=== PATIENT | male | born 1955 | race Caucasian/White ===

== ENCOUNTER 2024-10-15 11:30 | Emergency (ER) | payer OTHER ==
--- OUTSIDE RECORDS SUMMARY | 2024-10-15 11:51 | XMS REPORT | Continuity of Care Document ---
Author Name Unknown Address [address] [facility] [address] [place] [address] [facility] Address [address] [facility] [address] [place] [address] Care Team Providers Care Margarine Maker Name Role Phone AMINATA REZA Primary Care Physician Sarah LESTER Batista Attending Clinician VINEET Dickinson Attending Clinician UnavailVINEET Alvares Attending Clinician Moises Drummond Unassigned, [place] Attending Clinician U navailLA Casey Attending Clinician Sarahv LA Lockhart Attending Clinician Aminata Ramirez MD Attending Clinician + [phone] Lester Maya MD Attending Clinician Vineet Ibarra DO Attending Clinician AMINATA REZA Attending Clinician Daniel Clement RT, Maria Del Rosario C Attending Clinician Moises Acosta RN, Vince Nesbitt Attending Clinician Unavail BILL Chairez Attending Clinician Victorino Wilson MD Attending Clinician Annette Diaz DO Attending Clinician [phone] Bill Davenport MD Attending Clinician Mikie JONES, Candice Santo Attending Clinician GENIA Kendrick Attending Clinician Unavaila ble ATANASOV, STRAHIL T Attending Clinician Unavaila ernie Vega RN, Shakira Attending Clinician Unavailable TRISH ADAMS Attending Clinician Unavailyolis Garcia MD, Chetna Pulido Attending Clinician [phone] Sophia REDD, Trish Pretty Attending Clinician [phone] Nancy CRONIN Attending Clinician Unavailable Nancy CRONIN Attending Clinician Unavailable Nancy Chávez Attending Clinician [phone] Libia REDD, Aminata Turner Attending Clinician + [phone] Francesco REDD, Lester DunneHErika Attending Clinician + [phone] Vineet Ibarra DO Attending Clinician [phone] Erin JONES, Derek Quinones Attending Clinician Unavail able OCTAVIA WINTER Attending Clinician Unavaila ernie WINTER, OCTAVIA Attending Clinician Unavaila ernie Winter MD, Octavia Attending Clinician [phone] Sarah REDD, Brandon Grande Attending Clinician + Sheila Adams MD Attending Clinician [phone] Sun REDD, [facility] Attending Clinician + [phone] Doctor Unassigned, [place] Attending Clinician U INDIO Keys Attending Clinician Unavaila Indio Gutierrez Attending Clinician [phone] Lab, Ang - Db Attending Clinician Unavailable TEVIN ZIMMER Attending Clinician Unavailable Monique Rider MD Attending Clinician [phone] MONIQUE RIDER Attending Clinician Unavailable WALTER PEDROZA Attending Clinician Unavailable WALTER PEDROZA Attending Clinician Unavailable NEAL LIMON Attending Clinician Unavailable Lexus REDD, Demetris Attending Clinician [phone] ELIZABETH TA Attending Clinician Unavailab MADINA Cancino Attending Clinician Unavailab Madina Cancino DO Attending Clinician [phone] CHRISTIANA HERNANDEZ Attending Clinician Unavail able CHRISTIANA HERNANDEZ Attending Clinician Unavail able LENNIE REYES Attending Clinician Unavailable Amy PIG CASTERLennie Cabrera Attending Clinician [phone] ASHWINI REDD Attending Clinician Unavailable Maria Del Rosario Acevedo Attending Clinician Unavailab MANJU Araujo Attending Clinician Unavailab CHETNA Chaparro Attending Clinician UnavailChetna Page MD Attending Clinician [phone] CORRY LEMHAN Attending Clinician Unavailable Corry Lehman DO Attending Clinician [phone] Shakira Vega RN Attending Clinician Unavailable SHER MO Attending Clinician Unavaila ernie Mo ACNPSher Attending Clinician + [phone] ANNETTE DIAZ Attending Clinician Unavailable Annette Diaz DO Attending Clinician [phone] TIANA ROUSSEAU Attending Clinician Unavailable Onelia PIG CASTER, Tiana Attending Clinician [phone] Manju Morales Attending Clinician + [phone] Nurse, [facility] Attending Clinician Un available SANDRA MENDEZ Attending Clinician Unavaila Niyah Sofia MA Attending Clinician Unavailyolis cedeno 2, Adc Lab Attending Clinician Unavailable LILI CALDERON Attending Clinician UnavailLili Lua MD Attending Clinician [phone] Radiology Attending Clinician Unavailable RADIOLOGY Attending Clinician Unavailable Faculty, Vascular Surg Attending Clinician Unava ilCamilo Gonsalez MD Attending Clinician [phone] Elvira Reza MD Attending Clinician [phone] CAMILO COOMBS Attending Clinician Unavailable WADE LU Attending Clinician Unavailable ANNETTE DIAZ Admitting Clinician Unavailable Annette Diaz DO Admitting Clinician [phone] TRISH ADAMS Admitting Clinician UnavailTrish Jimenez MD Admitting Clinician [phone] Nancy CRONIN Admitting Clinician Unavailable BRANDON SMITH Admitting Clinician Unav LESTER Salazar Admitting Clinician Unavaila VINEET Trent Admitting Clinician Unavailable MADINA JAMES Admitting Clinician CHETNA Snowden Admitting Clinician Annette Burrell DO Admitting Clinician [phone] Libia REDD, Elvira Admitting Clinician [phone] Payers Payer Name Policy Type Policy Number Effective Date Expirati on Date Source MEDICARE PART A \\T\\ B [id number] 2020 00:00:00 [place] [id number] 2020 00:00:00 [facility] [id number] 00:00:00 Problems Condition Name Condition Details Condition Category Status Onset Date Resolution Date Last Treatment Date Treating Clinician Comments Source COPD exacerbati on COPD exacerbati on Disease Active 05-19 00:00: 00 [facility] Acute respirator y failure Acute respirator y failure Disease Active 8- 00:00: 00 [facility] Atypical chest pain Atypical chest pain Disease Active 04-06 00:00: 00 [facility] Acute on chronic heart failure with preserved ejection fraction (HFpEF) Acute on chronic heart failure with preserved ejection fraction (HFpEF) Disease Active 8 00:00: 00 [facility] PAF (paroxysma l atrial fibrillati on) PAF (paroxysma l atrial fibrillati on) Disease Active 8- 00:00: 00 [facility] Paroxysmal atrial flutter Paroxysmal atrial flutter Disease Active 8- 00:00: 00 [facility] Dyslipidem ia Dyslipidem ia Disease Active 8-12 00:00: 00 [facility] Coronary artery disease involving [place] coronary artery of [place] heart with angina pectoris Coronary artery disease involving [place] coronary artery of [place] heart with angina pectoris Disease Active 8- 00:00: 00 [facility] NICKERSON (dyspnea on exertion) NICKERSON (dyspnea on exertion) Disease Active 8-12 00:00: 00 [facility] 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 Disease Active 8-12 00:00: 00 [facility] Bradycardi a Bradycardi a Disease Active 8-12 00:00: 00 [facility] Respirator y distress Respirator y distress Disease Active 5-16 00:00: 00 [facility] Chronic obstructiv e pulmonary disease with acute exacerbati on Chronic obstructiv e pulmonary disease with acute exacerbati on Disease Active 5-16 00:00: 00 [facility] Thrush Thrush Disease Active 1-18 00:00: 00 [facility] Cellulitis Cellulitis Disease Active 5-19 00:00: 00 [facility] Cigarette nicotine dependence , uncomplica rita Cigarette nicotine dependence , uncomplica rita Disease Active 03-03 00:00: 00 [facility] Cigarette nicotine dependence , uncomplica rita Cigarette nicotine dependence , uncomplica rita Disease Active 03-03 00:00: 00 [facility] Chest pain Chest pain Disease Active 03-03 00:00: 00 [facility] Obesity (BMI 30-39.9) Obesity (BMI 30-39.9) Disease Active 03-03 00:00: 00 [facility] PAD (periphera l artery disease) PAD (periphera l artery disease) Disease Active 03-03 00:00: 00 [facility] Essential hypertensi on Essential hypertensi on Disease Active 03-03 00:00: 00 [facility] Chronic diastolic congestive heart failure Chronic diastolic congestive heart failure Disease Active 03-03 00:00: 00 [facility] Bilateral lower leg cellulitis Bilateral lower leg cellulitis Disease Active 03-03 00:00: 00 [facility] Cigarette smoker Cigarette smoker Disease Active 03-03 00:00: 00 [facility] Allergies, Adverse Reactions, Alerts Allergy Name Allergy Type Status Severity Reaction(s) Onset Date Inactive Date Treating Clinician Comments Source NO KNOWN ALLERGIE S Drug Class Active [facility] Social History Social Habit Start Date Stop Date Quantity Comments Source History of tobacco use 1969 00:00:00 Cigarette Smoker [facility] Gender identity Univ ers[facility] Sexual orientation U [facility] Cigarette pack-years 2024-05-19 00:00:00 2024-05-19 00:00:00 [facility] Cigarettes smoked current (pack per day) - Reported 2024-05-19 00:00:00 2024-05-19 00:00:00 [facility] Alcoholic beverage intake 2024-01-27 00:00:00 2024-01-27 00:00:00 Ex-drinker (finding) [facility] Tobacco use and exposure 2024-01-06 00:00:00 2024-01-06 00:00:00 Smokeless tobacco non-user [facility] Alcohol intake 2023-12-03 00:00:00 2023-12-03 00:00:00 Ex-drinker (finding) [facility] History of Social function 2023-11-05 00:00:00 2023-11-05 00:00:00 [facility] Exposure to SARS-CoV-2 (event) 2022-12-08 00:00:00 2022-12-18 10:05:00 Not sure [facility] Sex assigned at 1955 00:00:00 1955 00:00:00 [facility] Smoking Status Start Date Stop Date Source Smokes tobacco daily 2024-01-06 00:00:00 [facility] Medications Ordered Medication Name Filled Medication Name Start Date Stop Date Current Medication? Ordering Clinician Indication Dosage Frequency Signature (SIG) Comments Components Source tamsulosin 0.4 mg 24 hr capsule 2023-08 00:00: 00 Yes [id number] 01 .4mg Take 1 capsule by mouth at bedtime. [facility] furosemide (LASIX) 40 mg tablet 2023-08 00:00: 00 Yes [id number] 40mg Take 1 tablet by mouth every morning and evening. [facility] amLODIPine 5 mg tablet 2023-08 00:00: 00 Yes [id number] 5mg Take 1 tablet by mouth every morning. [facility] DIAZEPAM 2 mg tablet 2023-08 00:00: 00 Yes [id number] TAKE ONE TABLET BY MOUTH THREE TIMES A DAY NEEDED FOR ANXIETY [facility] METOPROLOL TARTRATE 50 mg tablet 2023-08 00:00: 00 07-07 00:00 :00 No [id number] 50mg TAKE 1 TABLET BY MOUTH TWICE DAILY [facility] diazePAM (VALIUM) 2 mg tablet 2023-08 0 00:00: 00 06-15 00:00 :00 No [id number] 2mg Take 1 tablet by mouth 3 (three) times daily as needed for Anxiety. [facility] aspirin 81 mg EC tablet 05-23 00:00: 00 Yes [id number] 81mg Take 1 tablet by mouth in the morning. [facility] vitamin B-12 1,000 mcg tablet 05-23 00:00: 00 Yes [id number] 1000ug Take 1 tablet by mouth in the morning. [facility] lisinopriL 40 mg tablet 05-23 00:00: 00 06-23 04:59 :00 No [id number] 40mg Take 1 tablet by mouth in the morning for 30 days. [facility] predniSONE 20 mg tablet 05-23 00:00: 00 05-27 04:59 :00 No [id number] 40mg Take 2 tablets by mouth in the morning for 3 days. [facility] furosemide (LASIX) tablet 40 mg 05-22 23:00: 00 Yes 40mg 40 mg, Oral, BIDPC, First dose on Sat05/22/24 at 1800, Until Discontinu ed, Routine [facility] potassium chloride in water 10 mEq/100 mL RTU 10 mEq 05-22 16:00: 00 05-22 20:06 :00 No 10meq 10 mEq, IV Piggyback, Q2H ES, 3 doses, First dose (after last modificati on) on Sat05/22/24 at 1100, Last dose on Sat05/22/24 at 1500, Administer over 60 Minutes, [address] [facility] KCL (KLOR-CON M20) tablet 20 mEq 05-22 14:45: 00 05-22 15:24 :00 No 20meq 20 mEq, Oral, ONCE, 1 dose, On Sat05/22/24 at 0945, Routine [facility] aspirin EC tablet 81 mg 05-22 14:00: 00 Yes 81mg 81 mg, Oral, DAILY, First dose on Sat05/22/24 at 0900, Until Discontinu ed, Routine [facility] lisinopriL (PRINIVIL,Z ESTRIL) tablet 40 mg 05-22 14:00: 00 Yes 40mg 40 mg, Oral, DAILY, First dose (after last modificati on) on Sat05/22/24 at 0900, [facility]contin[facility] (CYANOCOBAL LYNN) tablet 1,000 mcg 05-22 14:00: 00 Yes 1000ug 1,000 mcg, Oral, DAILY, First dose on Sat05/22/24 at 0900, Until Discontinu ed, Routine [facility] predniSONE (DELTASONE) tablet 40 mg 05-22 14:00: 00 05-26 13:59 :00 No 40mg 40 mg, Oral, DAILY, 4 doses, First dose on Sat05/22/24 at 0900, Last dose on Sat05/25/24 at 0900, Routine [facility] spironolact one (ALDACTONE) tablet 25 mg 05-22 13:00: 00 Yes 25mg 25 mg, Oral, BID, First dose on Sat05/22/24 at 0800, Until Discontinu ed, Routine [facility] ferrous sulfate tablet 325 mg 05-22 13:00: 00 Yes 325mg 325 mg, Oral, BID MEALS, First dose on Sat05/22/24 at 0800, Until Discontinu ed, Routine [facility] KCL (KLOR-CON M20) tablet 40 mEq 05-22 13:00: 00 05-23 12:59 :00 No 40meq 40 mEq, Oral, BID, 2 doses, First dose on Sat05/22/24 at 0800, Last dose on Sat05/22/24 at 1999, Routine [facility] potassium chloride in water 10 mEq/100 mL RTU 10 mEq 05-22 13:00: 00 05-22 15:23 :52 No 10meq 10 mEq, IV Piggyback, Q1H, 4 doses, First dose on Sat05/22/24 at 0800, Last dose on Sat05/22/24 at 1100, Administer over 60 Minutes, 100 mL [facility] furosemide (LASIX) injection 40 mg 05-22 12:30: 00 05-22 13:51 :02 No 40mg 40 mg, Slow IV Push, BIDAC, First dose (after last modificati on) on Sat05/22/24 at 0730, Until Discontinu ed, Routine [facility] morpHINE (4 mg/mL) injection 4 mg 05-22 03:00: 00 05-22 02:19 :00 No 4mg 4 mg, Slow IV Push, ONCE, 1 dose, On Sat05/21/24 at 2200, Routine [facility] docusate (COLACE) capsule 100 mg 05-22 01:00: 00 Yes 100mg 100 mg, Oral, BID, First dose on Sat05/21/24 at 2000, Until Discontinu ed, Routine [facility] docusate 100 mg capsule 05-22 00:00: 00 Yes [id number] 100mg Take 1 capsule by mouth in the morning and 1 capsule in the evening. [facility] ferrous sulfate 325 mg (65 mg iron) tablet 05-22 00:00: 00 06-22 04:59 :00 No [id number] 325mg Take 1 tablet by mouth in the morning and 1 tablet in the evening. Take with meals. Do all this for 30 days. [facility] furosemide 40 mg tablet 05-22 00:00: 00 06-22 04:59 :00 No [id number] 00 40mg Take 1 tablet by mouth 2 (two) times daily after breakfast and dinner for 30 days. [facility] spironolact one 25 mg tablet 05-22 00:00: 00 06-22 04:59 :00 No [id number] 00 25mg Take 1 tablet by mouth in the morning and 1 tablet in the evening. Do all this for 30 days. [facility] metoprolol succinate XL (TOPROL XL) tablet 12.5 mg 05-21 14:00: 00 Yes 12.5mg 12.5 mg, Oral, DAILY, First dose (after last modificati on) on Sat05/21/24 at 0900, Until Discontinu ed, Routine [facility] rivaroxaban (XARELTO) tablet 20 mg 05-21 14:00: 00 05-22 01:09 :37 No 20mg 20 mg, Oral, DAILY, First dose on Sat05/21/24 at 0900, Until Discontinu ed, Routine [facility] atorvastati n (LIPITOR) tablet 40 mg 05-21 02:00: 00 Yes 40mg 40 mg, Oral, QHS, First dose on Sat05/20/24 at 2100, Until Discontinu ed, Routine [facility] methylPREDN ISolone sod succ (SOLU-MEDRO L (PF)) injection 40 mg 05-21 01:00: 00 05-21 14:23 :38 No 40mg 40 mg, Intravenou s, Q12H, First dose (after last modificati on) on Sat05/20/24 at 2000, Until Discontinu ed, 1 mL [facility] FOLIC ACID 1 mg tablet 05-21 00:00: 00 Yes [id number] TAKE 1 TABLET BY MOUTH EVERY DAY [facility] diazePAM (VALIUM) tablet 2.5 mg 05-20 19:24: 50 Yes 2.5mg 2.5 mg, Oral, TIDPRN, Starting on Sat05/20/24 at 1424, Until Discontinu ed, Routine, Anxiety [facility] hydrocortis one (ANUSOL-HC) suppository 25 mg 05-20 17:32: 23 Yes 25mg 25 mg, Rectal, BIDPRN, Starting on Sat05/20/24 at 1232, Until Discontinu ed, Routine, Rectal itching/pa in [facility] ipratropium -albuteroL (DUONEB) 0.5 mg-3 mg(2.5 mg base)/3 mL nebulizer solution 3 mL 05-20 14:15: 00 Yes 3mL 3 mL, Inhalation , Q4H, First dose (after last reorder) on Sat05/20/24 at 0915, Until Discontinu ed, [facility] ([facility]IX) injection 40 mg 05-20 14:15: 00 05-22 12:02 :31 No 40mg 40 mg, Slow IV Push, Q12H, First dose on Sat05/20/24 at 0915, Until Discontinu ed, Routine [facility] tamsulosin (FLOMAX) capsule 0.4 mg 05-20 14:00: 00 Yes .4mg 0.4 mg, Oral, DAILY, First dose on Sat05/20/24 at 0900, Until Discontinu ed, Routine [facility] foLIC acid (FOLATE) tablet 1 mg 05-20 14:00: 00 Yes 1mg 1 mg, Oral, DAILY, First dose on Sat05/20/24 at 0900, Until Discontinu ed, Routine [facility] clopidogreL (PLAVIX) 75 mg tablet 75 mg 05-20 14:00: 00 Yes 75mg 75 mg, Oral, DAILY, First dose on Sat05/20/24 at 0900, Until Discontinu ed, Routine [facility] rivaroxaban (XARELTO) tablet 20 mg 05-20 14:00: 00 05-20 14:53 :02 No 20mg 20 mg, Oral, DAILY, First dose on Sat05/20/24 at 0900, Until Discontinu ed, [facility] lisinopri[facility] (PRINIVIL,Z ESTRIL) tablet 40 mg 05-20 13:00: 00 05-22 01:11 :15 No 40mg 40 mg, Oral, BID, First dose on Sat05/20/24 at 0800, Until Discontinu ed [facility] metoprolol succinate XL (TOPROL XL) tablet 12.5 mg 05-20 13:00: 00 05-20 14:13 :35 No 12.5mg 12.5 mg, Oral, BID, First dose on Sat05/20/24 at 0800, Until Discontinu ed, Routine [facility] SERTraline (ZOLOFT) tablet 100 mg 05-20 11:00: 00 Yes 100mg 100 mg, Oral, BID AT 0600 - 1800, First dose on Sat05/20/24 at 0600, Until Discontinu ed, Routine [facility] methylPREDN ISolone sod succ (SOLU-MEDRO L (PF)) injection 40 mg 05-20 05:00: 00 05-20 14:10 :28 No 40mg 40 mg, Intravenou s, Q6H, First dose on Sat05/20/24 at 0000, Until Discontinu ed, [address] [facility] nicotine (NICODERM) 21 mg/24 hr patch 1 Patch 05-20 03:15: 00 Yes 1{patch } 1 Patch, Topical, Administer over 24 Hours, Q24H, First dose on Sat05/19/24 at 2215, Until Discontinu ed, Routine [facility] traZODone (DESYREL) tablet 50 mg 05-20 02:45: 00 Yes 50mg 50 mg, Oral, QHS, First dose (after last modificati on) on Sat05/19/24 at 2145, Until Discontinu ed, Routine [facility] ipratropium -albuteroL (DUONEB) 0.5 mg-3 mg(2.5 mg base)/3 mL nebulizer solution 3 mL 05-20 02:36: 41 Yes 3mL 3 mL, Inhalation , QIDPRN, Starting on Sat05/19/24 at 2136, Until Discontinu ed, Routine, Wheezing [facility] traMADoL (ULTRAM) tablet 50 mg 05-20 02:10: 39 Yes 50mg 50 mg, Oral, Q6HPRN, Starting on Sat05/19/24 at 2110, Until Discontinu ed, Routine, Pain (scale 4-6) [facility] ondansetron (ZOFRAN (PF)) injection 4 mg 05-19 21:45: 00 05-19 21:35 :00 No 4mg 4 mg, Slow IV Push, ONCE, 1 dose, On Sat05/19/24 at 1645, SAMANTA [facility] ipratropium -albuteroL (DUONEB) 0.5 mg-3 mg(2.5 mg base)/3 mL nebulizer solution 3 mL 05-19 21:15: 00 05-19 20:27 :00 No 3mL 3 mL, Inhalation , ONCE NOW, 1 dose, On Sat05/19/24 at 1615, Routine [facility] traMADoL 25 mg tablet 05-19 20:16: 40 Yes 25mg Take 1 tablet by mouth in the morning and 1 tablet at noon and 1 tablet in the evening. [facility] diazePAM (VALIUM) injection 1 mg 05-19 20:00: 00 05-19 19:50 :00 No 1mg 1 mg, Slow IV Push, ONCE, 1 dose, On Sat05/19/24 at 1500, STAT [facility] ipratropium -albuteroL (DUONEB) 0.5 mg-3 mg(2.5 mg base)/3 mL nebulizer solution 3 mL 05-19 19:45: 00 05-19 18:47 :00 No 3mL 3 mL, Inhalation , ONCE, 1 dose, On Sat05/19/24 at 1445, Routine [facility] magnesium sulfate in water 2 gram/50 mL (4 %) infusion 2 g 05-19 19:15: 00 05-19 19:10 :00 No 2g 2 g, IV Piggyback, Administer over 20 Minutes, ONCE, 1 dose, On Sat05/19/24 at 1415, Routine [facility] azithromyci n (ZITHROMAX) tablet 500 mg 05-19 18:15: 00 05-19 19:16 :00 No 500mg 500 mg, Oral, ONCE, 1 dose, On Sat05/19/24 at 1315, SAMANTA, Reason for Anti-Infec tive: Documented Infection, Documented Infection Site: Respirator y, Duration of Therapy: Once (ED) [facility] umeclidiniu m (INCRUSE ELLIPTA) 62.5 mcg/actuati on DsDv 05-18 00:00: 00 Yes [id number] 1{puff} Inhale 1 Puff in the morning. [facility] tiotropium 18 mcg inhalation 05-12 00:00: 00 05-18 00:00 :00 No [id number] 18ug Inhale 1 capsule in the morning. [facility] ATORVASTATI N 40 mg tablet 04-29 00:00: 00 Yes [id number] 40mg TAKE 1 TABLET BY MOUTH AT BEDTIME. [facility] metoprolol succinate XL 25 mg 24 hr tablet 04-29 00:00: 00 Yes [id number] 12.5mg Take 0.5 tablets by mouth in the morning and 0.5 tablets in the evening. [facility] XARELTO 20 mg tablet 04-29 00:00: 00 05-22 00:00 :00 No [id number] 20mg TAKE 1 TABLET BY MOUTH DAILY [facility] SERTraline 100 mg tablet 04-14 00:00: 00 Yes [id number] 100mg Take 1 tablet by mouth in the morning and 1 tablet in the evening. [facility] KCL 20 mEq tablet 04-10 00:00: 00 05-11 04:59 :00 No [id number] 20meq Take 1 tablet by mouth in the morning for 30 days. [facility] aspirin 81 mg chewable tablet 04-10 00:00: 00 05-11 04:59 :00 No [id number] 81mg Take 1 tablet by mouth in the morning for 30 days. [facility] nicotine 21 mg/24 hr patch 04-10 00:00: 00 05-09 04:59 :00 No [id number] 1{patch } Apply 1 Patch to area(s) in the morning for 28 days. [facility] predniSONE 20 mg tablet 04-10 00:00: 04-14 00:00 :00 No [id number] Take 2 tablets by mouth daily for 3 days, THEN 1 tablet daily for 3 days, THEN 0.5 tablets daily for 3 days. [facility] azithromyci n (ZITHROMAX) tablet 500 mg 04-09 20:00: 00 04-09 19:09 :00 No 500mg 500 mg, Oral, DAILY, 1 dose, First dose on Luzmaria 04/09/24 at 1500, Routine, Reason for Anti-Infec tive: Empiric Therapy for Suspected Infection, Empiric Therapy Site: Respirator y, Duration of therapy: 72 hours [facility] hydrocortis one (ANUSOL-HC) suppository 25 mg 04-09 17:51: 00 Yes 25mg 25 mg, Rectal, QDAILYPRN, Starting on Luzmaria 04/09/24 at 1251, Until Discontinu ed, Routine, Rectal itching/pa in [facility] KCL (KLOR-CON M20) tablet 40 mEq 04-09 15:15: 04-09 15:02 :00 No 40meq 40 mEq, Oral, ONCE, 1 dose, On Luzmaria 04/09/24 at 1015, Routine [facility] albuterol 90 mcg/actuati on inhaler 04-09 00:00: 00 Yes [id number] 2{puff} Inhale 2 Puffs every 4 (four) hours as needed for Wheezing or Shortness of Breath. [facility] hydrocortis one 25 mg suppository 04-09 00:00: 00 Yes [id number] 25mg Insert 1 Suppositor y into rectum once daily as needed for Rectal itching/pa in for up to 30 doses. [facility] metoprolol tartrate 25 mg tablet 04-09 00:00: 00 05-10 04:59 :00 No [id number] 12.5mg Take 0.5 tablets by mouth in the morning and 0.5 tablets in the evening. Do all this for 30 days. [facility] doxycycline hyclate 100 mg capsule 04-09 00:00: 00 04-17 04:59 :00 No [id number] 100mg Take 1 capsule by mouth every 12 (twelve) hours for 7 days. [facility] albuterol 2.5 mg /3 mL (0.083 %) nebulizer solution 04-09 00:00: 00 04-15 04:59 :00 No [id number] 2.5mg Inhale 3 mL every 4 (four) hours for 30 doses. May also nebulize one extra every 6 hours. [facility] iron sucrose (VENOFER) 200 mg in NaCl 0.9% (NS) 100 mL infusion 04-09 00:00: 00 04-09 06:26 :00 No 200mg 200 mg, IV Infusion, ONCE, Administer over 1.5 Hours, On Sat04/08/24 at 1900, For 1 dose, Monitor for signs and symptoms for at least 30 minutes following completion of infusion. [facility] KCL (KLOR-CON M20) tablet 20 mEq 04-08 22:45: 00 Yes 20meq 20 mEq, Oral, DAILY, First dose on Sat04/08/24 at 1745, Until Discontinu ed, Routine [facility] predniSONE (DELTASONE) tablet 40 mg 04-08 14:00: 00 Yes 40mg 40 mg, Oral, DAILY, First dose on Sat04/08/24 at 0900, Until Discontinu ed, Routine [facility] azithromyci n (ZITHROMAX) 500 mg in NaCl 0.9% (NS) 250 mL VIAL-MATE IV piggyback 04-07 23:15: 00 04-09 18:49 :30 No 500mg 500 mg, IV Piggyback, Q24H ABX, 3 doses, First dose on Sat04/07/24 at 1815, Last dose on Sat04/09/24 at 1815, Administer over 60 Minutes, 250 mL, Reason for Anti-Infec tive: Empiric Therapy for Suspected Infection, Empiric Therapy Site: Respirator y, Duration of therapy: 72 hours [facility] metoprolol tartrate (LOPRESSOR) tablet 12.5 mg 04-07 22:15: 00 Yes 12.5mg 12.5 mg, Oral, BID, First dose on Sat04/07/24 at 1715, Until Discontinu ed, Routine [facility] nicotine (NICODERM) 21 mg/24 hr patch 1 Patch 04-07 22:15: 00 Yes 1{patch } 1 Patch, Topical, Administer over 24 Hours, DAILY, First dose (after last modificati on) on Sat04/07/24 at 1715, Until Discontinu ed, SAMANTA [facility] ALPRAZolam (XANAX) tablet 0.5 mg 04-07 22:13: 55 Yes .5mg 0.5 mg, Oral, TIDPRN, Starting on Sat04/07/24 at 1713, Until Discontinu ed, Routine, Anxiety [facility] amLODIPine (NORVASC) tablet 10 mg 04-07 14:00: 00 Yes 10mg 10 mg, Oral, DAILY, First dose (after last modificati on) on Sat04/07/24 at 0900, Until Discontinu ed, Routine [facility] tamsulosin (FLOMAX) capsule 0.4 mg 04-07 14:00: 00 Yes .4mg 0.4 mg, Oral, DAILY, First dose on Sat04/07/24 at 0900, Until Discontinu ed, Routine [facility] furosemide (LASIX) tablet 80 mg 04-07 14:00: 00 Yes 80mg 80 mg, Oral, QAM+PM, First dose on Sat04/07/24 at 0900, Until Discontinu ed, [facility] (F[facility]ATE) [facility] 1 mg 04-07 14:00: 00 Yes 1mg 1 mg, Oral, DAILY, First dose on Sat04/07/24 at 0900, Until Discontinu ed, Routine [facility] clopidogreL (PLAVIX) 75 mg tablet 75 mg 04-07 14:00: 00 Yes 75mg 75 mg, Oral, DAILY, First dose on Sat04/07/24 at 0900, Until Discontinu ed, Routine [facility] aspirin chewable tablet 81 mg 04-07 14:00: 00 Yes 81mg 81 mg, Oral, DAILY, First dose on Sat04/07/24 at 0900, Until Discontinu ed, Routine [facility] SERTraline (ZOLOFT) tablet 100 mg 04-07 13:00: 00 Yes 100mg 100 mg, Oral, BID, First dose on Sat04/07/24 at 0800, Until Discontinu ed, Routine [facility] lisinopriL (PRINIVIL,Z ESTRIL) tablet 40 mg 04-07 13:00: 00 Yes 40mg 40 mg, Oral, BID, First dose on Sat04/07/24 at 0800, Until Discontinu ed [facility] methylPREDN ISolone sod succ (SOLU-MEDRO L (PF)) injection 40 mg 04-07 11:00: 00 04-07 22:04 :10 No 40mg 40 mg, Intravenou s, Q6H, First dose (after last reorder) on Sat04/07/24 at 0600, Until Discontinu ed, [facility] methylpredn isolone sod succ (SOLU-MEDRO L) injection 80 mg 04-07 09:45: 00 04-07 09:45 :00 No 80mg 80 mg, Intravenou s, ONCE, 1 dose, On Sat04/07/24 at 0445, 2 mL [facility] furosemide (LASIX) injection 40 mg 04-07 09:30: 00 04-07 08:46 :00 No 40mg 40 mg, IV Push, ONCE, 1 dose, On Sat04/07/24 at 0430, SAMANTA [facility] traZODone (DESYREL) tablet 50 mg 04-07 02:00: 00 Yes 50mg 50 mg, Oral, QHS, First dose on Sat04/06/24 at 2100, Until Discontinu ed, Routine [facility] gabapentin (NEURONTIN) capsule 300 mg 04-07 02:00: 00 Yes 300mg 300 mg, Oral, QHS, First dose on Sat04/06/24 at 2100, Until Discontinu ed, Routine [facility] atorvastati n (LIPITOR) tablet 80 mg 04-07 02:00: 00 Yes 80mg 80 mg, Oral, QHS, First dose on Sat04/06/24 at 2100, Until Discontinu ed, Routine [facility] traMADoL (ULTRAM) tablet 50 mg 04-07 01:51: 26 Yes 50mg 50 mg, Oral, Q4HPRN, Starting on Sat04/06/24 at 2051, Until Discontinu ed, SAMANTA, Pain (scale 4-6), Pain (scale 7-10) [facility] enoxaparin (LOVENOX) injection 40 mg 04-06 22:00: 00 04-07 01:01 :44 No 40mg 40 mg, Subcutaneo us, DAILY, First dose on Sat04/06/24 at 1700, Until Discontinu ed, Routine [facility] perflutren protein-A microsphr (OPTISON) injection 3 mL 04-06 21:30: 00 04-06 21:30 :00 No [id number] 3mL 3 mL, IV Push, ONCE, 1 dose, On Sat04/06/24 at 1630, Routine [facility] nicotine (NICODERM) 21 mg/24 hr patch 1 Patch 04-06 20:30: 00 04-07 20:03 :00 No 1{patch } 1 Patch, Topical, Administer over 24 Hours, ONCE, 1 dose, On Sat04/06/24 at 1530, [facility] acetaminoph en (TYLENOL) tablet 650 mg 04-06 20:07: 07 Yes 650mg 650 mg, Oral, Q6HPRN, Starting on Sat04/06/24 at 1507, Until Discontinu ed, Routine, Pain (scale 1-3) [facility] traMADoL (ULTRAM) tablet 50 mg 04-06 20:00: 00 04-06 19:49 :00 No 50mg 50 mg, Oral, ONCE, 1 dose, On Sat04/06/24 at 1500, [facility] furosemide (LASIX) injection 40 mg 04-06 19:45: 00 04-06 19:51 :00 No 40mg 40 mg, IV Push, ONCE, 1 dose, On Sat04/06/24 at 1445, [facility] ipratropium -albuteroL (DUONEB) 0.5 mg-3 mg(2.5 mg base)/3 mL nebulizer solution 3 mL 04-06 17:00: 00 Yes 3mL 3 mL, Inhalation , QID, First dose on Sat04/06/24 at 1200, Until Discontinu ed, SAMANTA [facility] methylPREDN ISolone sod succ (SOLU-MEDRO L (PF)) injection 40 mg 04-06 16:30: 00 04-06 16:29 :00 No 40mg 40 mg, Intravenou s, ONCE, 1 dose, On Sat04/06/24 at 1130, [facility] -al[facility] (DUONEB) 0.5 mg-3 mg(2.5 mg base)/3 mL nebulizer solution 3 mL 04-02 19:15: 00 04-02 18:29 :00 No 3mL 3 mL, Inhalation , ONCE, 1 dose, On Luzmaria 04/02/24 at 1415, Routine [facility] methylpredn isolone sod succ (SOLU-MEDRO L) injection 125 mg 04-02 17:00: 00 04-02 16:20 :00 No 125mg 125 mg, Intravenou s, ONCE, 1 dose, On Luzmaria 04/02/24 at 1200, Routine [facility] ipratropium -albuteroL (DUONEB) 0.5 mg-3 mg(2.5 mg base)/3 mL nebulizer solution 3 mL 04-02 17:00: 00 04-02 16:20 :00 No 3mL 3 mL, Inhalation , ONCE, 1 dose, On Luzmaria 04/02/24 at 1200, Routine [facility] traMADoL (ULTRAM) tablet 50 mg 04-02 16:35: 00 04-02 16:40 :00 No 50mg 50 mg, Oral, ONCE, 1 dose, On Luzmaria 04/02/24 at 1145, Routine [facility] predniSONE 20 mg tablet 04-02 00:00: 00 04-09 00:00 :00 No [id number] 1 PO BID x 4 days [facility] albuterol 2.5 mg /3 mL (0.083 %) nebulizer solution 04-02 00:00: 00 04-09 00:00 :00 No [id number] 2.5mg Inhale 3 mL every 4 (four) hours. May also nebulize one extra every 6 hours. [facility] ALBUTEROL 90 mcg/actuati on inhaler 03-16 00:00: 00 04-09 00:00 :00 No [id number] INHALE 2 PUFFS BY MOUTH EVERY FOUR HOURS NEEDED FOR WHEEZING OR SHORTNESS OF BREATH [facility] mupirocin 2 % ointment 03-04 00:00: 00 05-22 00:00 :00 No [id number] Apply to area(s) 3 (three) times daily. [facility] ALBUTEROL 90 mcg/actuati on inhaler 02-19 00:00: 00 Yes [id number] INHALE 2 PUFFS BY MOUTH EVERY FOUR HOURS NEEDED FOR WHEEZING OR SHORTNESS OF BREATH [facility] LISINOPRIL 40 mg tablet 02-13 00:00: 00 05-22 00:00 :00 No [id number] 40mg TAKE 1 TABLET BY MOUTH 2 (TWO) TIMES DAILY. [facility] ALBUTEROL 90 mcg/actuati on inhaler 01-23 00:00: 00 02-19 00:00 :00 No [id number] INHALE 2 PUFFS BY MOUTH EVERY FOUR HOURS NEEDED FOR WHEEZING OR SHORTNESS OF BREATH [facility] SERTRALINE 100 mg tablet 01-16 00:00: 00 04-14 00:00 :00 No [id number] TAKE 1 TABLET BY MOUTH TWICE DAILY [facility] clopidogreL 75 mg tablet 01-14 00:00: 00 01-10 04:59 :00 No [id number] 75mg Take 1 tablet by mouth in the morning for 360 days. [facility] rivaroxaban 15 mg tablet 01-14 00:00: 00 04-09 00:00 :00 No [id number] 15mg Take 1 tablet by mouth in the morning. Indication s: prevention of thromboemb olism in paroxysmal atrial fibrillati on [facility] nicotine 21 mg/24 hr patch 01-14 00:00: 00 02-28 04:59 :00 No [id number] 1{patch } Apply 1 Patch to area(s) every 24 (twenty-fo ur) hours for 44 days. [facility] aspirin 81 mg chewable tablet 01-14 00:00: 00 01-22 04:59 :00 No [id number] 81mg Take 1 tablet by mouth in the morning for 7 days. [facility] furosemide (LASIX) tablet 80 mg 01-13 22:00: 00 01-14 01:23 :39 No 80mg 80 mg, Oral, QAM+PM, First dose (after last modificati on) on Sat01/14/24 at 1700, Until Discontinu ed, Routine [facility] rivaroxaban (XARELTO) tablet 15 mg 01-13 17:00: 00 01-14 01:23 :39 No 15mg 15 mg, Oral, DAILY, First dose on Sat01/14/24 at 1200, Until Discontinu ed, Routine [facility] acetaZOLAMI DE (DIAMOX) injection 500 mg 01-13 16:00: 00 01-13 17:06 :00 No 500mg 500 mg, Slow IV Push, ONCE, 1 dose, On Sat01/14/24 at 1100, Routine [facility] aspirin 81 mg chewable tablet 01-13 15:49: 12 01-13 00:00 :00 No 81mg Take 1 tablet by mouth in the morning. [facility] amLODIPine (NORVASC) tablet 5 mg 01-13 15:15: 00 01-14 01:23 :39 No 5mg 5 mg, Oral, DAILY, First dose on Sat01/14/24 at 1015, Until Discontinu ed, Routine [facility] furosemide (LASIX) tablet 40 mg 01-13 15:15: 00 01-13 17:06 :00 No 40mg 40 mg, Oral, ONCE, 1 dose, On Sat01/14/24 at 1015, Routine [facility] clopidogreL (PLAVIX) 75 mg tablet 75 mg 01-13 14:00: 00 01-14 01:23 :39 No 75mg 75 mg, Oral, DAILY, First dose on Sat01/14/24 at 0900, Until Discontinu ed, Routine [facility] KCL (KLOR-CON M20) tablet 20 mEq 01-13 13:00: 00 01-13 13:23 :00 No 20meq 20 mEq, Oral, ONCE, 1 dose, On Sat01/14/24 at 0800, Routine [facility] amLODIPine 5 mg tablet 01-13 00:00: 00 04-14 04:59 :00 No [id number] 5mg Take 1 tablet by mouth in the morning for 90 days. [facility] atorvastati n 80 mg tablet 01-13 00:00: 00 04-14 04:59 :00 No [id number] 80mg Take 1 tablet by mouth at bedtime for 90 days. [facility] furosemide 80 mg tablet 01-13 00:00: 00 04-14 04:59 :00 No [id number] 80mg Take 1 tablet by mouth every morning and evening for 90 days. [facility] gabapentin 300 mg capsule 01-13 00:00: 00 04-14 04:59 :00 No [id number] 300mg Take 1 capsule by mouth at bedtime for 90 days. [facility] furosemide (LASIX) tablet 40 mg 01-12 23:15: 00 01-13 15:00 :05 No 40mg 40 mg, Oral, QAM+PM, First dose (after last modificati on) on Sat01/13/24 at 1815, Until Discontinu ed, Routine [facility] clopidogreL (PLAVIX) 300 mg tablet 01-12 20:55: 35 01-12 20:55 :46 No ONCE INTRA PROCEDURE, Starting on Sat01/13/24 at 1555, Until Sat01/13/24 at 1555, Routine, CV Intraproce dure [facility] ticagrelor (BRILINTA) tablet 01-12 20:25: 07 01-12 20:55 :46 No ONCE INTRA PROCEDURE, Starting on Sat01/13/24 at 1525, Until Sat01/13/24 at 1555, Routine, CV Intraproce dure [facility] nitroglycer in (TRIDIL) 2 mg in 10 mL D5W for Cardiac Cath 01-12 20:00: 38 01-12 20:55 :46 No ONCE INTRA PROCEDURE, Starting on Sat01/13/24 at 1500, Until Sat01/13/24 at 1555, Routine, CV Intraproce dure [facility] lidocaine 1% (XYLOCAINE) 10 mg/mL (1 %) injection 01-12 19:56: 57 01-12 20:55 :46 No ONCE INTRA PROCEDURE, Starting on Sat01/13/24 at 1456, Until Sat01/13/24 at 1555, Routine, CV Intraproce dure [facility] lidocaine 1% (PF) (XYLOCAINE) injection 01-12 19:40: 38 01-12 20:55 :46 No ONCE INTRA PROCEDURE, Starting on Sat01/13/24 at 1440, Until Sat01/13/24 at 1555, Routine, CV Intraproce dure [facility] budesonide- formoteroL (SYMBICORT) 160-4.5 mcg/actuati on inhaler 1 Puff 01-12 14:45: 00 01-14 01:23 :39 No 1{puff} 1 Puff, Inhalation , DAILY, First dose on Sat01/13/24 at 0945, Until Discontinu ed [facility] KCL (KLOR-CON M20) tablet 40 mEq 01-12 12:15: 00 01-12 13:28 :00 No 40meq 40 mEq, Oral, ONCE, 1 dose, On Sat01/13/24 at 0715, Routine [facility] acetaZOLAMI DE (DIAMOX) injection 500 mg 01-11 14:45: 00 01-12 21:53 :13 No 500mg 500 mg, Slow IV Push, DAILY, 3 doses, First dose on Sat01/12/24 at 0945, Last dose on Sat01/14/24 at 0900, Routine [facility] KCL (KLOR-CON M20) tablet 20 mEq 01-11 12:30: 00 01-11 13:10 :00 No 20meq 20 mEq, Oral, ONCE, 1 dose, On Sat01/12/24 at 0730, Routine [facility] melatonin (MELATIN) tablet 3 mg 01-11 02:00: 00 01-14 01:23 :39 No 3mg 3 mg, Oral, QHS, First dose on 01/11/24 at 2100, Until Discontinu ed, Routine [facility] furosemide (LASIX) injection 80 mg 01-11 01:00: 00 01-12 21:31 :21 No 80mg 80 mg, Slow IV Push, Q12H, First dose (after last modificati on) on 01/11/24 at 2000, Until Discontinu ed, Routine [facility] nicotine (NICODERM) 21 mg/24 hr patch 1 Patch 01-10 15:15: 00 01-14 01:23 :39 No 1{patch } 1 Patch, Topical, Administer over 24 Hours, Q24H, First dose on 01/11/24 at 1015, Until Discontinu ed, Routine [facility] hydrOXYzine (ATARAX) tablet 50 mg 01-10 14:46: 18 01-14 01:23 :39 No 50mg 50 mg, Oral, Q6HPRN, Starting on 01/11/24 at 0946, Until 01/14/24 at 2022, Routine, Anxiety [facility] Potassium Bicarb-Citr ic Acid (EFFER-K) effervescen t tablet 40 mEq 01-10 12:30: 00 01-10 14:07 :00 No 40meq 40 mEq, Oral, ONCE, 1 dose, On 01/11/24 at 0730, Routine [facility] KCL (KLOR-CON M20) tablet 40 mEq 01-10 11:45: 00 01-10 11:53 :00 No 40meq 40 mEq, Oral, ONCE, 1 dose, On 01/11/24 at 0645, Routine [facility] hydrOXYzine (ATARAX) tablet 25 mg 01-10 10:30: 00 01-10 10:05 :00 No 25mg 25 mg, Oral, ONCE, 1 dose, On 01/11/24 at 0530, Routine [facility] gabapentin (NEURONTIN) capsule 300 mg 01-10 02:00: 00 01-14 01:23 :39 No 300mg 300 mg, Oral, QHS, First dose on Sat01/10/24 at 2100, Until Discontinu ed, Routine [facility] atorvastati n (LIPITOR) tablet 80 mg 01-10 02:00: 00 01-14 01:23 :39 No 80mg 80 mg, Oral, QHS, First dose on Sat01/10/24 at 2100, Until Discontinu ed, Routine [facility] furosemide (LASIX) injection 80 mg 01-10 01:00: 00 01-10 16:31 :11 No 80mg 80 mg, Slow IV Push, Q12H, First dose (after last modificati on) on Sat01/10/24 at 2000, Until Discontinu ed, Routine [facility] traMADoL (ULTRAM) tablet 50 mg 01-09 19:04: 13 01-14 01:23 :39 No 50mg 50 mg, Oral, Q6HPRN, Starting on Sat01/10/24 at 1404, Until Sat01/14/24 at 2023, Routine, Pain (scale 7-10) [facility] furosemide (LASIX) injection 40 mg 01-09 16:45: 00 01-09 16:45 :00 No 40mg 40 mg, IV Push, ONCE, 1 dose, On Sat01/10/24 at 1145, SAMANTA [facility] perflutren lipid microsphere s (DEFINITY) injection 2 mL 01-09 14:45: 00 01-09 14:45 :00 No [id number] 2mL 2 mL, IV Push, ONCE, 1 dose, On Sat01/10/24 at 0945, [facility] tamsulosin (FLOMAX) capsule 0.4 mg 01-09 14:00: 00 01-14 01:23 :39 No .4mg 0.4 mg, Oral, DAILY, First dose on Sat01/10/24 at 0900, Until Discontinu ed, Routine [facility] aspirin chewable tablet 81 mg 01-09 14:00: 00 01-14 01:23 :39 No 81mg 81 mg, Oral, DAILY, First dose on Sat01/10/24 at 0900, Until Discontinu ed, Routine [facility] amLODIPine (NORVASC) tablet 10 mg 01-09 14:00: 00 01-10 02:31 :46 No 10mg 10 mg, Oral, DAILY, First dose on Sat01/10/24 at 0900, Until Discontinu ed, Routine [facility] nicotine (NICODERM) 14 mg/24 hr patch 1 Patch 01-09 13:15: 00 01-10 14:04 :29 No 1{patch } 1 Patch, Topical, Administer over 24 Hours, Q24H, First dose on Sat01/10/24 at 0815, Until Discontinu ed, Routine [facility] ipratropium -albuteroL (DUONEB) 0.5 mg-3 mg(2.5 mg base)/3 mL nebulizer solution 3 mL 01-09 13:00: 00 01-14 01:23 :39 No 3mL 3 mL, Inhalation , QID, First dose on Sat01/10/24 at 0800, Until Discontinu ed, Routine [facility] SERTraline (ZOLOFT) tablet 100 mg 01-09 13:00: 00 01-14 01:23 :39 No 100mg 100 mg, Oral, BID, First dose on Sat01/10/24 at 0800, Until Discontinu ed, [facility] lisinopriL (PRINIVIL,Z ESTRIL) tablet 40 mg 01-09 13:00: 00 01-10 02:31 :22 No 40mg 40 mg, Oral, BID, First dose on Sat01/10/24 at 0800, Until Discontinu ed [facility] hydrOXYzine (ATARAX) tablet 25 mg 01-09 06:15: 00 01-09 06:21 :00 No 25mg 25 mg, Oral, ONCE, 1 dose, On Sat01/10/24 at 0115, Routine [facility] furosemide (LASIX) injection 40 mg 01-09 05:00: 00 01-09 16:40 :10 No 40mg 40 mg, Slow IV Push, Q12H, First dose on Sat01/10/24 at 0000, Until Discontinu ed, Routine [facility] predniSONE (DELTASONE) tablet 40 mg 01-09 04:45: 00 01-12 13:28 :00 No 40mg 40 mg, Oral, DAILY, 5 doses, First dose on Sat01/09/24 at 2345, Last dose on Sat01/13/24 at 0900, Routine [facility] HEPARIN SODIUM (PORCINE) 1,000 UNIT/ML BOLUS ACS ORDER SET 01-09 04:45: 00 01-09 06:28 :00 No 4000U 4,000 Units, IV Push, ONCE, 1 dose, On Sat01/09/24 at 2345, SAMANTA [facility] heparin 25,000 Units/250 mL (Premixed Bag) in 0.45 % NS 01-09 04:29: 28 01-13 16:51 :51 No 0U/h 0-2,750 Units/hr (0-27.5 mL/hr), IV Infusion, TITRATE, Parameters in Admin. Instr., Starting on Sat01/09/24 at 2329, Initiate dosing: -Patient 83 kg or under: 1,000 Units/hr (Calculate d dose at 12 units/kg/h r) -Patient over 83 k,000 units/hr DO NOT Exceed the MAXIMUM 1,000 units/hr for initiation of heparin drip. CAUTION - If LMWH given in ER, AVOID bolus and start next dose/drip 12 hrs after ER dosage. Must program rate using programmab le infusion pump. Check with the ordering provider first prior to any administra tion should the patient be on existing/a dditional anticoagul ant therapy. Range, Dosing and Testing: FOR [facility], AND [facility] ONLY - aPTT < 35: Bolus 5000 units, increase rate 300 units/hr - aPTT 35-44: Bolus 3000 units, increase rate 200 units/hr - aPTT 45-54: Increase rate 100 units/hr - aPTT 55-85: NO CHANGE - aPTT 86-95: Decrease rate 100 units/hr - aPTT 96-120: Hold 30 minutes, decrease rate 150 units/hr - aPTT > 120: Hold 60 minutes, decrease rate 200 units/hr Check aPTT 6 hours after initiation , then Q6H after every change, aPTT Q12H once therapeuti c levels are reached. FOR [facility] ONLY - aPTT < 40: Bolus 5000 units, increase rate 300 units/hr - aPTT 40-49: Bolus 3000 units, increase rate 200 units/hr - aPTT 50-59: Increase rate 100 units/hr - aPTT 60-85: NO CHANGE - aPTT 86-95: Decrease rate 100 units/hr - aPTT 96-120: Hold 30 minutes, decrease rate 150 units/hr - aPTT > 120: Hold 60 minutes, decrease rate 200 units/hr Check aPTT 6 hours after initiation , then Q6H after every change, aPTT Q12H once therapeuti c levels are reached. DO NOT ADJUST INITIAL BOLUS OR INITIAL INFUSION RATE. [facility] heparin (1,000 unit/mL, 10 mL vial) for Rebolusing 01-09 04:29: 28 01-13 16:51 :51 No 3000U FOR REBOLUSING , Starting on Sat01/09/24 at 2329, Until Sat01/14/24 at 1151, Routine, Dosing based on aPPT testing parameters (refer to continuous heparin drip order). [facility] ipratropium -albuteroL (DUONEB) 0.5 mg-3 mg(2.5 mg base)/3 mL nebulizer solution 3 mL 01-08 23:00: 00 01-08 21:57 :00 No 3mL 3 mL, Inhalation , ONCE, 1 dose, On Luzmaria 01/09/24 at 1800, Routine [facility] ondansetron (ZOFRAN (PF)) injection 4 mg 01-08 23:00: 00 01-08 22:44 :00 No 4mg 4 mg, Slow IV Push, ONCE, 1 dose, On Luzmaria 01/09/24 at 1800, SAMANTA [facility] morpHINE (2 mg/mL) injection 2 mg 01-08 23:00: 00 01-08 22:44 :00 No 2mg 2 mg, Slow IV Push, ONCE, 1 dose, On Luzmaria 01/09/24 at 1800, STAT [facility] methylpredn isolone sod succ (SOLU-MEDRO L) injection 125 mg 01-08 23:00: 00 01-08 22:44 :00 No 125mg 125 mg, Slow IV Push, ONCE, 1 dose, On Luzmaria 01/09/24 at 1800, Routine [facility] furosemide (LASIX) injection 40 mg 01-08 22:00: 00 01-08 22:44 :00 No 40mg 40 mg, IV Push, ONCE, 1 dose, On Luzmaria 01/09/24 at 1700, SAMANTA [facility] ipratropium -albuteroL (DUONEB) 0.5 mg-3 mg(2.5 mg base)/3 mL nebulizer solution 3 mL 01-08 21:30: 00 01-08 20:29 :00 No 3mL 3 mL, Inhalation , ONCE, 1 dose, On Luzmaria 01/09/24 at 1630, Routine [facility] tiotropium 18 mcg inhalation 01-08 00:00: 00 01-13 00:00 :00 No [id number] 18ug Inhale 1 capsule in the morning. [facility] metoprolol succinate XL 25 mg 24 hr tablet -13 00:00: 00 01-13 00:00 :00 No [id number] 25mg Take 1 tablet by mouth in the morning. [facility] doxycycline monohydrate 100 mg tablet 12-25 00:00: 00 01-02 04:59 :00 No [id number] 100mg Take 1 tablet by mouth in the morning and 1 tablet in the evening. Do all this for 7 days. [facility] predniSONE 20 mg tablet 12-25 00:00: 00 12-31 04:59 :00 No [id number] 40mg Take 2 tablets by mouth in the morning for 5 days. [facility] LEVOCETIRIZ INE 5 mg tablet 12-21 00:00: 00 01-13 00:00 :00 No [id number] 5mg TAKE 1 TABLET BY MOUTH EVERY EVENING. [facility] GABAPENTIN 300 mg capsule 12-19 00:00: 00 01-13 00:00 :00 No [id number] 300mg TAKE 1 CAPSULE BY MOUTH AT BEDTIME. [facility] XARELTO 20 mg tablet 12-19 00:00: 00 01-13 00:00 :00 No [id number] TAKE 1 TABLET BY MOUTH DAILY [facility] aspirin 81 mg chewable tablet 12-11 10:12: 19 01-13 00:00 :00 No 81mg Take 1 tablet by mouth in the morning. [facility] atorvastati n 80 mg tablet 12-11 00:00: 00 01-13 00:00 :00 No [id number] 80mg Take 1 tablet by mouth at bedtime. [facility] traZODone 50 mg tablet 12-02 00:00: 00 Yes [id number] 50mg Take 1 tablet by mouth at bedtime. [facility] amLODIPine 10 mg tablet 12-02 00:00: 00 01-13 00:00 :00 No [id number] 10mg Take 1 tablet by mouth in the morning. [facility] azithromyci n 500 mg tablet - 00:00: 00 01-13 00:00 :00 No [id number] 500mg Take 1 tablet by mouth in the morning. [facility] iopamidol (ISOVUE 370-500 mL) injection 80 mL 11-26 16:15: 00 11-26 15:49 :00 No [id number] 80mL 80 mL, Intravenou s, ONCE, 1 dose, On Sat11/27/23 at 1115, Routine [facility] nitroglycer in (NITROSTAT) sublingual tablet 0.8 mg 11-26 15:35: 00 11-26 15:17 :00 No [id number] .8mg 0.8 mg, Sublingual , ONCE, 1 dose, On Sat11/27/23 at 1045, Routine [facility] cephALEXin 500 mg tablet 11-04 00:00: 00 01-13 00:00 :00 No [id number] 500mg Take 1 tablet by mouth 4 (four) times daily. [facility] SERTRALINE 100 mg tablet 3-11 00:00: 00 01-16 00:00 :00 No [id number] TAKE 1 TABLET BY MOUTH TWICE DAILY [facility] fluticasone furoate-donato anteroL (BREO ELLIPTA) 200-25 mcg/dose DsDv 3- 00:00: 00 05-22 00:00 :00 No [id number] 1{puff} Inhale 1 Puff in the morning. [facility] furosemide 40 mg tablet 2- 00:00: 00 11-04 00:00 :00 No 40mg Take 1 tablet by mouth in the morning and 1 tablet in the evening. [facility] foLIC acid 1 mg tablet 2- 00:00: 00 05-21 00:00 :00 No [id number] TAKE 1 TABLET BY MOUTH EVERY DAY [facility] metoprolol tartrate 50 mg tablet 10-21 00:00: 00 01-05 00:00 :00 No 50mg TAKE 1 TABLET BY MOUTH TWICE DAILY [facility] atorvastati n 40 mg tablet 10-21 00:00: 00 12-11 00:00 :00 No [id number] 40mg TAKE 1 TABLET BY MOUTH AT BEDTIME. [facility] amLODIPine 5 mg tablet 10-21 00:00: 12-02 00:00 :00 No [id number] 5mg TAKE 1 TABLET BY MOUTH DAILY. [facility] VENTOLIN HFA 90 mcg/actuati on inhaler 10-09 00:00: 00 01-23 00:00 :00 No [id number] INHALE 2 PUFFS BY MOUTH EVERY FOUR HOURS NEEDED FOR WHEEZING OR SHORTNESS OF BREATH [facility] sulfur hexafluorid e microsphr (LUMASON) injection 5 mL 10-03 16:45: 00 10-03 15:47 :00 No [id number] 5mL 5 mL, Intravenou s, ONCE, 1 dose, On Sat10/03/23 at 1045, Routine
catering staff member approving Restricted medication : LESTER MAYA [facility] FOLIC ACID 1 mg tablet 09-19 00:00: 00 10-21 00:00 :00 No [id number] TAKE 1 TABLET BY MOUTH EVERY DAY [facility] LEVOCETIRIZ INE 5 mg tablet 09-18 00:00: 00 Yes [id number] 5mg TAKE 1 TABLET BY MOUTH EVERY EVENING. [facility] XARELTO 20 mg tablet 09-18 00:00: 00 Yes [id number] TAKE 1 TABLET BY MOUTH DAILY [facility] VENTOLIN HFA 90 mcg/actuati on inhaler 09-09 00:00: 00 10-09 00:00 :00 No [id number] INHALE 2 PUFFS BY MOUTH EVERY FOUR HOURS NEEDED FOR WHEEZING OR SHORTNESS OF BREATH [facility] FOLIC ACID 1 mg tablet 2022-08 00:00: 00 09-19 00:00 :00 No [id number] TAKE 1 TABLET BY MOUTH EVERY DAY [facility] GABAPENTIN 300 mg capsule 2022-08 00:00: 00 Yes [id number] 300mg TAKE 1 CAPSULE BY MOUTH AT BEDTIME. [facility] cephALEXin 500 mg tablet 2022-08 00:00: 00 11-04 00:00 :00 No [id number] 500mg Take 1 tablet by mouth 4 (four) times daily. [facility] SPIRIVA WITH HANDIHALER 18 mcg inhalation device 2022-08 00:00: 00 05-18 00:00 :00 No [id number] INHALE CONTENTS OF 1 CAPSULE VIA HANDIHALER EVERY DAY [facility] ADVAIR DISKUS 250-50 mcg/dose inhalation disk 2022-08 00:00: 00 10-24 00:00 :00 No [id number] INHALE 1 PUFF BY MOUTH EVERY 12 HOURS [facility] SERTraline 100 mg tablet 2022-08 00:00: 00 11-03 00:00 :00 No [id number] TAKE 1 TABLET BY MOUTH TWICE DAILY [facility] furosemide 20 mg tablet 2022-08 00:00: 00 01-13 00:00 :00 No [id number] 20mg Take 1 tablet by mouth every morning and evening. [facility] ATORVASTATI N 40 mg tablet 2022-08 00:00: 00 10-21 00:00 :00 No [id number] 40mg TAKE 1 TABLET BY MOUTH AT BEDTIME. [facility] FOLIC ACID 1 mg tablet 2022-08 00:00: 00 08-20 00:00 :00 No [id number] TAKE 1 TABLET BY MOUTH EVERY DAY [facility] ACETAZOLAMI DE 250 mg tablet 2022-08 00:00: 00 07-24 00:00 :00 No [id number] TAKE 1 TABLET BY MOUTH EVERY DAY [facility] ERGOCALCIFE ROL, VITAMIN D2, 1,250 mcg (50,000 unit) capsule 2022-08 00:00: 00 01-13 00:00 :00 No [id number] TAKE ONE CAPSULE BY MOUTH EVERY WEEK ON SATURDAY [facility] LISINOPRIL 40 mg tablet 2022-08 00:00: 00 01-13 00:00 :00 No [id number] 40mg TAKE 1 TABLET BY MOUTH 2 (TWO) TIMES DAILY. [facility] LEVOCETIRIZ INE 5 mg tablet 2022-08 00:00: 00 09-18 00:00 :00 No [id number] 5mg TAKE 1 TABLET BY MOUTH EVERY EVENING. [facility] XARELTO 20 mg tablet 2022-08 00:00: 00 09-18 00:00 :00 No [id number] TAKE 1 TABLET BY MOUTH DAILY [facility] METOPROLOL TARTRATE 50 mg tablet 2022-08 00:00: 00 07-24 00:00 :00 No [id number] TAKE 1 TABLET BY MOUTH TWICE DAILY [facility] FOLIC ACID 1 mg tablet 2022-08 00:00: 00 07-22 00:00 :00 No [id number] TAKE 1 TABLET BY MOUTH EVERY DAY [facility] ACETAZOLAMI DE 250 mg tablet 2022-08 00:00: 00 07-15 00:00 :00 No [id number] TAKE 1 TABLET BY MOUTH EVERY DAY [facility] tamsulosin 0.4 mg 24 hr capsule 2022-08 00:00: 00 07-08 00:00 :00 No [id number] 01 .4mg Take 1 capsule by mouth in the morning. [facility] FOLIC ACID 1 mg tablet 05-23 00:00: 00 06-21 00:00 :00 No [id number] TAKE 1 TABLET BY MOUTH EVERY DAY [facility] FUROSEMIDE 20 mg tablet 05-15 00:00: 00 07-24 00:00 :00 No [id number] TAKE 1 TABLET BY MOUTH EVERY DAY [facility] ACETAZOLAMI DE 250 mg tablet 05-15 00:00: 00 06-17 00:00 :00 No [id number] TAKE 1 TABLET BY MOUTH EVERY DAY [facility] nystatin 100,000 unit/mL suspension 05-01 00:00: 00 04-09 00:00 :00 No [id number] U Take 10 mL by mouth 4 (four) times daily. [facility] predniSONE 20 mg tablet 05-01 00:00: 00 07-24 00:00 :00 No [id number] 20mg Take 1 tablet by mouth in the morning. [facility] ciprofloxac in HCl (CIPRO) 500 mg tablet 05-01 00:00: 00 07-24 00:00 :00 No [id number] 500mg Take 1 tablet by mouth every 12 (twelve) hours. [facility] ATORVASTATI N 40 mg tablet 04-23 00:00: 00 07-22 00:00 :00 No [id number] 40mg TAKE 1 TABLET BY MOUTH AT BEDTIME. [facility] FOLIC ACID 1 mg tablet 04-23 00:00: 00 05-23 00:00 :00 No [id number] TAKE 1 TABLET BY MOUTH EVERY DAY [facility] ACETAZOLAMI DE 250 mg tablet 04-18 00:00: 00 05-15 00:00 :00 No [id number] TAKE 1 TABLET BY MOUTH EVERY DAY [facility] GABAPENTIN 300 mg capsule 8-04 00:00: 00 08-13 00:00 :00 No [id number] 300mg TAKE 1 CAPSULE BY MOUTH AT BEDTIME. [facility] valACYclovi r 1 gram tablet 7-31 00:00: 00 01-13 00:00 :00 No [id number] 1g Take 1 tablet by mouth in the morning and 1 tablet at noon and 1 tablet in the evening. [facility] XARELTO 20 mg tablet 03-22 00:00: 00 06-21 00:00 :00 No [id number] TAKE 1 TABLET BY MOUTH DAILY [facility] FOLIC ACID 1 mg tablet 03-22 00:00: 00 04-23 00:00 :00 No [id number] TAKE 1 TABLET BY MOUTH EVERY DAY [facility] ACETAZOLAMI DE 250 mg tablet 03-22 00:00: 00 04-18 00:00 :00 No [id number] TAKE 1 TABLET BY MOUTH EVERY DAY [facility] METOPROLOL TARTRATE 50 mg tablet 02-25 00:00: 00 06-21 00:00 :00 No [id number] TAKE 1 TABLET BY MOUTH TWICE DAILY [facility] LEVOCETIRIZ INE 5 mg tablet 02-19 00:00: 00 06-21 00:00 :00 No [id number] 5mg TAKE 1 TABLET BY MOUTH EVERY EVENING. [facility] ERGOCALCIFE ROL, VITAMIN D2, 1,250 mcg (50,000 unit) capsule 02-19 00:00: 00 06-21 00:00 :00 No [id number] TAKE ONE CAPSULE BY MOUTH EVERY WEEK ON SATURDAY [facility] ACETAZOLAMI DE 250 mg tablet 02-13 00:00: 00 03-22 00:00 :00 No [id number] TAKE 1 TABLET BY MOUTH EVERY DAY [facility] methylPREDN ISolone (MEDROL, MARIA A,) 4 mg tablets 02-05 00:00: 00 07-24 00:00 :00 No [id number] Take by mouth SEE-INSTRU CTIONS. follow package directions [facility] azithromyci n 500 mg tablet 02-05 00:00: 00 07-24 00:00 :00 No [id number] 500mg Take 1 tablet by mouth in the morning. [facility] VENTOLIN HFA 90 mcg/actuati on inhaler 01-01 00:00: 00 09-09 00:00 :00 No [id number] INHALE 2 PUFFS BY MOUTH EVERY FOUR HOURS NEEDED FOR WHEEZING OR SHORTNESS OF BREATH [facility] FOLIC ACID 1 mg tablet 01-01 00:00: 00 03-22 00:00 :00 No [id number] TAKE 1 TABLET BY MOUTH EVERY DAY [facility] ACETAZOLAMI DE 250 mg tablet 01-01 00:00: 00 02-13 00:00 :00 No [id number] TAKE 1 TABLET BY MOUTH EVERY DAY [facility] SERTRALINE 100 mg tablet 12-03 00:00: 00 08-05 00:00 :00 No [id number] TAKE 1 TABLET BY MOUTH TWICE DAILY [facility] ERGOCALCIFE ROL, VITAMIN D2, 1,250 mcg (50,000 unit) capsule 12-03 00:00: 00 02-19 00:00 :00 No [id number] TAKE ONE CAPSULE BY MOUTH EVERY WEEK ON SATURDAY [facility] FUROSEMIDE 20 mg tablet 12-03 00:00: 00 02-05 00:00 :00 No [id number] TAKE 1 TABLET BY MOUTH EVERY DAY [facility] ACETAZOLAMI DE 250 mg tablet 12-03 00:00: 00 01-01 00:00 :00 No [id number] TAKE 1 TABLET BY MOUTH EVERY DAY [facility] FOLIC ACID 1 mg tablet 12-03 00:00: 00 01-01 00:00 :00 No [id number] TAKE 1 TABLET BY MOUTH EVERY DAY [facility] VENTOLIN HFA 90 mcg/actuati on inhaler 12-03 00:00: 00 01-01 00:00 :00 No [id number] INHALE 2 PUFFS BY MOUTH EVERY FOUR HOURS NEEDED FOR WHEEZING OR SHORTNESS OF BREATH [facility] LEVOCETIRIZ INE 5 mg tablet 11-29 00:00: 00 02-19 00:00 :00 No [id number] 5mg TAKE 1 TABLET BY MOUTH EVERY EVENING. [facility] VENTOLIN HFA 90 mcg/actuati on inhaler 3-15 00:00: 00 12-03 00:00 :00 No [id number] INHALE 2 PUFFS BY MOUTH EVERY FOUR HOURS NEEDED FOR WHEEZING OR SHORTNESS OF BREATH [facility] AMLODIPINE 5 mg tablet 3-13 00:00: 00 10-21 00:00 :00 No [id number] 5mg TAKE 1 TABLET BY MOUTH DAILY. [facility] ATORVASTATI N 40 mg tablet 3-13 00:00: 00 04-23 00:00 :00 No [id number] 40mg TAKE 1 TABLET BY MOUTH AT BEDTIME. [facility] ACETAZOLAMI DE 250 mg tablet 3-13 00:00: 00 12-03 00:00 :00 No [id number] TAKE 1 TABLET BY MOUTH EVERY DAY [facility] FOLIC ACID 1 mg tablet 3-13 00:00: 00 12-03 00:00 :00 No [id number] TAKE 1 TABLET BY MOUTH EVERY DAY [facility] ATORVASTATI N 40 mg tablet 2-16 00:00: 00 11-05 00:00 :00 No [id number] 40mg TAKE 1 TABLET BY MOUTH AT BEDTIME. [facility] ACETAZOLAMI DE 250 mg tablet 2-09 00:00: 00 11-05 00:00 :00 No [id number] TAKE 1 TABLET BY MOUTH EVERY DAY [facility] FOLIC ACID 1 mg tablet 2-09 00:00: 00 11-05 00:00 :00 No [id number] TAKE 1 TABLET BY MOUTH EVERY DAY [facility] cloniDINE (CATAPRES-T TS 1) 0.1 mg/24 hr patch 1 Patch 09-27 15:00: 00 Yes 1{patch } 1 Patch, Transderma l (Apply To Skin), Administer over 7 Days, QWEEKLY, First dose on Sat09/27/22 at 0900, Until Discontinu ed, Routine [facility] loperamide (IMODIUM A-D) capsule 2 mg 09-26 21:00: 00 09-26 20:38 :00 No 2mg 2 mg, Oral, ONCE, 1 dose, On Sat09/26/22 at 1500, Routine [facility] VENTOLIN HFA 90 mcg/actuati on inhaler 09-25 00:00: 00 11-07 00:00 :00 No [id number] INHALE 2 PUFFS BY MOUTH EVERY FOUR HOURS NEEDED FOR WHEEZING OR SHORTNESS OF BREATH [facility] fluconazole 200 mg tablet 09-12 00:00: 00 12-13 00:00 :00 No [id number] 200mg Take 1 tablet by mouth in the morning. [facility] gabapentin 300 mg capsule 08-30 00:00: 00 03-29 00:00 :00 No [id number] 300mg Take 1 capsule by mouth at bedtime. [facility] PREDNISONE 20 mg tablet 08-28 00:00: 00 12-13 00:00 :00 No [id number] TAKE 1 TABLET(S) BY MOUTH EVERY MORNING AND EVERY EVENING [facility] ERGOCALCIFE ROL, VITAMIN D2, 1,250 mcg (50,000 unit) capsule 08-28 00:00: 00 12-03 00:00 :00 No [id number] TAKE ONE CAPSULE BY MOUTH EVERY WEEK ON SATURDAY [facility] FOLIC ACID 1 mg tablet 08-28 00:00: 00 10-04 00:00 :00 No [id number] TAKE 1 TABLET BY MOUTH EVERY DAY [facility] ACETAZOLAMI DE 250 mg tablet 08-28 00:00: 00 10-04 00:00 :00 No [id number] TAKE 1 TABLET BY MOUTH EVERY DAY [facility] fluticasone propion-mc meteroL (ADVAIR DISKUS) 250-50 mcg/dose inhalation disk 2021-08 00:00: 00 08-08 00:00 :00 No [id number] INHALE 1 PUFF BY MOUTH EVERY 12 HOURS [facility] FUROSEMIDE 20 mg tablet 2021-08 00:00: 00 12-03 00:00 :00 No [id number] TAKE 1 TABLET BY MOUTH EVERY DAY [facility] fluconazole 100 mg tablet 2021-08 00:00: 00 09-12 00:00 :00 No [id number] 100mg Take 1 tablet by mouth in the morning. [facility] XARELTO 20 mg tablet 2021-08 00:00: 00 03-22 00:00 :00 No [id number] TAKE 1 TABLET BY MOUTH DAILY [facility] METOPROLOL TARTRATE 50 mg tablet 2021-08 00:00: 00 02-25 00:00 :00 No [id number] TAKE 1 TABLET BY MOUTH TWICE DAILY [facility] PREDNISONE 20 mg tablet 2021-08 00:00: 00 08-28 00:00 :00 No [id number] TAKE 1 TABLET BY MOUTH EVERY MORNING AND EVERY EVENING [facility] ERGOCALCIFE ROL, VITAMIN D2, 1,250 mcg (50,000 unit) capsule 2021-08 00:00: 00 08-28 00:00 :00 No [id number] TAKE ONE CAPSULE BY MOUTH EVERY WEEK ON SATURDAY [facility] FOLIC ACID 1 mg tablet 2021-08 00:00: 00 08-28 00:00 :00 No [id number] TAKE 1 TABLET BY MOUTH EVERY DAY [facility] ACETAZOLAMI DE 250 mg tablet 2021-08 00:00: 00 08-28 00:00 :00 No [id number] TAKE 1 TABLET BY MOUTH EVERY DAY [facility] FUROSEMIDE 40 mg tablet 2021-08 00:00: 00 07-24 00:00 :00 No [id number] 40mg TAKE 1 TABLET BY MOUTH IN THE MORNING. [facility] LISINOPRIL 40 mg tablet 2021-08 00:00: 00 06-21 00:00 :00 No [id number] 40mg TAKE 1 TABLET BY MOUTH 2 (TWO) TIMES DAILY. [facility] LEVOCETIRIZ INE 5 mg tablet 2021-08 00:00: 00 11-29 00:00 :00 No [id number] 5mg TAKE 1 TABLET BY MOUTH EVERY EVENING. [facility] PREDNISONE 20 mg tablet 2021-08 00:00: 00 07-26 00:00 :00 No [id number] TAKE 1 TABLET BY MOUTH EVERY MORNING AND EVERY EVENING [facility] LEVOCETIRIZ INE 5 mg tablet 2021-08 0- 00:00: 00 07-03 00:00 :00 No [id number] 5mg TAKE 1 TABLET BY MOUTH EVERY EVENING. [facility] PREDNISONE 20 mg tablet 2021-08 00:00: 00 07-03 00:00 :00 No [id number] TAKE 1 TABLET BY MOUTH EVERY MORNING AND EVERY EVENING [facility] amoxicillin 500 mg capsule 05-14 00:00: 00 08-01 00:00 :00 No [id number] 500mg Take 1 capsule by mouth in the morning and 1 capsule at noon and 1 capsule in the evening. [facility] furosemide 40 mg tablet 05-14 00:00: 00 07-03 00:00 :00 No [id number] 40mg Take 1 tablet by mouth in the morning. [facility] predniSONE 20 mg tablet 05-14 00:00: 00 05-31 00:00 :00 No [id number] 20mg Take 1 tablet by mouth in the morning and 1 tablet in the evening. [facility] FUROSEMIDE 20 mg tablet 05-07 00:00: 00 08-13 00:00 :00 No [id number] TAKE 1 TABLET BY MOUTH EVERY DAY [facility] atorvastati n 40 mg tablet 8-15 00:00: 00 10-11 00:00 :00 No [id number] 40mg TAKE 1 TABLET BY MOUTH AT BEDTIME. [facility] traZODone 100 mg tablet 8-15 00:00: 00 09-12 00:00 :00 No [id number] 100mg Take 1 tablet by mouth at bedtime. [facility] albuterol 90 mcg/actuati on inhaler 7-18 00:00: 00 09-25 00:00 :00 No [id number] 2{puff} Inhale 2 Puffs every 4 (four) hours as needed for Wheezing or Shortness of Breath. [facility] ondansetron 4 mg tablet 18 00:00: 00 08-01 00:00 :00 No [id number] 1 or 2 tablets every 6 hours as needed for nausea [facility] LEVOCETIRIZ INE 5 mg tablet 7-05 00:00: 00 05-31 00:00 :00 No [id number] 5mg TAKE 1 TABLET BY MOUTH EVERY EVENING. [facility] tiotropium (SPIRIVA WITH HANDIHALER) 18 mcg inhalation 6-24 00:00: 00 08-08 00:00 :00 No [id number] 18ug Inhale 1 capsule daily. [facility] SERTraline 100 mg tablet 5-05 00:00: 00 12-03 00:00 :00 No [id number] 100mg Take 1 tablet by mouth 2 (two) times daily. [facility] amLODIPine 5 mg tablet 4-07 00:00: 00 11-05 00:00 :00 No [id number] 5mg Take 1 tablet by mouth daily. [facility] levocetiriz ine (XYZAL) 5 mg tablet 3-31 00:00: 00 02-27 00:00 :00 No [id number] 5mg Take 1 tablet by mouth every evening. [facility] clindamycin 300 mg capsule 3-31 00:00: 00 11-30 00:00 :00 No [id number] 300mg Take 1 capsule by mouth 3 (three) times daily. [facility] cefUROXime 500 mg tablet 3-16 00:00: 00 11-30 00:00 :00 No [id number] 500mg Take 1 tablet by mouth 2 (two) times daily. [facility] traZODone 100 mg tablet 3-11 00:00: 00 04-09 00:00 :00 No [id number] 100mg Take 1 tablet by mouth daily. [facility] SERTraline 100 mg tablet 3-08 00:00: 00 12-28 00:00 :00 No [id number] 100mg Take 1 tablet by mouth daily. [facility] amLODIPine 2.5 mg tablet 3-08 00:00: 00 11-30 00:00 :00 No [id number] 2.5mg Take 1 tablet by mouth daily. [facility] atorvastati n 40 mg tablet 2-22 00:00: 00 01-15 00:00 :00 No [id number] 40mg Take 1 tablet by mouth at bedtime. [facility] predniSONE 5 mg tablet 2-22 00:00: 00 01-13 00:00 :00 No 5mg Take 5 mg by mouth 3 (three) times daily. [facility] FUROSEMIDE 20 mg tablet 2-02 00:00: 00 05-07 00:00 :00 No 20mg TAKE 1 TABLET BY MOUTH DAILY [facility] lisinopriL 40 mg tablet 1-25 00:00: 00 07-03 00:00 :00 No [id number] 40mg Take 1 tablet by mouth 2 (two) times daily. [facility] Nebulizer & Compressor For Neb Juli 1-20 00:00: 00 Yes [id number] Use as directed [facility] Nebulizer & Compressor For Neb Juli 1-20 00:00: 00 01-13 00:00 :00 No [id number] Use as directed [facility] albuterol 2.5 mg /3 mL (0.083 %) nebulizer solution -20 00:00: 00 01-13 00:00 :00 No [id number] 2.5mg Inhale 3 mL every 6 (six) hours as needed for Wheezing or Shortness of Breath. [facility] rivaroxaban (XARELTO) 20 mg tablet 2020-08 2 00:00: 00 08-06 00:00 :00 No [id number] 20mg Take 1 tablet by mouth daily. 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 [facility] fluticasone propion-cm meteroL (ADVAIR DISKUS) 250-50 mcg/dose inhalation disk 2020-08 00:00: 00 08-16 00:00 :00 No [id number] 1{puff} Inhale 1 Puff every 12 (twelve) hours. [facility] albuterol 90 mcg/actuati on inhaler 2020-08 00:00: 00 05-14 00:00 :00 No 2{puff} Inhale 2 Puffs every 4 (four) hours as needed for Wheezing or Shortness of Breath. [facility] Immunizations Ordered Immunization Name Filled Immunization Name Date Status Comments Source Influenza, adjuvanted, trivalent, PF (FLUAD) 2024-07-07 00:00:00 Completed [facility] TD Pres-Free 2024-03-04 00:00:00 Completed [facility] TD Pres-Free 2024-03-04 00:00:00 Completed [facility] TD Pres-Free 2024-03-04 00:00:00 Completed [facility] TD Pres-Free 2024-03-04 00:00:00 Completed [facility] TD Pres-Free 2024-03-04 00:00:00 Completed [facility] TD Pres-Free 2024-03-04 00:00:00 Completed [facility] TD Pres-Free 2024-03-04 00:00:00 Completed [facility] Influenza Virus Vaccine,quad Im,preserve Free 65+ (FLUAD) 2022-08-01 00:00:00 Completed SARS-COV-2 COVID-19 VACCINE 12 YRS+, BIVALENT 0.5ML, IM, (MODERNA-BLUE TOP) 2022-08-01 00:00:00 Completed Influenza Virus Vaccine,quad Im,preserve Free 65+ (FLUAD) 2022-08-01 00:00:00 Completed SARS-COV-2 COVID-19 VACCINE 12 YRS+, BIVALENT 0.5ML, IM, (MODERNA-BLUE TOP) 2022-08-01 00:00:00 Completed Influenza Virus Vaccine,quad Im,preserve Free 65+ (FLUAD) 2022-08-01 00:00:00 Completed SARS-COV-2 COVID-19 VACCINE 12 YRS+, BIVALENT 0.5ML, IM, (MODERNA-BLUE TOP) 2022-08-01 00:00:00 Completed Influenza Virus Vaccine,quad Im,preserve Free 65+ (FLUAD) 2022-08-01 00:00:00 Completed SARS-COV-2 COVID-19 VACCINE 12 YRS+, BIVALENT 0.5ML, IM, (MODERNA-BLUE TOP) 2022-08-01 00:00:00 Completed Influenza Virus Vaccine,quad Im,preserve Free 65+ (FLUAD) 2022-08-01 00:00:00 Completed SARS-COV-2 COVID-19 VACCINE 12 YRS+, BIVALENT 0.5ML, IM, (MODERNA-BLUE TOP) 2022-08-01 00:00:00 Completed Influenza Virus Vaccine,quad Im,preserve Free 65+ (FLUAD) 2022-08-01 00:00:00 Completed SARS-COV-2 COVID-19 VACCINE 12 YRS+, BIVALENT 0.5ML, IM, (MODERNA-BLUE TOP) 2022-08-01 00:00:00 Completed Influenza Virus Vaccine,quad Im,preserve Free 65+ (FLUAD) 2022-08-01 00:00:00 Completed SARS-COV-2 COVID-19 VACCINE 12 YRS+, BIVALENT 0.5ML, IM, (MODERNA-BLUE TOP) 2022-08-01 00:00:00 Completed Influenza Virus Vaccine,quad Im,preserve Free 65+ 2022-08-01 00:00:00 Completed [facility] SARS-COV-2 COVID-19 VACCINE 12 YRS+, BIVALENT 0.5ML, IM, (MODERNA BOOSTER) 2022-08-01 00:00:00 Completed [facility] Influenza Virus Vaccine,quad Im,preserve Free 65+ 2022-08-01 00:00:00 Completed [facility] SARS-COV-2 COVID-19 VACCINE 12 YRS+, BIVALENT 0.5ML, IM, (MODERNA BOOSTER) 2022-08-01 00:00:00 Completed [facility] Influenza Virus Vaccine,quad Im,preserve Free 65+ 2022-08-01 00:00:00 Completed [facility] SARS-COV-2 COVID-19 VACCINE 12 YRS+, BIVALENT 0.5ML, IM, (MODERNA BOOSTER) 2022-08-01 00:00:00 Completed [facility] Influenza Virus Vaccine,quad Im,preserve Free 65+ 2022-08-01 00:00:00 Completed [facility] SARS-COV-2 COVID-19 VACCINE 12 YRS+, BIVALENT 0.5ML, IM, (MODERNA BOOSTER) 2022-08-01 00:00:00 Completed [facility] Influenza Virus Vaccine,quad Im,preserve Free 65+ 2022-08-01 00:00:00 Completed [facility] SARS-COV-2 COVID-19 VACCINE 12 YRS+, BIVALENT 0.5ML, IM, (MODERNA BOOSTER) 2022-08-01 00:00:00 Completed [facility] Influenza Virus Vaccine,quad Im,preserve Free 65+ 2022-08-01 00:00:00 Completed [facility] SARS-COV-2 COVID-19 VACCINE 12 YRS+, BIVALENT 0.5ML, IM, (MODERNA BOOSTER) 2022-08-01 00:00:00 Completed [facility] Influenza Virus Vaccine,quad Im,preserve Free 65+ 2022-08-01 00:00:00 Completed [facility] SARS-COV-2 COVID-19 VACCINE 12 YRS+, BIVALENT 0.5ML, IM, (MODERNA BOOSTER) 2022-08-01 00:00:00 Completed [facility] Influenza Virus Vaccine,quad Im,preserve Free 65+ 2022-08-01 00:00:00 Completed [facility] SARS-COV-2 COVID-19 VACCINE 12 YRS+, BIVALENT 0.5ML, IM, (MODERNA BOOSTER) 2022-08-01 00:00:00 Completed [facility] Influenza Virus Vaccine,quad Im,preserve Free 65+ 2022-08-01 00:00:00 Completed [facility] SARS-COV-2 COVID-19 VACCINE 12 YRS+, BIVALENT 0.5ML, IM, (MODERNA BOOSTER) 2022-08-01 00:00:00 Completed [facility] Influenza Virus Vaccine,quad Im,preserve Free 65+ 2022-08-01 00:00:00 Completed [facility] SARS-COV-2 COVID-19 VACCINE 12 YRS+, BIVALENT 0.5ML, IM, (MODERNA BOOSTER) 2022-08-01 00:00:00 Completed [facility] Influenza Virus Vaccine,quad Im,preserve Free 65+ 2022-08-01 00:00:00 Completed [facility] SARS-COV-2 COVID-19 VACCINE 12 YRS+, BIVALENT 0.5ML, IM, (MODERNA BOOSTER) 2022-08-01 00:00:00 Completed [facility] Influenza Virus Vaccine,quad Im,preserve Free 65+ 2022-08-01 00:00:00 Completed [facility] SARS-COV-2 COVID-19 VACCINE 12 YRS+, BIVALENT 0.5ML, IM, (MODERNA BOOSTER) 2022-08-01 00:00:00 Completed [facility] Influenza Virus Vaccine,quad Im,preserve Free 65+ 2022-08-01 00:00:00 Completed [facility] SARS-COV-2 COVID-19 VACCINE 12 YRS+, BIVALENT 0.5ML, IM, (MODERNA BOOSTER) 2022-08-01 00:00:00 Completed [facility] Influenza Virus Vaccine,quad Im,preserve Free 65+ 2022-08-01 00:00:00 [facility] [facility] SARS-COV-2 COVID-19 VACCINE 12 YRS+, BIVALENT 0.5ML, IM, (MODERNA BOOSTER) 2022-08-01 00:00:00 Completed [facility] Influenza Virus Vaccine,quad Im,preserve Free 65+ 2022-08-01 00:00:00 Completed [facility] SARS-COV-2 COVID-19 VACCINE 12 YRS+, BIVALENT 0.5ML, IM, (MODERNA BOOSTER) 2022-08-01 00:00:00 Completed [facility] Influenza Virus Vaccine,quad Im,preserve Free 65+ 2022-08-01 00:00:00 Completed [facility] SARS-COV-2 COVID-19 VACCINE 12 YRS+, BIVALENT 0.5ML, IM, (MODERNA BOOSTER) 2022-08-01 00:00:00 Completed [facility] Influenza Virus Vaccine,quad Im,preserve Free 65+ 2022-08-01 00:00:00 Completed [facility] SARS-COV-2 COVID-19 VACCINE 12 YRS+, BIVALENT 0.5ML, IM, (MODERNA BOOSTER) 2022-08-01 00:00:00 Completed [facility] Influenza Virus Vaccine,quad Im,preserve Free 65+ 2022-08-01 00:00:00 Completed [facility] SARS-COV-2 COVID-19 VACCINE 12 YRS+, BIVALENT 0.5ML, IM, (MODERNA BOOSTER) 2022-08-01 00:00:00 Completed [facility] Influenza Virus Vaccine,quad Im,preserve Free 65+ 2022-08-01 00:00:00 Completed [facility] SARS-COV-2 COVID-19 VACCINE 12 YRS+, BIVALENT 0.5ML, IM, (MODERNA BOOSTER) 2022-08-01 00:00:00 Completed [facility] Influenza Virus Vaccine,quad Im,preserve Free 65+ 2022-08-01 00:00:00 Completed [facility] SARS-COV-2 COVID-19 VACCINE 12 YRS+, BIVALENT 0.5ML, IM, (MODERNA BOOSTER) 2022-08-01 00:00:00 Completed [facility] Influenza Virus Vaccine,quad Im,preserve Free 65+ 2022-08-01 00:00:00 Completed [facility] SARS-COV-2 COVID-19 VACCINE 12 YRS+, BIVALENT 0.5ML, IM, (MODERNA BOOSTER) 2022-08-01 00:00:00 Completed [facility] Influenza Virus Vaccine,quad Im,preserve Free 65+ 2022-08-01 00:00:00 Completed [facility] SARS-COV-2 COVID-19 VACCINE 12 YRS+, BIVALENT 0.5ML, IM, (MODERNA BOOSTER) 2022-08-01 00:00:00 Completed [facility] Influenza Virus Vaccine,quad Im,preserve Free 65+ 2022-08-01 00:00:00 Completed [facility] SARS-COV-2 COVID-19 VACCINE 12 YRS+, BIVALENT 0.5ML, IM, (MODERNA BOOSTER) 2022-08-01 00:00:00 Completed [facility] Influenza Virus Vaccine,quad Im,preserve Free 65+ 2022-08-01 00:00:00 Completed [facility] SARS-COV-2 COVID-19 VACCINE 12 YRS+, BIVALENT 0.5ML, IM, (MODERNA BOOSTER) 2022-08-01 00:00:00 Completed [facility] Influenza Virus Vaccine,quad Im,preserve Free 65+ 2022-08-01 00:00:00 Completed [facility] SARS-COV-2 COVID-19 VACCINE 12 YRS+, BIVALENT 0.5ML, IM, (MODERNA BOOSTER) 2022-08-01 00:00:00 Completed [facility] Influenza Virus Vaccine,quad Im,preserve Free 65+ 2022-08-01 00:00:00 Completed [facility] SARS-COV-2 COVID-19 VACCINE 12 YRS+, BIVALENT 0.5ML, IM, (MODERNA BOOSTER) 2022-08-01 00:00:00 Completed [facility] Influenza Virus Vaccine,quad Im,preserve Free 65+ 2022-08-01 00:00:00 Completed [facility] SARS-COV-2 COVID-19 VACCINE 12 YRS+, BIVALENT 0.5ML, IM, (MODERNA BOOSTER) 2022-08-01 00:00:00 Completed [facility] Influenza Virus Vaccine,quad Im,preserve Free 65+ 2022-08-01 00:00:00 Completed [facility] SARS-COV-2 COVID-19 VACCINE 12 YRS+, BIVALENT 0.5ML, IM, (MODERNA BOOSTER) 2022-08-01 00:00:00 Completed [facility] Influenza Virus Vaccine,quad Im,preserve Free 65+ 2022-08-01 00:00:00 Completed [facility] SARS-COV-2 COVID-19 VACCINE 12 YRS+, BIVALENT 0.5ML, IM, (MODERNA BOOSTER) 2022-08-01 00:00:00 Completed [facility] Influenza Virus Vaccine,quad Im,preserve Free 65+ 2022-08-01 00:00:00 Completed [facility] SARS-COV-2 COVID-19 VACCINE 12 YRS+, BIVALENT 0.5ML, IM, (MODERNA BOOSTER) 2022-08-01 00:00:00 Completed [facility] Influenza Virus Vaccine,quad Im,preserve Free 65+ 2022-08-01 00:00:00 Completed [facility] SARS-COV-2 COVID-19 VACCINE 12 YRS+, BIVALENT 0.5ML, IM, (MODERNA BOOSTER) 2022-08-01 00:00:00 Completed [facility] Influenza Virus Vaccine,quad Im,preserve Free 65+ 2022-08-01 00:00:00 Completed [facility] SARS-COV-2 COVID-19 VACCINE 12 YRS+, BIVALENT 0.5ML, IM, (MODERNA BOOSTER) 2022-08-01 00:00:00 Completed [facility] Influenza Virus Vaccine,quad Im,preserve Free 65+ 2022-08-01 00:00:00 Completed [facility] SARS-COV-2 COVID-19 VACCINE 12 YRS+, BIVALENT 0.5ML, IM, (MODERNA BOOSTER) 2022-08-01 00:00:00 Completed [facility] Influenza Virus Vaccine,quad Im,preserve Free 65+ 2022-08-01 00:00:00 Completed [facility] SARS-COV-2 COVID-19 VACCINE 12 YRS+, BIVALENT 0.5ML, IM, (MODERNA BOOSTER) 2022-08-01 00:00:00 Completed [facility] Influenza Virus Vaccine,quad Im,preserve Free 65+ 2022-08-01 00:00:00 Completed [facility] SARS-COV-2 COVID-19 VACCINE 12 YRS+, BIVALENT 0.5ML, IM, (MODERNA BOOSTER) 2022-08-01 00:00:00 Completed [facility] Influenza Virus Vaccine,quad Im,preserve Free 65+ 2022-08-01 00:00:00 Completed [facility] SARS-COV-2 COVID-19 VACCINE 12 YRS+, BIVALENT 0.5ML, IM, (MODERNA) 2022-08-01 00:00:00 Completed [facility] Influenza Virus Vaccine,quad Im,preserve Free 65+ 2022-08-01 00:00:00 Completed [facility] SARS-COV-2 COVID-19 VACCINE 12 YRS+, BIVALENT 0.5ML, IM, (MODERNA) 2022-08-01 00:00:00 Completed [facility] Influenza Virus Vaccine,quad Im,preserve Free 65+ 2022-08-01 00:00:00 Completed [facility] SARS-COV-2 COVID-19 VACCINE 12 YRS+, BIVALENT 0.5ML, IM, (MODERNA) 2022-08-01 00:00:00 Completed [facility] Influenza Virus Vaccine,quad Im,preserve Free 652022-08-01 00:00:00 Completed [facility] SARS-COV-2 COVID-19 VACCINE 12 YRS+, BIVALENT 0.5ML, IM, (MODERNA) 2022-08-01 00:00:00 Completed [facility] Influenza Virus Vaccine,quad Im,preserve Free 65+ 2022-08-01 00:00:00 Completed [facility] SARS-COV-2 COVID-19 VACCINE 12 YRS+, BIVALENT 0.5ML, IM, (MODERNA) 2022-08-01 00:00:00 Completed [facility] Influenza Virus Vaccine,quad Im,preserve Free 65+ 2022-08-01 00:00:00 Completed [facility] SARS-COV-2 COVID-19 VACCINE 12 YRS+, BIVALENT 0.5ML, IM, (MODERNA) 2022-08-01 00:00:00 Completed [facility] Influenza Virus Vaccine,quad Im,preserve Free 65+ 2022-08-01 00:00:00 Completed [facility] SARS-COV-2 COVID-19 VACCINE 12 YRS+, BIVALENT 0.5ML, IM, (MODERNA) 2022-08-01 00:00:00 Completed [facility] Influenza Virus Vaccine,quad Im,preserve Free 65+ 2022-08-01 00:00:00 Completed [facility] SARS-COV-2 COVID-19 VACCINE 12 YRS+, BIVALENT 0.5ML, IM, (MODERNA-BLUE TOP) 2022-08-01 00:00:00 Completed [facility] Influenza Virus Vaccine,quad Im,preserve Free 65+ 2022-08-01 00:00:00 Completed [facility] SARS-COV-2 COVID-19 VACCINE 12 YRS+, BIVALENT 0.5ML, IM, (MODERNA-BLUE TOP) 2022-08-01 00:00:00 Completed [facility] Influenza Virus Vaccine,quad Im,preserve Free 65+ 2022-08-01 00:00:00 Completed [facility] SARS-COV-2 COVID-19 VACCINE 12 YRS+, BIVALENT 0.5ML, IM, (MODERNA-BLUE TOP) 2022-08-01 00:00:00 Completed [facility] Influenza Virus Vaccine,quad Im,preserve Free 65+ 2022-08-01 00:00:00 Completed [facility] SARS-COV-2 COVID-19 VACCINE 12 YRS+, BIVALENT 0.5ML, IM, (MODERNA-BLUE TOP) 2022-08-01 00:00:00 Completed [facility] Influenza Virus Vaccine,quad Im,preserve Free 65+ 2022-08-01 00:00:00 Completed [facility] SARS-COV-2 COVID-19 VACCINE 12 YRS+, BIVALENT 0.5ML, IM, (MODERNA-BLUE TOP) 2022-08-01 00:00:00 Completed [facility] Influenza Virus Vaccine,quad Im,preserve Free 65+ 2022-08-01 00:00:00 Completed [facility] SARS-COV-2 COVID-19 VACCINE 12 YRS+, BIVALENT 0.5ML, IM, (MODERNA-BLUE TOP) 2022-08-01 00:00:00 Completed [facility] Influenza Virus Vaccine,quad Im,preserve Free 65+ 2022-08-01 00:00:00 Completed [facility] SARS-COV-2 COVID-19 VACCINE 12 YRS+, BIVALENT 0.5ML, IM, (MODERNA-BLUE TOP) 2022-08-01 00:00:00 Completed [facility] Influenza Virus Vaccine,quad Im,preserve Free 65+ 2022-08-01 00:00:00 Completed [facility] SARS-COV-2 COVID-19 VACCINE 12 YRS+, BIVALENT 0.5ML, IM, (MODERNA-BLUE TOP) 2022-08-01 00:00:00 Completed [facility] Influenza Virus Vaccine,quad Im,preserve Free 65+ 2022-08-01 00:00:00 Completed [facility] SARS-COV-2 COVID-19 VACCINE 12 YRS+, BIVALENT 0.5ML, IM, (MODERNA-BLUE TOP) 2022-08-01 00:00:00 Completed [facility] Influenza Virus Vaccine,quad Im,preserve Free 65+ 2022-08-01 00:00:00 Completed [facility] SARS-COV-2 COVID-19 VACCINE 12 YRS+, BIVALENT 0.5ML, IM, (MODERNA-BLUE TOP) 2022-08-01 00:00:00 Completed [facility] Influenza Virus Vaccine,quad Im,preserve Free 65+ 2022-08-01 00:00:00 Completed [facility] SARS-COV-2 COVID-19 VACCINE 12 YRS+, BIVALENT 0.5ML, IM, (MODERNA-BLUE TOP) 2022-08-01 00:00:00 Completed [facility] Influenza Virus Vaccine,quad Im,preserve Free 65+ 2022-08-01 00:00:00 Completed [facility] SARS-COV-2 COVID-19 VACCINE 12 YRS+, BIVALENT 0.5ML, IM, (MODERNA-BLUE TOP) 2022-08-01 00:00:00 Completed [facility] Influenza Virus Vaccine,quad Im,preserve Free 65+ 2022-08-01 00:00:00 Completed [facility] SARS-COV-2 COVID-19 VACCINE 12 YRS+, BIVALENT 0.5ML, IM, (MODERNA-BLUE TOP) 2022-08-01 00:00:00 Completed [facility] Influenza Virus Vaccine,quad Im,preserve Free 65+ 2022-08-01 00:00:00 Completed [facility] SARS-COV-2 COVID-19 VACCINE 12 YRS+, BIVALENT 0.5ML, IM, (MODERNA-BLUE TOP) 2022-08-01 00:00:00 Completed [facility] Influenza Virus Vaccine,quad Im,preserve Free 65+ 2022-08-01 00:00:00 Completed [facility] SARS-COV-2 COVID-19 VACCINE 12 YRS+, BIVALENT 0.5ML, IM, (MODERNA-BLUE TOP) 2022-08-01 00:00:00 Completed [facility] Influenza Virus Vaccine,quad Im,preserve Free 65+ 2022-08-01 00:00:00 Completed [facility] SARS-COV-2 COVID-19 VACCINE 12 YRS+, BIVALENT 0.5ML, IM, (MODERNA-BLUE TOP) 2022-08-01 00:00:00 Completed [facility] Influenza Virus Vaccine,quad Im,preserve Free 65+ 2022-08-01 00:00:00 Completed [facility] SARS-COV-2 COVID-19 VACCINE 12 YRS+, BIVALENT 0.5ML, IM, (MODERNA-BLUE TOP) 2022-08-01 00:00:00 Completed [facility] Influenza Virus Vaccine,quad Im,preserve Free 65+ 2022-08-01 00:00:00 Completed [facility] SARS-COV-2 COVID-19 VACCINE 12 YRS+, BIVALENT 0.5ML, IM, (MODERNA-BLUE TOP) 2022-08-01 00:00:00 Completed [facility] Influenza Virus Vaccine,quad Im,preserve Free 65+ 2022-08-01 00:00:00 Completed [facility] SARS-COV-2 COVID-19 VACCINE 12 YRS+, BIVALENT 0.5ML, IM, (MODERNA-BLUE TOP) 2022-08-01 00:00:00 Completed [facility] Influenza Virus Vaccine,quad Im,preserve Free 65+ 2022-08-01 00:00:00 Completed [facility] SARS-COV-2 COVID-19 VACCINE 12 YRS+, BIVALENT 0.5ML, IM, (MODERNA-BLUE TOP) 2022-08-01 00:00:00 Completed [facility] Influenza Virus Vaccine,quad Im,preserve Free 65+ 2022-08-01 00:00:00 Completed [facility] SARS-COV-2 COVID-19 VACCINE 12 YRS+, BIVALENT 0.5ML, IM, (MODERNA-BLUE TOP) 2022-08-01 00:00:00 Completed [facility] Influenza Virus Vaccine,quad Im,preserve Free 65+ 2022-08-01 00:00:00 Completed [facility] SARS-COV-2 COVID-19 VACCINE 12 YRS+, BIVALENT 0.5ML, IM, (MODERNA-BLUE TOP) 2022-08-01 00:00:00 Completed [facility] Influenza Virus Vaccine,quad Im,preserve Free 65+ 2022-08-01 00:00:00 Completed [facility] SARS-COV-2 COVID-19 VACCINE 12 YRS+, BIVALENT 0.5ML, IM, (MODERNA-BLUE TOP) 2022-08-01 00:00:00 Completed [facility] Influenza Virus Vaccine,quad Im,preserve Free 65+ 2022-08-01 00:00:00 Completed [facility] SARS-COV-2 COVID-19 VACCINE 12 YRS+, BIVALENT 0.5ML, IM, (MODERNA-BLUE TOP) 2022-08-01 00:00:00 Completed [facility] Influenza Virus Vaccine,quad Im,preserve Free 65+ 2022-08-01 00:00:00 Completed [facility] SARS-COV-2 COVID-19 VACCINE 12 YRS+, BIVALENT 0.5ML, IM, (MODERNA-BLUE TOP) 2022-08-01 00:00:00 Completed [facility] Influenza Virus Vaccine,quad Im,preserve Free 65+ (FLUAD) 2022-08-01 00:00:00 Completed [facility] SARS-COV-2 COVID-19 VACCINE 12 YRS+, BIVALENT 0.5ML, IM, (MODERNA-BLUE TOP) 2022-08-01 00:00:00 Completed [facility] Influenza Virus Vaccine,quad Im,preserve Free 65+ (FLUAD) 2022-08-01 00:00:00 Completed [facility] SARS-COV-2 COVID-19 VACCINE 12 YRS+, BIVALENT 0.5ML, IM, (MODERNA-BLUE TOP) 2022-08-01 00:00:00 Completed [facility] Influenza Virus Vaccine,quad Im,preserve Free 65+ (FLUAD) 2022-08-01 00:00:00 Completed [facility] SARS-COV-2 COVID-19 VACCINE 12 YRS+, BIVALENT 0.5ML, IM, (MODERNA-BLUE TOP) 2022-08-01 00:00:00 Completed [facility] Influenza Virus Vaccine,quad Im,preserve Free 65+ (FLUAD) 2022-08-01 00:00:00 Completed [facility] SARS-COV-2 COVID-19 VACCINE 12 YRS+, BIVALENT 0.5ML, IM, (MODERNA-BLUE TOP) 2022-08-01 00:00:00 Completed [facility] Influenza Virus Vaccine,quad Im,preserve Free 65+ (FLUAD) 2022-08-01 00:00:00 Completed [facility] SARS-COV-2 COVID-19 VACCINE 12 YRS+, BIVALENT 0.5ML, IM, (MODERNA-BLUE TOP) 2022-08-01 00:00:00 Completed [facility] Influenza Virus Vaccine,quad Im,preserve Free 65+ (FLUAD) 2022-08-01 00:00:00 Completed [facility] SARS-COV-2 COVID-19 VACCINE 12 YRS+, BIVALENT 0.5ML, IM, (MODERNA-BLUE TOP) 2022-08-01 00:00:00 Completed [facility] Influenza Virus Vaccine,quad Im,preserve Free 65+ (FLUAD) 2022-08-01 00:00:00 Completed [facility] SARS-COV-2 COVID-19 VACCINE 12 YRS+, BIVALENT 0.5ML, IM, (MODERNA-BLUE TOP) 2022-08-01 00:00:00 Completed [facility] Human Rabies Vaccine From [employer] (RABAVERT) 2022-01-14 00:00:00 Completed [facility] Human Rabies Vaccine From [employer] (RABAVERT) 2022-01-14 00:00:00 Completed [facility] Human Rabies Vaccine From [employer] (RABAVERT) 2022-01-14 00:00:00 Completed [facility] Human Rabies Vaccine From [employer] (RABAVERT) 2022-01-14 00:00:00 Completed [facility] Human Rabies Vaccine From [employer] (RABAVERT) 2022-01-14 00:00:00 Completed [facility] Human Rabies Vaccine From [employer] (RABAVERT) 2022-01-14 00:00:00 Completed [facility] Human Rabies Vaccine From [employer] (RABAVERT) 2022-01-14 00:00:00 Completed [facility] Human Rabies Vaccine From [employer] (RABAVERT) 2022-01-14 00:00:00 Completed [facility] Human Rabies Vaccine From [employer] (RABAVERT) 2022-01-14 00:00:00 Completed [facility] Human Rabies Vaccine From [employer] (RABAVERT) 2022-01-14 00:00:00 Completed [facility] Human Rabies Vaccine From [employer] (RABAVERT) 2022-01-14 00:00:00 Completed [facility] Human Rabies Vaccine From [employer] (RABAVERT) 2022-01-14 00:00:00 Completed [facility] Human Rabies Vaccine From [employer] (RABAVERT) 2022-01-14 00:00:00 Completed [facility] Human Rabies Vaccine From [employer] (RABAVERT) 2022-01-14 00:00:00 Completed [facility] Human Rabies Vaccine From [employer] (RABAVERT) 2022-01-14 00:00:00 Completed [facility] Human Rabies Vaccine From [employer] (RABAVERT) 2022-01-14 00:00:00 Completed [facility] Human Rabies Vaccine From [employer] (RABAVERT) 2022-01-14 00:00:00 Completed [facility] Human Rabies Vaccine From [employer] (RABAVERT) 2022-01-14 00:00:00 Completed [facility] Human Rabies Vaccine From [employer] (RABAVERT) 2022-01-14 00:00:00 Completed [facility] Human Rabies Vaccine From [employer] (RABAVERT) 2022-01-14 00:00:00 Completed [facility] Human Rabies Vaccine From [employer] (RABAVERT) 2022-01-14 00:00:00 Completed [facility] Human Rabies Vaccine From [employer] (RABAVERT) 2022-01-14 00:00:00 Completed [facility] Human Rabies Vaccine From [employer] (RABAVERT) 2022-01-14 00:00:00 Completed [facility] Human Rabies Vaccine From [employer] (RABAVERT) 2022-01-14 00:00:00 Completed [facility] Human Rabies Vaccine From [employer] (RABAVERT) 2022-01-14 00:00:00 Completed [facility] Human Rabies Vaccine From [employer] (RABAVERT) 2022-01-14 00:00:00 Completed [facility] Human Rabies Vaccine From [employer] (RABAVERT) 2022-01-14 00:00:00 Completed [facility] Human Rabies Vaccine From [employer] (RABAVERT) 2022-01-14 00:00:00 Completed [facility] Human Rabies Vaccine From [employer] (RABAVERT) 2022-01-14 00:00:00 Completed [facility] Human Rabies Vaccine From [employer] (RABAVERT) 2022-01-14 00:00:00 Completed [facility] Human Rabies Vaccine From [employer] (RABAVERT) 2022-01-14 00:00:00 Completed [facility] Human Rabies Vaccine From [employer] (RABAVERT) 2022-01-14 00:00:00 Completed [facility] Human Rabies Vaccine From [employer] (RABAVERT) 2022-01-14 00:00:00 Completed [facility] Human Rabies Vaccine From [employer] (RABAVERT) 2022-01-14 00:00:00 Completed [facility] Human Rabies Vaccine From [employer] (RABAVERT) 2022-01-14 00:00:00 Completed [facility] Human Rabies Vaccine From [employer] (RABAVERT) 2022-01-14 00:00:00 Completed [facility] Human Rabies Vaccine From [employer] (RABAVERT) 2022-01-14 00:00:00 Completed [facility] Human Rabies Vaccine From [employer] (RABAVERT) 2022-01-14 00:00:00 Completed [facility] Human Rabies Vaccine From [employer] (RABAVERT) 2022-01-14 00:00:00 Completed [facility] Human Rabies Vaccine From [employer] (RABAVERT) 2022-01-14 00:00:00 Completed [facility] Human Rabies Vaccine From [employer] (RABAVERT) 2022-01-14 00:00:00 Completed [facility] Human Rabies Vaccine From [employer] (RABAVERT) 2022-01-14 00:00:00 Completed [facility] Human Rabies Vaccine From [employer] (RABAVERT) 2022-01-14 00:00:00 Completed [facility] Human Rabies Vaccine From [employer] (RABAVERT) 2022-01-14 00:00:00 Completed [facility] Human Rabies Vaccine From [employer] (RABAVERT) 2022-01-14 00:00:00 Completed [facility] Human Rabies Vaccine From [employer] (RABAVERT) 2022-01-14 00:00:00 Completed [facility] Human Rabies Vaccine From [employer] (RABAVERT) 2022-01-14 00:00:00 Completed [facility] Human Rabies Vaccine From [employer] (RABAVERT) 2022-01-14 00:00:00 Completed [facility] Human Rabies Vaccine From [employer] (RABAVERT) 2022-01-14 00:00:00 Completed [facility] Human Rabies Vaccine From [employer] (RABAVERT) 2022-01-14 00:00:00 Completed [facility] Human Rabies Vaccine From [employer] (RABAVERT) 2022-01-14 00:00:00 Completed [facility] Human Rabies Vaccine From [employer] (RABAVERT) 2022-01-14 00:00:00 Completed [facility] Human Rabies Vaccine From [employer] (RABAVERT) 2022-01-14 00:00:00 Completed [facility] Human Rabies Vaccine From [employer] (RABAVERT) 2022-01-14 00:00:00 Completed [facility] Human Rabies Vaccine From [employer] (RABAVERT) 2022-01-14 00:00:00 Completed [facility] Human Rabies Vaccine From [employer] (RABAVERT) 2022-01-14 00:00:00 Completed [facility] Human Rabies Vaccine From [employer] (RABAVERT) 2022-01-14 00:00:00 Completed [facility] Human Rabies Vaccine From [employer] (RABAVERT) 2022-01-14 00:00:00 Completed [facility] Human Rabies Vaccine From [employer] (RABAVERT) 2022-01-14 00:00:00 Completed [facility] Human Rabies Vaccine From [employer] (RABAVERT) 2022-01-14 00:00:00 Completed [facility] Human Rabies Vaccine From [employer] (RABAVERT) 2022-01-14 00:00:00 Completed [facility] Human Rabies Vaccine From [employer] (RABAVERT) 2022-01-14 00:00:00 Completed [facility] Human Rabies Vaccine From [employer] (RABAVERT) 2022-01-14 00:00:00 Completed [facility] Human Rabies Vaccine From [employer] (RABAVERT) 2022-01-14 00:00:00 Completed [facility] Human Rabies Vaccine From [employer] (RABAVERT) 2022-01-14 00:00:00 Completed [facility] Human Rabies Vaccine From [employer] (RABAVERT) 2022-01-14 00:00:00 Completed [facility] Human Rabies Vaccine From [employer] (RABAVERT) 2022-01-14 00:00:00 Completed [facility] Human Rabies Vaccine From [employer] (RABAVERT) 2022-01-14 00:00:00 Completed [facility] Human Rabies Vaccine From [employer] (RABAVERT) 2022-01-14 00:00:00 Completed [facility] Human Rabies Vaccine From [employer] (RABAVERT) 2022-01-14 00:00:00 Completed [facility] Human Rabies Vaccine From [employer] (RABAVERT) 2022-01-14 00:00:00 Completed [facility] Human Rabies Vaccine From [employer] (RABAVERT) 2022-01-14 00:00:00 Completed [facility] Human Rabies Vaccine From [employer] (RABAVERT) 2022-01-14 00:00:00 Completed [facility] Human Rabies Vaccine From [employer] (RABAVERT) 2022-01-14 00:00:00 Completed [facility] Human Rabies Vaccine From Chicken Fibroblast Culture (RABAVERT) 2022-01-14 00:00:00 Completed [facility] Human Rabies Vaccine From Chicken Fibroblast Culture (RABAVERT) 2022-01-14 00:00:00 Completed [facility] Human Rabies Vaccine From Chicken Fibroblast Culture (RABAVERT) 2022-01-14 00:00:00 Completed [facility] Human Rabies Vaccine From Chicken Fibroblast Culture (RABAVERT) 2022-01-14 00:00:00 Completed [facility] Human Rabies Vaccine From Chicken Fibroblast Culture (RABAVERT) 2022-01-14 00:00:00 Completed [facility] Human Rabies Vaccine From Chicken Fibroblast Culture (RABAVERT) 2022-01-14 00:00:00 Completed [facility] Human Rabies Vaccine From Chicken Fibroblast Culture (RABAVERT) 2022-01-14 00:00:00 Completed [facility] Human Rabies Vaccine From Chicken Fibroblast Culture (RABAVERT) 2022-01-14 00:00:00 Completed [facility] Human Rabies Vaccine From Chicken Fibroblast Culture (RABAVERT) 2022-01-14 00:00:00 Completed [facility] Human Rabies Vaccine From Chicken Fibroblast Culture (RABAVERT) 2022-01-14 00:00:00 Completed [facility] Human Rabies Vaccine From Chicken Fibroblast Culture (RABAVERT) 2022-01-14 00:00:00 Completed [facility] Human Rabies Vaccine From Chicken Fibroblast Culture (RABAVERT) 2022-01-14 00:00:00 Completed [facility] Human Rabies Vaccine From Chicken Fibroblast Culture (RABAVERT) 2022-01-14 00:00:00 Completed [facility] Human Rabies Vaccine From Chicken Fibroblast Culture (RABAVERT) 2022-01-14 00:00:00 Completed [facility] Human Rabies Vaccine From Chicken Fibroblast Culture (RABAVERT) 2022-01-14 00:00:00 Completed [facility] Human Rabies Vaccine From Chicken Fibroblast Culture (RABAVERT) 2022-01-14 00:00:00 Completed [facility] Human Rabies Vaccine From Chicken Fibroblast Culture (RABAVERT) 2022-01-14 00:00:00 Completed [facility] Human Rabies Vaccine From Chicken Fibroblast Culture (RABAVERT) 2022-01-14 00:00:00 Completed [facility] Human Rabies Vaccine From Chicken Fibroblast Culture (RABAVERT) 2022-01-14 00:00:00 Completed [facility] Human Rabies Vaccine From Chicken Fibroblast Culture (RABAVERT) 2022-01-14 00:00:00 Completed [facility] Human Rabies Vaccine From Chicken Fibroblast Culture (RABAVERT) 2022-01-14 00:00:00 Completed [facility] Human Rabies Vaccine From Chicken Fibroblast Culture (RABAVERT) 2022-01-14 00:00:00 Completed [facility] Human Rabies Vaccine From Chicken Fibroblast Culture (RABAVERT) 2022-01-14 00:00:00 Completed [facility] Human Rabies Vaccine From Chicken Fibroblast Culture (RABAVERT) 2022-01-14 00:00:00 Completed [facility] Human Rabies Vaccine From Chicken Fibroblast Culture (RABAVERT) 2022-01-14 00:00:00 Completed [facility] Human Rabies Vaccine From Chicken Fibroblast Culture (RABAVERT) 2022-01-14 00:00:00 Completed [facility] Rabies Immune Globulin 2022-01-12 00:00:00 Completed [facility] Rabies Immune Globulin 2022-01-12 00:00:00 Completed [facility] Rabies Immune Globulin 2022-01-12 00:00:00 Completed [facility] Rabies Immune Globulin 2022-01-12 00:00:00 Completed [facility] Rabies Immune Globulin 2022-01-12 00:00:00 Completed [facility] Rabies Immune Globulin 2022-01-12 00:00:00 Completed [facility] Rabies Immune Globulin 2022-01-12 00:00:00 Completed [facility] Rabies Immune Globulin 2022-01-12 00:00:00 Completed [facility] Rabies Immune Globulin 2022-01-12 00:00:00 Completed [facility] Rabies Immune Globulin 2022-01-12 00:00:00 Completed [facility] Rabies Immune Globulin 2022-01-12 00:00:00 Completed [facility] Rabies Immune Globulin 2022-01-12 00:00:00 Completed [facility] Rabies Immune Globulin 2022-01-12 00:00:00 Completed [facility] Rabies Immune Globulin 2022-01-12 00:00:00 Completed [facility] Rabies Immune Globulin 2022-01-12 00:00:00 Completed [facility] Rabies Immune Globulin 2022-01-12 00:00:00 Completed [facility] Rabies Immune Globulin 2022-01-12 00:00:00 Completed [facility] Rabies Immune Globulin 2022-01-12 00:00:00 Completed [facility] Rabies Immune Globulin 2022-01-12 00:00:00 Completed [facility] Rabies Immune Globulin 2022-01-12 00:00:00 Completed [facility] Rabies Immune Globulin 2022-01-12 00:00:00 Completed [facility] Rabies Immune Globulin 2022-01-12 00:00:00 Completed [facility] Rabies Immune Globulin 2022-01-12 00:00:00 Completed [facility] Rabies Immune Globulin 2022-01-12 00:00:00 Completed [facility] Rabies Immune Globulin 2022-01-12 00:00:00 Completed [facility] Rabies Immune Globulin 2022-01-12 00:00:00 Completed [facility] Rabies Immune Globulin 2022-01-12 00:00:00 Completed [facility] Rabies Immune Globulin 2022-01-12 00:00:00 Completed [facility] Rabies Immune Globulin 2022-01-12 00:00:00 Completed [facility] Rabies Immune Globulin 2022-01-12 00:00:00 Completed [facility] Rabies Immune Globulin 2022-01-12 00:00:00 Completed [facility] Rabies Immune Globulin 2022-01-12 00:00:00 Completed [facility] Rabies Immune Globulin 2022-01-12 00:00:00 Completed [facility] Rabies Immune Globulin 2022-01-12 00:00:00 Completed [facility] Rabies Immune Globulin 2022-01-12 00:00:00 Completed [facility] Rabies Immune Globulin 2022-01-12 00:00:00 Completed [facility] Rabies Immune Globulin 2022-01-12 00:00:00 Completed [facility] Rabies Immune Globulin 2022-01-12 00:00:00 Completed [facility] Rabies Immune Globulin 2022-01-12 00:00:00 Completed [facility] Rabies Immune Globulin 2022-01-12 00:00:00 Completed [facility] Rabies Immune Globulin 2022-01-12 00:00:00 Completed [facility] Rabies Immune Globulin 2022-01-12 00:00:00 Completed [facility] Rabies Immune Globulin 2022-01-12 00:00:00 Completed [facility] Rabies Immune Globulin 2022-01-12 00:00:00 Completed [facility] Rabies Immune Globulin 2022-01-12 00:00:00 Completed [facility] Rabies Immune Globulin 2022-01-12 00:00:00 Completed [facility] Rabies Immune Globulin 2022-01-12 00:00:00 Completed [facility] Rabies Immune Globulin 2022-01-12 00:00:00 Completed [facility] Rabies Immune Globulin 2022-01-12 00:00:00 Completed [facility] Rabies Immune Globulin 2022-01-12 00:00:00 Completed [facility] Rabies Immune Globulin 2022-01-12 00:00:00 Completed [facility] Rabies Immune Globulin 2022-01-12 00:00:00 Completed [facility] Rabies Immune Globulin 2022-01-12 00:00:00 Completed [facility] Rabies Immune Globulin 2022-01-12 00:00:00 Completed [facility] Rabies Immune Globulin 2022-01-12 00:00:00 Completed [facility] Rabies Immune Globulin 2022-01-12 00:00:00 Completed [facility] Rabies Immune Globulin 2022-01-12 00:00:00 Completed [facility] Rabies Immune Globulin 2022-01-12 00:00:00 Completed [facility] Rabies Immune Globulin 2022-01-12 00:00:00 Completed [facility] Rabies Immune Globulin 2022-01-12 00:00:00 Completed [facility] Rabies Immune Globulin 2022-01-12 00:00:00 Completed [facility] Rabies Immune Globulin 2022-01-12 00:00:00 Completed [facility] Rabies Immune Globulin 2022-01-12 00:00:00 Completed [facility] Rabies Immune Globulin 2022-01-12 00:00:00 Completed [facility] Rabies Immune Globulin 2022-01-12 00:00:00 Completed [facility] Rabies Immune Globulin 2022-01-12 00:00:00 Completed [facility] Rabies Immune Globulin 2022-01-12 00:00:00 Completed [facility] Rabies Immune Globulin 2022-01-12 00:00:00 Completed [facility] Rabies Immune Globulin 2022-01-12 00:00:00 Completed [facility] Rabies Immune Globulin 2022-01-12 00:00:00 Completed [facility] Rabies Immune Globulin 2022-01-12 00:00:00 Completed [facility] Rabies Immune Globulin 2022-01-12 00:00:00 Completed [facility] Rabies Immune Globulin 2022-01-12 00:00:00 Completed [facility] Rabies Immune Globulin 2022-01-12 00:00:00 Completed [facility] Rabies Immune Globulin 2022-01-12 00:00:00 Completed [facility] Rabies Immune Globulin 2022-01-12 00:00:00 Completed [facility] Rabies Immune Globulin 2022-01-12 00:00:00 Completed [facility] Rabies Immune Globulin 2022-01-12 00:00:00 Completed [facility] Rabies Immune Globulin 2022-01-12 00:00:00 Completed [facility] Rabies Immune Globulin 2022-01-12 00:00:00 Completed [facility] Rabies Immune Globulin 2022-01-12 00:00:00 Completed [facility] Rabies Immune Globulin 2022-01-12 00:00:00 Completed [facility] Rabies Immune Globulin 2022-01-12 00:00:00 Completed [facility] Rabies Immune Globulin 2022-01-12 00:00:00 Completed [facility] Rabies Immune Globulin 2022-01-12 00:00:00 Completed [facility] Rabies Immune Globulin 2022-01-12 00:00:00 Completed [facility] Rabies Immune Globulin 2022-01-12 00:00:00 Completed [facility] Rabies Immune Globulin 2022-01-12 00:00:00 Completed [facility] Rabies Immune Globulin 2022-01-12 00:00:00 Completed [facility] Rabies Immune Globulin 2022-01-12 00:00:00 Completed [facility] Rabies Immune Globulin 2022-01-12 00:00:00 Completed [facility] Rabies Immune Globulin 2022-01-12 00:00:00 Completed [facility] Rabies Immune Globulin 2022-01-12 00:00:00 Completed [facility] Rabies Immune Globulin 2022-01-12 00:00:00 Completed [facility] Rabies Immune Globulin 2022-01-12 00:00:00 Completed [facility] Rabies Immune Globulin 2022-01-12 00:00:00 Completed [facility] Rabies Immune Globulin 2022-01-12 00:00:00 Completed [facility] Rabies Immune Globulin 2022-01-12 00:00:00 Completed [facility] Rabies Immune Globulin 2022-01-12 00:00:00 Completed [facility] Rabies Immune Globulin 2022-01-12 00:00:00 Completed [facility] Human Rabies Vaccine From Chicken Fibroblast Culture (RABAVERT) 2022-01-11 00:00:00 Completed [facility] Human Rabies Vaccine From Chicken Fibroblast Culture (RABAVERT) 2022-01-11 00:00:00 Completed [facility] Human Rabies Vaccine From Chicken Fibroblast Culture (RABAVERT) 2022-01-11 00:00:00 Completed [facility] Human Rabies Vaccine From Chicken Fibroblast Culture (RABAVERT) 2022-01-11 00:00:00 Completed [facility] Human Rabies Vaccine From Chicken Fibroblast Culture (RABAVERT) 2022-01-11 00:00:00 Completed [facility] Human Rabies Vaccine From Chicken Fibroblast Culture (RABAVERT) 2022-01-11 00:00:00 Completed [facility] Human Rabies Vaccine From Chicken Fibroblast Culture (RABAVERT) 2022-01-11 00:00:00 Completed [facility] Human Rabies Vaccine From Chicken Fibroblast Culture (RABAVERT) 2022-01-11 00:00:00 Completed [facility] Human Rabies Vaccine From Chicken Fibroblast Culture (RABAVERT) 2022-01-11 00:00:00 Completed [facility] Human Rabies Vaccine From Chicken Fibroblast Culture (RABAVERT) 2022-01-11 00:00:00 Completed [facility] Human Rabies Vaccine From Chicken Fibroblast Culture (RABAVERT) 2022-01-11 00:00:00 Completed [facility] Human Rabies Vaccine From Chicken Fibroblast Culture (RABAVERT) 2022-01-11 00:00:00 Completed [facility] Human Rabies Vaccine From Chicken Fibroblast Culture (RABAVERT) 2022-01-11 00:00:00 Completed [facility] Human Rabies Vaccine From Chicken Fibroblast Culture (RABAVERT) 2022-01-11 00:00:00 Completed [facility] Human Rabies Vaccine From Chicken Fibroblast Culture (RABAVERT) 2022-01-11 00:00:00 Completed [facility] Human Rabies Vaccine From Chicken Fibroblast Culture (RABAVERT) 2022-01-11 00:00:00 Completed [facility] Human Rabies Vaccine From Chicken Fibroblast Culture (RABAVERT) 2022-01-11 00:00:00 Completed [facility] Human Rabies Vaccine From Chicken Fibroblast Culture (RABAVERT) 2022-01-11 00:00:00 Completed [facility] Human Rabies Vaccine From Chicken Fibroblast Culture (RABAVERT) 2022-01-11 00:00:00 Completed [facility] Human Rabies Vaccine From Chicken Fibroblast Culture (RABAVERT) 2022-01-11 00:00:00 Completed [facility] Human Rabies Vaccine From Chicken Fibroblast Culture (RABAVERT) 2022-01-11 00:00:00 Completed [facility] Human Rabies Vaccine From Chicken Fibroblast Culture (RABAVERT) 2022-01-11 00:00:00 Completed [facility] Human Rabies Vaccine From Chicken Fibroblast Culture (RABAVERT) 2022-01-11 00:00:00 Completed [facility] Human Rabies Vaccine From Chicken Fibroblast Culture (RABAVERT) 2022-01-11 00:00:00 Completed [facility] Human Rabies Vaccine From Chicken Fibroblast Culture (RABAVERT) 2022-01-11 00:00:00 Completed [facility] Human Rabies Vaccine From Chicken Fibroblast Culture (RABAVERT) 2022-01-11 00:00:00 Completed [facility] Human Rabies Vaccine From Chicken Fibroblast Culture (RABAVERT) 2022-01-11 00:00:00 Completed [facility] Human Rabies Vaccine From Chicken Fibroblast Culture (RABAVERT) 2022-01-11 00:00:00 Completed [facility] Human Rabies Vaccine From Chicken Fibroblast Culture (RABAVERT) 2022-01-11 00:00:00 Completed [facility] Human Rabies Vaccine From Chicken Fibroblast Culture (RABAVERT) 2022-01-11 00:00:00 Completed [facility] Human Rabies Vaccine From Chicken Fibroblast Culture (RABAVERT) 2022-01-11 00:00:00 Completed [facility] Human Rabies Vaccine From Chicken Fibroblast Culture (RABAVERT) 2022-01-11 00:00:00 Completed [facility] Human Rabies Vaccine From Chicken Fibroblast Culture (RABAVERT) 2022-01-11 00:00:00 Completed [facility] Human Rabies Vaccine From Chicken Fibroblast Culture (RABAVERT) 2022-01-11 00:00:00 Completed [facility] Human Rabies Vaccine From Chicken Fibroblast Culture (RABAVERT) 2022-01-11 00:00:00 Completed [facility] Human Rabies Vaccine From Chicken Fibroblast Culture (RABAVERT) 2022-01-11 00:00:00 Completed [facility] Human Rabies Vaccine From Chicken Fibroblast Culture (RABAVERT) 2022-01-11 00:00:00 Completed [facility] Human Rabies Vaccine From Chicken Fibroblast Culture (RABAVERT) 2022-01-11 00:00:00 Completed [facility] Human Rabies Vaccine From Chicken Fibroblast Culture (RABAVERT) 2022-01-11 00:00:00 Completed [facility] Human Rabies Vaccine From Chicken Fibroblast Culture (RABAVERT) 2022-01-11 00:00:00 Completed [facility] Human Rabies Vaccine From Chicken Fibroblast Culture (RABAVERT) 2022-01-11 00:00:00 Completed [facility] Human Rabies Vaccine From Chicken Fibroblast Culture (RABAVERT) 2022-01-11 00:00:00 Completed [facility] Human Rabies Vaccine From Chicken Fibroblast Culture (RABAVERT) 2022-01-11 00:00:00 Completed [facility] Human Rabies Vaccine From Chicken Fibroblast Culture (RABAVERT) 2022-01-11 00:00:00 Completed [facility] Human Rabies Vaccine From Chicken Fibroblast Culture (RABAVERT) 2022-01-11 00:00:00 Completed [facility] Human Rabies Vaccine From Chicken Fibroblast Culture (RABAVERT) 2022-01-11 00:00:00 Completed [facility] Human Rabies Vaccine From Chicken Fibroblast Culture (RABAVERT) 2022-01-11 00:00:00 Completed [facility] Human Rabies Vaccine From Chicken Fibroblast Culture (RABAVERT) 2022-01-11 00:00:00 Completed [facility] Human Rabies Vaccine From Chicken Fibroblast Culture (RABAVERT) 2022-01-11 00:00:00 Completed [facility] Human Rabies Vaccine From Chicken Fibroblast Culture (RABAVERT) 2022-01-11 00:00:00 Completed [facility] Human Rabies Vaccine From Chicken Fibroblast Culture (RABAVERT) 2022-01-11 00:00:00 Completed [facility] Human Rabies Vaccine From Chicken Fibroblast Culture (RABAVERT) 2022-01-11 00:00:00 Completed [facility] Human Rabies Vaccine From Chicken Fibroblast Culture (RABAVERT) 2022-01-11 00:00:00 Completed [facility] Human Rabies Vaccine From Chicken Fibroblast Culture (RABAVERT) 2022-01-11 00:00:00 Completed [facility] Human Rabies Vaccine From Chicken Fibroblast Culture (RABAVERT) 2022-01-11 00:00:00 Completed [facility] Human Rabies Vaccine From Chicken Fibroblast Culture (RABAVERT) 2022-01-11 00:00:00 Completed [facility] Human Rabies Vaccine From Chicken Fibroblast Culture (RABAVERT) 2022-01-11 00:00:00 Completed [facility] Human Rabies Vaccine From Chicken Fibroblast Culture (RABAVERT) 2022-01-11 00:00:00 Completed [facility] Human Rabies Vaccine From Chicken Fibroblast Culture (RABAVERT) 2022-01-11 00:00:00 Completed [facility] Human Rabies Vaccine From Chicken Fibroblast Culture (RABAVERT) 2022-01-11 00:00:00 Completed [facility] Human Rabies Vaccine From Chicken Fibroblast Culture (RABAVERT) 2022-01-11 00:00:00 Completed [facility] Human Rabies Vaccine From Chicken Fibroblast Culture (RABAVERT) 2022-01-11 00:00:00 Completed [facility] Human Rabies Vaccine From Chicken Fibroblast Culture (RABAVERT) 2022-01-11 00:00:00 Completed [facility] Human Rabies Vaccine From Chicken Fibroblast Culture (RABAVERT) 2022-01-11 00:00:00 Completed [facility] Human Rabies Vaccine From Chicken Fibroblast Culture (RABAVERT) 2022-01-11 00:00:00 Completed [facility] Human Rabies Vaccine From Chicken Fibroblast Culture (RABAVERT) 2022-01-11 00:00:00 Completed [facility] Human Rabies Vaccine From Chicken Fibroblast Culture (RABAVERT) 2022-01-11 00:00:00 Completed [facility] Human Rabies Vaccine From Chicken Fibroblast Culture (RABAVERT) 2022-01-11 00:00:00 Completed [facility] Human Rabies Vaccine From Chicken Fibroblast Culture (RABAVERT) 2022-01-11 00:00:00 Completed [facility] Human Rabies Vaccine From Chicken Fibroblast Culture (RABAVERT) 2022-01-11 00:00:00 Completed [facility] Human Rabies Vaccine From Chicken Fibroblast Culture (RABAVERT) 2022-01-11 00:00:00 Completed [facility] Human Rabies Vaccine From Chicken Fibroblast Culture (RABAVERT) 2022-01-11 00:00:00 Completed [facility] Human Rabies Vaccine From Chicken Fibroblast Culture (RABAVERT) 2022-01-11 00:00:00 Completed [facility] Human Rabies Vaccine From Chicken Fibroblast Culture (RABAVERT) 2022-01-11 00:00:00 Completed [facility] Human Rabies Vaccine From Chicken Fibroblast Culture (RABAVERT) 2022-01-11 00:00:00 Completed [facility] Human Rabies Vaccine From Chicken Fibroblast Culture (RABAVERT) 2022-01-11 00:00:00 Completed [facility] Human Rabies Vaccine From Chicken Fibroblast Culture (RABAVERT) 2022-01-11 00:00:00 Completed [facility] Human Rabies Vaccine From Chicken Fibroblast Culture (RABAVERT) 2022-01-11 00:00:00 Completed [facility] Human Rabies Vaccine From Chicken Fibroblast Culture (RABAVERT) 2022-01-11 00:00:00 Completed [facility] Human Rabies Vaccine From Chicken Fibroblast Culture (RABAVERT) 2022-01-11 00:00:00 Completed [facility] Human Rabies Vaccine From Chicken Fibroblast Culture (RABAVERT) 2022-01-11 00:00:00 Completed [facility] Human Rabies Vaccine From Chicken Fibroblast Culture (RABAVERT) 2022-01-11 00:00:00 Completed [facility] Human Rabies Vaccine From Chicken Fibroblast Culture (RABAVERT) 2022-01-11 00:00:00 Completed [facility] Human Rabies Vaccine From Chicken Fibroblast Culture (RABAVERT) 2022-01-11 00:00:00 Completed [facility] Human Rabies Vaccine From Chicken Fibroblast Culture (RABAVERT) 2022-01-11 00:00:00 Completed [facility] Human Rabies Vaccine From Chicken Fibroblast Culture (RABAVERT) 2022-01-11 00:00:00 Completed [facility] Human Rabies Vaccine From Chicken Fibroblast Culture (RABAVERT) 2022-01-11 00:00:00 Completed [facility] Human Rabies Vaccine From Chicken Fibroblast Culture (RABAVERT) 2022-01-11 00:00:00 Completed [facility] Human Rabies Vaccine From Chicken Fibroblast Culture (RABAVERT) 2022-01-11 00:00:00 Completed [facility] Human Rabies Vaccine From Chicken Fibroblast Culture (RABAVERT) 2022-01-11 00:00:00 Completed [facility] Human Rabies Vaccine From Chicken Fibroblast Culture (RABAVERT) 2022-01-11 00:00:00 Completed [facility] Human Rabies Vaccine From Chicken Fibroblast Culture (RABAVERT) 2022-01-11 00:00:00 Completed [facility] Human Rabies Vaccine From Chicken Fibroblast Culture (RABAVERT) 2022-01-11 00:00:00 Completed [facility] Human Rabies Vaccine From Chicken Fibroblast Culture (RABAVERT) 2022-01-11 00:00:00 Completed [facility] Human Rabies Vaccine From Chicken Fibroblast Culture (RABAVERT) 2022-01-11 00:00:00 Completed [facility] Human Rabies Vaccine From Chicken Fibroblast Culture (RABAVERT) 2022-01-11 00:00:00 Completed [facility] Human Rabies Vaccine From Chicken Fibroblast Culture (RABAVERT) 2022-01-11 00:00:00 Completed [facility] Human Rabies Vaccine From Chicken Fibroblast Culture (RABAVERT) 2022-01-11 00:00:00 Completed [facility] Human Rabies Vaccine From Chicken Fibroblast Culture (RABAVERT) 2022-01-11 00:00:00 Completed [facility] Human Rabies Vaccine From Chicken Fibroblast Culture (RABAVERT) 2022-01-11 00:00:00 Completed [facility] TDAP 2022-01-08 00:00:00 Completed [facility] TDAP 2022-01-08 00:00:00 Completed [facility] TDAP 2022-01-08 00:00:00 Completed [facility] TDAP 2022-01-08 00:00:00 Completed [facility] TDAP 2022-01-08 00:00:00 Completed [facility] TDAP 2022-01-08 00:00:00 Completed [facility] TDAP 2022-01-08 00:00:00 Completed [facility] TDAP 2022-01-08 00:00:00 Completed [facility] TDAP 2022-01-08 00:00:00 Completed [facility] TDAP 2022-01-08 00:00:00 Completed [facility] TDAP 2022-01-08 00:00:00 Completed [facility] TDAP 2022-01-08 00:00:00 Completed [facility] TDAP 2022-01-08 00:00:00 Completed [facility] TDAP 2022-01-08 00:00:00 Completed [facility] TDAP 2022-01-08 00:00:00 Completed [facility] TDAP 2022-01-08 00:00:00 Completed [facility] TDAP 2022-01-08 00:00:00 Completed [facility] TDAP 2022-01-08 00:00:00 Completed [facility] TDAP 2022-01-08 00:00:00 Completed [facility] TDAP 2022-01-08 00:00:00 Completed [facility] TDAP 2022-01-08 00:00:00 Completed [facility] TDAP 2022-01-08 00:00:00 Completed [facility] TDAP 2022-01-08 00:00:00 Completed [facility] TDAP 2022-01-08 00:00:00 Completed [facility] TDAP 2022-01-08 00:00:00 Completed [facility] TDAP 2022-01-08 00:00:00 Completed [facility] TDAP 2022-01-08 00:00:00 Completed [facility] TDAP 2022-01-08 00:00:00 Completed [facility] TDAP 2022-01-08 00:00:00 Completed [facility] TDAP 2022-01-08 00:00:00 Completed [facility] TDAP 2022-01-08 00:00:00 Completed [facility] TDAP 2022-01-08 00:00:00 Completed [facility] TDAP 2022-01-08 00:00:00 Completed [facility] TDAP 2022-01-08 00:00:00 Completed [facility] TDAP 2022-01-08 00:00:00 Completed [facility] TDAP 2022-01-08 00:00:00 Completed [facility] TDAP 2022-01-08 00:00:00 Completed [facility] TDAP 2022-01-08 00:00:00 Completed [facility] TDAP 2022-01-08 00:00:00 Completed [facility] TDAP 2022-01-08 00:00:00 Completed [facility] TDAP 2022-01-08 00:00:00 Completed [facility] TDAP 2022-01-08 00:00:00 Completed [facility] TDAP 2022-01-08 00:00:00 Completed [facility] TDAP 2022-01-08 00:00:00 Completed [facility] TDAP 2022-01-08 00:00:00 Completed [facility] TDAP 2022-01-08 00:00:00 Completed [facility] TDAP 2022-01-08 00:00:00 Completed [facility] TDAP 2022-01-08 00:00:00 Completed [facility] TDAP 2022-01-08 00:00:00 Completed [facility] TDAP 2022-01-08 00:00:00 Completed [facility] TDAP 2022-01-08 00:00:00 Completed [facility] TDAP 2022-01-08 00:00:00 Completed [facility] TDAP 2022-01-08 00:00:00 Completed [facility] TDAP 2022-01-08 00:00:00 Completed [facility] TDAP 2022-01-08 00:00:00 Completed [facility] TDAP 2022-01-08 00:00:00 Completed [facility] TDAP 2022-01-08 00:00:00 Completed [facility] TDAP 2022-01-08 00:00:00 Completed [facility] TDAP 2022-01-08 00:00:00 Completed [facility] TDAP 2022-01-08 00:00:00 Completed [facility] TDAP 2022-01-08 00:00:00 Completed [facility] TDAP 2022-01-08 00:00:00 Completed [facility] TDAP 2022-01-08 00:00:00 Completed [facility] TDAP 2022-01-08 00:00:00 Completed [facility] TDAP 2022-01-08 00:00:00 Completed [facility] TDAP 2022-01-08 00:00:00 Completed [facility] TDAP 2022-01-08 00:00:00 Completed [facility] TDAP 2022-01-08 00:00:00 Completed [facility] TDAP 2022-01-08 00:00:00 Completed [facility] TDAP 2022-01-08 00:00:00 Completed [facility] TDAP 2022-01-08 00:00:00 Completed [facility] TDAP 2022-01-08 00:00:00 Completed [facility] TDAP 2022-01-08 00:00:00 Completed [facility] TDAP 2022-01-08 00:00:00 Completed [facility] TDAP 2022-01-08 00:00:00 Completed [facility] TDAP 2022-01-08 00:00:00 Completed [facility] TDAP 2022-01-08 00:00:00 Completed [facility] TDAP 2022-01-08 00:00:00 Completed [facility] TDAP 2022-01-08 00:00:00 Completed [facility] TDAP 2022-01-08 00:00:00 Completed [facility] TDAP 2022-01-08 00:00:00 Completed [facility] TDAP 2022-01-08 00:00:00 Completed [facility] TDAP 2022-01-08 00:00:00 Completed [facility] TDAP 2022-01-08 00:00:00 Completed [facility] TDAP 2022-01-08 00:00:00 Completed [facility] TDAP 2022-01-08 00:00:00 Completed [facility] TDAP 2022-01-08 00:00:00 Completed [facility] TDAP 2022-01-08 00:00:00 Completed [facility] TDAP 2022-01-08 00:00:00 Completed [facility] TDAP 2022-01-08 00:00:00 Completed [facility] TDAP 2022-01-08 00:00:00 Completed [facility] TDAP 2022-01-08 00:00:00 Completed [facility] TDAP 2022-01-08 00:00:00 Completed [facility] TDAP 2022-01-08 00:00:00 Completed [facility] TDAP 2022-01-08 00:00:00 Completed [facility] TDAP 2022-01-08 00:00:00 Completed [facility] TDAP 2022-01-08 00:00:00 Completed [facility] TDAP 2022-01-08 00:00:00 Completed [facility] TDAP 2022-01-08 00:00:00 Completed [facility] TDAP 2022-01-08 00:00:00 Completed [facility] Influenza Virus Vaccine,quad Im,preserve Free 65+ (FLUAD) 2021-06-13 00:00:00 Completed [facility] Influenza Virus Vaccine,quad Im,preserve Free 65+ (FLUAD) 2021-06-13 00:00:00 Completed [facility] Influenza Virus Vaccine,quad Im,preserve Free 65+ (FLUAD) 2021-06-13 00:00:00 Completed [facility] Influenza Virus Vaccine,quad Im,preserve Free 65+ (FLUAD) 2021-06-13 00:00:00 Completed [facility] Influenza Virus Vaccine,quad Im,preserve Free 65+ (FLUAD) 2021-06-13 00:00:00 Completed [facility] Influenza Virus Vaccine,quad Im,preserve Free 65+ (FLUAD) 2021-06-13 00:00:00 Completed [facility] Influenza Virus Vaccine,quad Im,preserve Free 65+ (FLUAD) 2021-06-13 00:00:00 Completed [facility] Influenza Virus Vaccine,quad Im,preserve Free 65+ 2021-06-13 00:00:00 Completed [facility] Influenza Virus Vaccine,quad Im,preserve Free 65+ 2021-06-13 00:00:00 Completed [facility] Influenza Virus Vaccine,quad Im,preserve Free 65+ 2021-06-13 00:00:00 Completed [facility] Influenza Virus Vaccine,quad Im,preserve Free 65+ 2021-06-13 00:00:00 Completed [facility] Influenza Virus Vaccine,quad Im,preserve Free 65+ 2021-06-13 00:00:00 Completed [facility] Influenza Virus Vaccine,quad Im,preserve Free 65+ 2021-06-13 00:00:00 Completed [facility] Influenza Virus Vaccine,quad Im,preserve Free 652021-06-13 00:00:00 Completed [facility] Influenza Virus Vaccine,quad Im,preserve Free 65+ 2021-06-13 00:00:00 Completed [facility] Influenza Virus Vaccine,quad Im,preserve Free 65+ 2021-06-13 00:00:00 Completed [facility] Influenza Virus Vaccine,quad Im,preserve Free 65+ 2021-06-13 00:00:00 Completed [facility] Influenza Virus Vaccine,quad Im,preserve Free 65+ 2021-06-13 00:00:00 Completed [facility] Influenza Virus Vaccine,quad Im,preserve Free 652021-06-13 00:00:00 Completed [facility] Influenza Virus Vaccine,quad Im,preserve Free 65+ 2021-06-13 00:00:00 Completed [facility] Influenza Virus Vaccine,quad Im,preserve Free 652021-06-13 00:00:00 Completed [facility] Influenza Virus Vaccine,quad Im,preserve Free 652021-06-13 00:00:00 Completed [facility] Influenza Virus Vaccine,quad Im,preserve Free 652021-06-13 00:00:00 Completed [facility] Influenza Virus Vaccine,quad Im,preserve Free 652021-06-13 00:00:00 Completed [facility] Influenza Virus Vaccine,quad Im,preserve Free 652021-06-13 00:00:00 Completed [facility] Influenza Virus Vaccine,quad Im,preserve Free 652021-06-13 00:00:00 Completed [facility] Influenza Virus Vaccine,quad Im,preserve Free 652021-06-13 00:00:00 Completed [facility] Influenza Virus Vaccine,quad Im,preserve Free 652021-06-13 00:00:00 Completed [facility] Influenza Virus Vaccine,quad Im,preserve Free 65+ 2021-06-13 00:00:00 Completed [facility] Influenza Virus Vaccine,quad Im,preserve Free 652021-06-13 00:00:00 Completed [facility] Influenza Virus Vaccine,quad Im,preserve Free 65+ 2021-06-13 00:00:00 Completed [facility] Influenza Virus Vaccine,quad Im,preserve Free 65+ 2021-06-13 00:00:00 Completed [facility] Influenza Virus Vaccine,quad Im,preserve Free 65+ 2021-06-13 00:00:00 Completed [facility] Influenza Virus Vaccine,quad Im,preserve Free 65+ 2021-06-13 00:00:00 Completed [facility] Influenza Virus Vaccine,quad Im,preserve Free 65+ 2021-06-13 00:00:00 Completed [facility] Influenza Virus Vaccine,quad Im,preserve Free 65+ 2021-06-13 00:00:00 Completed [facility] Influenza Virus Vaccine,quad Im,preserve Free 652021-06-13 00:00:00 Completed [facility] Influenza Virus Vaccine,quad Im,preserve Free 65+ 2021-06-13 00:00:00 Completed [facility] Influenza Virus Vaccine,quad Im,preserve Free 652021-06-13 00:00:00 Completed [facility] Influenza Virus Vaccine,quad Im,preserve Free 652021-06-13 00:00:00 Completed [facility] Influenza Virus Vaccine,quad Im,preserve Free 652021-06-13 00:00:00 Completed [facility] Influenza Virus Vaccine,quad Im,preserve Free 652021-06-13 00:00:00 Completed [facility] Influenza Virus Vaccine,quad Im,preserve Free 652021-06-13 00:00:00 Completed [facility] Influenza Virus Vaccine,quad Im,preserve Free 652021-06-13 00:00:00 Completed [facility] Influenza Virus Vaccine,quad Im,preserve Free 652021-06-13 00:00:00 Completed [facility] Influenza Virus Vaccine,quad Im,preserve Free 652021-06-13 00:00:00 Completed [facility] Influenza Virus Vaccine,quad Im,preserve Free 652021-06-13 00:00:00 Completed [facility] Influenza Virus Vaccine,quad Im,preserve Free 652021-06-13 00:00:00 Completed [facility] Influenza Virus Vaccine,quad Im,preserve Free 65+ 2021-06-13 00:00:00 Completed [facility] Influenza Virus Vaccine,quad Im,preserve Free 65+ 2021-06-13 00:00:00 Completed [facility] Influenza Virus Vaccine,quad Im,preserve Free 65+ 2021-06-13 00:00:00 Completed [facility] Influenza Virus Vaccine,quad Im,preserve Free 65+ 2021-06-13 00:00:00 Completed [facility] Influenza Virus Vaccine,quad Im,preserve Free 65+ 2021-06-13 00:00:00 Completed [facility] Influenza Virus Vaccine,quad Im,preserve Free 65+ 2021-06-13 00:00:00 Completed [facility] Influenza Virus Vaccine,quad Im,preserve Free 652021-06-13 00:00:00 Completed [facility] Influenza Virus Vaccine,quad Im,preserve Free 65+ 2021-06-13 00:00:00 Completed [facility] Influenza Virus Vaccine,quad Im,preserve Free 652021-06-13 00:00:00 Completed [facility] Influenza Virus Vaccine,quad Im,preserve Free 652021-06-13 00:00:00 Completed [facility] Influenza Virus Vaccine,quad Im,preserve Free 652021-06-13 00:00:00 Completed [facility] Influenza Virus Vaccine,quad Im,preserve Free 652021-06-13 00:00:00 Completed [facility] Influenza Virus Vaccine,quad Im,preserve Free 652021-06-13 00:00:00 Completed [facility] Influenza Virus Vaccine,quad Im,preserve Free 652021-06-13 00:00:00 Completed [facility] Influenza Virus Vaccine,quad Im,preserve Free 652021-06-13 00:00:00 Completed [facility] Influenza Virus Vaccine,quad Im,preserve Free 652021-06-13 00:00:00 Completed [facility] Influenza Virus Vaccine,quad Im,preserve Free 65+ 2021-06-13 00:00:00 Completed [facility] Influenza Virus Vaccine,quad Im,preserve Free 652021-06-13 00:00:00 Completed [facility] Influenza Virus Vaccine,quad Im,preserve Free 652021-06-13 00:00:00 Completed [facility] Influenza Virus Vaccine,quad Im,preserve Free 652021-06-13 00:00:00 Completed [facility] Influenza Virus Vaccine,quad Im,preserve Free 65+ 2021-06-13 00:00:00 Completed [facility] Influenza Virus Vaccine,quad Im,preserve Free 65+ 2021-06-13 00:00:00 Completed [facility] Influenza Virus Vaccine,quad Im,preserve Free 65+ 2021-06-13 00:00:00 Completed [facility] Influenza Virus Vaccine,quad Im,preserve Free 65+ 2021-06-13 00:00:00 Completed [facility] Influenza Virus Vaccine,quad Im,preserve Free 652021-06-13 00:00:00 Completed [facility] Influenza Virus Vaccine,quad Im,preserve Free 65+ 2021-06-13 00:00:00 Completed [facility] Influenza Virus Vaccine,quad Im,preserve Free 652021-06-13 00:00:00 Completed [facility] Influenza Virus Vaccine,quad Im,preserve Free 652021-06-13 00:00:00 Completed [facility] Influenza Virus Vaccine,quad Im,preserve Free 652021-06-13 00:00:00 Completed [facility] Influenza Virus Vaccine,quad Im,preserve Free 65+ 2021-06-13 00:00:00 Completed [facility] Influenza Virus Vaccine,quad Im,preserve Free 652021-06-13 00:00:00 Completed [facility] Influenza Virus Vaccine,quad Im,preserve Free 652021-06-13 00:00:00 Completed [facility] Influenza Virus Vaccine,quad Im,preserve Free 652021-06-13 00:00:00 Completed [facility] Influenza Virus Vaccine,quad Im,preserve Free 652021-06-13 00:00:00 Completed [facility] Influenza Virus Vaccine,quad Im,preserve Free 652021-06-13 00:00:00 Completed [facility] Influenza Virus Vaccine,quad Im,preserve Free 652021-06-13 00:00:00 Completed [facility] Influenza Virus Vaccine,quad Im,preserve Free 65+ 2021-06-13 00:00:00 Completed [facility] Influenza Virus Vaccine,quad Im,preserve Free 65+ 2021-06-13 00:00:00 Completed [facility] Influenza Virus Vaccine,quad Im,preserve Free 65+ 2021-06-13 00:00:00 Completed [facility] Influenza Virus Vaccine,quad Im,preserve Free 65+ 2021-06-13 00:00:00 Completed [facility] Influenza Virus Vaccine,quad Im,preserve Free 65+ 2021-06-13 00:00:00 Completed [facility] Influenza Virus Vaccine,quad Im,preserve Free 65+ 2021-06-13 00:00:00 Completed [facility] Influenza Virus Vaccine,quad Im,preserve Free 65+ 2021-06-13 00:00:00 Completed [facility] Influenza Virus Vaccine,quad Im,preserve Free 65+ 2021-06-13 00:00:00 Completed [facility] Influenza Virus Vaccine,quad Im,preserve Free 65+ 2021-06-13 00:00:00 Completed [facility] Influenza Virus Vaccine,quad Im,preserve Free 65+ (FLUAD) 2021-06-13 00:00:00 Completed [facility] Influenza Virus Vaccine,quad Im,preserve Free 65+ (FLUAD) 2021-06-13 00:00:00 Completed [facility] Influenza Virus Vaccine,quad Im,preserve Free 65+ (FLUAD) 2021-06-13 00:00:00 Completed [facility] Influenza Virus Vaccine,quad Im,preserve Free 65+ (FLUAD) 2021-06-13 00:00:00 Completed [facility] Influenza Virus Vaccine,quad Im,preserve Free 65+ (FLUAD) 2021-06-13 00:00:00 Completed [facility] Influenza Virus Vaccine,quad Im,preserve Free 65+ (FLUAD) 2021-06-13 00:00:00 Completed [facility] Influenza Virus Vaccine,quad Im,preserve Free 65+ (FLUAD) 2021-06-13 00:00:00 Completed [facility] SARS-COV-2 COVID-19 MODERNA 12+ YRS VACCINE 2021-05-15 00:00:00 Completed SARS-COV-2 COVID-19 MODERNA 12+ YRS VACCINE 2021-05-15 00:00:00 Completed SARS-COV-2 COVID-19 MODERNA 12+ YRS VACCINE 2021-05-15 00:00:00 Completed SARS-COV-2 COVID-19 MODERNA 12+ YRS VACCINE 2021-05-15 00:00:00 Completed SARS-COV-2 COVID-19 MODERNA 12+ YRS VACCINE 2021-05-15 00:00:00 Completed SARS-COV-2 COVID-19 MODERNA 12+ YRS VACCINE 2021-05-15 00:00:00 Completed SARS-COV-2 COVID-19 MODERNA 12+ YRS VACCINE 2021-05-15 00:00:00 Completed SARS-COV-2 COVID-19 MODERNA 12+ YRS VACCINE 2021-05-15 00:00:00 Completed [facility] SARS-COV-2 COVID-19 MODERNA 12+ YRS VACCINE 2021-05-15 00:00:00 Completed [facility] SARS-COV-2 COVID-19 MODERNA 12+ YRS VACCINE 2021-05-15 00:00:00 Completed [facility] SARS-COV-2 COVID-19 MODERNA 12+ YRS VACCINE 2021-05-15 00:00:00 Completed [facility] SARS-COV-2 COVID-19 MODERNA 12+ YRS VACCINE 2021-05-15 00:00:00 Completed [facility] SARS-COV-2 COVID-19 MODERNA 12+ YRS VACCINE 2021-05-15 00:00:00 Completed [facility] SARS-COV-2 COVID-19 MODERNA 12+ YRS VACCINE 2021-05-15 00:00:00 Completed [facility] SARS-COV-2 COVID-19 MODERNA 12+ YRS VACCINE 2021-05-15 00:00:00 Completed [facility] SARS-COV-2 COVID-19 MODERNA 12+ YRS VACCINE 2021-05-15 00:00:00 Completed [facility] SARS-COV-2 COVID-19 MODERNA 12+ YRS VACCINE 2021-05-15 00:00:00 Completed [facility] SARS-COV-2 COVID-19 MODERNA 12+ YRS VACCINE 2021-05-15 00:00:00 Completed [facility] SARS-COV-2 COVID-19 MODERNA 12+ YRS VACCINE 2021-05-15 00:00:00 Completed [facility] SARS-COV-2 COVID-19 MODERNA 12+ YRS VACCINE 2021-05-15 00:00:00 Completed [facility] SARS-COV-2 COVID-19 MODERNA 12+ YRS VACCINE 2021-05-15 00:00:00 Completed [facility] SARS-COV-2 COVID-19 MODERNA 12+ YRS VACCINE 2021-05-15 00:00:00 Completed [facility] SARS-COV-2 COVID-19 MODERNA 12+ YRS VACCINE 2021-05-15 00:00:00 Completed [facility] SARS-COV-2 COVID-19 MODERNA 12+ YRS VACCINE 2021-05-15 00:00:00 Completed [facility] SARS-COV-2 COVID-19 MODERNA 12+ YRS VACCINE 2021-05-15 00:00:00 Completed [facility] SARS-COV-2 COVID-19 MODERNA 12+ YRS VACCINE 2021-05-15 00:00:00 Completed [facility] SARS-COV-2 COVID-19 MODERNA 12+ YRS VACCINE 2021-05-15 00:00:00 Completed [facility] SARS-COV-2 COVID-19 MODERNA 12+ YRS VACCINE 2021-05-15 00:00:00 Completed [facility] SARS-COV-2 COVID-19 MODERNA 12+ YRS VACCINE 2021-05-15 00:00:00 Completed [facility] SARS-COV-2 COVID-19 MODERNA 12+ YRS VACCINE 2021-05-15 00:00:00 Completed [facility] SARS-COV-2 COVID-19 MODERNA 12+ YRS VACCINE 2021-05-15 00:00:00 Completed [facility] SARS-COV-2 COVID-19 MODERNA 12+ YRS VACCINE 2021-05-15 00:00:00 Completed [facility] SARS-COV-2 COVID-19 MODERNA 12+ YRS VACCINE 2021-05-15 00:00:00 Completed [facility] SARS-COV-2 COVID-19 MODERNA 12+ YRS VACCINE 2021-05-15 00:00:00 Completed [facility] SARS-COV-2 COVID-19 MODERNA 12+ YRS VACCINE 2021-05-15 00:00:00 Completed [facility] SARS-COV-2 COVID-19 MODERNA 12+ YRS VACCINE 2021-05-15 00:00:00 Completed [facility] SARS-COV-2 COVID-19 MODERNA 12+ YRS VACCINE 2021-05-15 00:00:00 Completed [facility] SARS-COV-2 COVID-19 MODERNA 12+ YRS VACCINE 2021-05-15 00:00:00 Completed [facility] SARS-COV-2 COVID-19 MODERNA 12+ YRS VACCINE 2021-05-15 00:00:00 Completed [facility] SARS-COV-2 COVID-19 MODERNA 12+ YRS VACCINE 2021-05-15 00:00:00 Completed [facility] SARS-COV-2 COVID-19 MODERNA 12+ YRS VACCINE 2021-05-15 00:00:00 Completed [facility] SARS-COV-2 COVID-19 MODERNA 12+ YRS VACCINE 2021-05-15 00:00:00 Completed [facility] SARS-COV-2 COVID-19 MODERNA 12+ YRS VACCINE 2021-05-15 00:00:00 Completed [facility] SARS-COV-2 COVID-19 MODERNA 12+ YRS VACCINE 2021-05-15 00:00:00 Completed [facility] SARS-COV-2 COVID-19 MODERNA 12+ YRS VACCINE 2021-05-15 00:00:00 Completed [facility] SARS-COV-2 COVID-19 MODERNA 12+ YRS VACCINE 2021-05-15 00:00:00 Completed [facility] SARS-COV-2 COVID-19 MODERNA 12+ YRS VACCINE 2021-05-15 00:00:00 Completed [facility] SARS-COV-2 COVID-19 MODERNA 12+ YRS VACCINE 2021-05-15 00:00:00 Completed [facility] SARS-COV-2 COVID-19 MODERNA 12+ YRS VACCINE 2021-05-15 00:00:00 Completed [facility] SARS-COV-2 COVID-19 MODERNA 12+ YRS VACCINE 2021-05-15 00:00:00 Completed [facility] SARS-COV-2 COVID-19 MODERNA 12+ YRS VACCINE 2021-05-15 00:00:00 Completed [facility] SARS-COV-2 COVID-19 MODERNA 12+ YRS VACCINE 2021-05-15 00:00:00 Completed [facility] SARS-COV-2 COVID-19 MODERNA 12+ YRS VACCINE 2021-05-15 00:00:00 Completed [facility] SARS-COV-2 COVID-19 MODERNA 12+ YRS VACCINE 2021-05-15 00:00:00 Completed [facility] SARS-COV-2 COVID-19 MODERNA 12+ YRS VACCINE 2021-05-15 00:00:00 Completed [facility] SARS-COV-2 COVID-19 MODERNA 12+ YRS VACCINE 2021-05-15 00:00:00 Completed [facility] SARS-COV-2 COVID-19 MODERNA 12+ YRS VACCINE 2021-05-15 00:00:00 Completed [facility] SARS-COV-2 COVID-19 MODERNA 12+ YRS VACCINE 2021-05-15 00:00:00 Completed [facility] SARS-COV-2 COVID-19 MODERNA 12+ YRS VACCINE 2021-05-15 00:00:00 Completed [facility] SARS-COV-2 COVID-19 MODERNA 12+ YRS VACCINE 2021-05-15 00:00:00 Completed [facility] SARS-COV-2 COVID-19 MODERNA 12+ YRS VACCINE 2021-05-15 00:00:00 Completed [facility] SARS-COV-2 COVID-19 MODERNA 12+ YRS VACCINE 2021-05-15 00:00:00 Completed [facility] SARS-COV-2 COVID-19 MODERNA 12+ YRS VACCINE 2021-05-15 00:00:00 Completed [facility] SARS-COV-2 COVID-19 MODERNA 12+ YRS VACCINE 2021-05-15 00:00:00 Completed [facility] SARS-COV-2 COVID-19 MODERNA 12+ YRS VACCINE 2021-05-15 00:00:00 Completed [facility] SARS-COV-2 COVID-19 MODERNA 12+ YRS VACCINE 2021-05-15 00:00:00 Completed [facility] SARS-COV-2 COVID-19 MODERNA 12+ YRS VACCINE 2021-05-15 00:00:00 Completed [facility] SARS-COV-2 COVID-19 MODERNA 12+ YRS VACCINE 2021-05-15 00:00:00 Completed [facility] SARS-COV-2 COVID-19 MODERNA 12+ YRS VACCINE 2021-05-15 00:00:00 Completed [facility] SARS-COV-2 COVID-19 MODERNA 12+ YRS VACCINE 2021-05-15 00:00:00 Completed [facility] SARS-COV-2 COVID-19 MODERNA 12+ YRS VACCINE 2021-05-15 00:00:00 Completed [facility] SARS-COV-2 COVID-19 MODERNA 12+ YRS VACCINE 2021-05-15 00:00:00 Completed [facility] SARS-COV-2 COVID-19 MODERNA 12+ YRS VACCINE 2021-05-15 00:00:00 Completed [facility] SARS-COV-2 COVID-19 MODERNA 12+ YRS VACCINE 2021-05-15 00:00:00 Completed [facility] SARS-COV-2 COVID-19 MODERNA 12+ YRS VACCINE 2021-05-15 00:00:00 Completed [facility] SARS-COV-2 COVID-19 MODERNA 12+ YRS VACCINE 2021-05-15 00:00:00 Completed [facility] SARS-COV-2 COVID-19 MODERNA 12+ YRS VACCINE 2021-05-15 00:00:00 Completed [facility] SARS-COV-2 COVID-19 MODERNA 12+ YRS VACCINE 2021-05-15 00:00:00 Completed [facility] SARS-COV-2 COVID-19 MODERNA 12+ YRS VACCINE 2021-05-15 00:00:00 Completed [facility] SARS-COV-2 COVID-19 MODERNA 12+ YRS VACCINE 2021-05-15 00:00:00 Completed [facility] SARS-COV-2 COVID-19 MODERNA 12+ YRS VACCINE 2021-05-15 00:00:00 Completed [facility] SARS-COV-2 COVID-19 MODERNA 12+ YRS VACCINE 2021-05-15 00:00:00 Completed [facility] SARS-COV-2 COVID-19 MODERNA 12+ YRS VACCINE 2021-05-15 00:00:00 Completed [facility] SARS-COV-2 COVID-19 MODERNA 12+ YRS VACCINE 2021-05-15 00:00:00 Completed [facility] SARS-COV-2 COVID-19 MODERNA 12+ YRS VACCINE 2021-05-15 00:00:00 Completed [facility] SARS-COV-2 COVID-19 MODERNA 12+ YRS VACCINE 2021-05-15 00:00:00 Completed [facility] SARS-COV-2 COVID-19 MODERNA 12+ YRS VACCINE 2021-05-15 00:00:00 Completed [facility] SARS-COV-2 COVID-19 MODERNA 12+ YRS VACCINE 2021-05-15 00:00:00 Completed [facility] SARS-COV-2 COVID-19 MODERNA 12+ YRS VACCINE 2021-05-15 00:00:00 Completed [facility] SARS-COV-2 COVID-19 MODERNA 12+ YRS VACCINE 2021-05-15 00:00:00 Completed [facility] SARS-COV-2 COVID-19 MODERNA 12+ YRS VACCINE 2021-05-15 00:00:00 Completed [facility] SARS-COV-2 COVID-19 MODERNA 12+ YRS VACCINE 2021-05-15 00:00:00 Completed [facility] SARS-COV-2 COVID-19 MODERNA 12+ YRS VACCINE 2021-05-15 00:00:00 Completed [facility] SARS-COV-2 COVID-19 MODERNA 12+ YRS VACCINE 2021-05-15 00:00:00 Completed [facility] SARS-COV-2 COVID-19 MODERNA 12+ YRS VACCINE 2021-05-15 00:00:00 Completed [facility] SARS-COV-2 COVID-19 MODERNA 12+ YRS VACCINE 2021-05-15 00:00:00 Completed [facility] SARS-COV-2 COVID-19 MODERNA 12+ YRS VACCINE 2021-05-15 00:00:00 Completed [facility] SARS-COV-2 COVID-19 MODERNA 12+ YRS VACCINE 2021-05-15 00:00:00 Completed [facility] SARS-COV-2 COVID-19 MODERNA 12+ YRS VACCINE 2021-05-15 00:00:00 Completed [facility] SARS-COV-2 COVID-19 MODERNA 12+ YRS VACCINE 2021-05-15 00:00:00 Completed [facility] SARS-COV-2 COVID-19 MODERNA 12+ YRS VACCINE 2020-12-07 00:00:00 Completed SARS-COV-2 COVID-19 MODERNA 12+ YRS VACCINE 2020-12-07 00:00:00 Completed SARS-COV-2 COVID-19 MODERNA 12+ YRS VACCINE 2020-12-07 00:00:00 Completed SARS-COV-2 COVID-19 MODERNA 12+ YRS VACCINE 2020-12-07 00:00:00 Completed SARS-COV-2 COVID-19 MODERNA 12+ YRS VACCINE 2020-12-07 00:00:00 Completed SARS-COV-2 COVID-19 MODERNA 12+ YRS VACCINE 2020-12-07 00:00:00 Completed SARS-COV-2 COVID-19 MODERNA 12+ YRS VACCINE 2020-12-07 00:00:00 Completed SARS-COV-2 COVID-19 MODERNA 12+ YRS VACCINE 2020-12-07 00:00:00 Completed [facility] SARS-COV-2 COVID-19 MODERNA 12+ YRS VACCINE 2020-12-07 00:00:00 Completed [facility] SARS-COV-2 COVID-19 MODERNA 12+ YRS VACCINE 2020-12-07 00:00:00 Completed [facility] SARS-COV-2 COVID-19 MODERNA 12+ YRS VACCINE 2020-12-07 00:00:00 Completed [facility] SARS-COV-2 COVID-19 MODERNA 12+ YRS VACCINE 2020-12-07 00:00:00 Completed [facility] SARS-COV-2 COVID-19 MODERNA 12+ YRS VACCINE 2020-12-07 00:00:00 Completed [facility] SARS-COV-2 COVID-19 MODERNA 12+ YRS VACCINE 2020-12-07 00:00:00 Completed [facility] SARS-COV-2 COVID-19 MODERNA 12+ YRS VACCINE 2020-12-07 00:00:00 Completed [facility] SARS-COV-2 COVID-19 MODERNA 12+ YRS VACCINE 2020-12-07 00:00:00 Completed [facility] SARS-COV-2 COVID-19 MODERNA 12+ YRS VACCINE 2020-12-07 00:00:00 Completed [facility] SARS-COV-2 COVID-19 MODERNA 12+ YRS VACCINE 2020-12-07 00:00:00 Completed [facility] SARS-COV-2 COVID-19 MODERNA 12+ YRS VACCINE 2020-12-07 00:00:00 Completed [facility] SARS-COV-2 COVID-19 MODERNA 12+ YRS VACCINE 2020-12-07 00:00:00 Completed [facility] SARS-COV-2 COVID-19 MODERNA 12+ YRS VACCINE 2020-12-07 00:00:00 Completed [facility] SARS-COV-2 COVID-19 MODERNA 12+ YRS VACCINE 2020-12-07 00:00:00 Completed [facility] SARS-COV-2 COVID-19 MODERNA 12+ YRS VACCINE 2020-12-07 00:00:00 Completed [facility] SARS-COV-2 COVID-19 MODERNA 12+ YRS VACCINE 2020-12-07 00:00:00 Completed [facility] SARS-COV-2 COVID-19 MODERNA 12+ YRS VACCINE 2020-12-07 00:00:00 Completed [facility] SARS-COV-2 COVID-19 MODERNA 12+ YRS VACCINE 2020-12-07 00:00:00 Completed [facility] SARS-COV-2 COVID-19 MODERNA 12+ YRS VACCINE 2020-12-07 00:00:00 Completed [facility] SARS-COV-2 COVID-19 MODERNA 12+ YRS VACCINE 2020-12-07 00:00:00 Completed [facility] SARS-COV-2 COVID-19 MODERNA 12+ YRS VACCINE 2020-12-07 00:00:00 Completed [facility] SARS-COV-2 COVID-19 MODERNA 12+ YRS VACCINE 2020-12-07 00:00:00 Completed [facility] SARS-COV-2 COVID-19 MODERNA 12+ YRS VACCINE 2020-12-07 00:00:00 Completed [facility] SARS-COV-2 COVID-19 MODERNA 12+ YRS VACCINE 2020-12-07 00:00:00 Completed [facility] SARS-COV-2 COVID-19 MODERNA 12+ YRS VACCINE 2020-12-07 00:00:00 Completed [facility] SARS-COV-2 COVID-19 MODERNA 12+ YRS VACCINE 2020-12-07 00:00:00 Completed [facility] SARS-COV-2 COVID-19 MODERNA 12+ YRS VACCINE 2020-12-07 00:00:00 Completed [facility] SARS-COV-2 COVID-19 MODERNA 12+ YRS VACCINE 2020-12-07 00:00:00 Completed [facility] SARS-COV-2 COVID-19 MODERNA 12+ YRS VACCINE 2020-12-07 00:00:00 Completed [facility] SARS-COV-2 COVID-19 MODERNA 12+ YRS VACCINE 2020-12-07 00:00:00 Completed [facility] SARS-COV-2 COVID-19 MODERNA 12+ YRS VACCINE 2020-12-07 00:00:00 Completed [facility] SARS-COV-2 COVID-19 MODERNA 12+ YRS VACCINE 2020-12-07 00:00:00 Completed [facility] SARS-COV-2 COVID-19 MODERNA 12+ YRS VACCINE 2020-12-07 00:00:00 Completed [facility] SARS-COV-2 COVID-19 MODERNA 12+ YRS VACCINE 2020-12-07 00:00:00 Completed [facility] SARS-COV-2 COVID-19 MODERNA 12+ YRS VACCINE 2020-12-07 00:00:00 Completed [facility] SARS-COV-2 COVID-19 MODERNA 12+ YRS VACCINE 2020-12-07 00:00:00 Completed [facility] SARS-COV-2 COVID-19 MODERNA 12+ YRS VACCINE 2020-12-07 00:00:00 Completed [facility] SARS-COV-2 COVID-19 MODERNA 12+ YRS VACCINE 2020-12-07 00:00:00 Completed [facility] SARS-COV-2 COVID-19 MODERNA 12+ YRS VACCINE 2020-12-07 00:00:00 Completed [facility] SARS-COV-2 COVID-19 MODERNA 12+ YRS VACCINE 2020-12-07 00:00:00 Completed [facility] SARS-COV-2 COVID-19 MODERNA 12+ YRS VACCINE 2020-12-07 00:00:00 Completed [facility] SARS-COV-2 COVID-19 MODERNA 12+ YRS VACCINE 2020-12-07 00:00:00 Completed [facility] SARS-COV-2 COVID-19 MODERNA 12+ YRS VACCINE 2020-12-07 00:00:00 Completed [facility] SARS-COV-2 COVID-19 MODERNA 12+ YRS VACCINE 2020-12-07 00:00:00 Completed [facility] SARS-COV-2 COVID-19 MODERNA 12+ YRS VACCINE 2020-12-07 00:00:00 Completed [facility] SARS-COV-2 COVID-19 MODERNA 12+ YRS VACCINE 2020-12-07 00:00:00 Completed [facility] SARS-COV-2 COVID-19 MODERNA 12+ YRS VACCINE 2020-12-07 00:00:00 Completed [facility] SARS-COV-2 COVID-19 MODERNA 12+ YRS VACCINE 2020-12-07 00:00:00 Completed [facility] SARS-COV-2 COVID-19 MODERNA 12+ YRS VACCINE 2020-12-07 00:00:00 Completed [facility] SARS-COV-2 COVID-19 MODERNA 12+ YRS VACCINE 2020-12-07 00:00:00 Completed [facility] SARS-COV-2 COVID-19 MODERNA 12+ YRS VACCINE 2020-12-07 00:00:00 Completed [facility] SARS-COV-2 COVID-19 MODERNA 12+ YRS VACCINE 2020-12-07 00:00:00 Completed [facility] SARS-COV-2 COVID-19 MODERNA 12+ YRS VACCINE 2020-12-07 00:00:00 Completed [facility] SARS-COV-2 COVID-19 MODERNA 12+ YRS VACCINE 2020-12-07 00:00:00 Completed [facility] SARS-COV-2 COVID-19 MODERNA 12+ YRS VACCINE 2020-12-07 00:00:00 Completed [facility] SARS-COV-2 COVID-19 MODERNA 12+ YRS VACCINE 2020-12-07 00:00:00 Completed [facility] SARS-COV-2 COVID-19 MODERNA 12+ YRS VACCINE 2020-12-07 00:00:00 Completed [facility] SARS-COV-2 COVID-19 MODERNA 12+ YRS VACCINE 2020-12-07 00:00:00 Completed [facility] SARS-COV-2 COVID-19 MODERNA 12+ YRS VACCINE 2020-12-07 00:00:00 Completed [facility] SARS-COV-2 COVID-19 MODERNA 12+ YRS VACCINE 2020-12-07 00:00:00 Completed [facility] SARS-COV-2 COVID-19 MODERNA 12+ YRS VACCINE 2020-12-07 00:00:00 Completed [facility] SARS-COV-2 COVID-19 MODERNA 12+ YRS VACCINE 2020-12-07 00:00:00 Completed [facility] SARS-COV-2 COVID-19 MODERNA 12+ YRS VACCINE 2020-12-07 00:00:00 Completed [facility] SARS-COV-2 COVID-19 MODERNA 12+ YRS VACCINE 2020-12-07 00:00:00 Completed [facility] SARS-COV-2 COVID-19 MODERNA 12+ YRS VACCINE 2020-12-07 00:00:00 Completed [facility] SARS-COV-2 COVID-19 MODERNA 12+ YRS VACCINE 2020-12-07 00:00:00 Completed [facility] SARS-COV-2 COVID-19 MODERNA 12+ YRS VACCINE 2020-12-07 00:00:00 Completed [facility] SARS-COV-2 COVID-19 MODERNA 12+ YRS VACCINE 2020-12-07 00:00:00 Completed [facility] SARS-COV-2 COVID-19 MODERNA 12+ YRS VACCINE 2020-12-07 00:00:00 Completed [facility] SARS-COV-2 COVID-19 MODERNA 12+ YRS VACCINE 2020-12-07 00:00:00 Completed [facility] SARS-COV-2 COVID-19 MODERNA 12+ YRS VACCINE 2020-12-07 00:00:00 Completed [facility] SARS-COV-2 COVID-19 MODERNA 12+ YRS VACCINE 2020-12-07 00:00:00 Completed [facility] SARS-COV-2 COVID-19 MODERNA 12+ YRS VACCINE 2020-12-07 00:00:00 Completed [facility] SARS-COV-2 COVID-19 MODERNA 12+ YRS VACCINE 2020-12-07 00:00:00 Completed [facility] SARS-COV-2 COVID-19 MODERNA 12+ YRS VACCINE 2020-12-07 00:00:00 Completed [facility] SARS-COV-2 COVID-19 MODERNA 12+ YRS VACCINE 2020-12-07 00:00:00 Completed [facility] SARS-COV-2 COVID-19 MODERNA 12+ YRS VACCINE 2020-12-07 00:00:00 Completed [facility] SARS-COV-2 COVID-19 MODERNA 12+ YRS VACCINE 2020-12-07 00:00:00 Completed [facility] SARS-COV-2 COVID-19 MODERNA 12+ YRS VACCINE 2020-12-07 00:00:00 Completed [facility] SARS-COV-2 COVID-19 MODERNA 12+ YRS VACCINE 2020-12-07 00:00:00 Completed [facility] SARS-COV-2 COVID-19 MODERNA 12+ YRS VACCINE 2020-12-07 00:00:00 Completed [facility] SARS-COV-2 COVID-19 MODERNA 12+ YRS VACCINE 2020-12-07 00:00:00 Completed [facility] SARS-COV-2 COVID-19 MODERNA 12+ YRS VACCINE 2020-12-07 00:00:00 Completed [facility] SARS-COV-2 COVID-19 MODERNA 12+ YRS VACCINE 2020-12-07 00:00:00 Completed [facility] SARS-COV-2 COVID-19 MODERNA 12+ YRS VACCINE 2020-12-07 00:00:00 Completed [facility] SARS-COV-2 COVID-19 MODERNA 12+ YRS VACCINE 2020-12-07 00:00:00 Completed [facility] SARS-COV-2 COVID-19 MODERNA 12+ YRS VACCINE 2020-12-07 00:00:00 Completed [facility] SARS-COV-2 COVID-19 MODERNA 12+ YRS VACCINE 2020-12-07 00:00:00 Completed [facility] SARS-COV-2 COVID-19 MODERNA 12+ YRS VACCINE 2020-12-07 00:00:00 Completed [facility] SARS-COV-2 COVID-19 MODERNA 12+ YRS VACCINE 2020-12-07 00:00:00 Completed [facility] SARS-COV-2 COVID-19 MODERNA 12+ YRS VACCINE 2020-12-07 00:00:00 Completed [facility] SARS-COV-2 COVID-19 MODERNA 12+ YRS VACCINE 2020-12-07 00:00:00 Completed [facility] SARS-COV-2 COVID-19 MODERNA 12+ YRS VACCINE 2020-11-09 00:00:00 Completed SARS-COV-2 COVID-19 MODERNA 12+ YRS VACCINE 2020-11-09 00:00:00 Completed SARS-COV-2 COVID-19 MODERNA 12+ YRS VACCINE 2020-11-09 00:00:00 Completed SARS-COV-2 COVID-19 MODERNA 12+ YRS VACCINE 2020-11-09 00:00:00 Completed SARS-COV-2 COVID-19 MODERNA 12+ YRS VACCINE 2020-11-09 00:00:00 Completed SARS-COV-2 COVID-19 MODERNA 12+ YRS VACCINE 2020-11-09 00:00:00 Completed SARS-COV-2 COVID-19 MODERNA 12+ YRS VACCINE 2020-11-09 00:00:00 Completed SARS-COV-2 COVID-19 MODERNA 12+ YRS VACCINE 2020-11-09 00:00:00 Completed [facility] SARS-COV-2 COVID-19 MODERNA 12+ YRS VACCINE 2020-11-09 00:00:00 Completed [facility] SARS-COV-2 COVID-19 MODERNA 12+ YRS VACCINE 2020-11-09 00:00:00 Completed [facility] SARS-COV-2 COVID-19 MODERNA 12+ YRS VACCINE 2020-11-09 00:00:00 Completed [facility] SARS-COV-2 COVID-19 MODERNA 12+ YRS VACCINE 2020-11-09 00:00:00 Completed [facility] SARS-COV-2 COVID-19 MODERNA 12+ YRS VACCINE 2020-11-09 00:00:00 Completed [facility] SARS-COV-2 COVID-19 MODERNA 12+ YRS VACCINE 2020-11-09 00:00:00 Completed [facility] SARS-COV-2 COVID-19 MODERNA 12+ YRS VACCINE 2020-11-09 00:00:00 Completed [facility] SARS-COV-2 COVID-19 MODERNA 12+ YRS VACCINE 2020-11-09 00:00:00 Completed [facility] SARS-COV-2 COVID-19 MODERNA 12+ YRS VACCINE 2020-11-09 00:00:00 Completed [facility] SARS-COV-2 COVID-19 MODERNA 12+ YRS VACCINE 2020-11-09 00:00:00 Completed [facility] SARS-COV-2 COVID-19 MODERNA 12+ YRS VACCINE 2020-11-09 00:00:00 Completed [facility] SARS-COV-2 COVID-19 MODERNA 12+ YRS VACCINE 2020-11-09 00:00:00 Completed [facility] SARS-COV-2 COVID-19 MODERNA 12+ YRS VACCINE 2020-11-09 00:00:00 Completed [facility] SARS-COV-2 COVID-19 MODERNA 12+ YRS VACCINE 2020-11-09 00:00:00 Completed [facility] SARS-COV-2 COVID-19 MODERNA 12+ YRS VACCINE 2020-11-09 00:00:00 Completed [facility] SARS-COV-2 COVID-19 MODERNA 12+ YRS VACCINE 2020-11-09 00:00:00 Completed [facility] SARS-COV-2 COVID-19 MODERNA 12+ YRS VACCINE 2020-11-09 00:00:00 Completed [facility] SARS-COV-2 COVID-19 MODERNA 12+ YRS VACCINE 2020-11-09 00:00:00 Completed [facility] SARS-COV-2 COVID-19 MODERNA 12+ YRS VACCINE 2020-11-09 00:00:00 Completed [facility] SARS-COV-2 COVID-19 MODERNA 12+ YRS VACCINE 2020-11-09 00:00:00 Completed [facility] SARS-COV-2 COVID-19 MODERNA 12+ YRS VACCINE 2020-11-09 00:00:00 Completed [facility] SARS-COV-2 COVID-19 MODERNA 12+ YRS VACCINE 2020-11-09 00:00:00 Completed [facility] SARS-COV-2 COVID-19 MODERNA 12+ YRS VACCINE 2020-11-09 00:00:00 Completed [facility] SARS-COV-2 COVID-19 MODERNA 12+ YRS VACCINE 2020-11-09 00:00:00 Completed [facility] SARS-COV-2 COVID-19 MODERNA 12+ YRS VACCINE 2020-11-09 00:00:00 Completed [facility] SARS-COV-2 COVID-19 MODERNA 12+ YRS VACCINE 2020-11-09 00:00:00 Completed [facility] SARS-COV-2 COVID-19 MODERNA 12+ YRS VACCINE 2020-11-09 00:00:00 Completed [facility] SARS-COV-2 COVID-19 MODERNA 12+ YRS VACCINE 2020-11-09 00:00:00 Completed [facility] SARS-COV-2 COVID-19 MODERNA 12+ YRS VACCINE 2020-11-09 00:00:00 Completed [facility] SARS-COV-2 COVID-19 MODERNA 12+ YRS VACCINE 2020-11-09 00:00:00 Completed [facility] SARS-COV-2 COVID-19 MODERNA 12+ YRS VACCINE 2020-11-09 00:00:00 Completed [facility] SARS-COV-2 COVID-19 MODERNA 12+ YRS VACCINE 2020-11-09 00:00:00 Completed [facility] SARS-COV-2 COVID-19 MODERNA 12+ YRS VACCINE 2020-11-09 00:00:00 Completed [facility] SARS-COV-2 COVID-19 MODERNA 12+ YRS VACCINE 2020-11-09 00:00:00 Completed [facility] SARS-COV-2 COVID-19 MODERNA 12+ YRS VACCINE 2020-11-09 00:00:00 Completed [facility] SARS-COV-2 COVID-19 MODERNA 12+ YRS VACCINE 2020-11-09 00:00:00 Completed [facility] SARS-COV-2 COVID-19 MODERNA 12+ YRS VACCINE 2020-11-09 00:00:00 Completed [facility] SARS-COV-2 COVID-19 MODERNA 12+ YRS VACCINE 2020-11-09 00:00:00 Completed [facility] SARS-COV-2 COVID-19 MODERNA 12+ YRS VACCINE 2020-11-09 00:00:00 Completed [facility] SARS-COV-2 COVID-19 MODERNA 12+ YRS VACCINE 2020-11-09 00:00:00 Completed [facility] SARS-COV-2 COVID-19 MODERNA 12+ YRS VACCINE 2020-11-09 00:00:00 Completed [facility] SARS-COV-2 COVID-19 MODERNA 12+ YRS VACCINE 2020-11-09 00:00:00 Completed [facility] SARS-COV-2 COVID-19 MODERNA 12+ YRS VACCINE 2020-11-09 00:00:00 Completed [facility] SARS-COV-2 COVID-19 MODERNA 12+ YRS VACCINE 2020-11-09 00:00:00 Completed [facility] SARS-COV-2 COVID-19 MODERNA 12+ YRS VACCINE 2020-11-09 00:00:00 Completed [facility] SARS-COV-2 COVID-19 MODERNA 12+ YRS VACCINE 2020-11-09 00:00:00 Completed [facility] SARS-COV-2 COVID-19 MODERNA 12+ YRS VACCINE 2020-11-09 00:00:00 Completed [facility] SARS-COV-2 COVID-19 MODERNA 12+ YRS VACCINE 2020-11-09 00:00:00 Completed [facility] SARS-COV-2 COVID-19 MODERNA 12+ YRS VACCINE 2020-11-09 00:00:00 Completed [facility] SARS-COV-2 COVID-19 MODERNA 12+ YRS VACCINE 2020-11-09 00:00:00 Completed [facility] SARS-COV-2 COVID-19 MODERNA 12+ YRS VACCINE 2020-11-09 00:00:00 Completed [facility] SARS-COV-2 COVID-19 MODERNA 12+ YRS VACCINE 2020-11-09 00:00:00 Completed [facility] SARS-COV-2 COVID-19 MODERNA 12+ YRS VACCINE 2020-11-09 00:00:00 Completed [facility] SARS-COV-2 COVID-19 MODERNA 12+ YRS VACCINE 2020-11-09 00:00:00 Completed [facility] SARS-COV-2 COVID-19 MODERNA 12+ YRS VACCINE 2020-11-09 00:00:00 Completed [facility] SARS-COV-2 COVID-19 MODERNA 12+ YRS VACCINE 2020-11-09 00:00:00 Completed [facility] SARS-COV-2 COVID-19 MODERNA 12+ YRS VACCINE 2020-11-09 00:00:00 Completed [facility] SARS-COV-2 COVID-19 MODERNA 12+ YRS VACCINE 2020-11-09 00:00:00 Completed [facility] SARS-COV-2 COVID-19 MODERNA 12+ YRS VACCINE 2020-11-09 00:00:00 Completed [facility] SARS-COV-2 COVID-19 MODERNA 12+ YRS VACCINE 2020-11-09 00:00:00 Completed [facility] SARS-COV-2 COVID-19 MODERNA 12+ YRS VACCINE 2020-11-09 00:00:00 Completed [facility] SARS-COV-2 COVID-19 MODERNA 12+ YRS VACCINE 2020-11-09 00:00:00 Completed [facility] SARS-COV-2 COVID-19 MODERNA 12+ YRS VACCINE 2020-11-09 00:00:00 Completed [facility] SARS-COV-2 COVID-19 MODERNA 12+ YRS VACCINE 2020-11-09 00:00:00 Completed [facility] SARS-COV-2 COVID-19 MODERNA 12+ YRS VACCINE 2020-11-09 00:00:00 Completed [facility] SARS-COV-2 COVID-19 MODERNA 12+ YRS VACCINE 2020-11-09 00:00:00 Completed [facility] SARS-COV-2 COVID-19 MODERNA 12+ YRS VACCINE 2020-11-09 00:00:00 Completed [facility] SARS-COV-2 COVID-19 MODERNA 12+ YRS VACCINE 2020-11-09 00:00:00 Completed [facility] SARS-COV-2 COVID-19 MODERNA 12+ YRS VACCINE 2020-11-09 00:00:00 Completed [facility] SARS-COV-2 COVID-19 MODERNA 12+ YRS VACCINE 2020-11-09 00:00:00 Completed [facility] SARS-COV-2 COVID-19 MODERNA 12+ YRS VACCINE 2020-11-09 00:00:00 Completed [facility] SARS-COV-2 COVID-19 MODERNA 12+ YRS VACCINE 2020-11-09 00:00:00 Completed [facility] SARS-COV-2 COVID-19 MODERNA 12+ YRS VACCINE 2020-11-09 00:00:00 Completed [facility] SARS-COV-2 COVID-19 MODERNA 12+ YRS VACCINE 2020-11-09 00:00:00 Completed [facility] SARS-COV-2 COVID-19 MODERNA 12+ YRS VACCINE 2020-11-09 00:00:00 Completed [facility] SARS-COV-2 COVID-19 MODERNA 12+ YRS VACCINE 2020-11-09 00:00:00 Completed [facility] SARS-COV-2 COVID-19 MODERNA 12+ YRS VACCINE 2020-11-09 00:00:00 Completed [facility] SARS-COV-2 COVID-19 MODERNA 12+ YRS VACCINE 2020-11-09 00:00:00 Completed [facility] SARS-COV-2 COVID-19 MODERNA 12+ YRS VACCINE 2020-11-09 00:00:00 Completed [facility] SARS-COV-2 COVID-19 MODERNA 12+ YRS VACCINE 2020-11-09 00:00:00 Completed [facility] SARS-COV-2 COVID-19 MODERNA 12+ YRS VACCINE 2020-11-09 00:00:00 Completed [facility] SARS-COV-2 COVID-19 MODERNA 12+ YRS VACCINE 2020-11-09 00:00:00 Completed [facility] SARS-COV-2 COVID-19 MODERNA 12+ YRS VACCINE 2020-11-09 00:00:00 Completed [facility] SARS-COV-2 COVID-19 MODERNA 12+ YRS VACCINE 2020-11-09 00:00:00 Completed [facility] SARS-COV-2 COVID-19 MODERNA 12+ YRS VACCINE 2020-11-09 00:00:00 Completed [facility] SARS-COV-2 COVID-19 MODERNA 12+ YRS VACCINE 2020-11-09 00:00:00 Completed [facility] SARS-COV-2 COVID-19 MODERNA 12+ YRS VACCINE 2020-11-09 00:00:00 Completed [facility] SARS-COV-2 COVID-19 MODERNA 12+ YRS VACCINE 2020-11-09 00:00:00 Completed [facility] SARS-COV-2 COVID-19 MODERNA 12+ YRS VACCINE 2020-11-09 00:00:00 Completed [facility] SARS-COV-2 COVID-19 MODERNA 12+ YRS VACCINE 2020-11-09 00:00:00 [facility]pleted [facility] [facility] SARS-COV-2 COVID-19 MODERNA 12+ YRS VACCINE 2020-11-09 00:00:00 Completed [facility] SARS-COV-2 COVID-19 MODERNA 12+ YRS VACCINE 2020-11-09 00:00:00 Completed [facility] Influenza Virus Vaccine,quad Im,preserve Free 65+ (FLUAD) Unknown Completed [facility] SARS-COV-2 COVID-19 MODERNA 12+ YRS VACCINE Unknown Completed [facility] TDAP Unknown Completed [facility] Human Rabies Vaccine From Chicken Fibroblast Culture (RABAVERT) Unknown Completed [facility] Rabies Immune Globulin Unknown Completed [facility] SARS-COV-2 COVID-19 VACCINE 12 YRS+, BIVALENT 0.5ML, IM, (MODERNA-BLUE TOP) Unknown Completed [facility] Influenza Virus Vaccine,quad Im,preserve Free 65+ (FLUAD) Unknown Completed [facility] SARS-COV-2 COVID-19 MODERNA 12+ YRS VACCINE Unknown Completed [facility] TDAP Unknown Completed [facility] Human Rabies Vaccine From Chicken Fibroblast Culture (RABAVERT) Unknown Completed [facility] Rabies Immune Globulin Unknown Completed [facility] SARS-COV-2 COVID-19 VACCINE 12 YRS+, BIVALENT 0.5ML, IM, (MODERNA-BLUE TOP) Unknown Completed [facility] Influenza Virus Vaccine,quad Im,preserve Free 65+ (FLUAD) Unknown Completed [facility] SARS-COV-2 COVID-19 MODERNA 12+ YRS VACCINE Unknown Completed [facility] TDAP Unknown Completed [facility] Human Rabies Vaccine From Chicken Fibroblast Culture (RABAVERT) Unknown Completed [facility] Rabies Immune Globulin Unknown Completed [facility] SARS-COV-2 COVID-19 VACCINE 12 YRS+, BIVALENT 0.5ML, IM, (MODERNA-BLUE TOP) Unknown Completed [facility] Influenza Virus Vaccine,quad Im,preserve Free 65+ (FLUAD) Unknown Completed [facility] SARS-COV-2 COVID-19 MODERNA 12+ YRS VACCINE Unknown Completed [facility] TDAP Unknown Completed [facility] Human Rabies Vaccine From Chicken Fibroblast Culture (RABAVERT) Unknown Completed [facility] Rabies Immune Globulin Unknown Completed [facility] SARS-COV-2 COVID-19 VACCINE 12 YRS+, BIVALENT 0.5ML, IM, (MODERNA-BLUE TOP) Unknown Completed [facility] Influenza Virus Vaccine,quad Im,preserve Free 65+ (FLUAD) Unknown Completed [facility] SARS-COV-2 COVID-19 MODERNA 12+ YRS VACCINE Unknown Completed [facility] TDAP Unknown Completed [facility] Human Rabies Vaccine From Chicken Fibroblast Culture (RABAVERT) Unknown Completed [facility] Rabies Immune Globulin Unknown Completed [facility] SARS-COV-2 COVID-19 VACCINE 12 YRS+, BIVALENT 0.5ML, IM, (MODERNA-BLUE TOP) Unknown Completed [facility] TDAP Unknown Completed [facility] Rabies Immune Globulin Unknown Completed [facility] SARS-COV-2 COVID-19 VACCINE 12 YRS+, BIVALENT 0.5ML, IM, (MODERNA-BLUE TOP) Unknown Completed [facility] Influenza Virus Vaccine,quad Im,preserve Free 65+ (FLUAD) Unknown Completed [facility] SARS-COV-2 COVID-19 MODERNA 12+ YRS VACCINE Unknown Completed [facility] Human Rabies Vaccine From Chicken Fibroblast Culture (RABAVERT) Unknown Completed [facility] TDAP Unknown Completed [facility] Rabies Immune Globulin Unknown Completed [facility] SARS-COV-2 COVID-19 VACCINE 12 YRS+, BIVALENT 0.5ML, IM, (MODERNA-BLUE TOP) Unknown Completed [facility] Influenza Virus Vaccine,quad Im,preserve Free 65+ (FLUAD) Unknown Completed [facility] SARS-COV-2 COVID-19 MODERNA 12+ YRS VACCINE Unknown Completed [facility] Human Rabies Vaccine From Chicken Fibroblast Culture (RABAVERT) Unknown Completed [facility] Influenza Virus Vaccine,quad Im,preserve Free 65+ (FLUAD) Unknown Completed [facility] SARS-COV-2 COVID-19 MODERNA 12+ YRS VACCINE Unknown Completed [facility] TDAP Unknown Completed [facility] Human Rabies Vaccine From Chicken Fibroblast Culture (RABAVERT) Unknown Completed [facility] Rabies Immune Globulin Unknown Completed [facility] SARS-COV-2 COVID-19 VACCINE 12 YRS+, BIVALENT 0.5ML, IM, (MODERNA-BLUE TOP) Unknown Completed [facility] Influenza Virus Vaccine,quad Im,preserve Free 65+ (FLUAD) Unknown Completed [facility] SARS-COV-2 COVID-19 MODERNA 12+ YRS VACCINE Unknown Completed [facility] TDAP Unknown Completed [facility] Human Rabies Vaccine From Chicken Fibroblast Culture (RABAVERT) Unknown Completed [facility] Rabies Immune Globulin Unknown Completed [facility] SARS-COV-2 COVID-19 VACCINE 12 YRS+, BIVALENT 0.5ML, IM, (MODERNA-BLUE TOP) Unknown Completed [facility] Influenza Virus Vaccine,quad Im,preserve Free 65+ (FLUAD) Unknown Completed [facility] SARS-COV-2 COVID-19 MODERNA 12+ YRS VACCINE Unknown Completed [facility] TDAP Unknown Completed [facility] Human Rabies Vaccine From Chicken Fibroblast Culture (RABAVERT) Unknown Completed [facility] Rabies Immune Globulin Unknown Completed [facility] SARS-COV-2 COVID-19 VACCINE 12 YRS+, BIVALENT 0.5ML, IM, (MODERNA-BLUE TOP) Unknown Completed [facility] Influenza Virus Vaccine,quad Im,preserve Free 65+ (FLUAD) Unknown Completed [facility] SARS-COV-2 COVID-19 MODERNA 12+ YRS VACCINE Unknown Completed [facility] TDAP Unknown Completed [facility] Human Rabies Vaccine From Chicken Fibroblast Culture (RABAVERT) Unknown Completed [facility] Rabies Immune Globulin Unknown Completed [facility] SARS-COV-2 COVID-19 VACCINE 12 YRS+, BIVALENT 0.5ML, IM, (MODERNA-BLUE TOP) Unknown Completed [facility] Influenza Virus Vaccine,quad Im,preserve Free 65+ (FLUAD) Unknown Completed [facility] SARS-COV-2 COVID-19 MODERNA 12+ YRS VACCINE Unknown Completed [facility] TDAP Unknown Completed [facility] Human Rabies Vaccine From Chicken Fibroblast Culture (RABAVERT) Unknown Completed [facility] Rabies Immune Globulin Unknown Completed [facility] SARS-COV-2 COVID-19 VACCINE 12 YRS+, BIVALENT 0.5ML, IM, (MODERNA-BLUE TOP) Unknown Completed [facility] Influenza Virus Vaccine,quad Im,preserve Free 65+ (FLUAD) Unknown Completed [facility] SARS-COV-2 COVID-19 MODERNA 12+ YRS VACCINE Unknown Completed [facility] TDAP Unknown Completed [facility] Human Rabies Vaccine From Chicken Fibroblast Culture (RABAVERT) Unknown Completed [facility] Rabies Immune Globulin Unknown Completed [facility] SARS-COV-2 COVID-19 VACCINE 12 YRS+, BIVALENT 0.5ML, IM, (MODERNA-BLUE TOP) Unknown Completed [facility] Influenza Virus Vaccine,quad Im,preserve Free 65+ (FLUAD) Unknown Completed [facility] SARS-COV-2 COVID-19 MODERNA 12+ YRS VACCINE Unknown Completed [facility] TDAP Unknown Completed [facility] Human Rabies Vaccine From Chicken Fibroblast Culture (RABAVERT) Unknown Completed [facility] Rabies Immune Globulin Unknown Completed [facility] SARS-COV-2 COVID-19 VACCINE 12 YRS+, BIVALENT 0.5ML, IM, (MODERNA-BLUE TOP) Unknown Completed [facility] TD Pres-Free Unknown Completed [facility] Influenza Virus Vaccine,quad Im,preserve Free 65+ (FLUAD) Unknown Completed [facility] SARS-COV-2 COVID-19 MODERNA 12+ YRS VACCINE Unknown Completed [facility] TDAP Unknown Completed [facility] Human Rabies Vaccine From Chicken Fibroblast Culture (RABAVERT) Unknown Completed [facility] Rabies Immune Globulin Unknown Completed [facility] SARS-COV-2 COVID-19 VACCINE 12 YRS+, BIVALENT 0.5ML, IM, (MODERNA-BLUE TOP) Unknown Completed [facility] TD Pres-Free Unknown Completed [facility] Influenza Virus Vaccine,quad Im,preserve Free 65+ (FLUAD) Unknown Completed [facility] SARS-COV-2 COVID-19 MODERNA 12+ YRS VACCINE Unknown Completed [facility] TDAP Unknown Completed [facility] Human Rabies Vaccine From Chicken Fibroblast Culture (RABAVERT) Unknown Completed [facility] Rabies Immune Globulin Unknown Completed [facility] SARS-COV-2 COVID-19 VACCINE 12 YRS+, BIVALENT 0.5ML, IM, (MODERNA-BLUE TOP) Unknown Completed [facility] TD Pres-Free Unknown Completed [facility] Influenza Virus Vaccine,quad Im,preserve Free 65+ (FLUAD) Unknown Completed [facility] SARS-COV-2 COVID-19 MODERNA 12+ YRS VACCINE Unknown Completed [facility] TDAP Unknown Completed [facility] Human Rabies Vaccine From Chicken Fibroblast Culture (RABAVERT) Unknown Completed [facility] Rabies Immune Globulin Unknown Completed [facility] SARS-COV-2 COVID-19 VACCINE 12 YRS+, BIVALENT 0.5ML, IM, (MODERNA-BLUE TOP) Unknown Completed [facility] TD Pres-Free Unknown Completed [facility] Influenza Virus Vaccine,quad Im,preserve Free 65+ (FLUAD) Unknown Completed [facility] SARS-COV-2 COVID-19 MODERNA 12+ YRS VACCINE Unknown Completed [facility] TDAP Unknown Completed [facility] Human Rabies Vaccine From Chicken Fibroblast Culture (RABAVERT) Unknown Completed [facility] Rabies Immune Globulin Unknown Completed [facility] SARS-COV-2 COVID-19 VACCINE 12 YRS+, BIVALENT 0.5ML, IM, (MODERNA-BLUE TOP) Unknown Completed [facility] TD Pres-Free Unknown Completed [facility] Influenza Virus Vaccine,quad Im,preserve Free 65+ (FLUAD) Unknown Completed [facility] SARS-COV-2 COVID-19 MODERNA 12+ YRS VACCINE Unknown Completed [facility] TDAP Unknown Completed [facility] Human Rabies Vaccine From Chicken Fibroblast Culture (RABAVERT) Unknown Completed [facility] Rabies Immune Globulin Unknown Completed [facility] SARS-COV-2 COVID-19 VACCINE 12 YRS+, BIVALENT 0.5ML, IM, (MODERNA-BLUE TOP) Unknown Completed [facility] TD Pres-Free Unknown Completed [facility] Influenza Virus Vaccine,quad Im,preserve Free 65+ (FLUAD) Unknown Completed [facility] SARS-COV-2 COVID-19 MODERNA 12+ YRS VACCINE Unknown Completed [facility] TDAP Unknown Completed [facility] Human Rabies Vaccine From Chicken Fibroblast Culture (RABAVERT) Unknown Completed [facility] Rabies Immune Globulin Unknown Completed [facility] SARS-COV-2 COVID-19 VACCINE 12 YRS+, BIVALENT 0.5ML, IM, (MODERNA-BLUE TOP) Unknown Completed [facility] TD Pres-Free Unknown Completed [facility] Influenza Virus Vaccine,quad Im,preserve Free 65+ (FLUAD) Unknown Completed [facility] SARS-COV-2 COVID-19 MODERNA 12+ YRS VACCINE Unknown Completed [facility] TDAP Unknown Completed [facility] Human Rabies Vaccine From Chicken Fibroblast Culture (RABAVERT) Unknown Completed [facility] Rabies Immune Globulin Unknown Completed [facility] SARS-COV-2 COVID-19 VACCINE 12 YRS+, BIVALENT 0.5ML, IM, (MODERNA-BLUE TOP) Unknown Completed [facility] TD Pres-Free Unknown Completed [facility] Influenza Virus Vaccine,quad Im,preserve Free 65+ (FLUAD) Unknown Completed [facility] SARS-COV-2 COVID-19 MODERNA 12+ YRS VACCINE Unknown Completed [facility] TDAP Unknown Completed [facility] Human Rabies Vaccine From Chicken Fibroblast Culture (RABAVERT) Unknown Completed [facility] Rabies Immune Globulin Unknown Completed [facility] SARS-COV-2 COVID-19 VACCINE 12 YRS+, BIVALENT 0.5ML, IM, (MODERNA-BLUE TOP) Unknown Completed [facility] TD Pres-Free Unknown Completed [facility] Influenza Virus Vaccine,quad Im,preserve Free 65+ (FLUAD) Unknown Completed [facility] SARS-COV-2 COVID-19 MODERNA 12+ YRS VACCINE Unknown Completed [facility] TDAP Unknown Completed [facility] Human Rabies Vaccine From Chicken Fibroblast Culture (RABAVERT) Unknown Completed [facility] Rabies Immune Globulin Unknown Completed [facility] SARS-COV-2 COVID-19 VACCINE 12 YRS+, BIVALENT 0.5ML, IM, (MODERNA-BLUE TOP) Unknown Completed [facility] TD Pres-Free Unknown Completed [facility] Influenza Virus Vaccine,quad Im,preserve Free 65+ (FLUAD) Unknown Completed [facility] SARS-COV-2 COVID-19 MODERNA 12+ YRS VACCINE Unknown Completed [facility] TDAP Unknown Completed [facility] Human Rabies Vaccine From Chicken Fibroblast Culture (RABAVERT) Unknown Completed [facility] Rabies Immune Globulin Unknown Completed [facility] SARS-COV-2 COVID-19 VACCINE 12 YRS+, BIVALENT 0.5ML, IM, (MODERNA-BLUE TOP) Unknown Completed [facility] TD Pres-Free Unknown Completed [facility] Influenza Virus Vaccine,quad Im,preserve Free 65+ (FLUAD) Unknown Completed [facility] SARS-COV-2 COVID-19 MODERNA 12+ YRS VACCINE Unknown Completed [facility] TDAP Unknown Completed [facility] Human Rabies Vaccine From Chicken Fibroblast Culture (RABAVERT) Unknown Completed [facility] Rabies Immune Globulin Unknown Completed [facility] SARS-COV-2 COVID-19 VACCINE 12 YRS+, BIVALENT 0.5ML, IM, (MODERNA-BLUE TOP) Unknown Completed [facility] TD Pres-Free Unknown Completed [facility] Influenza Virus Vaccine,quad Im,preserve Free 65+ (FLUAD) Unknown Completed [facility] SARS-COV-2 COVID-19 MODERNA 12+ YRS VACCINE Unknown Completed [facility] TDAP Unknown Completed [facility] Human Rabies Vaccine From Chicken Fibroblast Culture (RABAVERT) Unknown Completed [facility] Rabies Immune Globulin Unknown Completed [facility] SARS-COV-2 COVID-19 VACCINE 12 YRS+, BIVALENT 0.5ML, IM, (MODERNA-BLUE TOP) Unknown Completed [facility] TD Pres-Free Unknown Completed [facility] Influenza Virus Vaccine,quad Im,preserve Free 65+ (FLUAD) Unknown Completed [facility] SARS-COV-2 COVID-19 MODERNA 12+ YRS VACCINE Unknown Completed [facility] TDAP Unknown Completed [facility] Human Rabies Vaccine From Chicken Fibroblast Culture (RABAVERT) Unknown Completed [facility] Rabies Immune Globulin Unknown Completed [facility] SARS-COV-2 COVID-19 VACCINE 12 YRS+, BIVALENT 0.5ML, IM, (MODERNA-BLUE TOP) Unknown Completed [facility] TD Pres-Free Unknown Completed [facility] Influenza Virus Vaccine,quad Im,preserve Free 65+ (FLUAD) Unknown Completed [facility] SARS-COV-2 COVID-19 MODERNA 12+ YRS VACCINE Unknown Completed [facility] TDAP Unknown Completed [facility] Human Rabies Vaccine From Chicken Fibroblast Culture (RABAVERT) Unknown Completed [facility] Rabies Immune Globulin Unknown Completed [facility] SARS-COV-2 COVID-19 VACCINE 12 YRS+, BIVALENT 0.5ML, IM, (MODERNA-BLUE TOP) Unknown Completed [facility] TD Pres-Free Unknown Completed [facility] Influenza Virus Vaccine,quad Im,preserve Free 65+ (FLUAD) Unknown Completed [facility] SARS-COV-2 COVID-19 MODERNA 12+ YRS VACCINE Unknown Completed [facility] TDAP Unknown Completed [facility] Human Rabies Vaccine From Chicken Fibroblast Culture (RABAVERT) Unknown Completed [facility] Rabies Immune Globulin Unknown Completed [facility] SARS-COV-2 COVID-19 VACCINE 12 YRS+, BIVALENT 0.5ML, IM, (MODERNA-BLUE TOP) Unknown Completed [facility] TD Pres-Free Unknown Completed [facility] Influenza Virus Vaccine,quad Im,preserve Free 65+ (FLUAD) Unknown Completed [facility] SARS-COV-2 COVID-19 MODERNA 12+ YRS VACCINE Unknown Completed [facility] TDAP Unknown Completed [facility] Human Rabies Vaccine From Chicken Fibroblast Culture (RABAVERT) Unknown Completed [facility] Rabies Immune Globulin Unknown Completed [facility] SARS-COV-2 COVID-19 VACCINE 12 YRS+, BIVALENT 0.5ML, IM, (MODERNA-BLUE TOP) Unknown Completed [facility] TD Pres-Free Unknown Completed [facility] Influenza Virus Vaccine,quad Im,preserve Free 65+ (FLUAD) Unknown Completed [facility] SARS-COV-2 COVID-19 MODERNA 12+ YRS VACCINE Unknown Completed [facility] TDAP Unknown Completed [facility] Human Rabies Vaccine From Chicken Fibroblast Culture (RABAVERT) Unknown Completed [facility] Rabies Immune Globulin Unknown Completed [facility] SARS-COV-2 COVID-19 VACCINE 12 YRS+, BIVALENT 0.5ML, IM, (MODERNA-BLUE TOP) Unknown Completed [facility] TD Pres-Free Unknown Completed [facility] Influenza Virus Vaccine,quad Im,preserve Free 65+ (FLUAD) Unknown Completed [facility] SARS-COV-2 COVID-19 MODERNA 12+ YRS VACCINE Unknown Completed [facility] TDAP Unknown Completed [facility] Human Rabies Vaccine From Chicken Fibroblast Culture (RABAVERT) Unknown Completed [facility] Rabies Immune Globulin Unknown Completed [facility] SARS-COV-2 COVID-19 VACCINE 12 YRS+, BIVALENT 0.5ML, IM, (MODERNA-BLUE TOP) Unknown Completed [facility] TD Pres-Free Unknown Completed [facility] Influenza Virus Vaccine,quad Im,preserve Free 65+ (FLUAD) Unknown Completed [facility] SARS-COV-2 COVID-19 MODERNA 12+ YRS VACCINE Unknown Completed [facility] TDAP Unknown Completed [facility] Human Rabies Vaccine From Chicken Fibroblast Culture (RABAVERT) Unknown Completed [facility] Rabies Immune Globulin Unknown Completed [facility] SARS-COV-2 COVID-19 VACCINE 12 YRS+, BIVALENT 0.5ML, IM, (MODERNA-BLUE TOP) Unknown Completed [facility] TD Pres-Free Unknown Completed [facility] Influenza Virus Vaccine,quad Im,preserve Free 65+ (FLUAD) Unknown Completed [facility] SARS-COV-2 COVID-19 MODERNA 12+ YRS VACCINE Unknown Completed [facility] TDAP Unknown Completed [facility] Human Rabies Vaccine From Chicken Fibroblast Culture (RABAVERT) Unknown Completed [facility] Rabies Immune Globulin Unknown Completed [facility] SARS-COV-2 COVID-19 VACCINE 12 YRS+, BIVALENT 0.5ML, IM, (MODERNA-BLUE TOP) Unknown Completed [facility] TD Pres-Free Unknown Completed [facility] Influenza Virus Vaccine,quad Im,preserve Free 65+ (FLUAD) Unknown Completed [facility] SARS-COV-2 COVID-19 MODERNA 12+ YRS VACCINE Unknown Completed [facility] TDAP Unknown Completed [facility] Human Rabies Vaccine From Chicken Fibroblast Culture (RABAVERT) Unknown Completed [facility] Rabies Immune Globulin Unknown Completed [facility] SARS-COV-2 COVID-19 VACCINE 12 YRS+, BIVALENT 0.5ML, IM, (MODERNA-BLUE TOP) Unknown Completed [facility] TD Pres-Free Unknown Completed [facility] Influenza Virus Vaccine,quad Im,preserve Free 65+ (FLUAD) Unknown Completed [facility] SARS-COV-2 COVID-19 MODERNA 12+ YRS VACCINE Unknown Completed [facility] TDAP Unknown Completed [facility] Human Rabies Vaccine From Chicken Fibroblast Culture (RABAVERT) Unknown Completed [facility] Rabies Immune Globulin Unknown Completed [facility] SARS-COV-2 COVID-19 VACCINE 12 YRS+, BIVALENT 0.5ML, IM, (MODERNA-BLUE TOP) Unknown Completed [facility] TD Pres-Free Unknown Completed [facility] Influenza Virus Vaccine,quad Im,preserve Free 65+ (FLUAD) Unknown Completed [facility] SARS-COV-2 COVID-19 MODERNA 12+ YRS VACCINE Unknown Completed [facility] TDAP Unknown Completed [facility] Human Rabies Vaccine From Chicken Fibroblast Culture (RABAVERT) Unknown Completed [facility] Rabies Immune Globulin Unknown Completed [facility] SARS-COV-2 COVID-19 VACCINE 12 YRS+, BIVALENT 0.5ML, IM, (MODERNA-BLUE TOP) Unknown Completed [facility] TD Pres-Free Unknown Completed [facility] Influenza Virus Vaccine,quad Im,preserve Free 65+ (FLUAD) Unknown Completed [facility] SARS-COV-2 COVID-19 MODERNA 12+ YRS VACCINE Unknown Completed [facility] TDAP Unknown Completed [facility] Human Rabies Vaccine From Chicken Fibroblast Culture (RABAVERT) Unknown Completed [facility] Rabies Immune Globulin Unknown Completed [facility] SARS-COV-2 COVID-19 VACCINE 12 YRS+, BIVALENT 0.5ML, IM, (MODERNA-BLUE TOP) Unknown Completed [facility] Influenza Virus Vaccine,quad Im,preserve Free 65+ (FLUAD) Unknown Completed [facility] SARS-COV-2 COVID-19 MODERNA 12+ YRS VACCINE Unknown Completed [facility] TDAP Unknown Completed [facility] Human Rabies Vaccine From Chicken Fibroblast Culture (RABAVERT) Unknown Completed [facility] Rabies Immune Globulin Unknown Completed [facility] SARS-COV-2 COVID-19 VACCINE 12 YRS+, BIVALENT 0.5ML, IM, (MODERNA-BLUE TOP) Unknown Completed [facility] Influenza Virus Vaccine,quad Im,preserve Free 65+ (FLUAD) Unknown Completed [facility] SARS-COV-2 COVID-19 MODERNA 12+ YRS VACCINE Unknown Completed [facility] TDAP Unknown Completed [facility] Human Rabies Vaccine From Chicken Fibroblast Culture (RABAVERT) Unknown Completed [facility] Rabies Immune Globulin Unknown Completed [facility] SARS-COV-2 COVID-19 VACCINE 12 YRS+, BIVALENT 0.5ML, IM, (MODERNA-BLUE TOP) Unknown Completed [facility] Influenza Virus Vaccine,quad Im,preserve Free 65+ (FLUAD) Unknown Completed [facility] SARS-COV-2 COVID-19 MODERNA 12+ YRS VACCINE Unknown Completed [facility] TDAP Unknown Completed [facility] Human Rabies Vaccine From Chicken Fibroblast Culture (RABAVERT) Unknown Completed [facility] Rabies Immune Globulin Unknown Completed [facility] SARS-COV-2 COVID-19 VACCINE 12 YRS+, BIVALENT 0.5ML, IM, (MODERNA-BLUE TOP) Unknown [facility] [facility] Influ[facility] Virus Vaccine,quad Im,preserve Free 65+ (FLUAD) Unknown Completed [facility] SARS-COV-2 COVID-19 MODERNA 12+ YRS VACCINE Unknown Completed [facility] TDAP Unknown Completed [facility] Human Rabies Vaccine From Chicken Fibroblast Culture (RABAVERT) Unknown Completed [facility] Rabies Immune Globulin Unknown Completed [facility] SARS-COV-2 COVID-19 VACCINE 12 YRS+, BIVALENT 0.5ML, IM, (MODERNA-BLUE TOP) Unknown Completed [facility] Influenza Virus Vaccine,quad Im,preserve Free 65+ (FLUAD) Unknown Completed [facility] SARS-COV-2 COVID-19 MODERNA 12+ YRS VACCINE Unknown Completed [facility] TDAP Unknown Completed [facility] Human Rabies Vaccine From Chicken Fibroblast Culture (RABAVERT) Unknown Completed [facility] Rabies Immune Globulin Unknown Completed [facility] SARS-COV-2 COVID-19 VACCINE 12 YRS+, BIVALENT 0.5ML, IM, (MODERNA-BLUE TOP) Unknown Completed [facility] Influenza Virus Vaccine,quad Im,preserve Free 65+ (FLUAD) Unknown Completed [facility] SARS-COV-2 COVID-19 MODERNA 12+ YRS VACCINE Unknown Completed [facility] TDAP Unknown Completed [facility] Human Rabies Vaccine From Chicken Fibroblast Culture (RABAVERT) Unknown Completed [facility] Rabies Immune Globulin Unknown Completed [facility] SARS-COV-2 COVID-19 VACCINE 12 YRS+, BIVALENT 0.5ML, IM, (MODERNA-BLUE TOP) Unknown Completed [facility] Influenza Virus Vaccine,quad Im,preserve Free 65+ (FLUAD) Unknown Completed [facility] SARS-COV-2 COVID-19 MODERNA 12+ YRS VACCINE Unknown Completed [facility] TDAP Unknown Completed [facility] Human Rabies Vaccine From Chicken Fibroblast Culture (RABAVERT) Unknown Completed [facility] Rabies Immune Globulin Unknown Completed [facility] SARS-COV-2 COVID-19 VACCINE 12 YRS+, BIVALENT 0.5ML, IM, (MODERNA-BLUE TOP) Unknown Completed [facility] Influenza Virus Vaccine,quad Im,preserve Free 65+ (FLUAD) Unknown Completed [facility] SARS-COV-2 COVID-19 MODERNA 12+ YRS VACCINE Unknown Completed [facility] TDAP Unknown Completed [facility] Human Rabies Vaccine From Chicken Fibroblast Culture (RABAVERT) Unknown Completed [facility] Rabies Immune Globulin Unknown Completed [facility] SARS-COV-2 COVID-19 VACCINE 12 YRS+, BIVALENT 0.5ML, IM, (MODERNA-BLUE TOP) Unknown Completed [facility] Influenza Virus Vaccine,quad Im,preserve Free 65+ (FLUAD) Unknown Completed [facility] SARS-COV-2 COVID-19 MODERNA 12+ YRS VACCINE Unknown Completed [facility] TDAP Unknown Completed [facility] Human Rabies Vaccine From Chicken Fibroblast Culture (RABAVERT) Unknown Completed [facility] Rabies Immune Globulin Unknown Completed [facility] SARS-COV-2 COVID-19 VACCINE 12 YRS+, BIVALENT 0.5ML, IM, (MODERNA-BLUE TOP) Unknown Completed [facility] Influenza Virus Vaccine,quad Im,preserve Free 65+ (FLUAD) Unknown Completed [facility] SARS-COV-2 COVID-19 MODERNA 12+ YRS VACCINE Unknown Completed [facility] TDAP Unknown Completed [facility] Human Rabies Vaccine From Chicken Fibroblast Culture (RABAVERT) Unknown Completed [facility] Rabies Immune Globulin Unknown Completed [facility] SARS-COV-2 COVID-19 VACCINE 12 YRS+, BIVALENT 0.5ML, IM, (MODERNA-BLUE TOP) Unknown Completed [facility] Influenza Virus Vaccine,quad Im,preserve Free 65+ (FLUAD) Unknown Completed [facility] SARS-COV-2 COVID-19 MODERNA 12+ YRS VACCINE Unknown Completed [facility] TDAP Unknown Completed [facility] Human Rabies Vaccine From Chicken Fibroblast Culture (RABAVERT) Unknown Completed [facility] Rabies Immune Globulin Unknown Completed [facility] SARS-COV-2 COVID-19 VACCINE 12 YRS+, BIVALENT 0.5ML, IM, (MODERNA-BLUE TOP) Unknown Completed [facility] Influenza Virus Vaccine,quad Im,preserve Free 65+ (FLUAD) Unknown Completed [facility] SARS-COV-2 COVID-19 MODERNA 12+ YRS VACCINE Unknown Completed [facility] TDAP Unknown Completed [facility] Human Rabies Vaccine From Chicken Fibroblast Culture (RABAVERT) Unknown Completed [facility] Rabies Immune Globulin Unknown Completed [facility] SARS-COV-2 COVID-19 VACCINE 12 YRS+, BIVALENT 0.5ML, IM, (MODERNA-BLUE TOP) Unknown Completed [facility] Influenza Virus Vaccine,quad Im,preserve Free 65+ (FLUAD) Unknown Completed [facility] SARS-COV-2 COVID-19 MODERNA 12+ YRS VACCINE Unknown Completed [facility] TDAP Unknown Completed [facility] Human Rabies Vaccine From Chicken Fibroblast Culture (RABAVERT) Unknown Completed [facility] Rabies Immune Globulin Unknown Completed [facility] SARS-COV-2 COVID-19 VACCINE 12 YRS+, BIVALENT 0.5ML, IM, (MODERNA-BLUE TOP) Unknown Completed [facility] Influenza Virus Vaccine,quad Im,preserve Free 65+ (FLUAD) Unknown Completed [facility] SARS-COV-2 COVID-19 MODERNA 12+ YRS VACCINE Unknown Completed [facility] TDAP Unknown Completed [facility] Human Rabies Vaccine From Chicken Fibroblast Culture (RABAVERT) Unknown Completed [facility] Rabies Immune Globulin Unknown Completed [facility] SARS-COV-2 COVID-19 VACCINE 12 YRS+, BIVALENT 0.5ML, IM, (MODERNA-BLUE TOP) Unknown Completed [facility] TDAP Unknown Completed [facility] Rabies Immune Globulin Unknown Completed [facility] SARS-COV-2 COVID-19 VACCINE 12 YRS+, BIVALENT 0.5ML, IM, (MODERNA-BLUE TOP) Unknown Completed [facility] Influenza Virus Vaccine,quad Im,preserve Free 65+ (FLUAD) Unknown Completed [facility] SARS-COV-2 COVID-19 MODERNA 12+ YRS VACCINE Unknown Completed [facility] Human Rabies Vaccine From Chicken Fibroblast Culture (RABAVERT) Unknown Completed [facility] TDAP Unknown Completed [facility] Rabies Immune Globulin Unknown Completed [facility] SARS-COV-2 COVID-19 VACCINE 12 YRS+, BIVALENT 0.5ML, IM, (MODERNA-BLUE TOP) Unknown Completed [facility] Influenza Virus Vaccine,quad Im,preserve Free 65+ (FLUAD) Unknown Completed [facility] SARS-COV-2 COVID-19 MODERNA 12+ YRS VACCINE Unknown Completed [facility] Human Rabies Vaccine From Chicken Fibroblast Culture (RABAVERT) Unknown Completed [facility] Influenza Virus Vaccine,quad Im,preserve Free 65+ (FLUAD) Unknown Completed [facility] SARS-COV-2 COVID-19 MODERNA 12+ YRS VACCINE Unknown Completed [facility] TDAP Unknown Completed [facility] Human Rabies Vaccine From Chicken Fibroblast Culture (RABAVERT) Unknown Completed [facility] Rabies Immune Globulin Unknown Completed [facility] SARS-COV-2 COVID-19 VACCINE 12 YRS+, BIVALENT 0.5ML, IM, (MODERNA-BLUE TOP) Unknown Completed [facility] Influenza Virus Vaccine,quad Im,preserve Free 65+ (FLUAD) Unknown Completed [facility] SARS-COV-2 COVID-19 MODERNA 12+ YRS VACCINE Unknown Completed [facility] TDAP Unknown Completed [facility] Human Rabies Vaccine From Chicken Fibroblast Culture (RABAVERT) Unknown Completed [facility] Rabies Immune Globulin Unknown Completed [facility] SARS-COV-2 COVID-19 VACCINE 12 YRS+, BIVALENT 0.5ML, IM, (MODERNA-BLUE TOP) Unknown Completed [facility] Influenza Virus Vaccine,quad Im,preserve Free 65+ (FLUAD) Unknown Completed [facility] SARS-COV-2 COVID-19 MODERNA 12+ YRS VACCINE Unknown Completed [facility] TDAP Unknown Completed [facility] Human Rabies Vaccine From Chicken Fibroblast Culture (RABAVERT) Unknown Completed [facility] Rabies Immune Globulin Unknown Completed [facility] SARS-COV-2 COVID-19 VACCINE 12 YRS+, BIVALENT 0.5ML, IM, (MODERNA-BLUE TOP) Unknown Completed [facility] Influenza Virus Vaccine,quad Im,preserve Free 65+ (FLUAD) Unknown Completed [facility] SARS-COV-2 COVID-19 MODERNA 12+ YRS VACCINE Unknown Completed [facility] TDAP Unknown Completed [facility] Human Rabies Vaccine From Chicken Fibroblast Culture (RABAVERT) Unknown Completed [facility] Rabies Immune Globulin Unknown Completed [facility] SARS-COV-2 COVID-19 VACCINE 12 YRS+, BIVALENT 0.5ML, IM, (MODERNA-BLUE TOP) Unknown Completed [facility] TDAP Unknown Completed [facility] Rabies Immune Globulin Unknown Completed [facility] SARS-COV-2 COVID-19 VACCINE 12 YRS+, BIVALENT 0.5ML, IM, (MODERNA-BLUE TOP) Unknown Completed [facility] SARS-COV-2 COVID-19 MODERNA 12+ YRS VACCINE Unknown Completed [facility] Human Rabies Vaccine From Chicken Fibroblast Culture (RABAVERT) Unknown Completed [facility] Influenza Virus Vaccine,quad Im,preserve Free 65+ (FLUAD) Unknown Completed [facility] TDAP Unknown Completed [facility] Rabies Immune Globulin Unknown Completed [facility] SARS-COV-2 COVID-19 VACCINE 12 YRS+, BIVALENT 0.5ML, IM, (MODERNA-BLUE TOP) Unknown Completed [facility] Influenza Virus Vaccine,quad Im,preserve Free 65+ (FLUAD) Unknown Completed [facility] SARS-COV-2 COVID-19 MODERNA 12+ YRS VACCINE Unknown Completed [facility] Human Rabies Vaccine From Chicken Fibroblast Culture (RABAVERT) Unknown Completed [facility] Influenza Virus Vaccine,quad Im,preserve Free 65+ (FLUAD) Unknown Completed [facility] SARS-COV-2 COVID-19 MODERNA 12+ YRS VACCINE Unknown Completed [facility] TDAP Unknown Completed [facility] Human Rabies Vaccine From Chicken Fibroblast Culture (RABAVERT) Unknown Completed [facility] Rabies Immune Globulin Unknown Completed [facility] SARS-COV-2 COVID-19 VACCINE 12 YRS+, BIVALENT 0.5ML, IM, (MODERNA-BLUE TOP) Unknown Completed [facility] Influenza Virus Vaccine,quad Im,preserve Free 65+ (FLUAD) Unknown Completed [facility] SARS-COV-2 COVID-19 MODERNA 12+ YRS VACCINE Unknown Completed [facility] TDAP Unknown Completed [facility] Human Rabies Vaccine From Chicken Fibroblast Culture (RABAVERT) Unknown Completed [facility] Rabies Immune Globulin Unknown Completed [facility] SARS-COV-2 COVID-19 VACCINE 12 YRS+, BIVALENT 0.5ML, IM, (MODERNA-BLUE TOP) Unknown Completed [facility] Influenza Virus Vaccine,quad Im,preserve Free 65+ (FLUAD) Unknown Completed [facility] SARS-COV-2 COVID-19 MODERNA 12+ YRS VACCINE Unknown Completed [facility] TDAP Unknown Completed [facility] Human Rabies Vaccine From Chicken Fibroblast Culture (RABAVERT) Unknown Completed [facility] Rabies Immune Globulin Unknown Completed [facility] SARS-COV-2 COVID-19 VACCINE 12 YRS+, BIVALENT 0.5ML, IM, (MODERNA-BLUE TOP) Unknown Completed [facility] Influenza Virus Vaccine,quad Im,preserve Free 65+ (FLUAD) Unknown Completed [facility] SARS-COV-2 COVID-19 MODERNA 12+ YRS VACCINE Unknown Completed [facility] TDAP Unknown Completed [facility] Human Rabies Vaccine From Chicken Fibroblast Culture (RABAVERT) Unknown Completed [facility] Rabies Immune Globulin Unknown Completed [facility] SARS-COV-2 COVID-19 VACCINE 12 YRS+, BIVALENT 0.5ML, IM, (MODERNA-BLUE TOP) Unknown Completed [facility] Influenza Virus Vaccine,quad Im,preserve Free 65+ (FLUAD) Unknown Completed [facility] SARS-COV-2 COVID-19 MODERNA 12+ YRS VACCINE Unknown Completed [facility] TDAP Unknown Completed [facility] Human Rabies Vaccine From Chicken Fibroblast Culture (RABAVERT) Unknown Completed [facility] Rabies Immune Globulin Unknown Completed [facility] SARS-COV-2 COVID-19 VACCINE 12 YRS+, BIVALENT 0.5ML, IM, (MODERNA-BLUE TOP) Unknown Completed [facility] TDAP Unknown Completed [facility] Rabies Immune Globulin Unknown Completed [facility] SARS-COV-2 COVID-19 VACCINE 12 YRS+, BIVALENT 0.5ML, IM, (MODERNA-BLUE TOP) Unknown Completed [facility] Influenza Virus Vaccine,quad Im,preserve Free 65+ (FLUAD) Unknown Completed [facility] SARS-COV-2 COVID-19 MODERNA 12+ YRS VACCINE Unknown Completed [facility] Human Rabies Vaccine From Chicken Fibroblast Culture (RABAVERT) Unknown Completed [facility] Influenza Virus Vaccine,quad Im,preserve Free 65+ (FLUAD) Unknown Completed [facility] SARS-COV-2 COVID-19 MODERNA 12+ YRS VACCINE Unknown Completed [facility] TDAP Unknown Completed [facility] Human Rabies Vaccine From Chicken Fibroblast Culture (RABAVERT) Unknown Completed [facility] Rabies Immune Globulin Unknown Completed [facility] SARS-COV-2 COVID-19 VACCINE 12 YRS+, BIVALENT 0.5ML, IM, (MODERNA-BLUE TOP) Unknown Completed [facility] Influenza Virus Vaccine,quad Im,preserve Free 65+ (FLUAD) Unknown Completed [facility] SARS-COV-2 COVID-19 MODERNA 12+ YRS VACCINE Unknown Completed [facility] TDAP Unknown Completed [facility] Human Rabies Vaccine From Chicken Fibroblast Culture (RABAVERT) Unknown Completed [facility] Rabies Immune Globulin Unknown Completed [facility] SARS-COV-2 COVID-19 VACCINE 12 YRS+, BIVALENT 0.5ML, IM, (MODERNA-BLUE TOP) Unknown Completed [facility] Influenza Virus Vaccine,quad Im,preserve Free 65+ (FLUAD) Unknown Completed [facility] SARS-COV-2 COVID-19 MODERNA 12+ YRS VACCINE Unknown Completed [facility] TDAP Unknown Completed [facility] Human Rabies Vaccine From Chicken Fibroblast Culture (RABAVERT) Unknown Completed [facility] Rabies Immune Globulin Unknown Completed [facility] SARS-COV-2 COVID-19 VACCINE 12 YRS+, BIVALENT 0.5ML, IM, (MODERNA-BLUE TOP) Unknown Completed [facility] Influenza Virus Vaccine,quad Im,preserve Free 65+ (FLUAD) Unknown Completed [facility] SARS-COV-2 COVID-19 MODERNA 12+ YRS VACCINE Unknown Completed [facility] TDAP Unknown Completed [facility] Human Rabies Vaccine From Chicken Fibroblast Culture (RABAVERT) Unknown Completed [facility] Rabies Immune Globulin Unknown Completed [facility] SARS-COV-2 COVID-19 VACCINE 12 YRS+, BIVALENT 0.5ML, IM, (MODERNA-BLUE TOP) Unknown Completed [facility] Influenza Virus Vaccine,quad Im,preserve Free 65+ (FLUAD) Unknown Completed [facility] SARS-COV-2 COVID-19 MODERNA 12+ YRS VACCINE Unknown Completed [facility] TDAP Unknown Completed [facility] Human Rabies Vaccine From Chicken Fibroblast Culture (RABAVERT) Unknown Completed [facility] Rabies Immune Globulin Unknown Completed [facility] SARS-COV-2 COVID-19 VACCINE 12 YRS+, BIVALENT 0.5ML, IM, (MODERNA-BLUE TOP) Unknown Completed [facility] Influenza Virus Vaccine,quad Im,preserve Free 65+ (FLUAD) Unknown Completed [facility] SARS-COV-2 COVID-19 MODERNA 12+ YRS VACCINE Unknown Completed [facility] TDAP Unknown Completed [facility] Human Rabies Vaccine From Chicken Fibroblast Culture (RABAVERT) Unknown Completed [facility] Rabies Immune Globulin Unknown Completed [facility] SARS-COV-2 COVID-19 VACCINE 12 YRS+, BIVALENT 0.5ML, IM, (MODERNA-BLUE TOP) Unknown Completed [facility] Influenza Virus Vaccine,quad Im,preserve Free 65+ (FLUAD) Unknown Completed [facility] SARS-COV-2 COVID-19 MODERNA 12+ YRS VACCINE Unknown Completed [facility] TDAP Unknown Completed [facility] Human Rabies Vaccine From Chicken Fibroblast Culture (RABAVERT) Unknown Completed [facility] Rabies Immune Globulin Unknown Completed [facility] SARS-COV-2 COVID-19 VACCINE 12 YRS+, BIVALENT 0.5ML, IM, (MODERNA-BLUE TOP) Unknown Completed [facility] Influenza Virus Vaccine,quad Im,preserve Free 65+ (FLUAD) Unknown Completed [facility] SARS-COV-2 COVID-19 MODERNA 12+ YRS VACCINE Unknown Completed [facility] TDAP Unknown Completed [facility] Human Rabies Vaccine From Chicken Fibroblast Culture (RABAVERT) Unknown Completed [facility] Rabies Immune Globulin Unknown Completed [facility] SARS-COV-2 COVID-19 VACCINE 12 YRS+, BIVALENT 0.5ML, IM, (MODERNA-BLUE TOP) Unknown Completed [facility] Influenza Virus Vaccine,quad Im,preserve Free 65+ (FLUAD) Unknown Completed [facility] SARS-COV-2 COVID-19 MODERNA 12+ YRS VACCINE Unknown Completed [facility] TDAP Unknown Completed [facility] Human Rabies Vaccine From Chicken Fibroblast Culture (RABAVERT) Unknown Completed [facility] Rabies Immune Globulin Unknown Completed [facility] SARS-COV-2 COVID-19 VACCINE 12 YRS+, BIVALENT 0.5ML, IM, (MODERNA-BLUE TOP) Unknown Completed [facility] Influenza Virus Vaccine,quad Im,preserve Free 65+ (FLUAD) Unknown Completed [facility] SARS-COV-2 COVID-19 MODERNA 12+ YRS VACCINE Unknown Completed [facility] TDAP Unknown Completed [facility] Human Rabies Vaccine From Chicken Fibroblast Culture (RABAVERT) Unknown Completed [facility] Rabies Immune Globulin Unknown Completed [facility] SARS-COV-2 COVID-19 VACCINE 12 YRS+, BIVALENT 0.5ML, IM, (MODERNA-BLUE TOP) Unknown Completed [facility] Influenza Virus Vaccine,quad Im,preserve Free 65+ (FLUAD) Unknown Completed [facility] SARS-COV-2 COVID-19 MODERNA 12+ YRS VACCINE Unknown Completed [facility] TDAP Unknown Completed [facility] Human Rabies Vaccine From Chicken Fibroblast Culture (RABAVERT) Unknown Completed [facility] Rabies Immune Globulin Unknown Completed [facility] SARS-COV-2 COVID-19 VACCINE 12 YRS+, BIVALENT 0.5ML, IM, (MODERNA-BLUE TOP) Unknown Completed [facility] Influenza Virus Vaccine,quad Im,preserve Free 65+ (FLUAD) Unknown Completed [facility] SARS-COV-2 COVID-19 MODERNA 12+ YRS VACCINE Unknown Completed [facility] TDAP Unknown Completed [facility] Human Rabies Vaccine From Chicken Fibroblast Culture (RABAVERT) Unknown Completed [facility] Rabies Immune Globulin Unknown Completed [facility] SARS-COV-2 COVID-19 VACCINE 12 YRS+, BIVALENT 0.5ML, IM, (MODERNA-BLUE TOP) Unknown Completed [facility] TDAP Unknown Completed [facility] Rabies Immune Globulin Unknown Completed [facility] SARS-COV-2 COVID-19 VACCINE 12 YRS+, BIVALENT 0.5ML, IM, (MODERNA-BLUE TOP) Unknown Completed [facility] Influenza Virus Vaccine,quad Im,preserve Free 65+ (FLUAD) Unknown Completed [facility] SARS-COV-2 COVID-19 MODERNA 12+ YRS VACCINE Unknown Completed [facility] Human Rabies Vaccine From Chicken Fibroblast Culture (RABAVERT) Unknown Completed [facility] Influenza Virus Vaccine,quad Im,preserve Free 65+ (FLUAD) Unknown Completed [facility] SARS-COV-2 COVID-19 MODERNA 12+ YRS VACCINE Unknown Completed [facility] TDAP Unknown Completed [facility] Human Rabies Vaccine From Chicken Fibroblast Culture (RABAVERT) Unknown Completed [facility] Rabies Immune Globulin Unknown Completed [facility] SARS-COV-2 COVID-19 VACCINE 12 YRS+, BIVALENT 0.5ML, IM, (MODERNA-BLUE TOP) Unknown Completed [facility] Influenza Virus Vaccine,quad Im,preserve Free 65+ (FLUAD) Unknown Completed [facility] SARS-COV-2 COVID-19 MODERNA 12+ YRS VACCINE Unknown Completed [facility] TDAP Unknown Completed [facility] Human Rabies Vaccine From Chicken Fibroblast Culture (RABAVERT) Unknown Completed [facility] Rabies Immune Globulin Unknown Completed [facility] SARS-COV-2 COVID-19 VACCINE 12 YRS+, BIVALENT 0.5ML, IM, (MODERNA-BLUE TOP) Unknown Completed [facility] Influenza Virus Vaccine,quad Im,preserve Free 65+ (FLUAD) Unknown Completed [facility] SARS-COV-2 COVID-19 MODERNA 12+ YRS VACCINE Unknown Completed [facility] TDAP Unknown Completed [facility] Human Rabies Vaccine From Chicken Fibroblast Culture (RABAVERT) Unknown Completed [facility] Rabies Immune Globulin Unknown Completed [facility] SARS-COV-2 COVID-19 VACCINE 12 YRS+, BIVALENT 0.5ML, IM, (MODERNA-BLUE TOP) Unknown Completed [facility] Influenza Virus Vaccine,quad Im,preserve Free 65+ (FLUAD) Unknown Completed [facility] SARS-COV-2 COVID-19 MODERNA 12+ YRS VACCINE Unknown Completed [facility] TDAP Unknown Completed [facility] Human Rabies Vaccine From Chicken Fibroblast Culture (RABAVERT) Unknown Completed [facility] Rabies Immune Globulin Unknown Completed [facility] SARS-COV-2 COVID-19 VACCINE 12 YRS+, BIVALENT 0.5ML, IM, (MODERNA-BLUE TOP) Unknown Completed [facility] Influenza Virus Vaccine,quad Im,preserve Free 65+ (FLUAD) Unknown Completed [facility] SARS-COV-2 COVID-19 MODERNA 12+ YRS VACCINE Unknown Completed [facility] TDAP Unknown Completed [facility] Human Rabies Vaccine From Chicken Fibroblast Culture (RABAVERT) Unknown Completed [facility] Rabies Immune Globulin Unknown Completed [facility] SARS-COV-2 COVID-19 VACCINE 12 YRS+, BIVALENT 0.5ML, IM, (MODERNA-BLUE TOP) Unknown Completed [facility] Influenza Virus Vaccine,quad Im,preserve Free 65+ (FLUAD) Unknown Completed [facility] SARS-COV-2 COVID-19 MODERNA 12+ YRS VACCINE Unknown Completed [facility] TDAP Unknown Completed [facility] Human Rabies Vaccine From Chicken Fibroblast Culture (RABAVERT) Unknown Completed [facility] Rabies Immune Globulin Unknown Completed [facility] SARS-COV-2 COVID-19 VACCINE 12 YRS+, BIVALENT 0.5ML, IM, (MODERNA-BLUE TOP) Unknown Completed [facility] Influenza Virus Vaccine,quad Im,preserve Free 65+ (FLUAD) Unknown Completed [facility] SARS-COV-2 COVID-19 MODERNA 12+ YRS VACCINE Unknown Completed [facility] TDAP Unknown Completed [facility] Human Rabies Vaccine From Chicken Fibroblast Culture (RABAVERT) Unknown Completed [facility] Rabies Immune Globulin Unknown Completed [facility] SARS-COV-2 COVID-19 VACCINE 12 YRS+, BIVALENT 0.5ML, IM, (MODERNA-BLUE TOP) Unknown Completed [facility] TDAP Unknown Completed [facility] Rabies Immune Globulin Unknown Completed [facility] SARS-COV-2 COVID-19 VACCINE 12 YRS+, BIVALENT 0.5ML, IM, (MODERNA-BLUE TOP) Unknown Completed [facility] Influenza Virus Vaccine,quad Im,preserve Free 65+ (FLUAD) Unknown Completed [facility] SARS-COV-2 COVID-19 MODERNA 12+ YRS VACCINE Unknown Completed [facility] Human Rabies Vaccine From Chicken Fibroblast Culture (RABAVERT) Unknown Completed [facility] Influenza Virus Vaccine,quad Im,preserve Free 65+ (FLUAD) Unknown Completed [facility] SARS-COV-2 COVID-19 MODERNA 12+ YRS VACCINE Unknown Completed [facility] TDAP Unknown Completed [facility] Human Rabies Vaccine From Chicken Fibroblast Culture (RABAVERT) Unknown Completed [facility] Rabies Immune Globulin Unknown Completed [facility] SARS-COV-2 COVID-19 VACCINE 12 YRS+, BIVALENT 0.5ML, IM, (MODERNA-BLUE TOP) Unknown Completed [facility] Influenza Virus Vaccine,quad Im,preserve Free 65+ (FLUAD) Unknown Completed [facility] SARS-COV-2 COVID-19 MODERNA 12+ YRS VACCINE Unknown Completed [facility] TDAP Unknown Completed [facility] Human Rabies Vaccine From Chicken Fibroblast Culture (RABAVERT) Unknown Completed [facility] Rabies Immune Globulin Unknown Completed [facility] SARS-COV-2 COVID-19 VACCINE 12 YRS+, BIVALENT 0.5ML, IM, (MODERNA-BLUE TOP) Unknown Completed [facility] TDAP Unknown Completed [facility] Rabies Immune Globulin Unknown Completed [facility] SARS-COV-2 COVID-19 VACCINE 12 YRS+, BIVALENT 0.5ML, IM, (MODERNA-BLUE TOP) Unknown Completed [facility] Influenza Virus Vaccine,quad Im,preserve Free 65+ (FLUAD) Unknown Completed [facility] SARS-COV-2 COVID-19 MODERNA 12+ YRS VACCINE Unknown Completed [facility] Human Rabies Vaccine From Chicken Fibroblast Culture (RABAVERT) Unknown Completed [facility] Influenza Virus Vaccine,quad Im,preserve Free 65+ (FLUAD) Unknown Completed [facility] SARS-COV-2 COVID-19 MODERNA 12+ YRS VACCINE Unknown Completed [facility] TDAP Unknown Completed [facility] Human Rabies Vaccine From Chicken Fibroblast Culture (RABAVERT) Unknown Completed [facility] Rabies Immune Globulin Unknown Completed [facility] SARS-COV-2 COVID-19 VACCINE 12 YRS+, BIVALENT 0.5ML, IM, (MODERNA-BLUE TOP) Unknown Completed [facility] Influenza Virus Vaccine,quad Im,preserve Free 65+ (FLUAD) Unknown Completed [facility] SARS-COV-2 COVID-19 MODERNA 12+ YRS VACCINE Unknown Completed [facility] TDAP Unknown Completed [facility] Human Rabies Vaccine From Chicken Fibroblast Culture (RABAVERT) Unknown Completed [facility] Rabies Immune Globulin Unknown Completed [facility] SARS-COV-2 COVID-19 VACCINE 12 YRS+, BIVALENT 0.5ML, IM, (MODERNA-BLUE TOP) Unknown Completed [facility] Influenza Virus Vaccine,quad Im,preserve Free 65+ (FLUAD) Unknown Completed [facility] SARS-COV-2 COVID-19 MODERNA 12+ YRS VACCINE Unknown Completed [facility] TDAP Unknown Completed [facility] Human Rabies Vaccine From Chicken Fibroblast Culture (RABAVERT) Unknown Completed [facility] Rabies Immune Globulin Unknown Completed [facility] SARS-COV-2 COVID-19 VACCINE 12 YRS+, BIVALENT 0.5ML, IM, (MODERNA-BLUE TOP) Unknown Completed [facility] Influenza Virus Vaccine,quad Im,preserve Free 65+ (FLUAD) Unknown Completed [facility] SARS-COV-2 COVID-19 MODERNA 12+ YRS VACCINE Unknown Completed [facility] TDAP Unknown Completed [facility] Human Rabies Vaccine From Chicken Fibroblast Culture (RABAVERT) Unknown Completed [facility] Rabies Immune Globulin Unknown Completed [facility] SARS-COV-2 COVID-19 VACCINE 12 YRS+, BIVALENT 0.5ML, IM, (MODERNA-BLUE TOP) Unknown Completed [facility] Influenza Virus Vaccine,quad Im,preserve Free 65+ (FLUAD) Unknown Completed [facility] SARS-COV-2 COVID-19 MODERNA 12+ YRS VACCINE Unknown Completed [facility] TDAP Unknown Completed [facility] Human Rabies Vaccine From Chicken Fibroblast Culture (RABAVERT) Unknown Completed [facility] Rabies Immune Globulin Unknown Completed [facility] SARS-COV-2 COVID-19 VACCINE 12 YRS+, BIVALENT 0.5ML, IM, (MODERNA-BLUE TOP) Unknown Completed [facility] Influenza Virus Vaccine,quad Im,preserve Free 65+ (FLUAD) Unknown Completed [facility] SARS-COV-2 COVID-19 MODERNA 12+ YRS VACCINE Unknown Completed [facility] TDAP Unknown Completed [facility] Human Rabies Vaccine From Chicken Fibroblast Culture (RABAVERT) Unknown Completed [facility] Rabies Immune Globulin Unknown Completed [facility] SARS-COV-2 COVID-19 VACCINE 12 YRS+, BIVALENT 0.5ML, IM, (MODERNA-BLUE TOP) Unknown Completed [facility] TDAP Unknown Completed [facility] Rabies Immune Globulin Unknown Completed [facility] SARS-COV-2 COVID-19 VACCINE 12 YRS+, BIVALENT 0.5ML, IM, (MODERNA-BLUE TOP) Unknown Completed [facility] Influenza Virus Vaccine,quad Im,preserve Free 65+ (FLUAD) Unknown Completed [facility] SARS-COV-2 COVID-19 MODERNA 12+ YRS VACCINE Unknown Completed [facility] Human Rabies Vaccine From Chicken Fibroblast Culture (RABAVERT) Unknown Completed [facility] Influenza Virus Vaccine,quad Im,preserve Free 65+ (FLUAD) Unknown Completed [facility] SARS-COV-2 COVID-19 MODERNA 12+ YRS VACCINE Unknown Completed [facility] TDAP Unknown Completed [facility] Human Rabies Vaccine From Chicken Fibroblast Culture (RABAVERT) Unknown Completed [facility] Rabies Immune Globulin Unknown Completed [facility] SARS-COV-2 COVID-19 VACCINE 12 YRS+, BIVALENT 0.5ML, IM, (MODERNA-BLUE TOP) Unknown Completed [facility] Influenza Virus Vaccine,quad Im,preserve Free 65+ (FLUAD) Unknown Completed [facility] SARS-COV-2 COVID-19 MODERNA 12+ YRS VACCINE Unknown Completed [facility] TDAP Unknown Completed [facility] Human Rabies Vaccine From Chicken Fibroblast Culture (RABAVERT) Unknown Completed [facility] Rabies Immune Globulin Unknown Completed [facility] SARS-COV-2 COVID-19 VACCINE 12 YRS+, BIVALENT 0.5ML, IM, (MODERNA-BLUE TOP) Unknown Completed [facility] Influenza Virus Vaccine,quad Im,preserve Free 65+ (FLUAD) Unknown Completed [facility] SARS-COV-2 COVID-19 MODERNA 12+ YRS VACCINE Unknown Completed [facility] TDAP Unknown Completed [facility] Human Rabies Vaccine From Chicken Fibroblast Culture (RABAVERT) Unknown Completed [facility] Rabies Immune Globulin Unknown Completed [facility] SARS-COV-2 COVID-19 VACCINE 12 YRS+, BIVALENT 0.5ML, IM, (MODERNA-BLUE TOP) Unknown Completed [facility] Influenza Virus Vaccine,quad Im,preserve Free 65+ (FLUAD) Unknown Completed [facility] SARS-COV-2 COVID-19 MODERNA 12+ YRS VACCINE Unknown Completed [facility] TDAP Unknown Completed [facility] Human Rabies Vaccine From Chicken Fibroblast Culture (RABAVERT) Unknown Completed [facility] Rabies Immune Globulin Unknown Completed [facility] SARS-COV-2 COVID-19 VACCINE 12 YRS+, BIVALENT 0.5ML, IM, (MODERNA-BLUE TOP) Unknown Completed [facility] Influenza Virus Vaccine,quad Im,preserve Free 65+ (FLUAD) Unknown Completed [facility] SARS-COV-2 COVID-19 MODERNA 12+ YRS VACCINE Unknown Completed [facility] TDAP Unknown Completed [facility] Human Rabies Vaccine From Chicken Fibroblast Culture (RABAVERT) Unknown Completed [facility] Rabies Immune Globulin Unknown Completed [facility] SARS-COV-2 COVID-19 VACCINE 12 YRS+, BIVALENT 0.5ML, IM, (MODERNA-BLUE TOP) Unknown Completed [facility] Influenza Virus Vaccine,quad Im,preserve Free 65+ (FLUAD) Unknown Completed [facility] SARS-COV-2 COVID-19 MODERNA 12+ YRS VACCINE Unknown Completed [facility] TDAP Unknown Completed [facility] Human Rabies Vaccine From Chicken Fibroblast Culture (RABAVERT) Unknown Completed [facility] Rabies Immune Globulin Unknown Completed [facility] SARS-COV-2 COVID-19 VACCINE 12 YRS+, BIVALENT 0.5ML, IM, (MODERNA-BLUE TOP) Unknown Completed [facility] TDAP Unknown Completed [facility] Rabies Immune Globulin Unknown Completed [facility] SARS-COV-2 COVID-19 VACCINE 12 YRS+, BIVALENT 0.5ML, IM, (MODERNA-BLUE TOP) Unknown Completed [facility] Influenza Virus Vaccine,quad Im,preserve Free 65+ (FLUAD) Unknown Completed [facility] SARS-COV-2 COVID-19 MODERNA 12+ YRS VACCINE Unknown Completed [facility] Human Rabies Vaccine From Chicken Fibroblast Culture (RABAVERT) Unknown Completed [facility] Vital Signs Vital Name Observation Time Observation Value Comments S ource Systolic blood pressure 2024-07-07 16:22:00 135 mm[Hg] [facility] Diastolic blood pressure 2024-07-07 16:22:00 56 mm[Hg] [facility] Heart rate 2024-07-07 16:22:00 41 /min [facility] Respiratory rate 2024-07-07 16:22:00 18 /min [facility] Body height 2024-07-07 16:22:00 177.8 cm [facility] Body weight 2024-07-07 16:22:00 102.604 kg [facility] BMI 2024-07-07 16:22:00 32.46 kg/m2 [facility] Oxygen saturation in Arterial blood by Pulse oximetry 2024-07-07 16:22:00 97 /min [facility] Systolic blood pressure 2024-07-07 16:06:00 135 mm[Hg] [facility] Diastolic blood pressure 2024-07-07 16:06:00 56 mm[Hg] [facility] Heart rate 2024-07-07 16:06:00 41 /min [facility] Body temperature 2024-07-07 16:06:00 36.17 Thao [facility] Respiratory rate 2024-07-07 16:06:00 18 /min [facility] Oxygen saturation in Arterial blood by Pulse oximetry 2024-07-07 16:06:00 100 /min pt is on 6L [facility] Systolic blood pressure 2024-06-29 21:47:00 122 mm[Hg] [facility] Diastolic blood pressure 2024-06-29 21:47:00 58 mm[Hg] [facility] Heart rate 2024-06-29 21:47:00 51 /min [facility] Body temperature 2024-06-29 21:47:00 36.39 Thao [facility] Body height 2024-06-29 21:47:00 177.8 cm [facility] Body weight 2024-06-29 21:47:00 99.791 kg [facility] BMI 2024-06-29 21:47:00 31.57 kg/m2 [facility] Oxygen saturation in Arterial blood by Pulse oximetry 2024-06-29 21:47:00 93 /min [facility] Systolic blood pressure 2024-05-26 16:34:00 137 mm[Hg] [facility] Diastolic blood pressure 2024-05-26 16:34:00 52 mm[Hg] [facility] Heart rate 2024-05-26 16:34:00 47 /min [facility] Respiratory rate 2024-05-26 16:34:00 18 /min [facility] Body height 2024-05-26 16:34:00 177.8 cm [facility] Body weight 2024-05-26 16:34:00 105.688 kg [facility] BMI 2024-05-26 16:34:00 33.43 kg/m2 [facility] Oxygen saturation in Arterial blood by Pulse oximetry 2024-05-26 16:34:00 97 /min on 6l of O2 [facility] Systolic blood pressure 2024-05-26 15:46:00 137 mm[Hg] [facility] Diastolic blood pressure 2024-05-26 15:46:00 52 mm[Hg] [facility] Heart rate 2024-05-26 15:46:00 47 /min [facility] Body temperature 2024-05-26 15:46:00 36.67 Thao [facility] Respiratory rate 2024-05-26 15:46:00 18 /min [facility] Body height 2024-05-26 15:46:00 177.8 cm per pt [facility] Body weight 2024-05-26 15:46:00 105.688 kg per pt [facility] BMI 2024-05-26 15:46:00 33.43 kg/m2 [facility] Oxygen saturation in Arterial blood by Pulse oximetry 2024-05-26 15:46:00 97 /min pt is on 6L [facility] Systolic blood pressure 2024-05-22 21:02:00 140 mm[Hg] [facility] Diastolic blood pressure 2024-05-22 21:02:00 97 mm[Hg] [facility] Heart rate 2024-05-22 21:02:00 67 /min [facility] Body temperature 2024-05-22 21:02:00 36 Thao [facility] Respiratory rate 2024-05-22 21:02:00 13 /min [facility] Oxygen saturation in Arterial blood by Pulse oximetry 2024-05-22 21:02:00 95 /min [facility] Body weight 2024-05-22 09:00:00 104.463 kg [facility] BMI 2024-05-22 09:00:00 33.04 kg/m2 [facility] Body height 2024-05-20 01:30:00 177.8 cm [facility] Systolic blood pressure 2024-05-12 20:40:00 149 mm[Hg] [facility] Diastolic blood pressure 2024-05-12 20:40:00 64 mm[Hg] [facility] Heart rate 2024-05-12 20:40:00 54 /min [facility] Respiratory rate 2024-05-12 20:40:00 18 /min [facility] Oxygen saturation in Arterial blood by Pulse oximetry 2024-05-12 20:40:00 95 /min [facility] Body height 2024-05-12 20:36:00 177.8 cm [facility] Body weight 2024-05-12 20:36:00 105.688 kg [facility] BMI 2024-05-12 20:36:00 33.43 kg/m2 [facility] Systolic blood pressure 2024-04-14 15:38:00 131 mm[Hg] [facility] Diastolic blood pressure 2024-04-14 15:38:00 48 mm[Hg] [facility] Heart rate 2024-04-14 15:38:00 49 /min [facility] Body temperature 2024-04-14 15:38:00 36.22 Thao [facility] Body weight 2024-04-14 15:38:00 109.77 kg [facility] BMI 2024-04-14 15:38:00 34.72 kg/m2 [facility] Oxygen saturation in Arterial blood by Pulse oximetry 2024-04-14 15:38:00 90 /min [facility] Systolic blood pressure 2024-04-09 20:42:00 118 mm[Hg] [facility] Diastolic blood pressure 2024-04-09 20:42:00 52 mm[Hg] [facility] Heart rate 2024-04-09 20:42:00 76 /min [facility] Body temperature 2024-04-09 20:42:00 36.39 Thao [facility] Respiratory rate 2024-04-09 20:42:00 18 /min [facility] Oxygen saturation in Arterial blood by Pulse oximetry 2024-04-09 20:42:00 94 /min [facility] Body weight 2024-04-09 20:18:00 105.461 kg [facility] BMI 2024-04-09 20:18:00 33.36 kg/m2 [facility] Body height 2024-04-06 20:15:00 177.8 cm [facility] Systolic blood pressure 2024-04-02 21:07:00 153 mm[Hg] [facility] Diastolic blood pressure 2024-04-02 21:07:00 71 mm[Hg] [facility] Heart rate 2024-04-02 21:07:00 58 /min [facility] Body temperature 2024-04-02 21:07:00 36.5 Thao [facility] Oxygen saturation in Arterial blood by Pulse oximetry 2024-04-02 21:07:00 96 /min [facility] Respiratory rate 2024-04-02 20:00:00 16 /min [facility] Body height 2024-04-02 16:08:00 177.8 cm [facility] Body weight 2024-04-02 16:08:00 110.678 kg [facility] BMI 2024-04-02 16:08:00 35.01 kg/m2 [facility] Systolic blood pressure 2024-03-17 20:33:00 117 mm[Hg] [facility] Diastolic blood pressure 2024-03-17 20:33:00 44 mm[Hg] [facility] Heart rate 2024-03-17 20:33:00 49 /min [facility] Respiratory rate 2024-03-17 20:33:00 18 /min [facility] Body height 2024-03-17 20:33:00 177.8 cm [facility] Body weight 2024-03-17 20:33:00 110.678 kg [facility] BMI 2024-03-17 20:33:00 35.01 kg/m2 [facility] Oxygen saturation in Arterial blood by Pulse oximetry 2024-03-17 20:33:00 96 /min [facility] Systolic blood pressure 2024-03-05 01:32:03 142 mm[Hg] [facility] Diastolic blood pressure 2024-03-05 01:32:03 60 mm[Hg] [facility] Heart rate 2024-03-05 01:32:03 54 /min [facility] Body temperature 2024-03-05 01:32:03 37.06 Thao [facility] Respiratory rate 2024-03-05 01:32:03 20 /min [facility] Oxygen saturation in Arterial blood by Pulse oximetry 2024-03-05 01:32:03 98 /min [facility] Body height 2024-03-04 22:07:00 177.8 cm [facility] Body weight 2024-03-04 22:07:00 104.327 kg [facility] BMI 2024-03-04 22:07:00 33.00 kg/m2 [facility] Systolic blood pressure 2024-03-03 18:33:00 96 mm[Hg] [facility] Diastolic blood pressure 2024-03-03 18:33:00 44 mm[Hg] [facility] Heart rate 2024-03-03 18:33:00 47 /min [facility] Body temperature 2024-03-03 18:33:00 36.44 Thao [facility] Body weight 2024-03-03 18:33:00 108.41 kg [facility] BMI 2024-03-03 18:33:00 34.29 kg/m2 [facility] Oxygen saturation in Arterial blood by Pulse oximetry 2024-03-03 18:33:00 88 /min [facility] Systolic blood pressure 2024-01-27 20:05:00 114 mm[Hg] [facility] Diastolic blood pressure 2024-01-27 20:05:00 49 mm[Hg] [facility] Heart rate 2024-01-27 20:05:00 63 /min [facility] Body height 2024-01-27 20:05:00 177.8 cm [facility] Body weight 2024-01-27 20:05:00 108.954 kg [facility] BMI 2024-01-27 20:05:00 34.47 kg/m2 [facility] Oxygen saturation in Arterial blood by Pulse oximetry 2024-01-27 20:05:00 93 /min [facility] Systolic blood pressure 2024-01-14 22:22:00 115 mm[Hg] [facility] Diastolic blood pressure 2024-01-14 22:22:00 76 mm[Hg] [facility] Heart rate 2024-01-14 22:22:00 111 /min [facility] Body temperature 2024-01-14 22:22:00 36.17 Thao [facility] Respiratory rate 2024-01-14 22:22:00 22 /min [facility] Oxygen saturation in Arterial blood by Pulse oximetry 2024-01-14 22:22:00 93 /min [facility] Body weight 2024-01-10 04:32:00 113.399 kg [facility] BMI 2024-01-10 04:32:00 35.87 kg/m2 [facility] Body height 2024-01-09 19:59:00 177.8 cm [facility] Respiratory rate 2024-01-13 19:29:14 0 /min [facility] Oxygen saturation in Arterial blood by Pulse oximetry 2024-01-13 19:29:14 0 /min [facility] Systolic blood pressure 2024-01-13 16:10:00 127 mm[Hg] [facility] Diastolic blood pressure 2024-01-13 16:10:00 52 mm[Hg] [facility] Heart rate 2024-01-13 16:10:00 59 /min [facility] Body temperature 2024-01-13 16:10:00 36.28 Thao [facility] Body weight 2024-01-10 04:32:00 113.399 kg [facility] BMI 2024-01-10 04:32:00 35.87 kg/m2 [facility] Body height 2024-01-09 19:59:00 177.8 cm [facility] Systolic blood pressure 2024-01-09 15:07:00 127 mm[Hg] [facility] Diastolic blood pressure 2024-01-09 15:07:00 55 mm[Hg] [facility] Heart rate 2024-01-09 15:07:00 54 /min [facility] Body temperature 2024-01-09 15:07:00 36.17 Thao [facility] Respiratory rate 2024-01-09 15:07:00 20 /min [facility] Body height 2024-01-09 15:07:00 177.8 cm [facility] Body weight 2024-01-09 15:07:00 115.667 kg wt per pt - declined to weigh [facility] BMI 2024-01-09 15:07:00 36.59 kg/m2 [facility] Oxygen saturation in Arterial blood by Pulse oximetry 2024-01-09 15:07:00 92 /min [facility] Systolic blood pressure 2024-01-06 14:38:00 140 mm[Hg] [facility] Diastolic blood pressure 2024-01-06 14:38:00 63 mm[Hg] [facility] Heart rate 2024-01-06 14:38:00 49 /min [facility] Body height 2024-01-06 14:33:00 177.8 cm [facility] Body weight 2024-01-06 14:33:00 115.667 kg [facility] BMI 2024-01-06 14:33:00 36.59 kg/m2 [facility] Oxygen saturation in Arterial blood by Pulse oximetry 2024-01-06 14:33:00 96 /min [facility] Systolic blood pressure 2023-12-03 20:29:00 171 mm[Hg] [facility] Diastolic blood pressure 2023-12-03 20:29:00 72 mm[Hg] [facility] Heart rate 2023-12-03 20:28:00 50 /min [facility] Body temperature 2023-12-03 20:28:00 36.61 Thao [facility] Body height 2023-12-03 20:28:00 177.8 cm [facility] Body weight 2023-12-03 20:28:00 109.317 kg [facility] BMI 2023-12-03 20:28:00 34.58 kg/m2 [facility] Oxygen saturation in Arterial blood by Pulse oximetry 2023-12-03 20:28:00 93 /min [facility] Systolic blood pressure 2023-11-05 15:52:00 138 mm[Hg] [facility] Diastolic blood pressure 2023-11-05 15:52:00 55 mm[Hg] [facility] Heart rate 2023-11-05 15:52:00 57 /min [facility] Body temperature 2023-11-05 15:52:00 36.61 Thao [facility] Body weight 2023-11-05 15:52:00 114.76 kg [facility] BMI 2023-11-05 15:52:00 36.30 kg/m2 [facility] Oxygen saturation in Arterial blood by Pulse oximetry 2023-11-05 15:52:00 89 /min without oxygen [facility] Systolic blood pressure 2023-10-22 17:08:00 113 mm[Hg] [facility] Diastolic blood pressure 2023-10-22 17:08:00 71 mm[Hg] [facility] Heart rate 2023-10-22 17:08:00 77 /min [facility] Respiratory rate 2023-10-22 17:08:00 20 /min [facility] Body height 2023-10-22 17:08:00 177.8 cm [facility] Body weight 2023-10-22 17:08:00 116.121 kg per pt [facility] BMI 2023-10-22 17:08:00 36.73 kg/m2 [facility] Oxygen saturation in Arterial blood by Pulse oximetry 2023-10-22 17:08:00 96 /min (CF4) 02 machine [facility] Systolic blood pressure 2023-10-03 16:20:00 148 mm[Hg] [facility] Diastolic blood pressure 2023-10-03 16:20:00 62 mm[Hg] [facility] Heart rate 2023-10-03 16:20:00 49 /min [facility] Body temperature 2023-10-03 16:18:00 36.11 Thao [facility] Respiratory rate 2023-10-03 16:18:00 23 /min [facility] Body weight 2023-10-03 16:18:00 108.41 kg [facility] BMI 2023-10-03 16:18:00 33.33 kg/m2 [facility] Oxygen saturation in Arterial blood by Pulse oximetry 2023-10-03 16:18:00 100 /min [facility] Systolic blood pressure 2023-08-13 20:14:00 148 mm[Hg] [facility] Diastolic blood pressure 2023-08-13 20:14:00 72 mm[Hg] [facility] Heart rate 2023-08-13 20:08:00 54 /min [facility] Body temperature 2023-08-13 20:08:00 36.78 Thao [facility] Body height 2023-08-13 20:08:00 180.3 cm [facility] Body weight 2023-08-13 20:08:00 106.142 kg [facility] BMI 2023-08-13 20:08:00 32.64 kg/m2 [facility] Oxygen saturation in Arterial blood by Pulse oximetry 2023-08-13 20:08:00 92 /min [facility] Systolic blood pressure 2023-07-29 20:08:00 159 mm[Hg] [facility] Diastolic blood pressure 2023-07-29 20:08:00 69 mm[Hg] [facility] Heart rate 2023-07-29 20:08:00 54 /min [facility] Oxygen saturation in Arterial blood by Pulse oximetry 2023-07-29 20:08:00 79 /min [facility] Respiratory rate 2023-07-29 20:05:00 23 /min [facility] Body height 2023-07-29 20:05:00 177.8 cm [facility] Body weight 2023-07-29 20:05:00 103.465 kg [facility] BMI 2023-07-29 20:05:00 32.73 kg/m2 [facility] Systolic blood pressure 2023-07-24 15:43:00 134 mm[Hg] [facility] Diastolic blood pressure 2023-07-24 15:43:00 78 mm[Hg] [facility] Heart rate 2023-07-24 15:43:00 51 /min [facility] Body temperature 2023-07-24 15:43:00 36.67 Thao [facility] Body weight 2023-07-24 15:43:00 102.967 kg [facility] BMI 2023-07-24 15:43:00 32.57 kg/m2 [facility] Oxygen saturation in Arterial blood by Pulse oximetry 2023-07-24 15:43:00 95 /min [facility] Systolic blood pressure 2023-07-23 16:33:00 138 mm[Hg] [facility] Diastolic blood pressure 2023-07-23 16:33:00 77 mm[Hg] [facility] Heart rate 2023-07-23 16:33:00 62 /min [facility] Respiratory rate 2023-07-23 16:27:00 21 /min [facility] Body height 2023-07-23 16:27:00 177.8 cm [facility] Body weight 2023-07-23 16:27:00 102.377 kg [facility] BMI 2023-07-23 16:27:00 32.38 kg/m2 [facility] Oxygen saturation in Arterial blood by Pulse oximetry 2023-07-23 16:27:00 98 /min 6L NC [facility] Systolic blood pressure 2023-06-07 19:42:00 146 mm[Hg] [facility] Diastolic blood pressure 2023-06-07 19:42:00 65 mm[Hg] [facility] Heart rate 2023-06-07 19:42:00 48 /min [facility] Oxygen saturation in Arterial blood by Pulse oximetry 2023-06-07 19:42:00 97 /min [facility] Body temperature 2023-06-07 19:40:00 36.28 Thao [facility] Respiratory rate 2023-06-07 19:40:00 22 /min [facility] Body height 2023-06-07 19:40:00 180.3 cm [facility] Body weight 2023-06-07 19:40:00 100.789 kg [facility] BMI 2023-06-07 19:40:00 30.99 kg/m2 [facility] Systolic blood pressure 2023-05-01 19:20:00 161 mm[Hg] [facility] Diastolic blood pressure 2023-05-01 19:20:00 62 mm[Hg] [facility] Heart rate 2023-05-01 19:19:00 54 /min [facility] Respiratory rate 2023-05-01 19:19:00 18 /min [facility] Body height 2023-05-01 19:19:00 180.3 cm [facility] Body weight 2023-05-01 19:19:00 99.247 kg [facility] BMI 2023-05-01 19:19:00 30.52 kg/m2 [facility] Oxygen saturation in Arterial blood by Pulse oximetry 2023-05-01 19:19:00 97 /min [facility] Systolic blood pressure 2023-03-25 19:50:00 152 mm[Hg] [facility] Diastolic blood pressure 2023-03-25 19:50:00 68 mm[Hg] [facility] Heart rate 2023-03-25 19:48:00 49 /min [facility] Body temperature 2023-03-25 19:48:00 36.61 Thao [facility] Body height 2023-03-25 19:48:00 180.3 cm [facility] Body weight 2023-03-25 19:48:00 96.163 kg [facility] BMI 2023-03-25 19:48:00 29.57 kg/m2 [facility] Oxygen saturation in Arterial blood by Pulse oximetry 2023-03-25 19:48:00 92 /min [facility] Systolic blood pressure 2023-02-05 21:08:00 146 mm[Hg] [facility] Diastolic blood pressure 2023-02-05 21:08:00 64 mm[Hg] [facility] Heart rate 2023-02-05 21:07:00 49 /min [facility] Body temperature 2023-02-05 21:07:00 36.17 Thao [facility] Body height 2023-02-05 21:07:00 180.3 cm [facility] Body weight 2023-02-05 21:07:00 96.616 kg [facility] BMI 2023-02-05 21:07:00 29.71 kg/m2 [facility] Oxygen saturation in Arterial blood by Pulse oximetry 2023-02-05 21:07:00 93 /min [facility] Systolic blood pressure 2022-12-13 20:26:00 159 mm[Hg] [facility] Diastolic blood pressure 2022-12-13 20:26:00 72 mm[Hg] [facility] Heart rate 2022-12-13 20:25:00 46 /min [facility] Body temperature 2022-12-13 20:25:00 36.33 Thao [facility] Body height 2022-12-13 20:25:00 177.8 cm [facility] Body weight 2022-12-13 20:25:00 94.348 kg [facility] BMI 2022-12-13 20:25:00 29.84 kg/m2 [facility] Oxygen saturation in Arterial blood by Pulse oximetry 2022-12-13 20:25:00 100 /min with oxygen [facility] Systolic blood pressure 2022-10-04 20:16:00 110 mm[Hg] [facility] Diastolic blood pressure 2022-10-04 20:16:00 49 mm[Hg] [facility] Heart rate 2022-10-04 20:16:00 57 /min [facility] Body temperature 2022-10-04 20:16:00 36.17 Thao [facility] Respiratory rate 2022-10-04 20:16:00 19 /min [facility] Body height 2022-10-04 20:16:00 180.3 cm [facility] Body weight 2022-10-04 20:16:00 95.618 kg [facility] BMI 2022-10-04 20:16:00 29.40 kg/m2 [facility] Oxygen saturation in Arterial blood by Pulse oximetry 2022-10-04 20:16:00 96 /min [facility] Systolic blood pressure 2022-09-26 21:00:00 138 mm[Hg] [facility] Diastolic blood pressure 2022-09-26 21:00:00 72 mm[Hg] [facility] Heart rate 2022-09-26 21:00:00 50 /min [facility] Body temperature 2022-09-26 21:00:00 36.11 Thao [facility] Respiratory rate 2022-09-26 21:00:00 22 /min [facility] Oxygen saturation in Arterial blood by Pulse oximetry 2022-09-26 21:00:00 99 /min [facility] Body height 2022-09-26 15:51:00 180.3 cm [facility] Body weight 2022-09-26 15:51:00 96.616 kg [facility] BMI 2022-09-26 15:51:00 29.71 kg/m2 [facility] Systolic blood pressure 2022-09-12 15:19:00 125 mm[Hg] [facility] Diastolic blood pressure 2022-09-12 15:19:00 69 mm[Hg] [facility] Heart rate 2022-09-12 15:19:00 156 /min [facility] Body temperature 2022-09-12 15:19:00 37.11 Thao [facility] Body height 2022-09-12 15:19:00 180.3 cm [facility] Body weight 2022-09-12 15:19:00 100.245 kg [facility] BMI 2022-09-12 15:19:00 30.82 kg/m2 [facility] Oxygen saturation in Arterial blood by Pulse oximetry 2022-09-12 15:19:00 98 /min [facility] Systolic blood pressure 2022-08-30 17:40:00 108 mm[Hg] [facility] Diastolic blood pressure 2022-08-30 17:40:00 53 mm[Hg] [facility] Heart rate 2022-08-30 17:40:00 62 /min [facility] Body temperature 2022-08-30 17:40:00 36.78 Thao [facility] Body height 2022-08-30 17:40:00 180.3 cm [facility] Body weight 2022-08-30 17:40:00 96.616 kg [facility] BMI 2022-08-30 17:40:00 29.71 kg/m2 [facility] Systolic blood pressure 2022-08-09 15:31:00 154 mm[Hg] [facility] Diastolic blood pressure 2022-08-09 15:31:00 73 mm[Hg] [facility] Heart rate 2022-08-09 15:30:00 47 /min [facility] Body temperature 2022-08-09 15:30:00 36.72 Thao [facility] Body height 2022-08-09 15:30:00 180.3 cm [facility] Body weight 2022-08-09 15:30:00 96.616 kg [facility] BMI 2022-08-09 15:30:00 29.71 kg/m2 [facility] Systolic blood pressure 2022-08-01 15:54:00 163 mm[Hg] [facility] Diastolic blood pressure 2022-08-01 15:54:00 91 mm[Hg] [facility] Heart rate 2022-08-01 15:48:00 52 /min [facility] Body temperature 2022-08-01 15:48:00 36.89 Thao [facility] Body height 2022-08-01 15:48:00 180.3 cm [facility] Body weight 2022-08-01 15:48:00 99.338 kg [facility] BMI 2022-08-01 15:48:00 30.54 kg/m2 [facility] Oxygen saturation in Arterial blood by Pulse oximetry 2022-08-01 15:48:00 89 /min [facility] Systolic blood pressure 2022-05-31 14:04:00 127 mm[Hg] [facility] Diastolic blood pressure 2022-05-31 14:04:00 81 mm[Hg] [facility] Heart rate 2022-05-31 14:04:00 108 /min [facility] Oxygen saturation in Arterial blood by Pulse oximetry 2022-05-31 14:04:00 89 /min [facility] Respiratory rate 2022-05-31 14:00:00 22 /min [facility] Body height 2022-05-31 14:00:00 180.3 cm [facility] Body weight 2022-05-31 14:00:00 107.956 kg [facility] BMI 2022-05-31 14:00:00 33.19 kg/m2 [facility] Systolic blood pressure 2022-05-14 16:28:00 158 mm[Hg] [facility] Diastolic blood pressure 2022-05-14 16:28:00 64 mm[Hg] [facility] Heart rate 2022-05-14 16:27:00 67 /min [facility] Body temperature 2022-05-14 16:27:00 36.78 Taho [facility] Body weight 2022-05-14 16:27:00 107.049 kg [facility] BMI 2022-05-14 16:27:00 34.85 kg/m2 [facility] Oxygen saturation in Arterial blood by Pulse oximetry 2022-05-14 16:27:00 87 /min he was not wearing his oxygen [facility] Systolic blood pressure 2021-11-24 18:43:00 170 mm[Hg] [facility] Diastolic blood pressure 2021-11-24 18:43:00 84 mm[Hg] [facility] Heart rate 2021-11-24 18:34:00 60 /min [facility] Respiratory rate 2021-11-24 18:34:00 18 /min [facility] Body height 2021-11-24 18:34:00 175.3 cm [facility] Body weight 2021-11-24 18:34:00 110.678 kg [facility] BMI 2021-11-24 18:34:00 36.03 kg/m2 [facility] Oxygen saturation in Arterial blood by Pulse oximetry 2021-11-24 18:34:00 88 /min [facility] Procedures Procedure Date / Time Performed Performing Clinician Source PHYSICIAN ORDERS 2024-07-30 17:50:11 Doctor Unas signed, [place] [facility] FLU VACC([id number]),65+YR,0.5 ML,IM,ADJUVANTED,TIV(FLUAD ) 2024-07-07 16:21:15 Lester Maya [facility] DME/SUPPLY JUSTIFICATION 2024-06-03 20:36:09 Doc tor Unassigned, [place] [facility] BASIC METABOLIC PANEL (NA, K, CL, CO2, GLUCOSE, BUN, CREATININE, CA) 2024-05-22 21:14:00 Bill Davenport [facility] MAGNESIUM 2024-05-22 09:34:00 Ethel [facility] BASIC METABOLIC PANEL (NA, K, CL, CO2, GLUCOSE, BUN, CREATININE, CA) 2024-05-22 09:34:00 [facility] 2024-05-22 09:34:00 Bill Davenport [facility] N-TERMINAL PRO-BNP 2024-05-22 09:34[facility]-21 08:20:00 Ethel [facility] FERRITIN SERUM 2024-05-21 08:20:00 Ethel [facility] IRON 2024-05-21 08:20:00 Ethel [facility] VITAMIN B12, LEVEL 2024-05-21 08:20:00 Ethel [facility] FOLATE 2024-05-21 08:20:00 Ethel [facility] TOTAL IRON BINDING CAPACITY 2024-05-21 08:20:00 Ethel [facility] TROPONIN I 2024-05-21 08:20:00 Ethel [facility] BASIC METABOLIC PANEL (NA, K, CL, CO2, GLUCOSE, BUN, CREATININE, CA) 2024-05-21 08:20:00 Ethel [facility] CBC WITH DIFF 2024-05-21 08:20:00 Bill Davenport [facility] N-TERMINAL PRO-BNP 2024-05-21 08:20:00 Bill Davenport [facility] TRANSTHORACIC ECHO (TTE) COMPLETE 2024-05-20 14:59:00 Bill Davenport [facility] MAGNESIUM 2024-05-20 08:31:00 [facility]20 08:31:00 [facility] COMP. METABOLIC PANEL ([id number]) 2024-05-20 08:31:00 Trish Adams [facility] CBC WITH DIFF 2024-05-20 08:31:00 [facility] N-[facility]MIN[facility]-BNP 2024-05-20 08:31:00 Lester Maya [facility] MRSA / MSSA SCREEN BY PCR, NAR 2024-05-20 00:12:00 Annette Diaz [facility] XR FINGERS 2 VW RIGHT 2024-05-19 19:07:39 Pepe Alonso ph [facility] XR CHEST 1 VW 2024-05-19 18:59:59 Victorino Alonso [facility] XR CHEST 1 VW 2024-05-19 16:21:47 Victorino Alonso [facility] MAGNESIUM 2024-05-19 16:17:00 Victorino Alonso [facility] TROPONIN I 2024-05-19 16:17:00 Victorino Alonso [facility] COMP. METABOLIC PANEL ([id number]) 2024-05-19 16:17:00 Victorino Alonso [facility] CBC WITH DIFF 2024-05-19 16:17:00 Victorino Alnoso [facility] INFLUENZA A/B RSV COVID NAAT 2024-05-19 16:17:00 Victorino Alonso [facility] N-TERMINAL PRO-BNP 2024-05-19 16:17:00 Victorino Alonso [facility] LAB ONLY COVID INTERPRETATION 2024-05-19 16:17:00 Victorino Alonos [facility] CRITICAL CARE 2024-05-19 16:00:00 Victorino Alonso [facility] MAGNESIUM 2024-04-09 09:20:00 Annette Diaz [facility] BASIC METABOLIC PANEL (NA, K, CL, CO2, GLUCOSE, BUN, CREATININE, CA) 2024-04-09 09:20:00 Annette Diaz [facility] CBC WITH DIFF 2024-04-09 09:20:[address] [facility] RETICULOCYTES AUTOMATED 2024-04-08 15:51:00 Kervin Diaz [facility] IRON 2024-04-08 15:50:00 Annette Diaz [facility] MAGNESIUM 2024-04-08 08:25:00 Annette Diaz [facility] BASIC METABOLIC PANEL (NA, K, CL, CO2, GLUCOSE, BUN, CREATININE, CA) 2024-04-08 08:25:00 Annette Diaz [facility] CBC WITH DIFF 2024-04-08 08:25:[address] [facility] N-TERMINAL PRO-BNP 2024-04-08 08:25:00 Lester Maya [facility] ACUTE CARE ARTERIAL BLOOD GAS 2024-04-07 10:56:00 Trish Adams [facility] XR CHEST 1 VW 2024-04-07 09:20:09 [facility] 2024-04-07 09:11:[address]ish [address] [facility] COMP. METABOLIC PANEL ([id number]) 2024-04-07 09:11:00 Trish Adams [facility] CBC WITH DIFF 2024-04-07 09:11:00 [facility] N-[facility]MIN[facility]-BNP 2024-04-07 09:11:00 Lester Maya [facility] TROPONIN I 2024-04-06 22:48:00 Annette Diaz [facility] ABORH CONFIRMATION (LAB ONLY) 2024-04-06 22:48:00 Annette Diaz [facility] TRANSTHORACIC ECHO (TTE) COMPLETE W/ CONTRAST 2024-04-06 21:26:00 Annette Diaz [facility] HB ABO GROUPING 2024-04-06 19:48:00 Chetna Garcia [facility] XR CHEST 2 VW 2024-04-06 17:11:00 [facility] LIPASE 2024-04-06 16:22:00 Chetna Garcia [facility] TROPONIN I 2024-04-06 16:22:00 Chetna Garcia [facility] COMP. METABOLIC PANEL ([id number]) 2024-04-06 16:22:00 Chetna Garcia [facility] CBC WITH DIFF 2024-04-06 16:22:00 Chetna Garcia [facility] N-TERMINAL PRO-BNP 2024-04-06 16:22:[address] [facility] HB ECG ROUTINE & RHYTHM STRIP 2024-04-06 15:15:51 Chetna Garcia [facility] TROPONIN I 2024-04-02 19:36:00 [facility] URINALYSIS 2024-04-02 19:36:00 Nancy Cronin [facility] XR CHEST 1 VW 2024-04-02 16:19:17 Nancy Cronin [facility] MAGNESIUM 2024-04-02 16:08:00 [facility] TROPONIN I 2024-04-02 16:08:00 [facility] COMP. METABOLIC PANEL ([id number]) 2024-04-02 16:08:00 Nancy Cronin [facility] CBC WITH DIFF 2024-04-02 16:08:00 Nancy Cronin [facility] INFLUENZA A/B RSV COVID NAAT 2024-04-02 16:08:00 Nancy Cronin [facility] N-TERMINAL PRO-BNP 2024-04-02 16:08:00 Nancy Cronin Keren [facility] LACTIC ACID WHOLE BLOOD 2024-04-02 16:07:00 Nancy Cronin [facility] COMP. METABOLIC PANEL ([id number]) 2024-03-04 23:06:00 Nancy Cronin [facility] CBC WITH DIFF 2024-03-04 23:06:00 Nancy Cronin [facility] HOME HEALTH - OTHER 2024-01-29 21:10:31 Doctor Arash juan, [place] [facility] HEALTH - OTHER 2024-01-27 13:48:44 Doctor Arash juan, [place] [facility] HB ECG ROUTINE & RHYTHM STRIP 2024-01-14 14:54:04 Roland Qamar [facility] HB ECG ROUTINE & RHYTHM STRIP 2024-01-14 14:54:04 Roland [facility] BASIC METABOLIC PANEL (NA, K, CL, CO2, GLUCOSE, BUN, CREATININE, CA) 2024-01-14 09:08:00 Adryan Hackett Domen[facility] CBC WITHOUT DIFF 2024-01-14 09:08:00 Adryan Hackett [facility]omen[facility] BASIC METABOLIC PANEL (NA, K, CL, CO2, GLUCOSE, BUN, CREATININE, CA) 2024-01-14 09:08:00 Adryan Hackett [facility] CBC WITHOUT DIFF 2024-01-14 09:08:00 Adryan Hackett [facility] CATH PROCEDURE LOG 2024-01-13 21:03:00 Abu-Georgeh, Gal [place] [facility] CATH PROCEDURE LOG 2024-01-13 21:03:00 Abu-Calvin, T [facility] POCT ACT LOW RANGE 2024-01-13 20:44:00 Abu-Sharnavdeeph, T [facility] POCT ACT LOW RANGE 2024-01-13 20:44:00 Abu-Calvin, T areblake [facility] CARDIAC CATHETERIZATION 2024-01-13 20:41:45 Abu-Grey graves Taribeth [facility] CARDIAC CATHETERIZATION 2024-01-13 20:41:45 Abu[facility]rey [facility] CARDIAC [facility]HE[facility]ATION 2024-01-13 20:41:45 Abu-Grey eh, [facility] CARDIAC CATHETERIZATION 2024-01-13 20:41:45 Abu-Grey eh, [facility] POCT ACT LOW RANGE 2024-01-13 20:25:00 Abu-Sharifeh, T areq [facility] POCT ACT LOW RANGE 2024-01-13 20:25:00 Abu-Sharifeh, T areq [facility] BASIC METABOLIC PANEL (NA, K, CL, CO2, GLUCOSE, BUN, CREATININE, CA) 2024-01-13 10:18:00 Adryan Hackett [facility] CBC WITHOUT DIFF 2024-01-13 10:18:00 Adryan Hackett [facility] ACTIVATED PARTIAL THRMPLAS YUAN 2024-01-13 10:18[facility]00 [facility]-13 10:18:00 Joni Hackett [facility] BASIC METABOLIC PANEL (NA, K, CL, CO2, GLUCOSE, BUN, CREATININE, CA) 2024-01-13 10:18:00 Adryan Hackett [facility] CBC WITHOUT DIFF 2024-01-13 10:18:00 Adryan Hackett [facility] ACTIVATED PARTIAL THRMPLAS YUAN 2024-01-13 10:18:00 [facility]24-01-13 10:18:00 Joni Hackett [facility] ACTIVATED PARTIAL THRMPLAS YUAN 2024-01-12 22:08:00 Quang [facility] ACTIVATED PARTIAL THRMPLAS YUAN 2024-01-12 22:08:00 Quang [facility] COMP. METABOLIC PANEL ([id number]) 2024-01-12 10:37:00 Dino Oh [facility] CBC WITH DIFF 2024-01-12 10:37:[address] [facility] ACTIVATED PARTIAL THRMPLAS YUAN 2024-01-12 10:37:00 [facility]24-01-12 10:37:00 Dino Oh [facility] MAGNESIUM 2024-01-12 10:37:00 Joni Hackett [facility] FOLATE 2024-01-12 [facility] ([id number][facility] 2024-01-12 10:37:00 Adriano [facility] CBC WITH DIFF 2024-01-12 10:37:[address] [facility] ACTIVATED PARTIAL THRMPLAS YUAN 2024-01-12 10:37:00 [facility] 2024-01-12 10:37:00 Dino Oh [facility] MAGNESIUM 2024-01-12 10:37:00 Joni Hackett [facility] FOLATE 2024-01-12 10:37[facility] 2024-01-12 03:32:00 Quang [facility] ACTIVATED PARTIAL THRMPLAS YUAN 2024-01-12 03:32:00 Quang [facility] BASIC METABOLIC PANEL (NA, K, CL, CO2, GLUCOSE, BUN, CREATININE, CA) 2024-01-11 19:25:00 Adriano [facility] BASIC METABOLIC PANEL (NA, K, CL, CO2, GLUCOSE, BUN, CREATININE, CA) 2024-01-11 19:25:00 Adriano [facility] ACTIVATED PARTIAL THRMPLAS YUAN 2024-01-11 14:38:00 Quang [facility] ACTIVATED PARTIAL THRMPLAS YUAN 2024-01-11 14:38:00 Quang [facility] COMP. METABOLIC PANEL ([id number]) 2024-01-11 09:51:00 Adriano [facility] CBC WITH DIFF 2024-01-11 09:51:[address] [facility] PHOSPHORUS 2024-01-11 09:51:00 Oh, [facility] MAGNESIUM 2024-01-11 09:51:00 Adriano [facility] COMP. METABOLIC PANEL ([id number]) 2024-01-11 09:51:00 Adriano [facility] CBC WITH DIFF 2024-01-11 09:51:00 Adriano [facility] PHOSPHORUS 2024-01-11 09:51:00 Adriano [facility] MAGNESIUM 2024-01-11 09:51:00 Adriano [facility] ACTIVATED PARTIAL THRMPLAS YUAN 2024-01-11 05:09:00 Quang [facility] ACTIVATED PARTIAL THRMPLAS YUAN 2024-01-11 05:09:00 Quang [facility] ACTIVATED PARTIAL THRMPLAS YUAN 2024-01-10 22:10:00 Quang [facility] ACTIVATED PARTIAL THRMPLAS YUAN 2024-01-10 22:10:00 Quang [facility] HB ECG ROUTINE & RHYTHM STRIP 2024-01-10 14:41:59 Adriano [facility] HB ECG ROUTINE & RHYTHM STRIP 2024-01-10 14:41:59 Adriano [facility] TRANSTHORACIC ECHO (TTE) COMPLETE W/ CONTRAST 2024-01-10 14:34:39 Quang [facility] TRANSTHORACIC ECHO (TTE) COMPLETE W/ CONTRAST 2024-01-10 14:34:39 Quang [facility] ACTIVATED PARTIAL THRMPLAS YUAN 2024-01-10 09:50:00 Quang [facility] TROPONIN I 2024-01-10 09:50:00 Quang [facility] ACTIVATED PARTIAL THRMPLAS YUAN 2024-01-10 09:50:00 Quang [facility] TROPONIN I 2024-01-10 09:50:00 Quang [facility] ACUTE CARE ARTERIAL BLOOD GAS 2024-01-10 05:11:00 Quang [facility] ACUTE CARE ARTERIAL BLOOD GAS 2024-01-10 05:11:00 Quang [facility] THYROID STIMULATING HORMONE 2024-01-10 04:41:00 Quang [facility] HEPATIC FUNCTION PANEL (08646) (ALB,T.PRO,BILI T,BU/BC,ALT,AST,ALK PHOS) 2024-01-10 04:41:00 Quang [facility] BASIC METABOLIC PANEL (NA, K, CL, CO2, GLUCOSE, BUN, CREATININE, CA) 2024-01-10 04:41:00 Quang [facility] IRON PANEL 2024-01-10 04:41:00 Dino Oh [facility] CBC WITH DIFF 2024-01-10 04:41:[address] [facility] PROTHROMBIN TIME / INR 2024-01-10 04:41:00 Ray Del Rio [facility] ACTIVATED PARTIAL THRMPLAS YUAN 2024-01-10 04:41:00 Quang [facility] MRSA / MSSA SCREEN BY PCR, RED 2024-01-10 04:41:00 Quang [facility] PHOSPHORUS 2024-01-10 04:41:00 Quang [facility] MAGNESIUM 2024-01-10 04:41:00 Quang [facility] FERRITIN SERUM 2024-01-10 04:41:00 Dino Oh [facility] TROPONIN I 2024-01-10 04:41:00 Quang [facility] THYROID STIMULATING HORMONE 2024-01-10 04:41:00 Quang [facility] HEPATIC FUNCTION PANEL (37419) (ALB,T.PRO,BILI T,BU/BC,ALT,AST,ALK PHOS) 2024-01-10 04:41:00 Quang [facility] BASIC METABOLIC PANEL (NA, K, CL, CO2, GLUCOSE, BUN, CREATININE, CA) 2024-01-10 04:41:00 [facility] 2024-01-10 04:41:00 Dino Oh [facility] CBC WITH DIFF 2024-01-10 04:41:00 Quang Juana [facility] PROTHROMBIN TIME / INR 2024-01-10 04:41:00 Ray Del Rio [facility] ACTIVATED PARTIAL THRMPLAS YUAN 2024-01-10 04:41:00 Quang [facility] MRSA / MSSA SCREEN BY PCR, NARES 2024-01-10 04:41:00 Quang [facility] PHOSPHORUS 2024-01-10 04:41:00 Quang [facility] MAGNESIUM 2024-01-10 04:41:00 Quang [facility] FERRITIN SERUM 2024-01-10 04:41:00 Dino Oh [facility] TROPONIN I 2024-01-10 04:41:00 [facility] 2024-01-10 00:55:00 [facility] URINALYSIS 2024-01-10 00:55:00 Nancy Cronin [facility] AC ABG + LACTIC ACID 2024-01-09 23:55:00 Nancy Cronin [facility] AC ABG + LACTIC ACID 2024-01-09 23:55:00 Nancy Cronin [facility] XR CHEST 1 VW 2024-01-09 20:19:52 Nancy Cronin [facility] XR CHEST 1 VW 2024-01-09 20:19:52 Nancy Cronin [facility] COMP. METABOLIC PANEL (15590) 2024-01-09 20:17:00 Nancy Cronin [facility] LIPID PANEL (67527)(TOTAL CHOLESTEROL, TRIGLYCERIDES, HDL) 2024-01-09 20:17:00 [facility] WITH DIFF 2024-01-09 20:17:00 Nancy Cronin [facility] GLYCOSYLATED HEMOGLOBIN (A1C) 2024-01-09 20:17:00 [facility] N-TERMINAL PRO-BNP 2024-01-09 20:17:00 Nancy Cronin [facility] MAGNESIUM 2024-01-09 20:17:00 Nancy Cronin [facility] TROPONIN I 2024-01-09 20:17:00 [facility] COMP. METABOLIC PANEL (42830) 2024-01-09 20:17:00 Nancy Cronin [facility] LIPID PANEL (74073)(TOTAL CHOLESTEROL, TRIGLYCERIDES, HDL) 2024-01-09 20:17:00 [facility] CBC WITH DIFF 2024-01-09 20:17:00 Nancy Cronin [facility] GLYCOSYLATED HEMOGLOBIN (A1C) 2024-01-09 20:17:00 [facility] N-TERMINAL PRO-BNP 2024-01-09 20:17:00 Nancy Cronin [facility] MAGNESIUM 2024-01-09 20:17:00 [facility] TROPONIN I 2024-01-09 20:17:00 [facility] HB ECG ROUTINE & RHYTHM STRIP 2024-01-09 19:55:20 Nancy Cronin [facility] HB ECG ROUTINE & RHYTHM STRIP 2024-01-09 19:55:20 Nancy Cronin [facility] HOME HEALTH (SCANNED) DOCUMENTS 2023-12-24 14:57:14 Doctor Unassigned, [place] [facility] (SCANNED) DOCUMENTS 2023-12-24 14:56:47 Doctor Unassigned, [place] [facility] (SCANNED) DOCUMENTS 2023-12-24 14:56:29 Doctor Unassigned, [place] [facility] HEALTH - OTHER 2023-12-18 16:52:16 Doctor U nassigned, [place] [facility] CT LOW DOSE LUNG NODULE 2023-11-27 16:03:26 Kary Ibarra [facility] POCT URINALYSIS 2023-11-05 00:00:00 Roberto Reza Medhatmari [facility] HB ECG ROUTINE & RHYTHM STRIP 2023-10-03 16:24:42 Lester Maya [facility] TRANSTHORACIC ECHO (TTE) COMPLETE W/ CONTRAST 2023-10-03 16:00:00 Lester Maya [facility] MEDICATION CORRESPONDENCE 2023-09-16 06:01:00 Do ctor Unassigned, [place] [facility] EXTERNAL PROVIDER RECORDS 2023-08-22 06:01:00 Do ctor Unassigned, [place] [facility] OTHER 2023-07-23 06:01:00 Doctor Arash juan, [place] [facility] EXTERNAL PROVIDER RECORDS 2023-06-14 05:01:00 Do ctor Unassigned, [place] [facility] OTHER 2023-05-13 05:01:00 Doctor Arash nassigned, [place] [facility] EXTERNAL PROVIDER RECORDS 2023-04-15 05:01:00 Do ctor Unassigned, [place] [facility] - OTHER 2023-04-13 05:01:00 Doctor Arash nassigned, [place] [facility] OTHER 2023-04-08 05:01:00 Doctor Arash nassigned, [place] [facility] ASSIGNMENT OF BENEFITS 2023-02-05 20:54:16 Docto r Unassigned, [place] [facility] OTHER 2023-01-15 05:01:00 Doctor Arash nassigned, [place] [facility] OTHER 2022-12-19 05:01:00 Doctor U nassigned, [place] [facility] HEALTH [facility] 2022-12-11 05:01:00 Doctor Unass igned, [place] [facility] - OTHER 2022-11-05 05:01:00 Doctor Arash nassigned, [place] [facility] OTHER 2022-10-15 06:01:00 Doctor U nassigned, [place] [id number] 2022-10-11 06:01:00 Doctor Unass igned, [place] [facility] MEDICAL RELEASE/CLEARANCE FORMS 2022-10-04 06:01:00 Doctor Unassigned, [place] [facility] URINALYSIS 2022-09-26 19:14:00 [facility] 2022-09-26 16:05:00 Mad[facility] MAGNESI[facility] 2022-09-26 16:05:00 Madina James [facility] TROPONIN I 2022-09-26 16:05:00 Madina James [facility] COMP. METABOLIC PANEL (02457) 2022-09-26 16:05:00 Madina James [facility] CBC WITH DIFF 2022-09-26 16:05:00 Madina [facility] AC PANEL 21 + LACTIC ACID 2022-09-26 16:04:00 Madina James [facility] DME/SUPPLY JUSTIFICATION 2022-09-17 06:01:00 Doc tor Unassigned, [place] [id number] 2022-08-13 06:01:00 Doctor Unass igned, [place] [facility] FLU VACC(),65+YR,0.5 ML,IM,ADJUVANTED,QUAD(FLUA D) 2022-08-01 16:04:57 Aminata Reza [facility] SARS-COV-2 COVID-19 VACCINE 12 YRS+, BIVALENT 0.5ML, IM (MODERNA BOOSTER) 2022-08-01 16:04:57 Aminata Reza [facility] 2022-07-24 06:01:00 Doctor Arash juan, [place] [facility] OTHER 2022-07-04 06:01:00 Doctor Arash juan, [place] [facility] 2022-06-26 05:01:00 Doctor U nassigned, [place] [facility] HOME HEALTH - OTHER 2022-06-14 05:01:00 Doctor U nassigned, [place] [facility] EXTERNAL PROVIDER - ADC REFERRAL 2022-05-31 05:01:00 Doctor Unassigned, [place] [facility] Encounters Start Date/Time End Date/Time Encounter Type Admission Type Attending [facility] Facility Care Department Encounter ID Source 2021-06-26 16:01:05 Emergency [facility] [id number] [facility] 2021-06-26 07:00:41 Emergency [facility] [id number] [facility] 2024-10-13 11:00:00 2024-10-13 11:00:00 Outpatient LESTER HAMLIN [facility] [id number] [facility] 2024-01-27 00:00:00 2024-10-10 07:37:35 Orders Only Doctor Unassigned, [place] Doctor Unassigned, [place] [facility] 1.2.840.114 350.1.13.10 4.2.7.2.686 [id number] [id number] [facility] 2024-01-29 00:00:00 2024-10-10 07:36:07 Orders Only Doctor Unassigned, [place] Doctor Unassigned, [place] [facility] 1.2.840.114 350.1.13.10 4.2.7.2.686 [id number] [facility] 2024-06-03 00:00:00 2024-10-10 06:51:41 Orders Only Doctor Unassigned, [place] Doctor Unassigned, [place] [facility] 1.2.840.114 350.1.13.10 4.2.7.2.686 [id number] [id number] [facility] 2024-07-30 00:00:00 2024-10-10 06:31:42 Orders Only Doctor Unassigned, [place] Doctor Unassigned, [place] [facility] 1.2.840.114 350.1.13.10 4.2.7.2.686 [id number] [id number] [facility] 2023-12-18 00:00:00 2024-10-10 02:13:34 Orders Only Doctor Unassigned, [place] Doctor Unassigned, [place] [facility] 1.2.840.114 350.1.13.10 4.2.7.2.686 [id number] [facility] 2023-12-24 00:00:00 2024-10-10 02:08:46 Orders Only Doctor Unassigned, [place] Doctor Unassigned, [place] [facility] 1.2.840.114 350.1.13.10 4.2.7.2.686 [id number] [facility] 2023-12-24 00:00:00 2024-10-10 02:08:19 Orders Only Doctor Unassigned, [place] Doctor Unassigned, [place] [facility] 1.2.840.114 350.1.13.10 4.2.7.2.686 [id number] [facility] 2023-12-24 00:00:00 2024-10-10 02:08:07 Orders Only Doctor Unassigned, [place] Doctor Unassigned, [place] [facility] 1.2.840.114 350.1.13.10 4.2.7.2.686 [id number] [facility] 2024-09-11 09:30:00 2024-09-11 09:30:00 Outpatient VINEET SANCHEZ [facility] [id number] [facility] 2024-08-27 10:00:00 2024-08-27 10:00:00 Outpatient KEN ALMARAZ [facility] [id number] [facility] 2024-08-13 00:00:00 2024-08-14 10:03:01 RefAminata Martin [facility] D[facility]ON?[facility] 1.2.840.114 350.1.13.10 4.2.7.2.686 [id number] [facility] 2024-07-16 00:00:00 2024-07-20 08:58:11 Refill Aminata Reza [facility] DIXON?[facility] OFF[facility] BU[facility] 1.2.840.114 350.1.13.10 4.2.7.2.686 [id number] [id number] [facility] 2024-07-14 00:00:00 2024-07-15 11:45:16 Telephone Aminata Reza [facility] 1.2.840.114 350.1.13.10 4.2.7.2.686 [id number] [id number] [facility] 2024-07-08 00:00:00 2024-07-08 16:24:46 Telephone Aminata Reza [facility] DIXON?[facility] 1.2.840.114 350.1.13.10 4.2.7.2.686 [id number] [facility] 2024-07-07 11:00:00 2024-07-07 11:00:00 Office Visit Lester Maya [facility] NAL BUILDING 1.2.840.114 350.1.13.10 4.2.7.2.686 [id number] [facility] 2024-07-07 10:00:00 2024-07-07 10:51:37 Outpatient VINEET SANCHEZ [facility] [id number] [facility] 2024-07-07 10:00:00 2024-07-07 10:51:37 [facility] 1.2.840.114 350.1.13.10 4.2.7.2.686 [id number] [facility] 2024-07-01 00:00:00 2024-07-02 09:07:02 Telephone Aminata Reza [facility] DIXON?[facility] OFF[facility] BU[facility] 1.2.840.114 350.1.13.10 4.2.7.2.686 [id number] [id number] [facility] 2024-06-29 00:00:00 2024-06-29 16:38:21 Telephone [facility] 1.2.840.114 350.1.13.10 4.2.7.2.686 [id number] [facility] 2024-06-29 15:30:00 2024-06-29 15:45:00 Office Visit [facility] 1.2.840.114 350.1.13.10 4.2.7.2.686 [id number] [facility] 2024-06-29 15:30:00 2024-06-29 15:30:00 Outpatient AMINATA WILD [facility] [id number] [facility] 2024-06-26 00:00:00 2024-06-26 14:43:14 Refill Aysechristyshaan [facility] MED[facility] OFFICE BUILD[facility] 1.2.840.114 350.1.13.10 4.2.7.2.686 [id number] [facility] 2024-06-25 13:20:00 2024-06-25 13:20:00 Outpatient R EMMIEKEN ALDRIDGE [facility] [id number] [facility] 2024-06-11 00:00:00 2024-06-15 07:55:14 RefAminata Martin [facility] MED[facility] OFF[facility] BUILDING 1.2.840.114 350.1.13.10 4.2.7.2.686 [id number] [facility] 2024-06-10 00:00:00 2024-06-10 15:13:54 Telephone Maria Del Rosario Clement Peggy C [facility] [place] NAL BUILDING 1.2840.114 350.1.13.10 4.2.7.2.686 [id number] [facility] 2024-06-02 14:30:00 2024-06-02 14:30:00 Outpatient AMINATA WILD [facility] [id number] [facility] 2024-05-29 00:00:00 2024-06-02 10:13:44 Telephone Vineet Ibarra [facility] 1.2840.114 350.1.13.10 4.2.7.2.686 [id number] [facility] 2024-05-28 00:00:00 2024-05-28 16:41:37 Telephone Aminata Reza [facility] MEDICAL OFFICE BUILDING 1.2840.114 350.1.13.10 4.2.7.2.686 [id number] [facility] 2024-05-28 00:00:00 2024-05-28 11:37:05 Telephone Aminata Reza [facility] MEDICAL OFFICE BUILDING 1.2840.114 350.1.13.10 4.2.7.2.686 [id number] [facility] 2024-05-26 11:30:00 2024-05-26 12:12:55 Office Visit Vineet Ibarra [facility] BU[facility] 1.2840.114 350.1.13.10 4.2.7.2.686 [id number] [facility] 2024-05-26 10:30:00 2024-05-26 12:12:49 Outpatient R LESTER MAYA [facility] [id number] [facility] 2024-05-26 10:30:00 2024-05-26 12:12:49 Office Visit Lester Maya [facility] 1.2.840.114 350.1.13.10 4.2.7.2.686 [id number] [facility] 2024-05-25 00:00:00 2024-05-25 14:44:53 Telephone [facility] 1.2.840.114 350.1.13.10 4.2.7.2.686 [id number] [facility] 2024-05-25 00:00:00 2024-05-25 12:25:20 Transition of Care Vince Green Miatha R [facility] 1.2.840.114 350.1.13.10 4.2.7.2.686 [id number] [facility] 2024-05-19 11:01:00 2024-05-22 18:39:00 Inpatient X BILL DAVENPORT [facility] [id number] [facility] 2024-05-19 11:01:00 2024-05-22 18:39:00 Hospital Encounter Victorino Alonso, Bill Martin [facility] 1.2840.114 350.1.13.10 4.2.7.2.686 [id number] [facility] 2024-05-21 13:00:00 2024-05-21 13:00:00 Outpatient KEN ALMARAZ [facility] [id number] [facility] 2024-05-21 00:00:00 2024-05-21 08:58:28 Aminata Boateng [facility] 1.2.840.114 350.1.13.10 4.2.7.2.686 [id number] [id number] [facility] 2024-05-18 00:00:00 2024-05-18 10:55:01 Telephone [facility] 1.2.840.114 350.1.13.10 4.2.7.2.686 [id number] [facility] 2024-05-14 00:00:00 2024-05-15 10:59:29 Telephone [facility] 1.2.840.114 350.1.13.10 4.2.7.2.686 [id number] [facility] 2024-05-14 10:15:00 2024-05-14 10:15:00 Outpatient AMINATA WILD [facility] [id number] [facility] 2024-05-13 00:00:00 2024-05-13 10:52:32 Nurse Triage Candice Deluna Chessica T [facility] 1.2.840.114 350.1.13.10 4.2.7.2.686 [id number] [facility] 2024-05-12 16:30:00 2024-05-12 16:30:00 [facility] 1.2.840.114 350.1.13.10 4.2.7.2.686 [id number] [facility] 2024-05-12 16:30:00 2024-05-12 16:03:45 Outpatient R VINEET IBARRA [facility] [id number] [facility] 2024-05-05 14:00:00 2024-05-05 14:00:00 Outpatient AMINATA WILD [facility] [id number] [facility] 2024-04-29 00:00:00 2024-04-30 16:43:09 Telephone Libia [facility] MED[facility] OFFICE BUILDING 1.2.840.114 350.1.13.10 4.2.7.2.686 [id number] [facility] 2024-04-29 00:00:00 2024-04-29 16:13:30 Refill Vineet Ibarra [facility] BUILDING 1.2.840.114 350.1.13.10 4.2.7.2.686 [id number] [facility] 2024-04-29 00:00:00 2024-04-29 15:49:14 Reflawrence Reza [facility] MED[facility] OFF[facility] BUILD[facility] 1.2.840.114 350.1.13.10 4.2.7.2.686 [id number] [facility] 2024-04-28 11:00:00 2024-04-28 11:00:00 Outpatient R VINEET IBARRA [facility] [id number] [facility] 2024-04-22 13:30:00 2024-04-22 13:30:00 Outpatient R GENIA SHAW STRAHIL [facility] [id number] [facility] 2024-04-14 00:00:00 2024-04-16 15:29:53 Telephone Vineet Ibarra [facility] [place] NAL BUILDING 1.2.840.114 350.1.13.10 4.2.7.2.686 [id number] [facility] 2024-04-14 10:30:00 2024-04-14 11:02:46 Outpatient R AMINATA REZA [facility] [id number] [facility] 2024-04-14 10:30:00 2024-04-14 10:45:00 Office Visit Aminata Reza [facility] 1.2.840.114 350.1.13.10 4.2.7.2.686 [id number] [facility] 2024-04-10 00:00:00 2024-04-14 09:02:36 Telephone Lester Maya [facility] BU[facility] 1.2.840.114 350.1.13.10 4.2.7.2.686 [id number] [facility] 2024-04-09 00:00:00 2024-04-13 09:49:47 Telephone Lester MayaHErika [facility] BU[facility] 1.2.840.114 350.1.13.10 4.2.7.2.686 [id number] [facility] 2024-04-10 00:00:00 2024-04-13 08:44:03 Telephone Aminata Reza [facility] 1.2.840.114 350.1.13.10 4.2.7.2.686 [id number] [facility] 2024-04-11 00:00:00 2024-04-11 20:19:38 Telephone Lester Maya [facility] 1.2.840.114 350.1.13.10 4.2.7.2.686 [id number] [facility] 2024-04-10 00:00:00 2024-04-10 10:28:35 Transition of Care Shakira Vega 1.2.840.114 350.1.13.10 4.2.7.2.686 [id number] [facility] 2024-04-06 10:12:00 2024-04-09 16:30:00 Inpatient X TRISH ADAMS [facility] [id number] [facility] 2024-04-06 10:12:00 2024-04-09 16:30:00 Hospital Encounter Chetna Garcia David Khan, Mohammad A. [facility] 1.2.840.114 350.1.13.10 4.2.7.2.686 [id number] [facility] 2024-04-09 14:40:00 2024-04-09 14:40:00 Outpatient R KEN OLEA [facility] [id number] [facility] 2024-04-02 10:49:00 2024-04-02 16:37:00 Emergency X Nancy CRONIN K [facility] E[facility] [id number] [facility] 2024-04-02 10:49:00 2024-04-02 16:37:00 Emergency Nancy Cronin [facility] 1.2.840.114 350.1.13.10 4.2.7.2.686 [id number] [facility] 2024-04-02 00:00:00 2024-04-02 10:43:38 Telephone [facility] 1.2.840.114 350.1.13.10 4.2.7.2.686 [id number] [facility] 2024-04-02 00:00:00 2024-04-02 08:56:13 Telephone Lester Maya [facility] 1..840.114 350.1.13.10 4.2.7.2.686 [id number] [facility] 2024-03-26 00:00:00 2024-03-26 16:28:50 [facility] 1.2.840.114 350.1.13.10 4.2.7.2.686 [id number] [facility] 2024-03-17 15:30:00 2024-03-17 15:51:38 Outpatient R LESTER [facility] [id number] [facility] 2024-03-17 15:30:00 2024-03-17 15:51:38 Office Visit Lester Maya [facility] 1.2.840.114 350.1.13.10 4.2.7.2.686 [id number] [facility] 2024-03-13 08:30:00 2024-03-13 08:30:00 Outpatient R VINEET IBARRA [facility] [id number] [facility] 2024-03-10 00:00:00 2024-03-11 10:40:42 Telephone Lester Maya [facility] 1.2.840.114 350.1.13.10 4.2.7.2.686 [id number] [facility] 2024-03-09 09:00:00 2024-03-09 09:00:00 [facility] [id number] [facility] 2024-03-05 00:00:00 2024-03-05 17:55:13 Telephone Aminata Reza [facility] 1.2.840.114 350.1.13.10 4.2.7.2.686 [id number] [id number] [facility] 2024-03-04 17:13:00 2024-03-04 20:55:00 Emergency X ROSEANNE, [facility] [facility] E[facility] [id number] [facility] 2024-03-04 17:13:00 2024-03-04 20:55:00 Emergency RoseanneNancy Keren [facility] 1.2.840.114 350.1.13.10 4.2.7.2.686 [id number] [facility] 2024-03-03 13:00:00 2024-03-03 13:30:00 Office Visit Aminata Reza [facility] OFF[facility] BU[facility] 1.2.840.114 350.1.13.10 4.2.7.2.686 [id number] 044 [id number] [facility] 2024-03-03 13:00:00 2024-03-03 13:00:00 Outpatient R AMINATA REZA [facility] [id number] [facility] 2024-02-18 00:00:00 2024-02-20 09:50:25 Vineet Catherine [facility] 1.2.840.114 350.1.13.10 4.2.7.2.686 [id number] 085 [id number] [facility] 2024-02-11 00:00:00 2024-02-14 11:35:00 Telephone Aminata Reza [facility] MED[facility] OFF[facility] 1.2.840.114 350.1.13.10 4.2.7.2.686 [id number] 044 [id number] [facility] 2024-02-14 00:00:00 2024-02-14 09:39:32 Refill AysechristyAminata corrales [facility] 1..840.114 350.1.13.10 4.2.7.2.686 [id number] 044 [id number] [facility] 2024-02-13 10:00:00 2024-02-13 10:00:00 Outpatient R VINEET IBARRA [facility] [id number] [facility] 2024-02-06 00:00:00 2024-02-13 07:59:45 Telephone Lester Maya [facility] BU[facility] 1..840.114 350.1.13.10 4.2.7.2.686 [id number] 059 [id number] [facility] 2024-02-11 00:00:00 2024-02-11 09:04:00 Telephone SelinAminata corrales [facility] 1..840.114 350.1.13.10 4.2.7.2.686 [id number] 044 [id number] [facility] 2024-02-05 10:15:00 2024-02-05 10:15:00 Outpatient R AMINATA REZA [facility] [id number] [facility] 2024-01-27 14:30:00 2024-01-27 15:28:19 Outpatient R AMINATA REZA [facility] [id number] [facility] 2024-01-27 14:30:00 2024-01-27 15:00:00 [facility] 1..840.114 350.1.13.10 4.2.7.2.686 [id number] [id number] [facility] 2024-01-23 00:00:00 2024-01-23 15:05:57 Telephone Libia [facility] 1.2.840.114 350.1.13.10 4.2.7.2.686 [id number] 044 [id number] [facility] 2024-01-17 00:00:00 2024-01-20 10:21:45 Telephone Libia [facility] MEDICAL OFFICE BUILDING 1.2.840.114 350.1.13.10 4.2.7.2.686 [id number] 044 [id number] [facility] 2024-01-15 00:00:00 2024-01-15 11:15:50 Transition of Care Derek Khan 1.2.840.114 350.1.13.10 4.2.7.2.686 [id number] [facility] 2024-01-09 14:55:00 2024-01-14 17:35:00 Inpatient [facility], [facility] [id number] [facility] 2024-01-09 14:55:00 2024-01-14 17:35:00 Hospital Encounter Nancy Cronin [facility], Tareq Sarah, Brandon Adams, Sheila Quinones [facility] 1.2.840.114 350.1.13.10 4.2.7.2.686 [id number] [facility] 2024-01-13 13:30:00 2024-01-13 14:30:00 Surgery Andrés Garsia [facility] 1.2.840.114 350.1.13.10 4.2.7.2.686 [id number] [facility] 2024-01-09 00:00:00 2024-01-09 11:56:19 Telephone Lester Maya [facility] BU[facility] 1.2.840.114 350.1.13.10 4.2.7.2.686 [id number] 059 [id number] [facility] 2024-01-09 09:30:00 2024-01-09 11:31:37 Outpatient [facility] [id number] [facility] 2024-01-09 09:30:00 2024-01-09 11:31:37 Office Visit Vineet Ibarra [facility] [place] NAL BUILDING 1.2.840.114 350.1.13.10 4.2.7.2.686 [id number] 085 [id number] [facility] 2024-01-06 09:00:00 2024-01-06 10:13:45 Office Visit Lester Maya [facility] BUILDING 1.2.840.114 350.1.13.10 4.2.7.2.686 [id number] 059 [id number] [facility] 2024-01-06 09:00:00 2024-01-06 10:13:45 Outpatient R LESTER [facility] [id number] [facility] 2023-12-30 00:00:00 2023-12-30 15:11:37 Telephone [facility] 1.2.840.114 350.1.13.10 4.2.7.2.686 [id number] 044 [id number] [facility] 2023-12-26 14:40:00 2023-12-26 14:40:00 Outpatient R KEN OLEA [facility]A [facility] [id number] [facility] 2023-12-24 00:00:00 2023-12-24 00:00:00 Telephone Lester Maya [facility] BUILDING 1.2.840.114 350.1.13.10 4.2.7.2.686 [id number] 059 [id number] [facility] 2023-12-21 00:00:00 2023-12-21 00:00:00 Refill Libia Aminata [facility] 1.2.840.114 350.1.13.10 4.2.7.2.686 [id number] 044 [id number] [facility] 2023-12-20 00:00:00 2023-12-20 00:00:00 Refill Libia [facility] 1.2.840.114 350.1.13.10 4.2.7.2.686 [id number] 044 [id number] [facility] 2023-12-09 00:00:00 2023-12-09 00:00:00 Telephone Lester Maya [facility] BUILDING 1.2.840.114 350.1.13.10 4.2.7.2.686 [id number] 059 [id number] [facility] 2023-12-05 14:40:00 2023-12-05 14:40:00 Outpatient R KEN OLEA [facility] [id number] [facility] 2023-12-04 13:00:00 2023-12-04 13:00:00 Outpatient R [facility] [id number] [facility] 2023-12-03 15:30:00 2023-12-03 15:45:00 Office Visit Libia [facility] 1.2.840.114 350.1.13.10 4.2.7.2.686 [id number] 044 [id number] [facility] 2023-12-03 15:30:00 2023-12-03 15:30:00 Outpatient R AMINATA REZA [facility] [id number] [facility] 2023-12-02 00:00:00 2023-12-02 00:00:00 Telephone LibiaAminata Edmari [facility] 1.2.840.114 350.1.13.10 4.2.7.2.686 [id number] 044 [id number] [facility] 2023-11-29 00:00:00 2023-11-29 00:00:00 Telephone Vineet Ibarra [facility] BUILDING 1..840.114 350.1.13.10 4.2.7.2.686 [id number] [facility] 2023-11-27 08:34:12 2023-11-27 23:59:00 Outpatient R LESTER [facility] [id number] [facility] 2023-11-27 08:34:12 2023-11-27 23:59:00 Hospital Encounter Lester Maya [facility] 1.840.114 350.1.13.10 4.2.7.2.686 [id number] [facility] 2023-11-27 08:34:03 2023-11-27 23:59:00 Hospital Encounter Vineet Ibarra [facility] 1.284.114 350.1.13.10 4.2.7.2.686 [id number] [facility] 2023-11-13 00:00:00 2023-11-13 00:00:00 Outpatient R VINEET IBARRA [facility] [id number] [facility] 2023-11-11 00:00:00 2023-11-11 00:00:00 Telephone Lester Maya [facility] [place] NAL BUILDING 1.2.840.114 350.1.13.10 4.2.7.2.686 [id number] 059 [id number] [facility] 2023-11-06 00:00:00 2023-11-06 00:00:00 Telephone [facility] 1..840.114 350.1.13.10 4.2.7.2.686 [id number] 044 [id number] [facility] 2023-11-05 10:15:00 2023-11-05 11:23:55 Outpatient R AMINATA REZA [facility] [id number] [facility] 2023-11-05 10:15:00 2023-11-05 11:23:55 Office Visit Aminata Reza [facility] MED[facility] OFFICE BUILDING 1..840.114 350.1.13.10 4.2.7.2.686 [id number] 044 [id number] [facility] 2023-11-04 00:00:00 2023-11-04 00:00:00 Refill Libia [facility] MED[facility] OFFICE BUILDING 1.2.840.114 350.1.13.10 4.2.7.2.686 [id number] 044 [id number] [facility] 2023-10-29 13:15:00 2023-10-29 13:15:00 Outpatient R AMINATA REZA [facility] [id number] [facility] 2023-10-25 00:00:00 2023-10-25 00:00:00 Telephone Vineet Ibarra [facility] BUILDING 1.2.840.114 350.1.13.10 4.2.7.2.686 [id number] 085 [id number] [facility] 2023-10-24 11:00:00 2023-10-24 11:00:00 Outpatient R AMINATA REZA [facility] [id number] [facility] 2023-10-22 10:30:00 2023-10-22 11:52:34 Outpatient R [facility] [id number] [facility] 2023-10-22 10:30:00 2023-10-22 11:52:34 Office Visit Vineet Ibarra [facility] [place] NAL BUILDING 1.2.840.114 350.1.13.10 4.2.7.2.686 [id number] 085 [id number] [facility] 2023-10-22 00:00:00 2023-10-22 00:00:00 Telephone Aminata Reza [facility] DIXON?ERNIEJoni [facility] MEDICAL OFFICE BUILDING 1.2.840.114 350.1.13.10 4.2.7.2.686 [id number] 044 [id number] [facility] 2023-10-22 00:00:00 2023-10-22 00:00:00 Telephone Aysewendy [facility] DIXON?ERNIEJoni [facility] MEDICAL OFFICE BUILDING 1.2.840.114 350.1.13.10 4.2.7.2.686 [id number] 044 [id number] [facility] 2023-10-21 00:00:00 2023-10-21 00:00:00 Telephone Libia Aminata [facility] DIXON?ERNIEJoni [facility] MEDICAL OFFICE BUILDING 1.2.840.114 350.1.13.10 4.2.7.2.686 [id number] 044 [id number] [facility] 2023-10-19 00:00:00 2023-10-19 00:00:00 Refill Libia [facility] DIXON?[facility] 1.2.840.114 350.1.13.10 4.2.7.2.686 [id number] 044 [id number] [facility] 2023-10-18 15:07:23 2023-10-18 23:59:00 Outpatient R LESTER [facility] [id number] [facility] 2023-10-18 15:07:23 2023-10-18 23:59:00 Hospital Encounter Lester Maya [facility] BUILDING 1.2.840.114 350.1.13.10 4.2.7.2.686 [id number] [id number] [facility] 2023-10-09 00:00:00 2023-10-09 00:00:00 Vineet Catherine [facility] BUILDING 1.2.840.114 350.1.13.10 4.2.7.2.686 [id number] 085 [id number] [facility] 2023-10-07 00:00:00 2023-10-07 00:00:00 Telephone Lester Maya [facility] BUILDING 1.2.840.114 350.1.13.10 4.2.7.2.686 [id number] 059 [id number] [facility] 2023-10-04 00:00:00 2023-10-04 00:00:00 Telephone Lester Maya [facility] 1.2.840.114 350.1.13.10 4.2.7.2.686 [id number] 059 [id number] [facility] 2023-10-03 08:53:44 2023-10-03 23:59:00 Outpatient R LESTER [facility] [id number] [facility] 2023-10-03 08:53:44 2023-10-03 23:59:00 Hospital Encounter Maya, Sendil [facility] BUILDING 1.2.840.114 350.1.13.10 4.2.7.2.686 [id number] [id number] [facility] 2023-10-03 10:00:00 2023-10-03 10:38:54 Office Visit Lester Maya [facility] BUILDING 1.2.840.114 350.1.13.10 4.2.7.2.686 [id number] 059 [id number] [facility] 2023-09-18 00:00:00 2023-09-18 00:00:00 Refill Aysewendy [facility] 1.2.840.114 350.1.13.10 4.2.7.2.686 [id number] 044 [id number] [facility] 2023-09-18 00:00:00 2023-09-18 00:00:00 Refill Lbiia [facility] MEDICAL OFFICE BUILDING 1.2.840.114 350.1.13.10 4.2.7.2.686 [id number] 044 [id number] [facility] 2023-09-16 00:00:00 2023-09-16 00:00:00 Orders Only Doctor Unassigned, [place] [facility] 1.2.840.114 350.1.13.10 4.2.7.2.686 [id number] [facility] 2023-09-13 00:00:00 2023-09-13 00:00:00 Telephone Vineet Ibarra [facility] BUILDING 1.2.840.114 350.1.13.10 4.2.7.2.686 [id number] 059 [id number] [facility] 2023-09-12 00:00:00 2023-09-12 00:00:00 Case Management Vineet Ibarra [facility] BUILDING 1..840.114 350.1.13.10 4.2.7.2.686 [id number] 085 [id number] [facility] 2023-09-09 00:00:00 2023-09-09 00:00:00 Refill Paty Ibarravtemily [facility] BUILDING 1.84.114 350.1.13.10 4.2.7.2.686 [id number] 085 [id number] [facility] 2023-09-04 16:00:00 2023-09-04 16:00:00 Outpatient INDIO BONE [facility] [id number] [facility] 2023-09-03 00:00:00 2023-09-03 00:00:00 Telephone Aminata Reza [facility] MEDICAL OFFICE BUILDING 1.840.114 350.1.13.10 4.2.7.2.686 [id number] 044 [id number] [facility] 2023-08-28 09:00:00 2023-08-28 09:00:00 Outpatient LESTER HAMLIN [facility] [id number] [facility] 2023-08-22 00:00:00 2023-08-22 00:00:00 Orders Only Doctor Unassigned, [place] [facility] 1.84.114 350.1.13.10 4.2.7.2.686 [id number] [id number] [facility] 2023-08-20 00:00:00 2023-08-20 00:00:00 Refill [facility]ERNIEJoni [facility] MEDICAL OFFICE BUILDING 1.2.840.114 350.1.13.10 4.2.7.2.686 [id number] 044 [id number] [facility] 2023-08-16 16:30:00 2023-08-16 16:30:00 Outpatient R CASSANDRA CEBALLOSTNEY [facility] [id number] [facility] 2023-08-16 00:00:00 2023-08-16 00:00:00 Telephone LinIndio [facility] NAL BUILDING 1.2.840.114 350.1.13.10 4.2.7.2.686 [id number] [facility] 2023-08-15 08:00:00 2023-08-15 08:00:00 Outpatient R LESTER [facility] [id number] [facility] 2023-08-13 14:00:00 2023-08-13 14:15:00 Office Visit SelinshaanAminata [facility] MEDICAL OFFICE BUILDING 1.2.840.114 350.1.13.10 4.2.7.2.686 [id number] 044 [id number] [facility] 2023-08-13 14:00:00 2023-08-13 14:00:00 Outpatient R AMINATA REZA [facility] [id number] [facility] 2023-08-13 00:00:00 2023-08-13 00:00:00 Refill Libia [facility] MED[facility] OFFICE BUILDING 1.2.840.114 350.1.13.10 4.2.7.2.686 [id number] 044 [id number] [facility] 2023-08-12 00:00:00 2023-08-12 00:00:00 Telephone Aminata Reza [facility] MEDICAL OFFICE BUILDING 1..840.114 350.1.13.10 4.2.7.2.686 [id number] 044 [id number] [facility] 2023-08-08 00:00:00 2023-08-08 00:00:00 RefVineet Salgado [facility] NAL BUILD[facility] 1.2.840.114 350.1.13.10 4.2.7.2.686 [id number] 085 [id number] [facility] 2023-08-08 00:00:00 2023-08-08 00:00:00 Telephone [facility] 1.2.840.114 350.1.13.10 4.2.7.2.686 [id number] 085 [id number] [facility] 2023-08-07 08:30:00 2023-08-07 08:30:00 Outpatient R LESTER [facility] [id number] [facility] 2023-08-07 00:00:00 2023-08-07 00:00:00 Telephone Lester Maya [facility] BUILD[facility] 1.2.840.114 350.1.13.10 4.2.7.2.686 [id number] 059 [id number] [facility] 2023-08-06 00:00:00 2023-08-06 00:00:00 Telephone Aminata Reza [facility] 1.2.840.114 350.1.13.10 4.2.7.2.686 [id number] 044 [id number] [facility] 2023-08-05 15:32:09 2023-08-05 23:59:00 Outpatient R FRED [facility] [id number] [facility] 2023-08-05 15:30:00 2023-08-05 23:59:00 Hospital Encounter Vineet Ibarra [facility] 1.2.840.114 350.1.13.10 4.2.7.2.686 [id number] [facility] 2023-08-02 13:00:00 2023-08-02 13:00:00 Outpatient R MAYACHRISTIANO CHANJESSICA [facility] [id number] [facility] 2023-07-30 11:00:00 2023-07-30 11:00:00 Outpatient R LESTER [facility] [id number] [facility] 2023-07-29 14:00:00 2023-07-29 14:24:35 Outpatient R MAYACHRISTIANO CHANJESSICA [facility] [id number] [facility] 2023-07-29 14:00:00 2023-07-29 14:24:35 Office Visit Lester Maya 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, Dean Reza [facility] MED[facility] OFFICE BUILDING 1.84.114 350.1.13.10 4.2.7.2.686 [id number] [facility] 2023-07-24 10:15:00 2023-07-24 10:15:00 Office Visit Libia Aminata [facility] MEDICAL OFFICE BUILDING 1.84.114 350.1.13.10 4.2.7.2.686 [id number] 044 [id number] [facility] 2023-07-23 10:00:00 2023-07-23 10:48:46 Outpatient R VINEET IBARRA [facility] [id number] [facility] 2023-07-23 10:00:00 2023-07-23 10:48:46 Office Visit Vineet Ibarra [facility] [place] NAL BUILDING 1.2.840.114 350.1.13.10 4.2.7.2.686 [id number] 085 [id number] [facility] 2023-07-23 00:00:00 2023-07-23 00:00:00 Orders Only Doctor Unassigned, [place] [facility] 1.840.114 350.1.13.10 4.2.7.2.686 [id number] [id number] [facility] 2023-07-22 00:00:00 2023-07-22 00:00:00 Refill Libia [facility] MEDICAL OFFICE BUILDING 1.840.114 350.1.13.10 4.2.7.2.686 [id number] 044 [id number] [facility] 2023-07-15 00:00:00 2023-07-15 00:00:00 Refill Libia [facility] MEDICAL OFFICE BUILDING 1.840.114 350.1.13.10 4.2.7.2.686 [id number] 044 [id number] [facility] 2023-07-15 00:00:00 2023-07-15 00:00:00 Telephone Libia [facility] MEDICAL OFFICE BUILDING 1.2840.114 350.1.13.10 4.2.7.2.686 [id number] 044 [id number] [facility] 2023-07-05 10:30:00 2023-07-05 10:30:00 Outpatient R CEBALLOS, INDIO [facility] [id number] [facility] 2023-06-24 00:00:00 2023-06-24 00:00:00 Telephone Aminata Reza [facility] DIXON?[facility] 1.2.840.114 350.1.13.10 4.2.7.2.686 [id number] 044 [id number] [facility] 2023-06-21 00:00:00 2023-06-21 00:00:00 Refill Aminata Reza [facility] DIXON?[facility] MEDICAL OFFICE BUILDING 1.2.840.114 350.1.13.10 4.2.7.2.686 [id number] 044 [id number] [facility] 2023-06-15 00:00:00 2023-06-15 00:00:00 Refill Aminata Reza [facility] DIXON?[facility] MEDICAL OFFICE BUILDING 1.2.840.114 350.1.13.10 4.2.7.2.686 [id number] 044 [id number] [facility] 2023-06-14 00:00:00 2023-06-14 00:00:00 Orders Only Doctor Unassigned, [place] [facility] 1.2840.114 350.1.13.10 4.2.7.2.686 [id number] [facility] 2023-06-13 00:00:00 2023-06-13 00:00:00 Telephone Aminata Reza [facility] DIXON[facility] MEDICAL OFFICE BUILDING 1.2.840.114 350.1.13.10 4.2.7.2.686 [id number] [facility] 2023-06-07 14:45:00 2023-06-07 15:05:21 Outpatient INDIO [facility] [id number] [facility] 2023-06-07 14:45:00 2023-06-07 15:05:21 Office Visit Indio Ceballos [facility] 1.2.840.114 350.1.13.10 4.2.7.2.686 [id number] [facility] 2023-06-07 00:00:00 2023-06-07 00:00:00 Telephone Aminata Reza [facility] DIXON?[facility] MEDICAL OFFICE BUILDING 1.2.840.114 350.1.13.10 4.2.7.2.686 [id number] [facility] 2023-05-27 00:00:00 2023-05-27 00:00:00 Telephone Aminata Reza [facility] 1..840.114 350.1.13.10 4.2.7.2.686 [id number] [id number] [facility] 2023-05-23 00:00:00 2023-05-23 00:00:00 Refill Aminata Reza [facility] DIXON?[facility] MEDICAL OFFICE BUILDING 1.2.840.114 350.1.13.10 4.2.7.2.686 [id number] [facility] 2023-05-15 16:30:00 2023-05-15 16:30:00 Outpatient TEVIN PARED[facility] [id number] [facility] 2023-05-15 00:00:00 2023-05-15 00:00:00 Refill Aminata Reza [facility] DIXON[facility] 1.2.840.114 350.1.13.10 4.2.7.2.686 [id number] [facility] 2023-05-15 00:00:00 2023-05-15 00:00:00 Telephone Veselka, Aminata [facility]ERNIEJoni [facility] 1.114 350.1.13.10 4.2.7.2.686 [id number] [facility] 2023-05-13 00:00:00 2023-05-13 00:00:00 Telephone Lester Maya [facility] [place] NAL BUILDING 1.114 350.1.13.10 4.2.7.2.686 [id number] [facility] 2023-05-13 00:00:00 2023-05-13 00:00:00 Orders Only Doctor Unassigned, [place] [facility] 1.114 350.1.13.10 4.2.7.2.686 [id number] [facility] 2023-05-09 00:00:00 2023-05-09 00:00:00 Refill Tereso [facility] MEDICAL OFFICE BUILDING 1.114 350.1.13.10 4.2.7.2.686 [id number] [id number] [facility] 2023-05-01 15:00:00 2023-05-01 15:03:59 Outpatient R MONIQUE R[facility] [id number] [facility] 2023-05-01 15:00:00 2023-05-01 15:03:59 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, Dean Rider [facility] MEDICAL OFFICE BUILDING 1.114 350.1.13.10 4.2.7.2.686 [id number] [facility] 2023-05-01 14:15:00 2023-05-01 14:30:00 [facility] MEDICAL OFFICE BUILDING 1.114 350.1.13.10 4.2.7.2.686 [id number] [facility] 2023 00:00:00 2023 00:00:00 Refill Aminata Reza [facility] DIXON?[facility] MEDICAL OFFICE BUILDING 1.2840.114 350.1.13.10 4.2.7.2.686 [id number] 044 [id number] [facility] 2023-04-19 00:00:00 2023-04-19 00:00:00 Telephone Aminata Reza [facility] DIXON?[facility] MEDICAL OFFICE BUILDING 1.114 350.1.13.10 4.2.7.2.686 [id number] 044 [id number] [facility] 2023-04-18 00:00:00 2023-04-18 00:00:00 Refill Aminata Reza [facility] DIXON?[facility] MEDICAL OFFICE BUILDING 1..114 350.1.13.10 4.2.7.2.686 [id number] 044 [id number] [facility] 2023-04-16 00:00:00 2023-04-16 00:00:00 Letter (Out) Aminata eRza [facility] DIXON[facility] MED[facility] OFF[facility] BUILD[facility] 1.114 350.1.13.10 4.2.7.2.686 [id number] 044 [id number] [facility] 2023-04-16 00:00:00 2023-04-16 00:00:00 Telephone Aminata Reza [facility] DIXON?[facility] MEDICAL OFFICE BUILDING 1..114 350.1.13.10 4.2.7.2.686 [id number] 044 [id number] [facility] 2023-04-15 00:00:00 2023-04-15 00:00:00 Orders Only Doctor Unassigned, [place] [facility] 1.2840.114 350.1.13.10 4.2.7.2.686 [id number] [id number] [facility] 2023-04-15 00:00:00 2023-04-15 00:00:00 Telephone Aminata Reza [facility] MEDICAL OFFICE BUILDING 1.0.114 350.1.13.10 4.2.7.2.686 [id number] 044 [id number] [facility] 2023-04-15 00:00:00 2023-04-15 00:00:00 Telephone Libia [facility] MEDICAL OFFICE BUILDING 1..114 350.1.13.10 4.2.7.2.686 [id number] 044 [id number] [facility] 2023-04-13 00:00:00 2023-04-13 00:00:00 Orders Only Doctor Unassigned, [place] [facility] 1.840.114 350.1.13.10 4.2.7.2.686 [id number] [id number] [facility] 2023-04-08 00:00:00 2023-04-08 00:00:00 Telephone Libia [facility] MEDICAL OFFICE BUILDING 1..114 350.1.13.10 4.2.7.2.686 [id number] 044 [id number] [facility] 2023-04-08 00:00:00 2023-04-08 00:00:00 Orders Only Doctor Unassigned, [place] [facility] 1.2840.114 350.1.13.10 4.2.7.2.686 [id number] [id number] [facility] 2023-03-29 00:00:00 2023-03-29 00:00:00 Refill Libia [facility] MEDICAL OFFICE BUILDING 1.0.114 350.1.13.10 4.2.7.2.686 [id number] 044 [id number] [facility] 2023-03-25 14:15:00 2023-03-25 14:30:00 Office Visit Aminata Reza [facility] DIXON?[facility] 1.840.114 350.1.13.10 4.2.7.2.686 [id number] 044 [id number] [facility] 2023-03-25 14:15:00 2023-03-25 14:15:00 Outpatient R AMINATA REZA [facility] [id number] [facility] 2023-03-25 11:00:00 2023-03-25 11:00:00 Outpatient R AMINATA REAZ [facility] [id number] [facility] 2023-03-22 00:00:00 2023-03-22 00:00:00 Refill Libia [facility] DIXON?[facility] MEDICAL OFFICE BUILDING 1.840.114 350.1.13.10 4.2.7.2.686 [id number] 044 [id number] [facility] 2023-02-23 00:00:00 2023-02-23 00:00:00 Refill Aysechristyshaan [facility] DIXON?[facility] MEDICAL OFFICE BUILDING 1.840.114 350.1.13.10 4.2.7.2.686 [id number] 044 [id number] [facility] 2023-02-19 00:00:00 2023-02-19 00:00:00 Refill Libia [facility] DIXON?[facility] MEDICAL OFFICE BUILDING 1.2840.114 350.1.13.10 4.2.7.2.686 [id number] 044 [id number] [facility] 2023-02-15 00:00:00 2023-02-15 00:00:00 Telephone [facility] 1.2840.114 350.1.13.10 4.2.7.2.686 [id number] 044 [id number] [facility] 2023-02-13 00:00:00 2023-02-13 00:00:00 [facility] 1.2840.114 350.1.13.10 4.2.7.2.686 [id number] 044 [id number] [facility] 2023-02-08 09:00:00 2023-02-08 09:00:00 Outpatient VINEET SANCHEZ SHIWAN [facility] [id number] [facility] 2023-02-06 00:00:00 2023-02-06 00:00:00 Telephone [facility] 1.2840.114 350.1.13.10 4.2.7.2.686 [id number] 044 [id number] [facility] 2023-02-05 16:00:00 2023-02-05 16:15:00 [facility] 1.2840.114 350.1.13.10 4.2.7.2.686 [id number] 044 [id number] [facility] 2023-02-05 16:00:00 2023-02-05 16:00:00 Outpatient R AMINATA REZA [facility] [id number] [facility] 2023-02-05 00:00:00 2023-02-05 00:00:00 Orders Only Doctor Unassigned, [place] [facility] 1.2840.114 350.1.13.10 4.2.7.2.686 [id number] [id number] [facility] 2023-02-04 00:00:00 2023-02-04 00:00:00 Telephone Aminata Reza [facility] DIXON?[facility] 1.2.840.114 350.1.13.10 4.2.7.2.686 [id number] 044 [id number] [facility] 2023-01-15 00:00:00 2023-01-15 00:00:00 Orders Only Doctor Unassigned, [place] [facility] 1.2840.114 350.1.13.10 4.2.7.2.686 [id number] 009 [id number] [facility] 2023-01-08 10:00:00 2023-01-08 10:00:00 Outpatient WALTER FERNANDEZ [facility] [id number] [facility] 2023-01-04 00:00:00 2023-01-04 00:00:00 Telephone Aminata Reza [facility] DIXON?[facility] MEDICAL OFFICE BUILDING 1.840.114 350.1.13.10 4.2.7.2.686 [id number] 044 [id number] [facility] 2022-12-31 00:00:00 2022-12-31 00:00:00 Refill [facility] MEDICAL OFFICE BUILDING 1..840.114 350.1.13.10 4.2.7.2.686 [id number] 044 [id number] [facility] 2022-12-31 00:00:00 2022-12-31 00:00:00 Refill Vineet Ibarra [facility] NAL BUILDING 1..840.114 350.1.13.10 4.2.7.2.686 [id number] 085 [id number] [facility] 2022-12-27 00:00:00 2022-12-27 00:00:00 Telephone [facility]inshaan [facility] MEDICAL OFFICE BUILDING 1.840.114 350.1.13.10 4.2.7.2.686 [id number] 044 [id number] [facility] 2022-12-26 00:00:00 2022-12-26 00:00:00 Telephone [facility] 1.84.114 350.1.13.10 4.2.7.2.686 [id number] 044 [id number] [facility] 2022-12-20 13:00:00 2022-12-20 13:00:00 Outpatient NEAL LAWSON [facility] [id number] [facility] 2022-12-19 00:00:00 2022-12-19 00:00:00 Orders Only Doctor Unassigned, [place] [facility] 1.84.114 350.1.13.10 4.2.7.2.686 [id number] 009 [id number] [facility] 2022-12-18 13:15:00 2022-12-18 13:30:00 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, Aminata [facility]idro [facility] MED[facility] OFF[facility] BUILDING 1..840.114 350.1.13.10 4.2.7.2.686 [id number] [facility] 2022-12-18 13:15:00 2022-12-18 13:15:00 Outpatient AMINATA WILD [facility] [id number] [facility] 2022-12-17 00:00:00 2022-12-17 00:00:00 Telephone [place] [facility] MEDICAL OFFICE BUILDING 1.840.114 350.1.13.10 4.2.7.2.686 [id number] 044 [id number] [facility] 2022-12-13 15:00:00 2022-12-13 15:52:33 Outpatient WALTER FERNANDEZ [facility] [id number] [facility] 2022-12-13 15:00:00 2022-12-13 15:52:33 Office Visit Walter Pedroza [facility] DIXON?[facility] 1.20.114 350.1.13.10 4.2.7.2.686 [id number] 044 [id number] [facility] 2022-12-11 00:00:00 2022-12-11 00:00:00 Orders Only Doctor Unassigned, [place] [facility] 1.0.114 350.1.13.10 4.2.7.2.686 [id number] 009 [id number] [facility] 2022-12-03 00:00:00 2022-12-03 00:00:00 [facility] OFF[facility] BUILD[facility] 1.0.114 350.1.13.10 4.2.7.2.686 [id number] 044 [id number] [facility] 2022-12-03 00:00:00 2022-12-03 00:00:00 Refill Vineet Ibarra [facility] MEET [facility] NAL BUILDING 1..114 350.1.13.10 4.2.7.2.686 [id number] 085 [id number] [facility] 2022-11-30 00:00:00 2022-11-30 00:00:00 Telephone Aminata Reza [facility] DIXON?[facility] MED[facility] OFFICE BUILD[facility] 1..114 350.1.13.10 4.2.7.2.686 [id number] 044 [id number] [facility] 2022-11-29 00:00:00 2022-11-29 00:00:00 Refill Aminata Reza [facility] DIXON?[facility] MEDICAL OFFICE BUILDING 1.2.114 350.1.13.10 4.2.7.2.686 [id number] 044 [id number] [facility] 2022-11-06 09:30:00 2022-11-06 09:30:00 Outpatient VINEET SANCHEZ [facility] [id number] [facility] 2022-11-06 00:00:00 2022-11-06 00:00:00 Telephone SelinAminata corrales [facility] MEDICAL OFFICE BUILDING 1.2.840.114 350.1.13.10 4.2.7.2.686 [id number] 044 [id number] [facility] 2022-11-05 00:00:00 2022-11-05 00:00:00 Telephone Lester Maya [facility] BU[facility] 1.2.840.114 350.1.13.10 4.2.7.2.686 [id number] 059 [id number] [facility] 2022-11-05 00:00:00 2022-11-05 00:00:00 Refill Libia [facility] MEDICAL OFFICE BUILDING 1.284.114 350.1.13.10 4.2.7.2.686 [id number] 044 [id number] [facility] 2022-11-05 00:00:00 2022-11-05 00:00:00 Refill Vineet Ibarra [facility] BUILDING 1.2840.114 350.1.13.10 4.2.7.2.686 [id number] 085 [id number] [facility] 2022-11-05 00:00:00 2022-11-05 00:00:00 Orders Only Doctor Unassigned, [place] [facility] 1.2840.114 350.1.13.10 4.2.7.2.686 [id number] 009 [id number] [facility] 2022-10-31 00:00:00 2022-10-31 00:00:00 Telephone Demetris Alberts [facility] 1.2840.114 350.1.13.10 4.2.7.2.686 [id number] 072 [id number] [facility] 2022-10-30 08:30:00 2022-10-30 08:30:00 Outpatient ELIZABETH SCHAEFFER [facility] [id number] [facility] 2022-10-15 00:00:00 2022-10-15 00:00:00 Orders Only Doctor Unassigned, [place] [facility] 1.2840.114 350.1.13.10 4.2.7.2.686 [id number] 009 [id number] [facility] 2022-10-11 00:00:00 2022-10-11 00:00:00 Orders Only Doctor Unassigned, [place] [facility] 1.2840.114 350.1.13.10 4.2.7.2.686 [id number] 009 [id number] [facility] 2022-10-10 00:00:00 2022-10-10 00:00:00 [facility] 1.2840.114 350.1.13.10 4.2.7.2.686 [id number] 044 [id number] [facility] 2022-10-09 00:00:00 2022-10-09 00:00:00 Telephone Vineet Ibarra [facility] BUILDING 1.2840.114 350.1.13.10 4.2.7.2.686 [id number] 085 [id number] [facility] 2022-10-08 00:00:00 2022-10-08 00:00:00 Telephone Vineet Ibarra [facility] BUILDING 1.2840.114 350.1.13.10 4.2.7.2.686 [id number] 085 [id number] [facility] 2022-10-04 14:00:00 2022-10-04 14:33:12 Outpatient R LESTER MAYA [facility] [id number] [facility] 2022-10-04 14:00:00 2022-10-04 14:33:12 Office Visit Lester Maya [facility] BUILDING 1.84.114 350.1.13.10 4.2.7.2.686 [id number] 059 [id number] [facility] 2022-10-04 00:00:00 2022-10-04 00:00:00 RefAminata Martin [facility] 1.84.114 350.1.13.10 4.2.7.2.686 [id number] 044 [id number] [facility] 2022-10-04 00:00:00 2022-10-04 00:00:00 Orders Only Doctor Unassigned, [place] [facility] 1.114 350.1.13.10 4.2.7.2.686 [id number] 009 [id number] [facility] 2022-10-03 00:00:00 2022-10-03 00:00:00 Telephone Vineet Ibarra [facility] BUILDING 1.114 350.1.13.10 4.2.7.2.686 [id number] 085 [id number] [facility] 2022-09-26 09:48:00 2022-09-26 16:26:00 Emergency X MADINA JAMES [facility] E[facility] [id number] [facility] 2022-09-26 09:48:00 2022-09-26 16:26:00 Emergency Madina James [facility] 1.84114 350.1.13.10 4.2.7.2.686 [id number] 084 [id number] [facility] 2022-09-26 00:00:00 2022-09-26 00:00:00 Telephone Lester MayaHErika [facility] BUILDING 1.84.114 350.1.13.10 4.2.7.2.686 [id number] 059 [id number] [facility] 2022-09-25 00:00:00 2022-09-25 00:00:00 Telephone Lester MyaaH. [facility] BUILDING 1.840.114 350.1.13.10 4.2.7.2.686 [id number] 059 [id number] [facility] 2022-09-25 00:00:00 2022-09-25 00:00:00 RefVineet Salgado [facility] BUILDING 1.840.114 350.1.13.10 4.2.7.2.686 [id number] 085 [id number] [facility] 2022-09-21 10:20:00 2022-09-21 10:20:00 Outpatient CHRISTIANA NINO [facility] [id number] [facility] 2022-09-19 11:30:00 2022-09-19 11:30:00 Outpatient LENNIE PAL [facility] [id number] [facility] 2022-09-17 00:00:00 2022-09-17 00:00:00 Orders Only Doctor Unassigned, [place] [facility] 1.84.114 350.1.13.10 4.2.7.2.686 [id number] [id number] [facility] 2022-09-13 00:00:00 2022-09-13 00:00:00 Aminata Boateng [facility] DIXON?[facility] 1.2840.114 350.1.13.10 4.2.7.2.686 [id number] 044 [id number] [facility] 2022-09-12 09:30:00 2022-09-12 09:41:55 Outpatient R LENNIE REYES [facility] [id number] [facility] 2022-09-12 09:30:00 2022-09-12 09:41:55 Office Visit Lennie Reyes [facility] DIXON?[facility] 1.84114 350.1.13.10 4.2.7.2.686 [id number] 044 [id number] [facility] 2022-08-31 08:00:00 2022-08-31 08:00:00 Outpatient CHRISTIANA NINO [facility] [id number] [facility] 2022-08-30 11:30:00 2022-08-30 11:45:00 Office Visit Aysechristyshaan Aminata [facility] DIXON?[facility] MEDICAL OFFICE BUILDING 1.84.114 350.1.13.10 4.2.7.2.686 [id number] 044 [id number] [facility] 2022-08-30 11:30:00 2022-08-30 11:30:00 Outpatient R SELINSHAANAMINATA [facility] [id number] [facility] 2022-08-29 00:00:00 2022-08-29 00:00:00 Telephone Libia Aminata [facility] DIXON?[facility] 1.84.114 350.1.13.10 4.2.7.2.686 [id number] 044 [id number] [facility] 2022-08-28 00:00:00 2022-08-28 00:00:00 Refill Aminata Reza [facility] DIXON?[facility] MEDICAL OFFICE BUILDING 1.84.114 350.1.13.10 4.2.7.2.686 [id number] 044 [id number] [facility] 2022-08-22 00:00:00 2022-08-22 00:00:00 Telephone Aminata Reza [facility] D[place]ON?[facility] 1.2.840.114 350.1.13.10 4.2.7.2.686 [id number] 044 [id number] [facility] 2022-08-16 00:00:00 2022-08-16 00:00:00 Refill Vineet Ibarra [facility] PROFESS[facility] NAL BUILDING 1.2.840.114 350.1.13.10 4.2.7.2.686 [id number] 085 [id number] [facility] 2022-08-13 00:00:00 2022-08-13 00:00:00 Refill AyseAminata nguyen [facility] OFF[facility] BUILD[facility] 1.2.840.114 350.1.13.10 4.2.7.2.686 [id number] 044 [id number] [facility] 2022-08-13 00:00:00 2022-08-13 00:00:00 Orders Only Doctor Unassigned, [place] [facility] 1.2.840.114 350.1.13.10 4.2.7.2.686 [id number] [id number] [facility] 2022-08-09 09:15:00 2022-08-09 09:30:00 [facility] 1.2.840.114 350.1.13.10 4.2.7.2.686 [id number] 044 [id number] [facility] 2022-08-09 09:15:00 2022-08-09 09:15:00 Outpatient R AMINATA REZA [facility] [id number] [facility] 2022-08-06 00:00:00 2022-08-06 00:00:00 Refill Aminata Reza [facility] DIXON?[facility] 1.840.114 350.1.13.10 4.2.7.2.686 [id number] 044 [id number] [facility] 2022-08-01 09:45:00 2022-08-01 10:21:46 Outpatient R LIBIA AMINATA [facility] [id number] [facility] 2022-08-01 09:45:00 2022-08-01 10:21:46 Office Visit Aminata Reza [facility] DIXON?[facility] MED[facility] OFFICE BUILDING 1.84.114 350.1.13.10 4.2.7.2.686 [id number] 044 [id number] [facility] 2022-07-26 00:00:00 2022-07-26 00:00:00 [facility] 1.84.114 350.1.13.10 4.2.7.2.686 [id number] 044 [id number] [facility] 2022-07-24 00:00:00 2022-07-24 00:00:00 Telephone Vineet Ibarra [facility] BU[facility] 1.84.114 350.1.13.10 4.2.7.2.686 [id number] 085 [id number] [facility] 2022-07-24 00:00:00 2022-07-24 00:00:00 Orders Only Doctor Unassigned, [place] [facility] 1.114 350.1.13.10 4.2.7.2.686 [id number] 009 [id number] [facility] 2022-07-23 00:00:00 2022-07-23 00:00:00 [facility] MED[facility] OFFICE BUILD[facility] 1.840.114 350.1.13.10 4.2.7.2.686 [id number] 044 [id number] [facility] 2022-07-16 00:00:00 2022-07-16 00:00:00 [facility] 1.2.840.114 350.1.13.10 4.2.7.2.686 [id number] 085 [id number] [facility] 2022-07-04 00:00:00 2022-07-04 00:00:00 Orders Only Doctor Unassigned, [place] [facility] 1.2840.114 350.1.13.10 4.2.7.2.686 [id number] [facility] 2022-07-03 09:20:00 2022-07-03 09:20:00 Outpatient ASHWINI GOTTLIEB [facility] [id number] [facility] 2022-07-02 00:00:00 2022-07-02 00:00:00 [facility] 1.2.840.114 350.1.13.10 4.2.7.2.686 [id number] 044 [id number] [facility] 2022-06-27 00:00:00 2022-06-27 00:00:00 Telephone Vineet Ibarra [facility] BU[facility] 1.2.840.114 350.1.13.10 4.2.7.2.686 [id number] 085 [id number] [facility] 2022-06-26 00:00:00 2022-06-26 00:00:00 Telephone Paty Ibarravtemily [facility] BU[facility] 1.2.840.114 350.1.13.10 4.2.7.2.686 [id number] 085 [id number] [facility] 2022-06-26 00:00:00 2022-06-26 00:00:00 Orders Only Doctor Unassigned, [place] [facility] 1.840.114 350.1.13.10 4.2.7.2.686 [id number] [id number] [facility] 2022-06-25 00:00:00 2022-06-25 00:00:00 Telephone [facility]ata [facility] 1..840.114 350.1.13.10 4.2.7.2.686 [id number] 044 [id number] [facility] 2022-06-21 11:30:00 2022-06-21 11:30:00 Outpatient R VINEET IBARRA SHIILEmily [facility] [id number] [facility] 2022-06-21 11:30:00 2022-06-21 11:30:00 Outpatient R VINEET IBARRA SHIWAN [facility] [id number] [facility] 2022-06-21 11:30:00 2022-06-21 11:30:00 Outpatient R VINEET IBARRA SHIILEmily [facility] [id number] [facility] 2022-06-14 00:00:00 2022-06-14 00:00:00 Orders Only Doctor Unassigned, [place] [facility] 1.840.114 350.1.13.10 4.2.7.2.686 [id number] [facility] 2022-06-13 00:00:00 2022-06-13 00:00:00 Telephone [facility] 1..840.114 350.1.13.10 4.2.7.2.686 [id number] [facility] 2022-06-07 10:00:00 2022-06-07 10:00:00 Outpatient AMINATA WILD [facility] [id number] [facility] 2022-06-04 00:00:00 2022-06-04 00:00:00 Telephone Fred Vineet [facility] 1.2.840.114 350.1.13.10 4.2.7.2.686 [id number] [facility] 2022-05-31 09:00:00 2022-05-31 09:33:32 Outpatient R VINEET IBARRA SHIILEmily [facility] [id number] [facility] 2022-05-31 09:00:00 2022-05-31 09:33:32 Office Visit Vineet Ibarra [facility] 1.2.840.114 350.1.13.10 4.2.7.2.686 [id number] [facility] 2022-05-31 00:00:00 2022-05-31 00:00:00 Aminata Boateng [facility] 1.2.840.114 350.1.13.10 4.2.7.2.686 [id number] [facility] 2022-05-31 00:00:00 2022-05-31 00:00:00 Orders Only Doctor Unassigned, [place] [facility] 1.2.840.114 350.1.13.10 4.2.7.2.686 [id number] [facility] 2022-05-28 13:00:00 2022-05-28 13:00:00 Outpatient R LESTER MAYA [facility] [id number] [facility] 2022-05-28 13:00:00 2022-05-28 13:00:00 Outpatient R LESTER [facility] [id number] [facility] 2022-05-28 13:00:00 2022-05-28 13:00:00 Outpatient R LESTER [facility] [id number] [facility] 2022-05-28 13:00:00 2022-05-28 13:00:00 Outpatient R LESTER [facility] [id number] [facility] 2022-05-14 11:15:00 2022-05-14 11:43:57 [facility] 1..840.114 350.1.13.10 4.2.7.2.686 [id number] [facility] 2022-05-14 11:15:00 2022-05-14 11:43:57 Outpatient R AMINATA REZA [facility] [id number] [facility] 2022-05-14 11:15:00 2022-05-14 11:15:00 Outpatient AMINATA WILD [facility] [id number] [facility] 2022-05-08 00:00:00 2022-05-08 00:00:00 Telephone Lester Maya [facility] 1..840.114 350.1.13.10 4.2.7.2.686 [id number] [facility] 2022-05-08 00:00:00 2022-05-08 00:00:00 Telephone Vineet Ibarra [facility] 1..840.114 350.1.13.10 4.2.7.2.686 [id number] [facility] 2022-05-07 00:00:00 2022-05-07 00:00:00 Refill Libia Aminata [facility] [facility] DIXON[facility] 1.2.840.114 350.1.13.10 4.2.7.2.686 [id number] [facility] 2022-04-19 00:00:00 2022-04-19 00:00:00 Telephone [facility] 1.84.114 350.1.13.10 4.2.7.2.686 [id number] [facility] 2022-04-17 13:00:00 2022-04-17 13:00:00 Outpatient R [facility] [id number] [facility] 2022-04-09 00:00:00 2022-04-09 00:00:00 Refill Aminata Reza [facility] MED[facility] OFFICE BUILDING 1.114 350.1.13.10 4.2.7.2.686 [id number] [facility] 2022-03-23 09:00:00 2022-03-23 09:00:00 Outpatient R MANJU HUSSEIN [facility] [id number] [facility] 2022-03-12 13:22:00 2022-03-12 16:18:00 Emergency X CHETNA GARCIA [facility] ERT [id number] [facility] 2022-03-12 13:22:00 2022-03-12 16:18:00 Emergency Chetna Garcia Lee [facility] 1..114 350.1.13.10 4.2.7.2.686 [id number] [facility] 2022-03-08 00:00:00 2022-03-08 00:00:00 Telephone Maria Del Rosario Clement [facility] BU[facility] 1.84.114 350.1.13.10 4.2.7.2.686 [id number] [facility] 2022-03-07 10:00:00 2022-03-07 10:15:00 Office Visit Aminata Reza [facility] MEDICAL OFFICE BUILDING 1..114 350.1.13.10 4.2.7.2.686 [id number] [id number] [facility] 2022-03-07 10:00:00 2022-03-07 10:12:20 Outpatient Delicia LIBIA AMINATA [facility] [id number] [facility] 2022-03-07 10:00:00 2022-03-07 10:00:00 Outpatient Delicia SMALLWOODSHAANAMINATA [facility] [id number] [facility] 2022-03-06 00:00:00 2022-03-06 00:00:00 Telephone Aminata Reza [facility] MEDICAL OFFICE BUILDING 1.2.840.114 350.1.13.10 4.2.7.2.686 [id number] [facility] 2022-02-27 00:00:00 2022-02-27 00:00:00 Refill Libia [facility] MEDICAL OFFICE BUILDING 1.2.840.114 350.1.13.10 4.2.7.2.686 [id number] 044 [id number] [facility] 2022-02-27 00:00:00 2022-02-27 00:00:00 Orders Only Doctor Unassigned, [place] [facility] 1.2.840.114 350.1.13.10 4.2.7.2.686 [id number] [facility] 2022-02-20 00:00:00 2022-02-20 00:00:00 Telephone Vineet Ibarra [facility] BUILDING 1.2.840.114 350.1.13.10 4.2.7.2.686 [id number] [facility] 2022-02-16 13:00:00 2022-02-16 13:40:13 Outpatient R VINEET IBARRA [facility] [id number] [facility] 2022-02-16 13:00:00 2022-02-16 13:40:13 Office Visit Vineet Ibarra [facility] [place] NAL BUILDING 1.2.840.114 350.1.13.10 4.2.7.2.686 [id number] [facility] 2022-01-31 10:15:00 2022-01-31 10:36:46 Outpatient R AMINATA REZA [facility] [id number] [facility] 2022-01-31 10:15:00 2022-01-31 10:30:00 [facility] BU[facility] 1..840.114 350.1.13.10 4.2.7.2.686 [id number] [facility] 2022-01-31 10:15:00 2022-01-31 10:15:00 Outpatient AMINATA WILD [facility] [id number] [facility] 2022-01-31 10:15:00 2022-01-31 10:15:00 Outpatient AMINATA WILD [facility] [id number] [facility] 2022-01-23 00:00:00 2022-01-23 00:00:00 Telephone Aminata Reza [facility] DIXON[facility] 1..840.114 350.1.13.10 4.2.7.2.686 [id number] 044 [id number] [facility] 2022-01-20 00:00:00 2022-01-20 00:00:00 Orders Only Doctor Unassigned, [place] [facility] 1.2.840.114 350.1.13.10 4.2.7.2.686 [id number] [facility] 2022-01-19 16:00:00 2022-01-19 16:10:24 Office Visit Aminata Reza [facility] DIXON[facility] 1..840.114 350.1.13.10 4.2.7.2.686 [id number] [facility] 2022-01-19 16:00:00 2022-01-19 16:10:24 Outpatient Delicia SMALLWOODSHAAN [facility] [id number] [facility] 2022-01-19 16:00:00 2022-01-19 16:00:00 Outpatient R SELINSHAAN [facility]ATA [facility] [id number] [facility] 2022-01-19 00:00:00 2022-01-19 00:00:00 Orders Only Doctor Unassigned, [place] [facility] 1.2.840.114 350.1.13.10 4.2.7.2.686 [id number] [facility] 2022-01-18 09:04:00 2022-01-18 09:32:[address] [facility] ERT [id number] [facility] 2022-01-18 09:04:00 2022-01-18 09:32:00 Emergency Singer Corry [facility] 1..840.114 350.1.13.10 4.2.7.2.686 [id number] [facility] 2022-01-18 09:04:00 2022-01-18 09:32:[address] [facility] ERT [id number] [facility] 2022-01-18 00:00:00 2022-01-18 00:00:00 Orders Only Doctor Unassigned, [place] [facility] 1..840.114 350.1.13.10 4.2.7.2.686 [id number] [facility] 2022-01-16 00:00:00 2022-01-16 00:00:00 Telephone [facility]ata [facility] 1.2.840.114 350.1.13.10 4.2.7.2.686 [id number] [id number] [facility] 2022-01-15 13:00:00 2022-01-15 13:00:00 Outpatient VINEET SANCHEZ [facility] [id number] [facility] 2022-01-15 00:00:00 2022-01-15 00:00:00 Transition of Shakira Alcantara 1.2.840.114 350.1.13.10 4.2.7.2.686 [id number] [facility] 2022-01-15 00:00:00 2022-01-15 00:00:00 RefAminata Martin [facility] 1.2.840.114 350.1.13.10 4.2.7.2.686 [id number] [facility] 2022-01-14 10:03:00 2022-01-14 10:57:00 Emergency X SHER MO [facility] ERT [id number] [facility] 2022-01-14 10:03:00 2022-01-14 10:57:00 [facility] 1..840.114 350.1.13.10 4.2.7.2.686 [id number] [facility] 2022-01-14 10:03:00 2022-01-14 10:57:00 [facility] [id number] [facility] 2022-01-11 10:52:00 2022-01-13 12:40:00 Inpatient X ANNETTE DIAZ [facility] EWA [id number] [facility] 2022-01-11 10:52:00 2022-01-13 12:40:00 Hospital Encounter Nancy Cronin David [facility] 1.840.114 350.1.13.10 4.2.7.2.686 [id number] [facility] 2022-01-11 00:00:00 2022-01-11 00:00:00 Orders Only Doctor Unassigned, [place] [facility] 1.2840.114 350.1.13.10 4.2.7.2.686 [id number] [facility] 2022-01-09 00:00:00 2022-01-09 00:00:00 Telephone Aminata Reza [facility] MEDICAL OFFICE BUILDING 1..114 350.1.13.10 4.2.7.2.686 [id number] [facility] 2022-01-08 16:00:00 2022-01-08 16:42:55 Outpatient R TIANA ROUS[facility]AU [facility] [id number] [facility] 2022-01-08 16:00:00 2022-01-08 16:42:55 [facility] MEDICAL OFFICE BUILDING 1..114 350.1.13.10 4.2.7.2.686 [id number] [id number] [facility] 2022-01-07 20:20:00 2022-01-07 20:40:00 Urgent Care Manju Hussein [facility]ILD[facility] 1..114 350.1.13.10 4.2.7.2.686 [id number] [facility] 2022-01-07 20:30:00 2022-01-07 20:30:00 Nurse Visit [facility] Manju Hussein [facility] MEDICAL OFFICE BUILDING 1..114 350.1.13.10 4.2.7.2.686 [id number] [facility] 2022-01-07 20:20:00 2022-01-07 20:20:00 Outpatient R MANJU HUSSEIN [facility] [id number] [facility] 2022-01-07 20:30:00 2022-01-07 20:19:31 Outpatient R MANJU HUSSEIN [facility] [id number] [facility] 2021-12-29 00:00:00 2021-12-29 00:00:00 Orders Only Doctor Unassigned, [place] [facility] 1..840.114 350.1.13.10 4.2.7.2.686 [id number] [facility] 2021-12-28 09:30:00 2021-12-28 09:45:00 Office Visit Aminata Reza [facility] 1..840.114 350.1.13.10 4.2.7.2.686 [id number] [facility] 2021-12-28 09:30:00 2021-12-28 09:33:40 Outpatient AMINATA WILD [facility] [id number] [facility] 2021-12-28 09:30:00 2021-12-28 09:30:00 Outpatient AMINATA WILD [facility] [id number] [facility] 2021-12-26 00:00:00 2021-12-26 00:00:00 Telephone Lester Maya [facility] 1..840.114 350.1.13.10 4.2.7.2.686 [id number] [facility] 2021-12-22 13:00:00 2021-12-22 13:00:00 Outpatient LESTER HAMLIN [facility] [id number] [facility] 2021-12-22 12:40:28 2021-12-22 12:40:28 Outpatient R LESTER MAYA [facility] [id number] [facility] 2021-12-21 00:00:00 2021-12-21 00:00:00 Refill Aminata Reza [facility] MEDICAL OFFICE BUILDING 1.2.840.114 350.1.13.10 4.2.7.2.686 [id number] [facility] 2021-12-13 00:00:00 2021-12-13 00:00:00 Orders Only Doctor Unassigned, [place] [facility] 1.2.840.114 350.1.13.10 4.2.7.2.686 [id number] [id number] [facility] 2021-12-07 00:00:00 2021-12-07 00:00:00 Telephone Aminata Reza [facility] MEDICAL OFFICE BUILDING 1.2.840.114 350.1.13.10 4.2.7.2.686 [id number] [facility] 2021-11-30 09:30:00 2021-11-30 09:45:00 Office Visit Aminata Reza [facility] MEDICAL OFFICE BUILDING 1.2.840.114 350.1.13.10 4.2.7.2.686 [id number] [facility] 2021-11-30 09:30:00 2021-11-30 09:30:00 Outpatient AMINATA WILD [facility] [id number] [facility] 2021-11-30 09:30:00 2021-11-30 09:30:00 Outpatient AMINATA WILD [facility] [id number] [facility] 2021-11-29 00:00:00 2021-11-29 00:00:00 Telephone Aminata Reza [facility] DIXON?[facility] 1.840.114 350.1.13.10 4.2.7.2.686 [id number] [facility] 2021-11-28 00:00:00 2021-11-28 00:00:00 Telephone Tiana Rousseau [facility] DIXON?[facility] 1.840.114 350.1.13.10 4.2.7.2.686 [id number] [id number] [facility] 2021-11-24 13:00:00 2021-11-24 13:58:06 Outpatient R LESTER [facility] [id number] [facility] 2021-11-24 13:00:00 2021-11-24 13:58:06 Office Visit Lester Maya [facility] [place] NAL BUILDING 1.840.114 350.1.13.10 4.2.7.2.686 [id number] [facility] 2021-11-24 13:00:00 2021-11-24 13:58:06 Outpatient R LESTER [facility] [id number] [facility] 2021-11-23 11:30:00 2021-11-23 12:45:21 Outpatient R TIANA ROUSSEAU [facility] [id number] [facility] 2021-11-23 11:30:00 2021-11-23 12:45:21 [facility] 1.840.114 350.1.13.10 4.2.7.2.686 [id number] [facility] 2021-11-17 00:00:00 2021-11-17 00:00:00 Telephone Aminata Reza [facility] DIXON?[facility] MEDICAL OFFICE BUILDING 1.840.114 350.1.13.10 4.2.7.2.686 [id number] [facility] 2021-11-17 00:00:00 2021-11-17 00:00:00 Orders Only Doctor Unassigned, [place] [facility] 1.84.114 350.1.13.10 4.2.7.2.686 [id number] [id number] [facility] 2021-11-15 00:00:00 2021-11-15 00:00:00 Telephone Aysewendy Aminata [facility] MEDICAL OFFICE BUILDING 1.840.114 350.1.13.10 4.2.7.2.686 [id number] [facility] 2021-11-08 14:15:00 2021-11-08 14:39:07 Outpatient AMINATA WILD [facility] [id number] [facility] 2021-11-08 09:40:00 2021-11-08 09:40:00 Outpatient AMINATA WILD [facility] [id number] [facility] 2021-11-07 00:00:00 2021-11-07 00:00:00 Telephone Aysechristyshaan [facility] MEDICAL OFFICE BUILDING 1.840.114 350.1.13.10 4.2.7.2.686 [id number] [facility] 2021-10-31 09:15:00 2021-10-31 09:34:45 Outpatient AMINATA WILD [facility] [id number] [facility] 2021-10-25 09:15:00 2021-10-25 09:15:00 Outpatient AMINATA WILD [facility] [id number] [facility] 2021-10-25 00:00:00 2021-10-25 00:00:00 Orders Only Doctor Unassigned, [place] [facility] 1.2114 350.1.13.10 4.2.7.2.686 [id number] [id number] [facility] 2021-10-02 00:00:00 2021-10-02 00:00:00 Orders Only Doctor Unassigned, [place] [facility] 1.2.840.114 350.1.13.10 4.2.7.2.686 [id number] [id number] [facility] 2021-10-02 00:00:00 2021-10-02 00:00:00 Telephone Aminata Reza [facility] DIXON?[facility] 1..840.114 350.1.13.10 4.2.7.2.686 [id number] 044 [id number] [facility] 2021-09-27 08:00:00 2021-09-27 08:00:00 Outpatient SANDRA LEE [facility] [id number] [facility] 2021-09-26 00:00:00 2021-09-26 00:00:00 [facility] 1..840.114 350.1.13.10 4.2.7.2.686 [id number] [facility] 2021-09-21 09:30:00 2021-09-21 09:30:00 Outpatient AMINATA WILD [facility] [id number] [facility] 2021-09-20 00:00:00 2021-09-20 00:00:00 Telephone Aminata Reza [facility] D[facility]ON?[facility] 1..840.114 350.1.13.10 4.2.7.2.686 [id number] [facility] 2021-09-19 16:15:00 2021-09-19 16:30:00 Office Visit Aminata Reza [facility] DIXON?[facility] MEDICAL OFFICE BUILDING 1.2.840.114 350.1.13.10 4.2.7.2.686 [id number] [facility] 2021-09-19 16:15:00 2021-09-19 16:15:00 Outpatient Delicia SMALLWOODSHAANAMINATA [facility] [id number] [facility] 2021-09-19 16:15:00 2021-09-19 16:15:00 Outpatient Delicia SMALLWOODSHAANAMINATA [facility] [id number] [facility] 2021-09-19 00:00:00 2021-09-19 00:00:00 Telephone Aminata Reza [facility] 1.2.840.114 350.1.13.10 4.2.7.2.686 [id number] [facility] 2021-09-19 00:00:00 2021-09-19 00:00:00 Telephone Aminata Reza [facility] MEDICAL OFFICE BUILDING 1..840.114 350.1.13.10 4.2.7.2.686 [id number] [id number] [facility] 2021-09-19 00:00:00 2021-09-19 00:00:00 Orders Only Doctor Unassigned, [place] [facility] 1.840.114 350.1.13.10 4.2.7.2.686 [id number] [id number] [facility] 2021-09-18 00:00:00 2021-09-18 00:00:00 Telephone [facility] 1..840.114 350.1.13.10 4.2.7.2.686 [id number] [facility] 2021-09-14 15:30:00 2021-09-14 15:57:58 Outpatient VINEET SANCHEZ [facility] [id number] [facility] 2021-09-14 15:30:00 2021-09-14 15:57:58 Office Visit Vineet [facility]bar[facility] 1.2.840.114 350.1.13.10 4.2.7.2.686 [id number] [facility] 2021-09-11 00:00:00 2021-09-11 00:00:00 Telephone Libia Aminata [facility] 1.2.840.114 350.1.13.10 4.2.7.2.686 [id number] [facility] 2021-08-25 00:00:00 2021-08-25 00:00:00 Orders Only Doctor Unassigned, [place] [facility] 1.2.840.114 350.1.13.10 4.2.7.2.686 [id number] [facility] 2021-08-24 09:15:00 2021-08-24 09:41:44 Outpatient AMINATA WILD [facility] [id number] [facility] 2021-08-24 09:15:00 2021-08-24 09:30:00 Office Visit Selinshaan Aminata [facility] 1.2.840.114 350.1.13.10 4.2.7.2.686 [id number] [facility] 2021-08-24 09:15:00 2021-08-24 09:15:00 Outpatient AMINATA WILD [facility] [id number] [facility] 2021-08-24 09:15:00 2021-08-24 09:15:00 Outpatient AMINATA WILD [facility] [id number] [facility] 2021-08-04 00:00:00 2021-08-04 00:00:00 Refill SelinAminata corrales [facility] OFF[facility] BUILDING 1.2.840.114 350.1.13.10 4.2.7.2.686 [id number] [facility] 2021-08-02 00:00:00 2021-08-02 00:00:00 Telephone Lester Maya [facility] BUILD[facility] 1.2.840.114 350.1.13.10 4.2.7.2.686 [id number] [id number] [facility] 2021-08-01 00:00:00 2021-08-01 00:00:00 Telephone Lester Maya [facility] BUILD[facility] 1.2.840.114 350.1.13.10 4.2.7.2.686 [id number] [id number] [facility] 2021-07-31 00:00:00 2021-07-31 00:00:00 Case Management Niyah Fink 1.2.840.114 350.1.13.10 4.2.7.2.686 [id number] [id number] [facility] 2021-07-26 13:50:58 2021-07-26 23:59:00 Outpatient R LESTER [facility] [id number] [facility] 2021-07-26 13:50:58 2021-07-26 23:59:00 Hospital Encounter Lester Maya [facility] BUILDING 1.2.840.114 350.1.13.10 4.2.7.2.686 [id number] [facility] 2021-07-26 13:53:11 2021-07-26 14:08:11 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, 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 Lester Maya [facility] BUILDING 1.2.840.114 350.1.13.10 4.2.7.2.686 [id number] [facility] 2021-07-26 13:50:58 2021-07-26 13:50:58 Outpatient R LESTER [facility] [id number] [facility] 2021-07-26 13:00:00 2021-07-26 13:45:05 Office Visit Maya Lester NancyErikaElenaErika [facility] BUILDING 1.2.840.114 350.1.13.10 4.2.7.2.686 [id number] [id number] [facility] 2021-07-26 13:00:00 2021-07-26 13:45:05 [facility] [id number] [facility] 2021-07-26 12:57:41 2021-07-26 13:45:05 Office Visit Maya Lester NancyErikaElenaErika [facility] BUILDING 1.2.840.114 350.1.13.10 4.2.7.2.686 [id number] [facility] 2021-07-25 15:45:00 2021-07-25 15:45:00 Outpatient R LILI [facility] [id number] [facility] 2021-07-25 15:45:00 2021-07-25 15:45:00 Outpatient R LILI [facility] [id number] [facility] 2021-07-25 15:45:00 2021-07-25 15:45:00 Outpatient R LILI [facility] [id number] [facility] 2021-07-25 08:54:02 2021-07-25 09:09:02 [facility] 1.2.840.114 350.1.13.10 4.2.7.2.686 [id number] [facility] 2021-07-25 09:00:00 2021-07-25 09:00:00 Outpatient AMINATA WILD [facility] [id number] [facility] 2021-07-25 09:00:00 2021-07-25 09:00:00 Outpatient AMINATA WILD [facility] [id number] [facility] 2021-07-24 00:00:00 2021-07-24 00:00:00 Telephone Aminata Reza [facility] MEDICAL OFFICE BUILDING 1..840.114 350.1.13.10 4.2.7.2.686 [id number] [facility] 2021-07-17 00:00:00 2021-07-17 00:00:00 Orders Only Doctor Unassigned, [place] [facility] 1..840.114 350.1.13.10 4.2.7.2.686 [id number] [facility] 2021-07-17 00:00:00 2021-07-17 00:00:00 Telephone Aysechristyshaan Aminata [facility] MEDICAL OFFICE BUILDING 1..840.114 350.1.13.10 4.2.7.2.686 [id number] [facility] 2021-07-17 00:00:00 2021-07-17 00:00:00 Telephone Vineet [facility]bar[facility] 1..840.114 350.1.13.10 4.2.7.2.686 [id number] [facility] 2021-07-11 15:30:00 2021-07-11 15:30:00 Outpatient LILI RANDALL [facility] [id number] [facility] 2021-07-05 00:00:00 2021-07-05 00:00:00 Telephone Aminata Reza [facility] 1.2840.114 350.1.13.10 4.2.7.2.686 [id number] [facility] 2021-07-04 00:00:00 2021-07-04 00:00:00 Orders Only Doctor Unassigned, [place] [facility] 1.2.840.114 350.1.13.10 4.2.7.2.686 [id number] [facility] 2021-06-29 00:00:00 2021-06-29 00:00:00 Refill Aminata Reza [facility] 1.2840.114 350.1.13.10 4.2.7.2.686 [id number] [facility] 2021-06-29 00:00:00 2021-06-29 00:00:00 Telephone Vineet Ibarra [facility] [place] [place] [facility] 1.2840.114 350.1.13.10 4.2.7.2.686 [id number] [facility] 2021-06-22 00:00:00 2021-06-22 00:00:00 Telephone Lili Calderon [facility] 1.2840.114 350.1.13.10 4.2.7.2.686 [id number] [facility] 2021-06-22 00:00:00 2021-06-22 00:00:00 Orders Only Doctor Unassigned, [place] [facility] 1.2840.114 350.1.13.10 4.2.7.2.686 [id number] [facility] 2021-06-13 09:23:55 2021-06-13 10:30:04 Office Visit Aminata Reza [facility] 1.2.840.114 350.1.13.10 4.2.7.2.686 [id number] [facility] 2021-06-13 09:30:00 2021-06-13 09:30:00 Outpatient R AMINATA REZA [facility] [id number] [facility] 2021-06-05 00:00:00 2021-06-05 00:00:00 Telephone Vineet Ibarra [facility] 1..840.114 350.1.13.10 4.2.7.2.686 [id number] [facility] 2021-06-01 00:00:00 2021-06-01 00:00:00 [facility] 1..840.114 350.1.13.10 4.2.7.2.686 [id number] [facility] 2021-05-26 14:00:00 2021-05-26 14:00:00 Outpatient R SANDRA MENDEZ [facility] [id number] [facility] 2021-05-23 11:00:00 2021-05-23 23:59:00 Hospital Encounter Radiology [facility] 1.2840.114 350.1.13.10 4.2.7.2.686 [id number] [facility] 2021-05-23 00:00:00 2021-05-23 00:00:00 Outpatient R RADIOLOGY [facility] [id number] [facility] 2021-05-23 00:00:00 2021-05-23 00:00:00 Orders Only Doctor Unassigned, [place] [facility] [facility] 1..840.114 350.1.13.10 4.2.7.2.686 [id number] [id number] [facility] 2021-05-09 16:30:00 2021-05-09 16:30:00 Outpatient R YUMIKOLILI [facility] [id number] [facility] 2021-04-25 13:36:09 2021-04-25 14:10:24 Office Visit Lester Maya [facility] 1..840.114 350.1.13.10 4.2.7.2.686 [id number] [facility] 2021-04-25 13:30:00 2021-04-25 13:30:00 Outpatient R LESTER [facility] [id number] [facility] 2021-04-13 11:23:00 2021-04-13 12:10:47 Office Visit Vineet Ibarra [facility] 1..840.114 350.1.13.10 4.2.7.2.686 [id number] [facility] 2021-04-13 11:30:00 2021-04-13 11:30:00 [facility] [id number] [facility] 2021-04-13 00:00:00 2021-04-13 00:00:00 Orders Only Doctor Unassigned, [place] [facility] 1.840.114 350.1.13.10 4.2.7.2.686 [id number] [facility] 2021-04-11 08:17:35 2021-04-11 23:59:00 Hospital Encounter Lester Maya [facility] 1..840.114 350.1.13.10 4.2.7.2.686 [id number] [facility] 2021-04-11 08:17:21 2021-04-11 23:59:00 Hospital Encounter Lester Maya.HErika [facility] 1.2.840.114 350.1.13.10 4.2.7.2.686 [id number] [facility] 2021-04-11 08:17:03 2021-04-11 23:59:00 Hospital Encounter MayaChristianojessica Dee DeeErika [facility] 1.2840.114 350.1.13.10 4.2.7.2.686 [id number] [facility] 2021-04-11 09:00:00 2021-04-11 09:00:00 Outpatient LESTER [facility] [id number] [facility] 2021-04-11 08:16:42 2021-04-11 08:16:42 Hospital Encounter Francesco Christianojessica Dee DeeErika [facility] 1.2840.114 350.1.13.10 4.2.7.2.686 [id number] [facility] 2021-04-05 00:00:00 2021-04-05 00:00:00 Telephone [facility] 1.2.840.114 350.1.13.10 4.2.7.2.686 [id number] [facility] 2021-04-04 08:30:00 2021-04-04 08:30:00 Outpatient FRANCESCO CHRISTIANOJESSICA [facility] [id number] [facility] 2021-03-30 00:00:00 2021-03-30 00:00:00 Orders Only Doctor Unassigned, [place] [facility] 1.2.840.114 350.1.13.10 4.2.7.2.686 [id number] [facility] 2021-03-22 12:52:29 2021-03-22 13:48:51 Office Visit Lester MayaElneaErika [facility] 1.2.840.114 350.1.13.10 4.2.7.2.686 [id number] [facility] 2021-03-22 13:00:00 2021-03-22 13:00:00 Outpatient Delicia [facility]STER [facility] [id number] [facility] 2021-03-20 09:30:00 2021-03-20 09:30:00 Outpatient R [facility] [id number] [facility] 2021-03-20 08:32:27 2021-03-20 08:47:27 Telemedici ne Visit [facility] 1.840.114 350.1.13.10 4.2.7.2.686 [id number] [facility] 2021-03-06 00:00:00 2021-03-06 00:00:00 Transition of Care Vega Shakira Singh 1.2.840.114 350.1.13.10 4.2.7.2.686 [id number] [facility] 2021-03-03 05:10:00 2021-03-03 14:34:00 Emergency Camilo Coombs Adnan [facility] 1.2.840.114 350.1.13.10 4.2.7.2.686 [id number] [facility] 2021-03-03 04:53:29 2021-03-03 04:53:29 Outpatient R CAMILO COOMBS [facility] [id number] [facility] 2021-03-03 04:53:29 2021-03-03 04:53:29 Outpatient R CAMILO COOMBS [facility] [id number] [facility] 2021-03-02 00:00:00 2021-03-02 00:00:00 Telephone [facility] 1.2.840.114 350.1.13.10 4.2.7.2.686 [id number] [facility] 2021-02-20 08:09:51 2021-02-20 15:37:16 Telemedici ne Visit [facility] 1.2.840.114 350.1.13.10 4.2.7.2.686 [id number] [facility] 2021-02-20 09:15:00 2021-02-20 09:15:00 Outpatient R [facility] [id number] [facility] 2021-02-14 00:00:00 2021-02-14 00:00:00 Outpatient R WADE LU [facility] [id number] [facility] 2021-01-10 09:17:49 2021-01-10 10:58:45 [facility] 1.2.840.114 350.1.13.10 4.2.7.2.686 [id number] [facility] 2021-01-10 09:15:00 2021-01-10 09:15:00 Outpatient R YUMIKOMARLENELILI [facility] [id number] [facility] Results Test Description Test Time Test Comments Results Resul t Comments Source PHYSICIAN ORDERS 5 17:50:11 Ordered by an unspecified provider. [facility] DME/SUPPLY JUSTIFICATION 9 20:36:09 [facility] by an unspecified provider. [facility] [id number] 20:31:32EXAM: XR CHEST 1 VW, XR CHEST 1 VW COMPARISON: Chest radiograph from 05/19/2024. HISTORY: possible aspiration FINDINGS: Lungs: The lungs are adequately expanded. Underlying severe emphysematouschanges. There is increased interstitial prominence bilaterally which islikely due to interstitial thickening. No focal consolidation. Suspectedsmall bilateral pleural effusions. Heart/Mediastinum: The cardiac silhouette appears enlarged accounting fortechnique and degree of inspiration. Bones and soft tissues: No osseous abnormality is visualized. Cervical fusion hardware is visualized.[facility] 2 VW [id number] 19:48:49EXAM: ?XR FINGERS 2 VW RIGHT HISTORY: ?right ring finger contusion; r/o fx Ordering physician: VICTORINO ALONSO COMPARISON: None TECHNIQUE: Frontal and lateral right fourth finger x-rays. ? FINDINGS: No right fourth finger fracture, dislocation, or radiopaque foreign bodyis detected. There is nolytic lesion. Soft tissue is grossly intact. ? [facility] HospitalTroponin [id number] 17:13:02* Test Item Value Reference Range Interpretation Comme nts TROPONIN I (test code = 1165596142) 0.009 ng/mL <=0.034 SHERRY (test code = SHERRY) Reference (Normal) Range (defined by the 99th percentile reference limit): <= 0.034 ng/mL Note: Cardiac troponin begins to rise 3-4 hours after the onset of ischemia. Repeat in 4-6 hours if the sample was drawn within 3-4 hours of the onset of the symptom and found normal. Diagnosis of myocardial injury is made with acute changes in cTn concentrations with at least one serial sample above the 99th percentile upper reference limit (URL), taken together with the patient's clinical presentation. Biotin has been reported to cause a negative bias, interpret results relative to patient's use of biotin. Lab Interpretation (test code = 30385-3) Normal [facility] Hospital[facility]-Terminal Exy-[id number] 17:10:22* Test Item Value Reference Range Interpretation Comme nts NT-proBNP (test code = 29421-5) 4200 pg/mL <=125 H SHERRY (test code = SHERRY) Positive: Heart Failure Likely Lab Interpretation (test code = 39249-3) Abnormal [facility] HospitalMagnesium2024-09-24 17:01:42* Test Item Value Reference Range Interpretation Comme nts MAGNESIUM (test code = 4043590032) 1.7 mg/dL 1.7-2.4 Lab Interpretation (test cod e = 52338-4) Normal [facility]. Metabolic Panel (20419)2024-05-19 17:01:28* Test Item Value Reference Range Interpretation Comme nts NA (test code = 2782001704) 139 mmol/L 135-145 K (test code = 6196135707) 3.7 mmol/L 3.5-5.0 CL (test code = 3774772098) 107 mmol/L 98-108 CO2 TOTAL (test code = 7969276408) 28 mmol/L 23-31 AGAP (test code = 3567841823) 4 2-16 BUN (test code = 1846800857) 8 mg/dL 7-23 GLUCOSE (test code = 7816118066) 113 mg/dL 70-110 H CREATININE (test code = 2160-0) 0.73 mg/dL 0.60-1.25 TOTAL BILI (test code = 4662257342) 0.9 mg/dL 0.1-1.1 CALCIUM (test code = 5253845982) 8.5 mg/dL 8.6-10.6 L T PROTEIN (test code = 2625692166) 6.8 g/dL 6.3-8.2 ALBUMIN (test code = 2055965326) 3.5 g/dL 3.5-5.0 ALK PHOS (test code = 4594964648) 77 U/L 34-122 ALTv (test code = 1742-6) 14 U/L 5-50 AST(SGOT) (test code = 2124952816) 19 U/L 13-40 eGFR (test code = 78292-6) 98.5 mL/min/1.73m2 CKD-EPI eGFR (2020). Assuming creatinine has been stable day-to-day for at least three months, the eGFR indicates Category G1 (>= 90 mL/min/1.73 m2) Lab Interpretation (test code = 53005-3) Abnormal [facility] with [id number] 16:39:38* Test Item Value Reference Range Interpretation Comme nts WBC (test code = 6690-2) 9.15 4.20-10.70 RBC (test code = 789-8) 3.39 4.26-5.52 L HGB (test code = 718-7) 8.3 g/dL 12.2-16.4 L HCT (test code = 4544-3) 29.0 % 38.4-49.3 L MCV (test code = 787-2) 85.5 fL 81.7-95.6 MCH (test code = 785-6) 24.5 pg 26.1-32.7 L MCHC (test code = 786-4) 28.6 g/dL 31.2-35.0 L RDW-SD (test code = 84576-8) 52.1 fL 38.5-51.6 H RDW-CV (test code = 788-0) 17.0 % 12.1-15.4 H PLT (test code = 777-3) 215 150-328 MPV (test code = 41692-7) 11.3 fL 9.8-13.0 NRBC/100 WBC (test code = 8305002363) 0.0 0.0-10.0 NRBC x10^3 (test code = 1693650218) See_Comment [Automated messa ge] The system which generated this result transmitted reference range: 10*3/?L. The reference range was not used to interpret this result as normal/abnormal. GRAN MAT (NEUT) % (test code = 770-8) 73.8 % IMM GRAN % (test code = 9311200162) 0.40 % LYMPH % (test code = 736-9) 14.9 % MONO % (test code = 5905-5) 10.5 % EOS % (test code = 713-8) 0.0 % BASO % (test code = 706-2) 0.4 % GRAN MAT x10^3(ANC) (test code = 2583996544) 6.75 10*3/uL 1.99-6.95 IMM GRAN x10^3 (test code = 3378154500) 0.04 10*3/uL 0.00-0.06 LYMPH x10^3 (test code = 731-0) 1.36 10*3/uL 1.09-3.23 MONO x10^3 (test code = 742-7) 0.96 10*3/uL 0.36-1.02 EOS x10^3 (test code = 711-2) 0.06-0.53 L BASO x10^3 (test code = 704-7) 0.04 10*3/uL 0.01-0.09 Lab Interpretation (test code = 54908-7) Abnormal [facility] HospitalCritical [id number] 16:00:00Victorino Alonso MD ? ? 05/19/2024 ?3:44 PMCritical Care Performed by: Victorino Alonso, ARTISuthorized by: Victorino Alonso MD ?Critical care provider statement: ?Critical care time (minutes): ?30 (30) ?Critical care start time: ?05/19/2024 2:30 PM ?Critical care end time: ?05/19/2024 3:00 PM ?Critical care time was exclusive of: ?Separately billable procedures and treating other patients ?Critical care was necessary to treat or prevent imminent or life- threatening deterioration of the following conditions: ?Respiratory failure ?Critical care was time spent personally by me on the following activities: ?Development of treatment plan with patient or surrogate, discussions with prima ry provider, evaluation of patient's response to treatment, examination of patient, ordering and performing treatments and interventions, ordering and review of radiographic studies, pulse oximetry and re-evaluation of patient's condition ?I assumed direction of critical care for this patient from another provider in my specialty: no ? ?Care discussed with: admitting provider ?Comments: ? PT acute decompensation requiring critical attention, real-time nebs and bodily support, rescue BiPap pending intubation; monitored and repeat evaluation; attempted removal w/ rapid and precipitous drop in Pulse Ox w/ symptoms of cough and chest pain dropping to 76% on 6L NC; replacement of BiPap w/ resolution of symptoms.[facility] HospitalIron2024-08-14 16:48:01* Test Item Value Reference Range Interpretation Comme nts IRON (test code = 2151394303) 43 ug/dL 50-160 L Lab Interpretation (test cod e = 50536-4) Abnormal [facility] HospitalReticulocytes [id number] 16:20:54* Test Item Value Reference Range Interpretation Comme nts RETIC Count Automated (test code = 8104064060) 3.33 % 0.59-2.24 H RETIC Absolute Count (test c ode = 0804727947) 0.1149 0.0260-0.1170 IRF % (test code = 1549358648) 25.90 % 2.00-19.10 H RETIC-HE (test code = 1040515013) 19.8 pg 27.3-36.4 L Lab Interpretation (test cod e = 39884-9) Abnormal [facility] 1 [id number] 13:27:25EXAM: XR CHEST 1 VW COMPARISON: 04/06/2023 4 HISTORY: [facility]Un[facility]ansthor[facility] (TTE) [id number] 21:58:21* Test Item Value Reference Range Interpretation Comme nts Height (test code = 5173734589) 70 in Weight (test code = 6864578069) 247 lbs Systolic BP (test code = 9297076406) 123 mmHg Diastolic BP (test code = 6195241633) 59 mmHg Heart Rate (test code = 6283530903) 79 bpm EF(Teich) (test code = 9630016222) 73.70 % LVIDD (test code = 9264606993) 5.00 cm LVIDS (test code = 8099415168) 2.90 cm Left Ventricular End Systolic Volume by Teichholz Method (test code = 2501643) 31.3 mL Left Ventricular End Diastolic Volume by Teichholz Method (test code = 8965259) 118.8 mL IVS (test code = 9353268011) 1.18 cm LVPWD (test code = 0988428206) 1.21 cm LVOT diameter (test code = 5775405991) 2.00 cm LVOT area (test code = 0657491309) 3.10 cm2 FS (test code = 4866253182) 43 % LA size (test code = 0490575150) 4.8 cm RVOT Proximal Diameter (test code = 8489446558) 4.20 cm ACS (test code = 0399630446) 1.90 cm TR Peak Memo (test code = 1138886437) 407.0 cm/s Triscuspid Valve Regurgitation Peak Gradient (test code = 7273775418) 64.7 mmHg Ao root diam (test code = 0598119326) 3.00 cm Aortic root (test code = 3094627296) 3.0 cm Ao root annulus (test code = 3959047180) 3.0 cm PW (test code = 1692312507) 1.21 cm 0.6-1.1 EF - 2D (test code = 00145624) 73.70 % Interventricular Septum Diastolic Thickness by 2D (test code = 6527292) 1.18 cm BSA (test code = 7036472082) 2.28 m2 E wave decelartion time (test code = 4451455432) 0.27 s MV Peak E Memo (test code = 3656794753) 151.6 cm/s MV Peak A Memo (test code = 3755532194) 109.9 cm/s E/A ratio (test code = 8779842360) 1.38 ratio MV Prop V (test code = 3462744813) 167.60 cm/s LVOT stroke volume (test code = 3571861516) 133.70 cm3 LVOT peak memo (test code = 4368175260) 171.8 cm/s LVOT mn grad (test code = 9556337791) 5.3 mmHg AV LVOT peak gradient (test code = 2342405899) 11.8 mmHg LVOT peak VTI (test code = 4685250254) 42.6 cm LV V1 mean (test code = 8456960886) 104.20 cm/s Aortic valve mean velocity (test code = 3120754364) 152.9 cm/s Ao peak memo (test code = 4101812073) 285.2 cm/s Ao VTI (test code = 9451683981) 61.9 cm AV area by cont VTI (test code = 0063338109) 2.2 cm2 AV area peak memo (test code = 5939384247) 1.9 cm2 Ao max PG (test code = 4787938421) 32.50 mm[Hg] AV peak gradient (test code = 8663487540) 32.5 mmHg AV valve area (test code = 3177874037) 2.16 cm2 AV mean gradient (test code = 1786369639) 12.0 mmHg MR max PG (test code = 4620962914) 116.20 mm[Hg] MR max memo (test code = 7996379641) 539.00 cm/s Mr max memo (test code = 3962537342) 539.0 m/s Radiology Study observation (narrative) (test code = 08814-3) SHERRY (test code = SHERRY) ?Left?Ventricle: Left ventricle size is normal. Mild basal septal thickening. Normal systolic function with a visually estimated EF of 60 - 65%. There is pseudonormal diastolic dysfunction. ?Right?Ventricle: Right ventricle size is normal. Normal systolic function. ?Left?Atrium: Left atrium is mildly dilated. ?Tricuspid?Valve: Mild transvalvular regurgitation. Right ventricular systolic pressure is greater than 60 mmHg. ?RA pressure is 5-10 mmHg. ?Pericardium: Trivial pericardial effusion present. Left VentricleLeft ventricle size is normal. Mild basal septal thickening. Normal systolic function with a visually estimated EF of 60 - 65%. There is pseudonormal diastolic dysfunction.Right VentricleRight ventricle size is normal. Normal systolic function.Left AtriumLeft atrium is mildly dilated.Right AtriumRight atrium size is normal.IVC/SVCIVC diameter is greater than 21 mm and decreases greater than 50% during inspiration; therefore the estimated right atrial pressure is intermediate (~8 mmHg).Mitral ValveMild posterior mitral annular calcification. Trace transvalvular regurgitation. No stenosis.Tricuspid ValveTricuspid valve structure is normal. Mild transvalvular regurgitation. Right ventricular systolic pressure is greater than 60 mmHg. RA pressure is 5-10 mmHg. No stenosis.Aortic ValveTricuspid. No transvalvular regurgitation. No hemodynamically significant .Pulmonic ValveNot well visualized. Trace transvalvular regurgitation.Ascendin g AortaNormal sized annulus and sinus of Valsalva.PericardiumTr ivial pericardial effusion present.Study DetailsStudy quality experienced technical difficulty. A complete echocardiogram was performed using 2D, color flow Doppler and spectral Doppler. The apical, parasternal, subcostal and suprasternal views were obtained. 3 mL of Optison ultrasound enhancing agent used. [facility] HospitalType and Screen - ONCE [id number] 20:11:00 * Test Item Value Reference Range Interpretation Comme nts ABO & RH (test code = 20) O POSITIVE IAT (test code = 1185) Negative [facility] 2 [id number] 17:59:36Study: Two view chest. Ordering Physician: LAURA GARCIA Date: 04/06/2024 11:15 AM History:chestpain, dyspnea COMPARISON: None. Findings: Frontal and lateral views of the chest demonstrateCardiomegaly. Chronic appearing interstitial thickening is identifiedthroughout both lungs which is suspected result from chronic interstitiallung disease. No consolidation, pleural effusion or pneumothorax i spresent.[facility] HospitalTROPONIN [id number] 17:20:00* Test Item Value Reference Range Interpretation Comme nts TROPONIN I (test code = 3230056979) 0.025 ng/mL <=0.034 SHERRY (test code = SHERRY) Reference (Normal) Range (defined by the 99th percentile reference limit): <= 0.034 ng/mL Note: Cardiac troponin begins to rise 3-4 hours after the onset of ischemia. Repeat in 4-6 hours if the sample was drawn within 3-4 hours of the onset of the symptom and found normal. Diagnosis of myocardial injury is made with acute changes in cTn concentrations with at least one serial sample above the 99th percentile upper reference limit (URL), taken together with the patient's clinical presentation. Biotin has been reported to cause a negative bias, interpret results relative to patient's use of biotin. Lab Interpretation (test code = 50006-8) Normal [facility] HospitalN-TERMINAL [id number] 17:17:17* Test Item Value Reference Range Interpretation Comme [facility] NT-proBNP (test code = 31667-2) 8530 pg/mL <=125 H SHERRY (test code = SHERRY) Positive: Heart Failure Likely Lab Interpretation (test code = 44151-2) Abnormal [facility] HospitalCB WITH [id number] 17:15:20* Test Item Value Reference Range Interpretation Comme nts WBC (test code = 6690-2) 9.34 4.20-10.70 RBC (test code = 789-8) 2.71 4.26-5.52 L HGB (test code = 718-7) 7.2 g/dL 12.2-16.4 L HCT (test code = 4544-3) 24.4 % 38.4-49.3 L MCV (test code = 787-2) 90.0 fL 81.7-95.6 MCH (test code = 785-6) 26.6 pg 26.1-32.7 MCHC (test code = 786-4) 29.5 g/dL 31.2-35.0 L RDW-SD (test code = 53355-8) 50.4 fL 38.5-51.6 RDW-CV (test code = 788-0) 15.4 % 12.1-15.4 PLT (test code = 777-3) 173 150-328 MPV (test code = 27916-3) 11.1 fL 9.8-13.0 NRBC/100 WBC (test code = 3701654782) 0.0 0.0-10.0 NRBC x10^3 (test code = 7172143117) See_Comment [Automated messa ge] The system which generated this result transmitted reference range: 10*3/?L. The reference range was not used to interpret this result as normal/abnormal. GRAN MAT (NEUT) % (test code = 770-8) 69.3 % IMM GRAN % (test code = 2066148820) 0.60 % LYMPH % (test code = 736-9) 20.0 % MONO % (test code = 5905-5) 10.0 % EOS % (test code = 713-8) 0.0 % BASO % (test code = 706-2) 0.1 % GRAN MAT x10^3(ANC) (test code = 5852428447) 6.47 10*3/uL 1.99-6.95 IMM GRAN x10^3 (test code = 3404710737) 0.06 10*3/uL 0.00-0.06 LYMPH x10^3 (test code = 731-0) 1.87 10*3/uL 1.09-3.23 MONO x10^3 (test code = 742-7) 0.93 10*3/uL 0.36-1.02 EOS x10^3 (test code = 711-2) 0.06-0.53 L BASO x10^3 (test code = 704-7) 0.01-0.09 Lab Interpretation (test code = 96349-6) [facility] (22907)2024-04-06 17:08:40* Test Item Value Reference Range Interpretation Comme nts NA (test code = 1730536487) 140 mmol/L 135-145 K (test code = 4581393707) 3.4 mmol/L 3.5-5.0 L CL (test code = 5156853424) 105 mmol/L 98-108 CO2 TOTAL (test code = 4586212720) 27 mmol/L 23-31 AGAP (test code = 4328506851) 8 2-16 BUN (test code = 2191465886) 18 mg/dL 7-23 GLUCOSE (test code = 9100100903) 94 mg/dL 70-110 CREATININE (test code = 2160-0) 0.90 mg/dL 0.60-1.25 TOTAL BILI (test code = 4243138917) 1.0 mg/dL 0.1-1.1 CALCIUM (test code = 5092547519) 8.4 mg/dL 8.6-10.6 L T PROTEIN (test code = 1002809973) 7.3 g/dL 6.3-8.2 ALBUMIN (test code = 2450157331) 3.6 g/dL 3.5-5.0 ALK PHOS (test code = 8842029710) 85 U/L 34-122 ALTv (test code = 1742-6) 18 U/L 5-50 AST(SGOT) (test code = 7046535866) 22 U/L 13-40 eGFR (test code = 75720-8) 93.0 mL/min/1.73m2 CKD-EPI eGFR (2020). Assuming creatinine has been stable day-to-day for at least three months, the eGFR indicates Category G1 (>= 90 mL/min/1.73 m2) Lab Interpretation (test code = 54478-0) Abnormal [facility] HospitalLIPASE2024-08-12 17:08:19* Test Item Value Reference Range Interpretation Comme nts LIPASE (test code = 0571192057) 30 U/L 0-220 Lab Interpretation (test cod e = 42569-9) Normal [facility] 1 [id number] 16:58:27EXAM: XR CHEST 1 VW COMPARISON: Chest x-ray on 01/09/2024 HISTORY: chest pain , sob, copd FINDINGS:Lungs: The lungs are adequately expanded. Persistent diffuse coarsening ofthe interstitial lung markings. No focal opacities or pleural abnormality. Heart/Mediastinum: Stable moderate cardiomegaly. Prominent left pericardialfat pad. Calcified aortic knob. The pulmonary trunk appears engorged. Bones and soft tissues: Lower ACDF hardware is partially visualized.Degenerative changes of the spine. No acute osseous abnormality.[facility] with [id number] 16:54:13* Test Item Value Reference Range Interpretation Comme nts WBC (test code = 6690-2) 7.63 4.20-10.70 RBC (test code = 789-8) 2.87 4.26-5.52 L HGB (test code = 718-7) 7.7 g/dL 12.2-16.4 L HCT (test code = 4544-3) 25.1 % 38.4-49.3 L MCV (test code = 787-2) 87.5 fL 81.7-95.6 MCH (test code = 785-6) 26.8 pg 26.1-32.7 MCHC (test code = 786-4) 30.7 g/dL 31.2-35.0 L RDW-SD (test code = 45447-9) 46.7 fL 38.5-51.6 RDW-CV (test code = 788-0) 14.6 % 12.1-15.4 PLT (test code = 777-3) 173 150-328 MPV (test code = 71565-5) 11.0 fL 9.8-13.0 NRBC/100 WBC (test code = 4073748176) 0.0 0.0-10.0 NRBC x10^3 (test code = 7271264021) See_Comment [Automated messa ge] The system which generated this result transmitted reference range: 10*3/?L. The reference range was not used to interpret this result as normal/abnormal. GRAN MAT (NEUT) % (test code = 770-8) 73.3 % IMM GRAN % (test code = 1907322165) 0.40 % LYMPH % (test code = 736-9) 16.3 % MONO % (test code = 5905-5) 9.4 % EOS % (test code = 713-8) 0.1 % BASO % (test code = 706-2) 0.5 % GRAN MAT x10^3(ANC) (test code = 9814829863) 5.59 10*3/uL 1.99-6.95 IMM GRAN x10^3 (test code = 9893945979) 0.03 10*3/uL 0.00-0.06 LYMPH x10^3 (test code = 731-0) 1.24 10*3/uL 1.09-3.23 MONO x10^3 (test code = 742-7) 0.72 10*3/uL 0.36-1.02 EOS x10^3 (test code = 711-2) 0.06-0.53 L BASO x10^3 (test code = 704-7) 0.04 10*3/uL 0.01-0.09 Lab Interpretation (test code = 35490-2) Abnormal [facility] HospitalTroponin [id number] 16:53:53* Test Item Value Reference Range Interpretation Comme nts TROPONIN I (test code = 9796357484) 0.007 ng/mL <=0.034 SHERRY (test code = SHERRY) Reference (Normal) Range (defined by the 99th percentile reference limit): <= 0.034 ng/mL Note: Cardiac troponin begins to rise 3-4 hours after the onset of ischemia. Repeat in 4-6 hours if the sample was drawn within 3-4 hours of the onset of the symptom and found normal. Diagnosis of myocardial injury is made with acute changes in cTn concentrations with at least one serial sample above the 99th percentile upper reference limit (URL), taken together with the patient's clinical presentation. Biotin has been reported to cause a negative bias, interpret results relative to patient's use of biotin. Lab Interpretation (test code = 35214-9) [facility] G[facility]-Ljy8712-20-08 16:48:30* Test Item Value Reference Range Interpretation Comme nts NT-proBNP (test code = 95029-1) 2010 pg/mL <=125 H SHERRY (test code = SHERRY) Positive: Heart Failure Likely Lab Interpretation (test code = 84097-4) [facility] 16:45:31* Test Item Value Reference Range Interpretation Comme nts MAGNESIUM (test code = 2701471807) 2.1 mg/dL 1.7-2.4 Lab Interpretation (test cod e = 16128-0) Normal [facility]. Metabolic Panel (88499)2024-04-02 16:45:11* Test Item Value Reference Range Interpretation Comme nts NA (test code = 6124261208) 142 mmol/L 135-145 K (test code = 0304621127) 4.1 mmol/L 3.5-5.0 CL (test code = 2022160606) 105 mmol/L 98-108 CO2 TOTAL (test code = 5531918053) 28 mmol/L 23-31 AGAP (test code = 5227301666) 9 2-16 BUN (test code = 1492658276) 16 mg/dL 7-23 GLUCOSE (test code = 1146885953) 105 mg/dL 70-110 CREATININE (test code = 2160-0) 0.99 mg/dL 0.60-1.25 TOTAL BILI (test code = 4774479456) 0.7 mg/dL 0.1-1.1 CALCIUM (test code = 5372054903) 8.5 mg/dL 8.6-10.6 L T PROTEIN (test code = 0628619423) 7.4 g/dL 6.3-8.2 ALBUMIN (test code = 5804419550) 3.7 g/dL 3.5-5.0 ALK PHOS (test code = 2849363929) 86 U/L 34-122 ALTv (test code = 1742-6) 16 U/L 5-50 AST(SGOT) (test code = 6051470945) 26 U/L 13-40 eGFR (test code = 23612-4) 83.0 mL/min/1.73m2 CKD-EPI eGFR (2020). Assuming creatinine has been stable day-to-day for at least three months, the eGFR indicates Category G2 (60 - 89 mL/min/1.73 m2) Lab Interpretation (test code = 66756-1) [facility]normal [facility] Whole Nesja7536-87-71 16:18:58* Test Item Value Reference Range Interpretation Comme nts LACTIC ACID (test code = 7321679910) 1.20 mmol/L 0.50-2.20 Lab Interpretation (test cod e = 94844-6) Normal [facility] HEALTH - OCBMS7847-25-18 21:10:31Ordered by an unspecified provider.[facility] - OTHER 2024-01-27 13:48:44Ordered by an unspecified provider.[facility] ACT Low Desrr8348-83-92 20:49:12* Test Item Value Reference Range Interpretation Comme nts ACTLR (test code = 6237421911) 309 89-169 H Lab Interpretation (test cod e = 40135-5) Abnormal [facility] ACT Low Itskc3158-74-41 20:49:12* Test Item Value Reference Range Interpretation Comme nts ACTLR (test code = 2364146956) 309 89-169 H Lab Interpretation (test cod e = 91624-4) Abnormal [facility] Low Qmddp5341-91-03 20:29:12* Test Item Value Reference Range Interpretation Comme nts ACTLR (test code = 6803030588) 241 89-169 H Lab Interpretation (test cod e = 53852-6) Abnormal [facility] ACT Low Acrek0892-29-28 20:29:12* Test Item Value Reference Range Interpretation Comme nts ACTLR (test code = 9346319648) 241 89-169 H Lab Interpretation (test cod e = 61697-5) [facility]normal [facility]2024-[facility]-20 11:16:17* Test Item Value Reference Range Interpretation Comme nts MAGNESIUM (test code = 2677119266) 2.4 mg/dL 1.7-2.4 Lab Interpretation (test cod e = 15937-7) Normal [facility] Metabolic Panel (NA, K, CL, CO2, GLUCOSE, BUN, CREATININE, CA)2024-01-13 11:16:17* Test Item Value Reference Range Interpretation Comme nts NA (test code = 3739928875) 141 mmol/L 135-145 K (test code = 4161816030) 3.6 mmol/L 3.5-5.0 CL (test code = 5430701016) 103 mmol/L 98-108 CO2 TOTAL (test code = 7368895522) 32 mmol/L 23-31 H AGAP (test code = 7119323052) 6 2-16 BUN (test code = 5997475527) 31 mg/dL 7-23 H GLUCOSE (test code = 5324393534) 116 mg/dL 70-110 H CREATININE (test code = 2160-0) 1.10 mg/dL 0.60-1.25 CALCIUM (test code = 2696166431) 8.4 mg/dL 8.6-10.6 L eGFR (test code = 21716-0) 73.1 mL/min/1.73m2 CKD-EPI eGFR (2020). Assuming creatinine has been stable day-to-day for at least three months, the eGFR indicates Category G2 (60 - 89 mL/min/1.73 m2) Lab Interpretation (test code = 64093-7) [facility]normal [facility]24-[facility] 11:16:17* Test Item Value Reference Range Interpretation Comme nts MAGNESIUM (test code = 9789272211) 2.4 mg/dL 1.7-2.4 Lab Interpretation (test cod e = 12323-3) Normal [facility] Metabolic Panel (NA, K, CL, CO2, GLUCOSE, BUN, CREATININE, CA)2024-01-13 11:16:17* Test Item Value Reference Range Interpretation Comme nts NA (test code = 9112789488) 141 mmol/L 135-145 K (test code = 1578979067) 3.6 mmol/L 3.5-5.0 CL (test code = 5540852953) 103 mmol/L 98-108 CO2 TOTAL (test code = 8521077490) 32 mmol/L 23-31 H AGAP (test code = 0934151300) 6 2-16 BUN (test code = 0565555640) 31 mg/dL 7-23 H GLUCOSE (test code = 8582949434) 116 mg/dL 70-110 H CREATININE (test code = 2160-0) 1.10 mg/dL 0.60-1.25 CALCIUM (test code = 1244328851) 8.4 mg/dL 8.6-10.6 L eGFR (test code = 96749-5) 73.1 mL/min/1.73m2 CKD-EPI eGFR (2020). Assuming creatinine has been stable day-to-day for at least three months, the eGFR indicates Category G2 (60 - 89 mL/min/1.73 m2) Lab Interpretation (test code = 91422-4) [facility]2024-01-13 11:00:18* Test Item Value Reference Range Interpretation Comme [facility] APTT Patient (test code = 3173-2) 67 26-36 H Lab Interpretation (test cod e = 54444-5) [facility]2024-01-13 11:00:18* Test Item Value Reference Range Interpretation Comme [facility] APTT Patient (test code = 3173-2) 67 26-36 H Lab Interpretation (test cod e = 78065-6) Abnormal [facility] HospitalCbc without Wowp1236-50-11 10:55:34* Test Item Value Reference Range Interpretation Comme [facility] WBC (test code = 6690-2) 11.36 4.20-10.70 H RBC (test code = 789-8) 3.84 4.26-5.52 L HGB (test code = 718-7) 11.3 g/dL 12.2-16.4 L HCT (test code = 4544-3) 35.7 % 38.4-49.3 L MCH (test code = 785-6) 29.4 pg 26.1-32.7 MCV (test code = 787-2) 93.0 fL 81.7-95.6 MCHC (test code = 786-4) 31.7 g/dL 31.2-35.0 PLT (test code = 777-3) 141 150-328 L MPV (test code = 32883-2) 11.2 fL 9.8-13.0 RDW-CV (test code = 788-0) 14.7 % 12.1-15.4 RDW-SD (test code = 53189-6) 50.1 fL 38.5-51.6 NRBC x10^3 (test code = 4384857135) See_Comment [Automated Lawdingoa ge] The system which generated this result transmitted reference range: 10*3/?L. The reference range was not used to interpret this result as normal/abnormal. NRBC/100 WBC (test code = 8527714668) 0.0 0.0-10.0 IPF % (test code = 5561025726) Lab Interpretation (test code = 92383-1) Abnormal [facility] without Gvxj4833-25-17 10:55:34* Test Item Value Reference Range Interpretation Comme nts WBC (test code = 6690-2) 11.36 4.20-10.70 H RBC (test code = 789-8) 3.84 4.26-5.52 L HGB (test code = 718-7) 11.3 g/dL 12.2-16.4 L HCT (test code = 4544-3) 35.7 % 38.4-49.3 L MCH (test code = 785-6) 29.4 pg 26.1-32.7 MCV (test code = 787-2) 93.0 fL 81.7-95.6 MCHC (test code = 786-4) 31.7 g/dL 31.2-35.0 PLT (test code = 777-3) 141 150-328 L MPV (test code = 32792-2) 11.2 fL 9.8-13.0 RDW-CV (test code = 788-0) 14.7 % 12.1-15.4 RDW-SD (test code = 86171-8) 50.1 fL 38.5-51.6 NRBC x10^3 (test code = 4068078274) See_Comment [Automated Lawdingoa ge] The system which generated this result transmitted reference range: 10*3/?L. The reference range was not used to interpret this result as normal/abnormal. NRBC/100 WBC (test code = 4632863338) 0.0 0.0-10.0 IPF % (test code = 8253802752) Lab Interpretation (test code = 45413-0) [facility] (NA, K, CL, CO2, GLUCOSE, BUN, CREATININE, CA)2024-01-11 19:54:19* Test Item Value Reference Range Interpretation Comme nts NA (test code = 6981944364) 139 mmol/L 135-145 K (test code = 4254488736) 4.1 mmol/L 3.5-5.0 CL (test code = 0508778858) 105 mmol/L 98-108 CO2 TOTAL (test code = 8883255824) 32 mmol/L 23-31 H AGAP (test code = 6131089769) 2 2-16 BUN (test code = 0959089125) 29 mg/dL 7-23 H GLUCOSE (test code = 5420669651) 185 mg/dL 70-110 H CREATININE (test code = 2160-0) 1.00 mg/dL 0.60-1.25 CALCIUM (test code = 4962737410) 8.2 mg/dL 8.6-10.6 L eGFR (test code = 41163-8) 82.0 mL/min/1.73m2 CKD-EPI eGFR (2020). Assuming creatinine has been stable day-to-day for at least three months, the eGFR indicates Category G2 (60 - 89 mL/min/1.73 m2) Lab Interpretation (test code = 54323-5) Abnormal [facility] Metabolic Panel (NA, K, CL, CO2, GLUCOSE, BUN, CREATININE, CA)2024-01-11 19:54:19* Test Item Value Reference Range Interpretation Comme nts NA (test code = 5365613304) 139 mmol/L 135-145 K (test code = 7569694496) 4.1 mmol/L 3.5-5.0 CL (test code = 7944611186) 105 mmol/L 98-108 CO2 TOTAL (test code = 6825772272) 32 mmol/L 23-31 H AGAP (test code = 2166549655) 2 2-16 BUN (test code = 4051217356) 29 mg/dL 7-23 H GLUCOSE (test code = 7421067873) 185 mg/dL 70-110 H CREATININE (test code = 2160-0) 1.00 mg/dL 0.60-1.25 CALCIUM (test code = 7781921000) 8.2 mg/dL 8.6-10.6 L eGFR (test code = 65525-3) 82.0 mL/min/1.73m2 CKD-EPI eGFR (2020). Assuming creatinine has been stable day-to-day for at least three months, the eGFR indicates Category G2 (60 - 89 mL/min/1.73 m2) Lab Interpretation (test code = 37056-0) [facility]2024-01-11 15:22:06* Test Item Value Reference Range Interpretation Comme nts APTT Patient (test code = 3173-2) 60 26-36 H Lab Interpretation (test cod e = 36931-8) [facility]2024-01-11 15:22:06* Test Item Value Reference Range Interpretation Comme nts APTT Patient (test code = 3173-2) 60 26-36 H Lab Interpretation (test cod e = 13872-8) [facility]normal [facility]2024-05-18 10:44:53* Test Item Value Reference Range Interpretation Comme nts MAGNESIUM (test code = 1861208611) 2.2 mg/dL 1.7-2.4 Lab Interpretation (test cod e = 84487-8) Normal [facility] HospitalPhosphorus2024-05-18 10:44:53* Test Item Value Reference Range Interpretation Comme nts PHOSPHORUS (test code = 2041567496) 4.0 mg/dL 2.5-5.0 Lab Interpretation (test cod e = 63381-3) [facility] (41454)2024-01-11 10:44:53* Test Item Value Reference Range Interpretation Comme nts NA (test code = 1290023941) 140 mmol/L 135-145 K (test code = 6429530005) 3.4 mmol/L 3.5-5.0 L CL (test code = 2846311853) 101 mmol/L 98-108 CO2 TOTAL (test code = 4323037024) 33 mmol/L 23-31 H AGAP (test code = 0148344313) 6 2-16 BUN (test code = 2627102667) 30 mg/dL 7-23 H GLUCOSE (test code = 5958123102) 147 mg/dL 70-110 H CREATININE (test code = 2160-0) 0.97 mg/dL 0.60-1.25 TOTAL BILI (test code = 7491515120) 0.4 mg/dL 0.1-1.1 CALCIUM (test code = 3916787849) 8.2 mg/dL 8.6-10.6 L T PROTEIN (test code = 6525494354) 6.7 g/dL 6.3-8.2 ALBUMIN (test code = 7610681797) 3.5 g/dL 3.5-5.0 ALK PHOS (test code = 3939094669) 101 U/L 34-122 ALTv (test code = 1742-6) 22 U/L 5-50 AST(SGOT) (test code = 1180346948) 30 U/L 13-40 eGFR (test code = 63060-7) 85.0 mL/min/1.73m2 CKD-EPI eGFR (2020). Assuming creatinine has been stable day-to-day for at least three months, the eGFR indicates Category G2 (60 - 89 mL/min/1.73 m2) Lab Interpretation (test code = 06614-7) [facility]normal [facility]2024-[facility]-18 10:44:53* Test Item Value Reference Range Interpretation Comme nts MAGNESIUM (test code = 0673597069) 2.2 mg/dL 1.7-2.4 Lab Interpretation (test cod e = 44577-9) Normal [facility]2024-[facility]-18 10:44:53* Test Item Value Reference Range Interpretation Comme nts PHOSPHORUS (test code = 5677340368) 4.0 mg/dL 2.5-5.0 Lab Interpretation (test cod e = 06906-2) Normal [facility] (95708)2024-01-11 10:44:53* Test Item Value Reference Range Interpretation Comme nts NA (test code = 8103368147) 140 mmol/L 135-145 K (test code = 1712209928) 3.4 mmol/L 3.5-5.0 L CL (test code = 6834659483) 101 mmol/L 98-108 CO2 TOTAL (test code = 5859029598) 33 mmol/L 23-31 H AGAP (test code = 6075492962) 6 2-16 BUN (test code = 3608273672) 30 mg/dL 7-23 H GLUCOSE (test code = 8446665578) 147 mg/dL 70-110 H CREATININE (test code = 2160-0) 0.97 mg/dL 0.60-1.25 TOTAL BILI (test code = 8381881860) 0.4 mg/dL 0.1-1.1 CALCIUM (test code = 8462505584) 8.2 mg/dL 8.6-10.6 L T PROTEIN (test code = 8190278512) 6.7 g/dL 6.3-8.2 ALBUMIN (test code = 3830393221) 3.5 g/dL 3.5-5.0 ALK PHOS (test code = 0557311239) 101 U/L 34-122 ALTv (test code = 1742-6) 22 U/L 5-50 AST(SGOT) (test code = 9727626753) 30 U/L 13-40 eGFR (test code = 97028-7) 85.0 mL/min/1.73m2 CKD-EPI eGFR (2020). Assuming creatinine has been stable day-to-day for at least three months, the eGFR indicates Category G2 (60 - 89 mL/min/1.73 m2) Lab Interpretation (test code = 12939-1) Abnormal [facility] with Nquh0260-91-76 10:21:53* Test Item Value Reference Range Interpretation Comme nts WBC (test code = 6690-2) 15.61 4.20-10.70 H RBC (test code = 789-8) 3.73 4.26-5.52 L HGB (test code = 718-7) 11.0 g/dL 12.2-16.4 L HCT (test code = 4544-3) 34.5 % 38.4-49.3 L MCV (test code = 787-2) 92.5 fL 81.7-95.6 MCH (test code = 785-6) 29.5 pg 26.1-32.7 MCHC (test code = 786-4) 31.9 g/dL 31.2-35.0 RDW-SD (test code = 60570-9) 48.1 fL 38.5-51.6 RDW-CV (test code = 788-0) 14.5 % 12.1-15.4 PLT (test code = 777-3) 144 150-328 L MPV (test code = 21799-5) 11.2 fL 9.8-13.0 NRBC/100 WBC (test code = 5140872661) 0.0 0.0-10.0 NRBC x10^3 (test code = 9015309921) See_Comment [Automated message] The system which generated this result transmitted reference range: 10*3/?L. The reference range was not used to interpret this result as normal/abnormal. GRAN MAT (NEUT) % (test code = 770-8) 81.6 % IMM GRAN % (test code = 8083870104) 0.60 % LYMPH % (test code = 736-9) 10.3 % MONO % (test code = 5905-5) 7.4 % EOS % (test code = 713-8) 0.0 % BASO % (test code = 706-2) 0.1 % GRAN MAT x10^3(ANC) (test code = 9662834667) 12.73 10*3/uL 1.99-6.95 H IMM GRAN x10^3 (test code = 5475582225) 0.10 10*3/uL 0.00-0.06 H LYMPH x10^3 (test code = 731-0) 1.61 10*3/uL 1.09-3.23 MONO x10^3 (test code = 742-7) 1.16 10*3/uL 0.36-1.02 H EOS x10^3 (test code = 711-2) 0.06-0.53 L BASO x10^3 (test code = 704-7) 0.01-0.09 Lab Interpretation (test code = 24731-1) Abnormal [facility] with Kwld4599-43-37 10:21:53* Test Item Value Reference Range Interpretation Comme nts WBC (test code = 6690-2) 15.61 4.20-10.70 H RBC (test code = 789-8) 3.73 4.26-5.52 L HGB (test code = 718-7) 11.0 g/dL 12.2-16.4 L HCT (test code = 4544-3) 34.5 % 38.4-49.3 L MCV (test code = 787-2) 92.5 fL 81.7-95.6 MCH (test code = 785-6) 29.5 pg 26.1-32.7 MCHC (test code = 786-4) 31.9 g/dL 31.2-35.0 RDW-SD (test code = 62300-7) 48.1 fL 38.5-51.6 RDW-CV (test code = 788-0) 14.5 % 12.1-15.4 PLT (test code = 777-3) 144 150-328 L MPV (test code = 40669-3) 11.2 fL 9.8-13.0 NRBC/100 WBC (test code = 7956230376) 0.0 0.0-10.0 NRBC x10^3 (test code = 8508881420) See_Comment [Automated message] The system which generated this result transmitted reference range: 10*3/?L. The reference range was not used to interpret this result as normal/abnormal. GRAN MAT (NEUT) % (test code = 770-8) 81.6 % IMM GRAN % (test code = 5901727049) 0.60 % LYMPH % (test code = 736-9) 10.3 % MONO % (test code = 5905-5) 7.4 % EOS % (test code = 713-8) 0.0 % BASO % (test code = 706-2) 0.1 % GRAN MAT x10^3(ANC) (test code = 7914822174) 12.73 10*3/uL 1.99-6.95 H IMM GRAN x10^3 (test code = 6235111924) 0.10 10*3/uL 0.00-0.06 H LYMPH x10^3 (test code = 731-0) 1.61 10*3/uL 1.09-3.23 MONO x10^3 (test code = 742-7) 1.16 10*3/uL 0.36-1.02 H EOS x10^3 (test code = 711-2) 0.06-0.53 L BASO x10^3 (test code = 704-7) 0.01-0.09 Lab Interpretation (test code = 70954-6) [facility]2024-01-11 05:36:55* Test Item Value Reference Range Interpretation Comme nts APTT Patient (test code = 3173-2) 37 26-36 H Lab Interpretation (test cod e = 73389-9) [facility]2024-01-11 05:36:55* Test Item Value Reference Range Interpretation Comme [facility] APTT Patient (test code = 3173-2) 37 26-36 H Lab Interpretation (test cod e = 80298-3) [facility]2024-01-10 22:29:39* Test Item Value Reference Range Interpretation Comme [facility] APTT Patient (test code = 3173-2) 37 26-36 H Lab Interpretation (test cod e = 71561-8) [facility]2024-01-10 22:29:39* Test Item Value Reference Range Interpretation Comme [facility] APTT Patient (test code = 3173-2) 37 26-36 H Lab Interpretation (test cod e = 12157-6) [facility]2024-01-10 19:36:20* Test Item Value Reference Range Interpretation Comme [facility] Height (test code = 1468340030) 70 in Weight (test code = 2437462071) 250 lbs Systolic BP (test code = 8012655087) 149 mmHg Diastolic BP (test code = 4613799661) 70 mmHg Heart Rate (test code = 4655176473) 54 bpm BSA (test code = 9830045309) 2.29 m2 LVOT diameter (test code = 3207849111) 2.00 cm LVOT area (test code = 1073044138) 3.20 cm2 Ao root diam (test code = 2177249247) 2.33 cm Aortic root (test code = 3568535275) 2.33 cm Ao root annulus (test code = 0438316339) 2.33 cm LA size (test code = 0857123313) 4.3 cm MV Peak E Memo (test code = 1367109348) 132.8 cm/s E wave decelartion time (test code = 3106180975) 0.30 s MV Peak A Memo (test code = 4411826634) 98.5 cm/s E/A ratio (test code = 5473579665) 1.35 ratio LAV(MOD-sp4) (test code = 0034566646) 88.10 mL Tapse (test code = 5505243122) 2.8 cm LVOT stroke volume (test code = 1455864428) 163.40 cm3 LVOT peak memo (test code = 1582298136) 221.7 cm/s LVOT mn grad (test code = 5613561423) 8.1 mmHg AV LVOT peak gradient (test code = 8986827757) 19.7 mmHg LVOT peak VTI (test code = 4973876700) 51.8 cm LV V1 mean (test code = 3061214415) 126.80 cm/s LA Volume Index (BP) (test code = 7009250140) 39.3 mL/m2 LA volume (BP) (test code = 3010520333) 90.1 mL LAV(MOD-sp2) (test code = 2160935522) 86.10 mL Aortic valve mean velocity (test code = 5132876986) 144.7 cm/s Ao peak memo (test code = 6968994857) 247.3 cm/s Ao VTI (test code = 3084227661) 55.6 cm AV area by cont VTI (test code = 4818376820) 2.9 cm2 AV area peak memo (test code = 6588496291) 2.8 cm2 Ao max PG (test code = 6813998986) 24.50 mm[Hg] AV peak gradient (test code = 8110376273) 24.5 mmHg AV valve area (test code = 9340255598) 2.90 cm2 AV mean gradient (test code = 9265227420) 10.3 mmHg LVIDD (test code = 2249563985) 5.30 cm Left Ventricular End Diastolic Volume by Teichholz Method (test code = 4621316) 133.6 mL IVS (test code = 3268867337) 1.01 cm Interventricular Septum Diastolic Thickness by 2D (test code = 9018991) 1.01 cm LVPWD (test code = 2933975455) 0.91 cm PW (test code = 7557046868) 0.91 cm 0.6-1.1 EF(Teich) (test code = 9361971679) 69.00 % LVIDS (test code = 8448682170) 3.20 cm Left Ventricular End Systolic Volume by Teichholz Method (test code = 4630154) 41.4 mL FS (test code = 3988650836) 39 % EF - 2D (test code = 79291075) 69.00 % TR Peak Memo (test code = 0240007358) 321.2 cm/s Triscuspid Valve Regurgitation Peak Gradient (test code = 4581972447) 41.3 mmHg Radiology Study observation (narrative) (test code = 06522-9) SHERRY (test code = SHERRY) ?Left?Ventricle: Left ventricle size is normal. Normal wall thickness. Normal systolic function with a visually estimated EF of 60 - 65%. There is grade 2 diastolic dysfunction. Elevated left ventricular filling pressure. ?Right?Ventricle: Right ventricle size is normal. Normal systolic function. TAPSE is 2.8 cm. ?Left?Atrium: Left atrium is moderately dilated. Left atrium volume index is 39.3 mL/m2. ?Right?Atrium: Right atrium size is normal. ?Tricuspid?Valve: Mild transvalvular regurgitation. Right ventricular systolic pressure is 55-60 mmHg. ?IVC/SVC: IVC diameter is greater than 21 mm and decreases less than 50% during inspiration; therefore the estimated right atrial pressure is elevated (~15 mmHg). ?Aorta: Normal sized annulus and sinus of Valsalva. ?Pericardium: No pericardial effusion. Left VentricleLeft ventricle size is normal. Normal wall thickness. Normal systolic function with a visually estimated EF of 60 - 65%. There is grade 2 diastolic dysfunction. Elevated left ventricular filling pressure.Right VentricleRight ventricle size is normal. Normal systolic function. TAPSE is 2.8 cm.Left AtriumLeft atrium is moderately dilated. Left atrium volume index is 39.3 mL/m2.Right AtriumRight atrium size is normal.IVC/SVCIVC diameter is greater than 21 mm and decreases less than 50% during inspiration; therefore the estimated right atrial pressure is elevated (~15 mmHg).Mitral ValveMild posterior mitral annular calcification. Mild transvalvular regurgitation. No stenosis.Tricuspid ValveTricuspid valve structure is normal. Mild transvalvular regurgitation. Right ventricular systolic pressure is 55-60 mmHg. No stenosis.Aortic ValveAortic valve opens well. No transvalvular regurgitation. No hemodynamically significant .Pulmonic ValveNot well visualized.Ascending AortaNormal sized annulus and sinus of Valsalva.PericardiumTh e pericardium is normal. No pericardial effusion.Study DetailsStudy quality was adequate. A complete echocardiogram was performed using 2D, color flow Doppler and spectral Doppler. The apical, parasternal and subcostal views were obtained. 2 mL of Definity ultrasound enhancing agent used. Patient exhibited sinus bradycardia. [facility] 19:36:20* Test Item Value Reference Range Interpretation Comme nts Height (test code = 4222435255) 70 in Weight (test code = 9420912178) 250 lbs Systolic BP (test code = 8766407548) 149 mmHg Diastolic BP (test code = 4856619350) 70 mmHg Heart Rate (test code = 8212580333) 54 bpm BSA (test code = 4519789188) 2.29 m2 LVOT diameter (test code = 0821616090) 2.00 cm LVOT area (test code = 4513264739) 3.20 cm2 Ao root diam (test code = 9974876701) 2.33 cm Aortic root (test code = 4513279769) 2.33 cm Ao root annulus (test code = 1520670082) 2.33 cm LA size (test code = 4436485060) 4.3 cm MV Peak E Memo (test code = 6969559619) 132.8 cm/s E wave decelartion time (test code = 1707081310) 0.30 s MV Peak A Memo (test code = 4537690915) 98.5 cm/s E/A ratio (test code = 0895620188) 1.35 ratio LAV(MOD-sp4) (test code = 6232939882) 88.10 mL Tapse (test code = 6783382634) 2.8 cm LVOT stroke volume (test code = 8965230188) 163.40 cm3 LVOT peak memo (test code = 0782042760) 221.7 cm/s LVOT mn grad (test code = 8382189884) 8.1 mmHg AV LVOT peak gradient (test code = 1814167823) 19.7 mmHg LVOT peak VTI (test code = 1809067917) 51.8 cm LV V1 mean (test code = 6568735813) 126.80 cm/s LA Volume Index (BP) (test code = 7547766652) 39.3 mL/m2 LA volume (BP) (test code = 4315397328) 90.1 mL LAV(MOD-sp2) (test code = 3671707413) 86.10 mL Aortic valve mean velocity (test code = 0618339944) 144.7 cm/s Ao peak memo (test code = 3821860728) 247.3 cm/s Ao VTI (test code = 2335374336) 55.6 cm AV area by cont VTI (test code = 4078842993) 2.9 cm2 AV area peak memo (test code = 0451798126) 2.8 cm2 Ao max PG (test code = 8663699878) 24.50 mm[Hg] AV peak gradient (test code = 9006289034) 24.5 mmHg AV valve area (test code = 0680830321) 2.90 cm2 AV mean gradient (test code = 6293295542) 10.3 mmHg LVIDD (test code = 5045068095) 5.30 cm Left Ventricular End Diastolic Volume by Teichholz Method (test code = 5277307) 133.6 mL IVS (test code = 2852497547) 1.01 cm Interventricular Septum Diastolic Thickness by 2D (test code = 5305408) 1.01 cm LVPWD (test code = 9486249586) 0.91 cm PW (test code = 7829480583) 0.91 cm 0.6-1.1 EF(Teich) (test code = 2971609352) 69.00 % LVIDS (test code = 7412854820) 3.20 cm Left Ventricular End Systolic Volume by Teichholz Method (test code = 1533609) 41.4 mL FS (test code = [id number]) 39 % EF - 2D (test code = 00950557) 69.00 % TR Peak Memo (test code = 7888188579) 321.2 cm/s Triscuspid Valve Regurgitation Peak Gradient (test code = 9638386939) 41.3 mmHg Radiology Study observation (narrative) (test code = 02772-4) SHERRY (test code = SHERRY) ?Left?Ventricle: Left ventricle size is normal. Normal wall thickness. Normal systolic function with a visually estimated EF of 60 - 65%. There is grade 2 diastolic dysfunction. Elevated left ventricular filling pressure. ?Right?Ventricle: Right ventricle size is normal. Normal systolic function. TAPSE is 2.8 cm. ?Left?Atrium: Left atrium is moderately dilated. Left atrium volume index is 39.3 mL/m2. ?Right?Atrium: Right atrium size is normal. ?Tricuspid?Valve: Mild transvalvular regurgitation. Right ventricular systolic pressure is 55-60 mmHg. ?IVC/SVC: IVC diameter is greater than 21 mm and decreases less than 50% during inspiration; therefore the estimated right atrial pressure is elevated (~15 mmHg). ?Aorta: Normal sized annulus and sinus of Valsalva. ?Pericardium: No pericardial effusion. Left VentricleLeft ventricle size is normal. Normal wall thickness. Normal systolic function with a visually estimated EF of 60 - 65%. There is grade 2 diastolic dysfunction. Elevated left ventricular filling pressure.Right VentricleRight ventricle size is normal. Normal systolic function. TAPSE is 2.8 cm.Left AtriumLeft atrium is moderately dilated. Left atrium volume index is 39.3 mL/m2.Right AtriumRight atrium size is normal.IVC/SVCIVC diameter is greater than 21 mm and decreases less than 50% during inspiration; therefore the estimated right atrial pressure is elevated (~15 mmHg).Mitral ValveMild posterior mitral annular calcification. Mild transvalvular regurgitation. No stenosis.Tricuspid ValveTricuspid valve structure is normal. Mild transvalvular regurgitation. Right ventricular systolic pressure is 55-60 mmHg. No stenosis.Aortic ValveAortic valve opens well. No transvalvular regurgitation. No hemodynamically significant .Pulmonic ValveNot well visualized.Ascending AortaNormal sized annulus and sinus of Valsalva.PericardiumTh e pericardium is normal. No pericardial effusion.Study DetailsStudy quality was adequate. A complete echocardiogram was performed using 2D, color flow Doppler and spectral Doppler. The apical, parasternal and subcostal views were obtained. 2 mL of Definity ultrasound enhancing agent used. Patient exhibited sinus bradycardia. [facility] Qslhk2842-17-57 14:47:31* Test Item Value Reference Range Interpretation Comme nts FERRITIN (test code = 1287400655) 26.7 ng/mL 18.0-464.0 SHERRY (test code = SHERRY) Biotin has been reported to cause a negative bias, interpret results relative to patient's use of biotin. Lab Interpretation (test code = 46251-3) Normal [facility] Excmu7801-14-66 14:47:31* Test Item Value Reference Range Interpretation Comme nts FERRITIN (test code = 8229011244) 26.7 ng/mL 18.0-464.0 SHERRY (test code = SHERRY) Biotin has been reported to cause a negative bias, interpret results relative to patient's use of biotin. Lab Interpretation (test code = 23621-4) Normal [facility] Kxbhx6447-20-31 14:34:48* Test Item Value Reference Range Interpretation Comme nts IRON (test code = 2037255651) 43 ug/dL 50-160 L TIBC (test code = 0337263655) 408 ug/dL 250-410 % FE SAT (test code = 5389568909) 11 % 20-50 L Lab Interpretation (test cod e = 09946-2) Abnormal [facility] Dkokt5020-98-01 14:34:48* Test Item Value Reference Range Interpretation Comme nts IRON (test code = 3720669961) 43 ug/dL 50-160 L TIBC (test code = 8205749953) 408 ug/dL 250-410 % FE SAT (test code = 6128792540) 11 % 20-50 L Lab Interpretation (test cod e = 06698-9) Abnormal [facility] [place], [place] [id number] 10:56:43* Test Item Value Reference Range Interpretation Comme nts TROPONIN I (test code = 8918887111) 0.006 ng/mL <=0.034 SHERRY (test code = SHERRY) Reference (Normal) Range (defined by the 99th percentile reference limit): <= 0.034 ng/mL Note: Cardiac troponin begins to rise 3-4 hours after the onset of ischemia. Repeat in 4-6 hours if the sample was drawn within 3-4 hours of the onset of the symptom and found normal. Diagnosis of myocardial injury is made with acute changes in cTn concentrations with at least one serial sample above the 99th percentile upper reference limit (URL), taken together with the patient's clinical presentation. Biotin has been reported to cause a negative bias, interpret results relative to patient's use of biotin. Lab Interpretation (test code = 94671-8) Normal [place] [id number] 10:56:43* Test Item Value Reference Range Interpretation Comme nts TROPONIN I (test code = 3062302969) 0.006 ng/mL <=0.034 SHERRY (test code = SHERRY) Reference (Normal) Range (defined by the 99th percentile reference limit): <= 0.034 ng/mL Note: Cardiac troponin begins to rise 3-4 hours after the onset of ischemia. Repeat in 4-6 hours if the sample was drawn within 3-4 hours of the onset of the symptom and found normal. Diagnosis of myocardial injury is made with acute changes in cTn concentrations with at least one serial sample above the 99th percentile upper reference limit (URL), taken together with the patient's clinical presentation. Biotin has been reported to cause a negative bias, interpret results relative to patient's use of biotin. Lab Interpretation (test code = 83745-6) [facility]2024-01-10 10:28:11* Test Item Value Reference Range Interpretation Comme nts APTT Patient (test code = 3173-2) 61 26-36 H Lab Interpretation (test cod e = 02356-5) [facility]normal [facility]2024-01-10 10:28:11* Test Item Value Reference Range Interpretation Comme nts APTT Patient (test code = 3173-2) 61 26-36 H Lab Interpretation (test cod e = 18940-5) Abnormal [facility] HospitalThy[facility] Stimulating Skrajcc8003-52-48 06:05:38 * Test Item Value Reference Range Interpretation Comme nts TSH (test code = 2806801766) 0.59 0.45-4.70 Lab Interpretation (test cod e = 58994-1) Normal [facility] Swhsgsx3452-44-26 06:05:38 * Test Item Value Reference Range Interpretation Comme nts TSH (test code = 8039537017) 0.59 0.45-4.70 Lab Interpretation (test cod e = 55409-5) Normal [facility] HospitalTroponin [id number] 05:46:54* Test Item Value Reference Range Interpretation Comme nts TROPONIN I (test code = 6328380354) 0.007 ng/mL <=0.034 SHERRY (test code = SHERRY) Reference (Normal) Range (defined by the 99th percentile reference limit): <= 0.034 ng/mL Note: Cardiac troponin begins to rise 3-4 hours after the onset of ischemia. Repeat in 4-6 hours if the sample was drawn within 3-4 hours of the onset of the symptom and found normal. Diagnosis of myocardial injury is made with acute changes in cTn concentrations with at least one serial sample above the 99th percentile upper reference limit (URL), taken together with the patient's clinical presentation. Biotin has been reported to cause a negative bias, interpret results relative to patient's use of biotin. Lab Interpretation (test code = 00001-2) Normal [facility] Hospital[facility] [id number] 05:46:54* Test Item Value Reference Range Interpretation Comme nts TROPONIN I (test code = 7722612067) 0.007 ng/mL <=0.034 SHERRY (test code = SHERRY) Reference (Normal) Range (defined by the 99th percentile reference limit): <= 0.034 ng/mL Note: Cardiac troponin begins to rise 3-4 hours after the onset of ischemia. Repeat in 4-6 hours if the sample was drawn within 3-4 hours of the onset of the symptom and found normal. Diagnosis of myocardial injury is made with acute changes in cTn concentrations with at least one serial sample above the 99th percentile upper reference limit (URL), taken together with the patient's clinical presentation. Biotin has been reported to cause a negative bias, interpret results relative to patient's use of biotin. Lab Interpretation (test code = 97093-6) Normal [facility] Hospital[facility] (NA, K, CL, CO2, Glucose, BUN, Creatinine, CA)2024-01-10 05:35:54* Test Item Value Reference Range Interpretation Comme nts NA (test code = 9426266878) 138 mmol/L 135-145 K (test code = 5395518102) 4.4 mmol/L 3.5-5.0 CL (test code = 6160722142) 103 mmol/L 98-108 CO2 TOTAL (test code = 0976806434) 30 mmol/L 23-31 AGAP (test code = 1963738972) 5 2-16 BUN (test code = 1182063885) 12 mg/dL 7-23 GLUCOSE (test code = 3498709565) 161 mg/dL 70-110 H CREATININE (test code = 2160-0) 0.88 mg/dL 0.60-1.25 CALCIUM (test code = 8602442559) 8.7 mg/dL 8.6-10.6 eGFR (test code = 80510-6) 93.7 mL/min/1.73m2 CKD-EPI eGFR (2020). Assuming creatinine has been stable day-to-day for at least three months, the eGFR indicates Category G1 (>= 90 mL/min/1.73 m2) Lab Interpretation (test code = 91445-7) Abnormal [facility] HospitalMagnesium Xxmec8716-41-91 05:35:54* Test Item Value Reference Range Interpretation Comme nts MAGNESIUM (test code = 9122860623) 2.0 mg/dL 1.7-2.4 Lab Interpretation (test cod e = 50723-4) Normal [facility] HospitalPhosphorus Plrev2942-39-20 05:35:54* Test Item Value Reference Range Interpretation Comme nts PHOSPHORUS (test code = 7216887705) 4.5 mg/dL 2.5-5.0 Lab Interpretation (test cod e = 75514-3) Normal [facility] HospitalHepatic Function Panel (ALB, T.PRO, BILI T, BU/BC, ALT, AST, ALK, PHOS)2024-01-10 05:35:54* Test Item Value Reference Range Interpretation Comme nts TOTAL BILI (test code = 8966681426) 0.6 mg/dL 0.1-1.1 BILI UNCON (test code = 3176197107) 0.2 mg/dL 0.1-1.1 BILI CONJ (test code = 6044704098) 0.0 mg/dL 0.0-0.3 T PROTEIN (test code = 7373504066) 7.3 g/dL 6.3-8.2 ALBUMIN (test code = 0554134698) 4.1 g/dL 3.5-5.0 ALK PHOS (test code = 0390027978) 85 U/L 34-122 ALTv (test code = 1742-6) 21 U/L 5-50 AST(SGOT) (test code = 9278029986) 26 U/L 13-40 Lab Interpretation (test cod e = 08354-9) Normal [facility] Hospital[facility] (NA, K, CL, CO2, Glucose, BUN, Creatinine, CA)2024-01-10 05:35:54* Test Item Value Reference Range Interpretation Comme nts NA (test code = 3565101089) 138 mmol/L 135-145 K (test code = 1444895320) 4.4 mmol/L 3.5-5.0 CL (test code = 7782536066) 103 mmol/L 98-108 CO2 TOTAL (test code = 3432931163) 30 mmol/L 23-31 AGAP (test code = 4481243403) 5 2-16 BUN (test code = 2112240111) 12 mg/dL 7-23 GLUCOSE (test code = 8305206886) 161 mg/dL 70-110 H CREATININE (test code = 2160-0) 0.88 mg/dL 0.60-1.25 CALCIUM (test code = 7391231639) 8.7 mg/dL 8.6-10.6 eGFR (test code = 53449-0) 93.7 mL/min/1.73m2 CKD-EPI eGFR (2020). Assuming creatinine has been stable day-to-day for at least three months, the eGFR indicates Category G1 (>= 90 mL/min/1.73 m2) Lab Interpretation (test code = 44851-0) Abnormal [facility] HospitalMagnesium Yzotx5721-64-02 05:35:54* Test Item Value Reference Range Interpretation Comme nts MAGNESIUM (test code = 4013808589) 2.0 mg/dL 1.7-2.4 Lab Interpretation (test cod e = 66836-3) Normal [facility] HospitalPhosphorus Ucxsw2547-51-49 05:35:54* Test Item Value Reference Range Interpretation Comme nts PHOSPHORUS (test code = 5091664405) 4.5 mg/dL 2.5-5.0 Lab Interpretation (test cod e = 13988-7) Normal [facility] Hospital[facility] Function Panel (ALB, T.PRO, BILI T, BU/BC, ALT, AST, ALK, PHOS)2024-01-10 05:35:54* Test Item Value Reference Range Interpretation Comme nts TOTAL BILI (test code = 1889462710) 0.6 mg/dL 0.1-1.1 BILI UNCON (test code = 5056485645) 0.2 mg/dL 0.1-1.1 BILI CONJ (test code = 1016297345) 0.0 mg/dL 0.0-0.3 T PROTEIN (test code = 8824735125) 7.3 g/dL 6.3-8.2 ALBUMIN (test code = 5125781684) 4.1 g/dL 3.5-5.0 ALK PHOS (test code = 3402176734) 85 U/L 34-122 ALTv (test code = 1742-6) 21 U/L 5-50 AST(SGOT) (test code = 9913004768) 26 U/L 13-40 Lab Interpretation (test cod e = 51431-4) Normal [facility] Arterial Blood Gas.2024-01-10 05:30:39* Test Item Value Reference Range Interpretation Comme [facility] PH (test code = 2) 7.37 7.35-7.45 PCO2 (test code = 9475520622) 45 35-45 PO2 (test code = 9178256648) 60 80-100 L QUES HCO3 (test code = 2903234468) 25 22-26 BE (test code = 4635079219) -0.4 -3.0-3.0 Lab Interpretation (test cod e = 23018-2) Abnormal [facility] Arterial Blood Gas.2024-01-10 05:30:39* Test Item Value Reference Range Interpretation Comme nts PH (test code = 2) 7.37 7.35-7.45 PCO2 (test code = 2793910401) 45 35-45 PO2 (test code = 7196929705) 60 80-100 L QUES HCO3 (test code = 0542131945) 25 22-26 BE (test code = 8960820104) -0.4 -3.0-3.0 Lab Interpretation (test cod e = 74202-2) Abnormal [facility] HospitalProthrombin Time / [id number] 05:13:50* Test Item Value Reference Range Interpretation Comme [facility] PROTIME PATIENT (test code = 5964-2) 13.3 10.1-12.6 H INR (test code = 6301-6) 1.2 Normal INR <1.1; Warfarin Therapeutic range 2.0 to 3.0 or 2.5 to 3.5, depending upon the indications. Lab Interpretation (test code = 46883-6) [facility]normal [facility]2024-[facility]-17 05:13:50* Test Item Value Reference Range Interpretation Comme nts APTT Patient (test code = 3173-2) 33 36 Lab Interpretation (test cod e = 03080-5) Normal [facility] HospitalProthrombin Time / [id number] 05:13:50* Test Item Value Reference Range Interpretation Comme nts PROTIME PATIENT (test code = 5964-2) 13.3 10.1-12.6 H INR (test code = 6301-6) 1.2 Normal INR <1.1; Warfarin Therapeutic range 2.0 to 3.0 or 2.5 to 3.5, depending upon the indications. Lab Interpretation (test code = 83995-7) [facility] Test Item Value Reference Range Interpretation Comme nts APTT Patient (test code = 3173-2) 36 Lab Interpretation (test cod e = 64428-1) Normal [facility] HospitalGlycosylated Hemoglobin (A1C)2024-01-10 05:11:09* Test Item Value Reference Range Interpretation Comme nts HGB A1C (test code = 4548-4) 6.4 % 4.0-5.7 H SHERRY (test code = SHERRY) Reference RangesNormal: <5.7%Prediabetes: 5.7 - 6.4%Diabetes: > 6.5% Lab Interpretation (test code = 44821-6) Abnormal [facility] HospitalGlycosylated Hemoglobin (A1C)2024-01-10 05:11:09* Test Item Value Reference Range Interpretation Comme nts HGB A1C (test code = 4548-4) 6.4 % 4.0-5.7 H SHERRY (test code = SHERRY) Reference RangesNormal: <5.7%Prediabetes: 5.7 - 6.4%Diabetes: > 6.5% Lab Interpretation (test code = 73697-1) [facility]normal [facility] HospitalCBC with Zksctkbewjbl8445-27-89 05:07:13* Test Item Value Reference Range Interpretation Comme nts WBC (test code = 6690-2) 10.26 4.20-10.70 RBC (test code = 789-8) 4.00 4.26-5.52 L HGB (test code = 718-7) 11.9 g/dL 12.2-16.4 L HCT (test code = 4544-3) 36.6 % 38.4-49.3 L MCV (test code = 787-2) 91.5 fL 81.7-95.6 MCH (test code = 785-6) 29.8 pg 26.1-32.7 MCHC (test code = 786-4) 32.5 g/dL 31.2-35.0 RDW-SD (test code = 07459-1) 48.6 fL 38.5-51.6 RDW-CV (test code = 788-0) 14.6 % 12.1-15.4 PLT (test code = 777-3) 148 150-328 L MPV (test code = 50833-9) 11.4 fL 9.8-13.0 NRBC/100 WBC (test code = 7041879529) 0.0 0.0-10.0 NRBC x10^3 (test code = 5946365856) See_Comment [Automated messa ge] The system which generated this result transmitted reference range: 10*3/?L. The reference range was not used to interpret this result as normal/abnormal. GRAN MAT (NEUT) % (test code = 770-8) 92.8 % IMM GRAN % (test code = 5384526470) 0.50 % LYMPH % (test code = 736-9) 5.1 % MONO % (test code = 5905-5) 1.3 % EOS % (test code = 713-8) 0.0 % BASO % (test code = 706-2) 0.3 % GRAN MAT x10^3(ANC) (test code = 2741092675) 9.53 10*3/uL 1.99-6.95 H IMM GRAN x10^3 (test code = 9608876925) 0.05 10*3/uL 0.00-0.06 LYMPH x10^3 (test code = 731-0) 0.52 10*3/uL 1.09-3.23 L MONO x10^3 (test code = 742-7) 0.13 10*3/uL 0.36-1.02 L EOS x10^3 (test code = 711-2) 0.06-0.53 L BASO x10^3 (test code = 704-7) 0.03 10*3/uL 0.01-0.09 Lab Interpretation (test code = 28531-2) Abnormal [facility] with Ylnecdwrsrqq7943-89-46 05:07:13* Test Item Value Reference Range Interpretation Comme nts WBC (test code = 6690-2) 10.26 4.20-10.70 RBC (test code = 789-8) 4.00 4.26-5.52 L HGB (test code = 718-7) 11.9 g/dL 12.2-16.4 L HCT (test code = 4544-3) 36.6 % 38.4-49.3 L MCV (test code = 787-2) 91.5 fL 81.7-95.6 MCH (test code = 785-6) 29.8 pg 26.1-32.7 MCHC (test code = 786-4) 32.5 g/dL 31.2-35.0 RDW-SD (test code = 54537-1) 48.6 fL 38.5-51.6 RDW-CV (test code = 788-0) 14.6 % 12.1-15.4 PLT (test code = 777-3) 148 150-328 L MPV (test code = 43347-9) 11.4 fL 9.8-13.0 NRBC/100 WBC (test code = 5131698990) 0.0 0.0-10.0 NRBC x10^3 (test code = 4981483714) See_Comment [Automated messa ge] The system which generated this result transmitted reference range: 10*3/?L. The reference range was not used to interpret this result as normal/abnormal. GRAN MAT (NEUT) % (test code = 770-8) 92.8 % IMM GRAN % (test code = 8067092141) 0.50 % LYMPH % (test code = 736-9) 5.1 % MONO % (test code = 5905-5) 1.3 % EOS % (test code = 713-8) 0.0 % BASO % (test code = 706-2) 0.3 % GRAN MAT x10^3(ANC) (test code = 3206251263) 9.53 10*3/uL 1.99-6.95 H IMM GRAN x10^3 (test code = 4489899676) 0.05 10*3/uL 0.00-0.06 LYMPH x10^3 (test code = 731-0) 0.52 10*3/uL 1.09-3.23 L MONO x10^3 (test code = 742-7) 0.13 10*3/uL 0.36-1.02 L EOS x10^3 (test code = 711-2) 0.06-0.53 L BASO x10^3 (test code = 704-7) 0.03 10*3/uL 0.01-0.09 Lab Interpretation (test code = 32556-5) Abnormal [facility] HospitalLipid [facility] (42302)(Total Cholesterol, Triglycerides, HDL)2024-01-10 05:02:52* Test Item Value Reference Range Interpretation Comme nts CHOL (test code = 5521309693) 90 mg/dL 120-200 L HDL (test code = 7011644219) 31 mg/dL >=40 L HDLC RATIO (test code = 4073584038) 2.9 <=5.0 TRIG (test code = 9335018821) 71 mg/dL 30-170 LDL CHOL (test code = 73485-9) 45 mg/dL <=160 VLDL (test code = 7902036802) 14 mg/dL 5-60 Lab Interpretation (test cod e = 15700-1) Abnormal [facility] HospitalLip[facility] (84158)(Total Cholesterol, Triglycerides, HDL)2024-01-10 05:02:52* Test Item Value Reference Range Interpretation Comme nts CHOL (test code = 1772771758) 90 mg/dL 120-200 L HDL (test code = 9663979078) 31 mg/dL >=40 L HDLC RATIO (test code = 5110355078) 2.9 <=5.0 TRIG (test code = 5917098481) 71 mg/dL 30-170 LDL CHOL (test code = 57741-0) 45 mg/dL <=160 VLDL (test code = 0260956411) 14 mg/dL 5-60 Lab Interpretation (test cod e = 81089-7) Abnormal [facility] [place], [place] Q4416-77-27 21:10:26* Test Item Value Reference Range Interpretation Comme nts TROPONIN I (test code = 9511223728) 0.006 ng/mL <=0.034 SHERRY (test code = SHERRY) Reference (Normal) Range (defined by the 99th percentile reference limit): <= 0.034 ng/mL Note: Cardiac troponin begins to rise 3-4 hours after the onset of ischemia. Repeat in 4-6 hours if the sample was drawn within 3-4 hours of the onset of the symptom and found normal. Diagnosis of myocardial injury is made with acute changes in cTn concentrations with at least one serial sample above the 99th percentile upper reference limit (URL), taken together with the patient's clinical presentation. Biotin has been reported to cause a negative bias, interpret results relative to patient's use of biotin. Lab Interpretation (test code = 87206-0) Normal [facility] [place], [place] [id number] 21:10:26* Test Item Value Reference Range Interpretation Comme nts TROPONIN I (test code = 8038192361) 0.006 ng/mL <=0.034 SHERRY (test code = SHERRY) Reference (Normal) Range (defined by the 99th percentile reference limit): <= 0.034 ng/mL Note: Cardiac troponin begins to rise 3-4 hours after the onset of ischemia. Repeat in 4-6 hours if the sample was drawn within 3-4 hours of the onset of the symptom and found normal. Diagnosis of myocardial injury is made with acute changes in cTn concentrations with at least one serial sample above the 99th percentile upper reference limit (URL), taken together with the patient's clinical presentation. Biotin has been reported to cause a negative bias, interpret results relative to patient's use of biotin. Lab Interpretation (test code = 82312-7) Normal [facility] Jwf-Ttd3286-33-16 21:08:03* Test Item Value Reference Range Interpretation Comme nts NT-proBNP (test code = 67725-0) 1370 pg/mL <=125 H SHERRY (test code = SHERRY) Positive: Heart Failure Likely Lab Interpretation (test code = 76372-6) [facility]normal [facility] Zfk-Iev2518-90-16 21:08:03* Test Item Value Reference Range Interpretation Comme nts NT-proBNP (test code = 22683-1) 1370 pg/mL <=125 H SHERRY (test code = SHERRY) Positive: Heart Failure Likely Lab Interpretation (test code = 87576-6) [facility]normal [facility] (24267)2024-01-09 21:00:02* Test Item Value Reference Range Interpretation Comme nts NA (test code = 9616327365) 138 mmol/L 135-145 K (test code = 2069257884) 3.4 mmol/L 3.5-5.0 L CL (test code = 8827884935) 104 mmol/L 98-108 CO2 TOTAL (test code = 5990562528) 28 mmol/L 23-31 AGAP (test code = 3638412559) 6 2-16 BUN (test code = 9326741161) 12 mg/dL 7-23 GLUCOSE (test code = 2603531211) 142 mg/dL 70-110 H CREATININE (test code = 2160-0) 0.85 mg/dL 0.60-1.25 TOTAL BILI (test code = 1930107310) 0.7 mg/dL 0.1-1.1 CALCIUM (test code = 8187314237) 8.5 mg/dL 8.6-10.6 L T PROTEIN (test code = 7725664375) 6.9 g/dL 6.3-8.2 ALBUMIN (test code = 0671559605) 3.7 g/dL 3.5-5.0 ALK PHOS (test code = 0434972120) 81 U/L 34-122 ALTv (test code = 1742-6) 20 U/L 5-50 AST(SGOT) (test code = 5140916579) 25 U/L 13-40 eGFR (test code = 13335-7) 94.6 mL/min/1.73m2 CKD-EPI eGFR (2020). Assuming creatinine has been stable day-to-day for at least three months, the eGFR indicates Category G1 (>= 90 mL/min/1.73 m2) Lab Interpretation (test code = 24436-0) Abnormal [facility]2024-05-16 21:00:02* Test Item Value Reference Range Interpretation Comme nts MAGNESIUM (test code = 1400646815) 2.0 mg/dL 1.7-2.4 Lab Interpretation (test cod e = 40275-5) Normal [facility]. Metabolic Panel (81108)2024-01-09 21:00:02* Test Item Value Reference Range Interpretation Comme nts NA (test code = 0684459215) 138 mmol/L 135-145 K (test code = 5160868394) 3.4 mmol/L 3.5-5.0 L CL (test code = 0468190155) 104 mmol/L 98-108 CO2 TOTAL (test code = 8963808767) 28 mmol/L 23-31 AGAP (test code = 0435608400) 6 2-16 BUN (test code = 0347430513) 12 mg/dL 7-23 GLUCOSE (test code = 3368849092) 142 mg/dL 70-110 H CREATININE (test code = 2160-0) 0.85 mg/dL 0.60-1.25 TOTAL BILI (test code = 2601930940) 0.7 mg/dL 0.1-1.1 CALCIUM (test code = 8726886925) 8.5 mg/dL 8.6-10.6 L T PROTEIN (test code = 9960620893) 6.9 g/dL 6.3-8.2 ALBUMIN (test code = 5789100988) 3.7 g/dL 3.5-5.0 ALK PHOS (test code = 4586380447) 81 U/L 34-122 ALTv (test code = 1742-6) 20 U/L 5-50 AST(SGOT) (test code = 8329622201) 25 U/L 13-40 eGFR (test code = 59437-7) 94.6 mL/min/1.73m2 CKD-EPI eGFR (2020). Assuming creatinine has been stable day-to-day for at least three months, the eGFR indicates Category G1 (>= 90 mL/min/1.73 m2) Lab Interpretation (test code = 69458-7) Abnormal [facility]2024-05-16 21:00:02* Test Item Value Reference Range Interpretation Comme nts MAGNESIUM (test code = 9644299309) 2.0 mg/dL 1.7-2.4 Lab Interpretation (test cod e = 28122-9) [facility] Iklf6353-14-74 20:44:02* Test Item Value Reference Range Interpretation Comme nts WBC (test code = 6690-2) 8.91 4.20-10.70 RBC (test code = 789-8) 3.59 4.26-5.52 L HGB (test code = 718-7) 10.8 g/dL 12.2-16.4 L HCT (test code = 4544-3) 33.3 % 38.4-49.3 L MCV (test code = 787-2) 92.8 fL 81.7-95.6 MCH (test code = 785-6) 30.1 pg 26.1-32.7 MCHC (test code = 786-4) 32.4 g/dL 31.2-35.0 RDW-SD (test code = 08763-1) 49.0 fL 38.5-51.6 RDW-CV (test code = 788-0) 14.4 % 12.1-15.4 PLT (test code = 777-3) 129 150-328 L MPV (test code = 34422-2) 11.3 fL 9.8-13.0 IPF % (test code = 9766302730) 4.7 % 1.2-10.7 Platelet count measured by fluorescence method. NRBC/100 WBC (test code = 2494908683) 0.0 0.0-10.0 NRBC x10^3 (test code = 6346378993) See_Comment [Automated Lawding[employer] ge] The system which generated this result transmitted reference range: 10*3/?L. The reference range was not used to interpret this result as normal/abnormal. GRAN MAT (NEUT) % (test code = 770-8) 74.5 % IMM GRAN % (test code = 3626781078) 0.30 % LYMPH % (test code = 736-9) 16.4 % MONO % (test code = 5905-5) 8.2 % EOS % (test code = 713-8) 0.3 % BASO % (test code = 706-2) 0.3 % GRAN MAT x10^3(ANC) (test code = 8617913011) 6.63 10*3/uL 1.99-6.95 IMM GRAN x10^3 (test code = 3471941252) 0.03 10*3/uL 0.00-0.06 LYMPH x10^3 (test code = 731-0) 1.46 10*3/uL 1.09-3.23 MONO x10^3 (test code = 742-7) 0.73 10*3/uL 0.36-1.02 EOS x10^3 (test code = 711-2) 0.03 10*3/uL 0.06-0.53 L BASO x10^3 (test code = 704-7) 0.03 10*3/uL 0.01-0.09 Lab Interpretation (test code = 67059-4) Abnormal [facility] with [id number] 20:44:02* Test Item Value Reference Range Interpretation Comme nts WBC (test code = 6690-2) 8.91 4.20-10.70 RBC (test code = 789-8) 3.59 4.26-5.52 L HGB (test code = 718-7) 10.8 g/dL 12.2-16.4 L HCT (test code = 4544-3) 33.3 % 38.4-49.3 L MCV (test code = 787-2) 92.8 fL 81.7-95.6 MCH (test code = 785-6) 30.1 pg 26.1-32.7 MCHC (test code = 786-4) 32.4 g/dL 31.2-35.0 RDW-SD (test code = 45394-7) 49.0 fL 38.5-51.6 RDW-CV (test code = 788-0) 14.4 % 12.1-15.4 PLT (test code = 777-3) 129 150-328 L MPV (test code = 91782-2) 11.3 fL 9.8-13.0 IPF % (test code = 3623114760) 4.7 % 1.2-10.7 Platelet count measured by fluorescence method. NRBC/100 WBC (test code = 7188300047) 0.0 0.0-10.0 NRBC x10^3 (test code = 5409900319) See_Comment [Automated messa ge] The system which generated this result transmitted reference range: 10*3/?L. The reference range was not used to interpret this result as normal/abnormal. GRAN MAT (NEUT) % (test code = 770-8) 74.5 % IMM GRAN % (test code = 8889863878) 0.30 % LYMPH % (test code = 736-9) 16.4 % MONO % (test code = 5905-5) 8.2 % EOS % (test code = 713-8) 0.3 % BASO % (test code = 706-2) 0.3 % GRAN MAT x10^3(ANC) (test code = 6012090798) 6.63 10*3/uL 1.99-6.95 IMM GRAN x10^3 (test code = 8180673466) 0.03 10*3/uL 0.00-0.06 LYMPH x10^3 (test code = 731-0) 1.46 10*3/uL 1.09-3.23 MONO x10^3 (test code = 742-7) 0.73 10*3/uL 0.36-1.02 EOS x10^3 (test code = 711-2) 0.03 10*3/uL 0.06-0.53 L BASO x10^3 (test code = 704-7) 0.03 10*3/uL 0.01-0.09 Lab Interpretation (test code = 12260-2) [facility] [id number] 20:23:45HISTORY: Chest pain. SOB. TECHNIQUE: Portable AP view of the chest is obtained. Comparison made with09/26/2022 study. FINDINGS: Mild to moderate cardiomegaly noted with slightly prominentcentral pulmonary vasculature. Increased reticular markings are seen inboth lungs, some of which could be chronic from pulmonary fibrosis withsuperimposed minimal acute pulmonary edema. No focal consolidation. No pn eumothorax or pleural effusion. Lower cervicalspine ACDF surgical changes noted.. CONCLUSIONS: Cardiomegaly with minimal pulmonary edema, superimposed onunderlying chronic changes of pulmonary fibrosis/obstructive lung disease. [facility] [id number] 20:23:45HISTORY: Chest pain. SOB. TECHNIQUE: Portable AP view of the chest is obtained. Comparison made with09/26/2022 study. FINDINGS: Mild to moderate cardiomegaly noted with slightly prominentcentral pulmonary vasculature. Increased reticular markings are seen inboth lungs, some of which could be chronic from pulmonary fibrosis withsuperimposed minimal acute pulmonary edema. No focal consolidation. No pn eumothorax or pleural effusion. Lower cervicalspine ACDF surgical changes noted.. CONCLUSIONS: Cardiomegaly with minimal pulmonary edema, superimposed onunderlying chronic changes of pulmonary fibrosis/obstructive lung disease. [facility] (SCANNED) [id number] 14:57:14Ordered by an unspecified provider.[facility] (SCANNED) [id number] 14:56:47Ordered by an unspecified provider.[facility] (SCANNED) DOCUMENTS 2023-12-24 14:56:29Ordered by an unspecified provider.[facility] - [id number] 16:52:16Ordered by an unspecified provider.[facility] [id number] 16:25:43 HISTORY: Follow-up of lung nodules. TECHNIQUE: 64-Multidetector noncontrast enhanced CT of the chest isobtained. DOSE: ?Up-to-date CT equipment and radiation dose reduction techniques wereemployed. CTDIvol: 10.56 mGy. DLP: 1.25+392.58 mGy-cm. FINDINGS: Comparison with previous CT of chest of 08/05/2023 showed nosignificant interval change. LUNG NODULES: Series #9. RIGHT LUN mm to 5 mm noduleson slice #40, 50, 52, 53, 60, 64, 97, 98,99, 105, 109 are unchanged. In addition, irregular shaped fibrosissurrounding 11 mm nodule right upper lung (image #39, 12 mm an 8 mm nodules(image #61) are unchanged. LEFT LUN mm to 6 mm nodules on slice #30, 35, 80, 88 noted. Nodules onslices #80 and 88 are much more well-defined since the previous study. Noother interval change. A larger spiculated nodule of 18 x 9 mm are noted bypulmonary fibrosis in the left upper lung on image #47 is unchanged.Entire lung parenchyma show extensive bilateral obstructive lung diseasewith numerous paraseptal aswell as roe acinar type emphysematous bulla. No pneumothorax or pneumomediastinum. No pleural effusion or pericardialeffusion. Calcification is seen in some of the right infrahilar lymphnodes. Atherosclerosis is noted in LAD and LCx coronary arteries. Main pulmonaryartery is dilated, 3.6 cm, suggesting pulmonary arterial hypertension. No focal lesions visualized in the thyroid gland. No lower cerv ical ACDFsurgical changes noted. Intrathecal catheter is seen in the lower thoracicspinal canal. Visualized upper abdominal organs are unremarkable except fornodular serosal surface suggestive of chronic liver disease such ascirrhosis. Thoracic kyphosis, Schmorl's nodes in multiple middle and lowerthoracic vertebral bodies noted. Chest wall soft tissues appearunremarkable except for mild bilateral gynecomastia. CONCLUSIONS: 1. Severe generalized obstructive lung disease.2. Numerous bilateral pulmonary nodules, focal areas of pulmonary fibrosissurrounding irregular shaped nodules in upper lungon both sides,essentially unchanged since July 2023 study. Continued monitoring byfollow-up low-dose screening CT chest study in 6 months is requested. [facility] Urinalysis W Specific [id number] 19:05:00* Test Item Value Reference Range Interpretation Comme nts POCT U SP GRAV (test code = 3255) 1.025 mg/dl 1.005-1.025 POCT PH U (test code = 3254) 5 mg/dl 5-8 POCT U LEUK EST (test code = 3263) trace Negative - Negative POCT U NIT (test code = 3262) neg Negative - Negati ve POCT U PROT (test code = 3259) trace Negative - Negative POCT U GLU (test code = 3256) normal Negative - Negati ve POCT U KETONE (test code = 3258) neg Negative - Negative POCT U UROBILI (test code = 3260) normal 0.2-1 POCT U BILI (test code = 3261) neg Negative - Negative POCT U BLD (test code = 3257) trace Negative - Negati ve POCT U COLOR (test code = 3266) dark POCT U APPEAR (test code = 3267) clear [facility] W Specific [id number] 19:05:00* Test Item Value Reference Range Interpretation Comme nts POCT U SP GRAV (test code = 3255) 1.025 mg/dl 1.005-1.025 POCT PH U (test code = 3254) 5 mg/dl 5-8 POCT U LEUK EST (test code = 3263) trace Negative - Negative POCT U NIT (test code = 3262) neg Negative - Negati ve POCT U PROT (test code = 3259) trace Negative - Negative POCT U GLU (test code = 3256) normal Negative - Negati ve POCT U KETONE (test code = 3258) neg Negative - Negative POCT U UROBILI (test code = 3260) normal 0.2-1 POCT U BILI (test code = 3261) neg Negative - Negative POCT U BLD (test code = 3257) trace Negative - Negati ve POCT U COLOR (test code = 3266) dark POCT U APPEAR (test code = 3267) clear [facility]2023-10-04 00:57:43* Test Item Value Reference Range Interpretation Comme nts Height (test code = 4836820213) 71 in Weight (test code = 4070584669) 234 lbs Systolic BP (test code = 4447865230) 129 mmHg Diastolic BP (test code = 4091758613) 55 mmHg Heart Rate (test code = 0477453300) 56 bpm Ao root diam (test code = 1795671106) 2.80 cm Aortic root (test code = 9145643296) 2.8 cm Ao root annulus (test code = 7542254459) 2.8 cm BSA (test code = 9499086182) 2.25 m2 LVOT diameter (test code = 9871165394) 2.03 cm LVOT area (test code = 4376429548) 3.20 cm2 LA size (test code = 8151639275) 3.9 cm ACS (test code = 3710918174) 2.09 cm PV PEAK VELOCITY (test code = 7882007944) 129.7 cm/s PV peak gradient (test code = 1050038846) 6.7 mmHg MV E-F slope (test code = 7062752161) 66.70 cm/s MV Peak E Memo (test code = 8604872818) 114.9 cm/s MV valve area p 1/2 method (test code = 8602643708) 2.39 cm2 MV dec slope (test code = 3769525068) 368.20 cm/s2 MV P1/2t max memo (test code = 1295426338) 115.50 cm/s MV Peak A Memo (test code = 6428564243) 107.9 cm/s E/A ratio (test code = 5726327168) 1.07 ratio LVOT stroke volume (test code = 2235913764) 123.00 cm3 LVOT peak memo (test code = 8932352105) 146.0 cm/s LVOT mn grad (test code = 2469403729) 4.5 mmHg AV LVOT peak gradient (test code = 8332971231) 8.5 mmHg LVOT peak VTI (test code = 7362681463) 38.2 cm LV V1 mean (test code = 9086489625) 98.30 cm/s Aortic valve mean velocity (test code = 1882087446) 120.2 cm/s Ao peak memo (test code = 6506294398) 187.7 cm/s Ao VTI (test code = 8796723242) 47.3 cm AV area by cont VTI (test code = 1873658305) 2.6 cm2 AV area peak memo (test code = 0911700927) 2.5 cm2 Ao max PG (test code = 7764985641) 14.10 mm[Hg] AV peak gradient (test code = 8977451086) 14.1 mmHg AV valve area (test code = 8834438682) 2.60 cm2 AV mean gradient (test code = 5427347322) 6.6 mmHg LAV(MOD-sp4) (test code = 9268301576) 35.10 mL LA Volume Index (BP) (test code = 5496359646) 18.3 mL/m2 LA volume (BP) (test code = 2631757961) 41.3 mL LAV(MOD-sp2) (test code = 4770406017) 48.30 mL LVIDD (test code = 0261375867) 4.80 cm Left Ventricular End Diastolic Volume by Teichholz Method (test code = 1662347) 109.9 mL IVS (test code = 5139684133) 1.24 cm Interventricular Septum Diastolic Thickness by 2D (test code = 8249626) 1.24 cm LVPWD (test code = 1396548037) 1.28 cm PW (test code = 3372905982) 1.28 cm 0.6-1.1 EF(Teich) (test code = 0394945730) 52.20 % LVIDS (test code = 7558231671) 3.50 cm Left Ventricular End Systolic Volume by Teichholz Method (test code = 7101615) 52.6 mL FS (test code = 5739475432) 27 % EF - 2D (test code = 38658325) 52.20 % TR Peak Memo (test code = 5559055403) 364.1 cm/s Triscuspid Valve Regurgitation Peak Gradient (test code = 9998111148) 53.0 mmHg Radiology Study observation (narrative) (test code = 33167-5) SHERRY (test code = SHERRY) ?Left?Ventricle: Left ventricle size is normal. Mildly increased wall thickness. Septal flattening in systole consistent with right ventricular pressure overload. . Normal wall motion. Normal systolic function with a visually estimated EF of 55 - 60%. Diastolic dysfunction. Normal left ventricular filling pressure. ?Tricuspid?Valve: Trace transvalvular regurgitation. Right ventricular systolic pressure is 50-55 mmHg. ?RA pressure is 0-5 mmHg. ?Left?Atrium: Left atrium is mildly dilated. ?Right?Ventricle: Right ventricle is mildly dilated. Mildly reduced systolic function. ?Aorta: Mildly enlarged ascending aorta 3.2cm. ?Pericardium: Trivial pericardial effusion present. Left VentricleLeft ventricle size is normal. Mildly increased wall thickness. Septal flattening in systole consistent with right ventricular pressure overload. . Normal systolic function with a visually estimated EF of 55 - 60%. Diastolic dysfunction. Normal left ventricular filling pressure.Right VentricleRight ventricle is mildly dilated. Mildly reduced systolic function.Left AtriumLeft atrium is mildly dilated.Right AtriumRight atrium size is normal.Mitral ValveMild mitral annular calcification. Trace transvalvular regurgitation.Tricusp id ValveTricuspid valve structure is grossly normal. Trace transvalvular regurgitation. Right ventricular systolic pressure is 50-55 mmHg. RA pressure is 0-5 mmHg.Aortic ValveAortic valve opens well. Mildly calcified cusps. AV mean gradient is 6.6 mmHg.Pulmonic ValveNot well visualized. Trace transvalvular regurgitation.Ascendi ng AortaMildly enlarged ascending aorta 3.2cm.PericardiumTriv ial pericardial effusion present.Study DetailsStudy quality experienced technical difficulty. A complete echocardiogram was performed using 2D, color flow Doppler and spectral Doppler. 5 mL of Lumason ultrasound enhancing agent used. [facility] + LACTIC [id number] 16:11:29* Test Item Value Reference Range Interpretation Comme nts PH (test code = 7766273234) 7.32 7.32-7.42 PCO2 ELIS (test code = 8012847324) 44 See_Comment [Automated messa ge] The system which generated this result transmitted reference range: 41 - 51 mmHg. The reference range was not used to interpret this result as normal/abnormal. PO2 ELIS (test code = 9319963630) 23 See_Comment L [Automated messa ge] The system which generated this result transmitted reference range: 25 - 40 mmHg. The reference range was not used to interpret this result as normal/abnormal. HCO3 ELIS (test code = 7020641742) 23 See_Comment L [Automated messa ge] The system which generated this result transmitted reference range: 24 - 28 mEq/L. The reference range was not used to interpret this result as normal/abnormal. AC VBE(BEAKER) (test code = 5605345096) -3.6 mEq/L THB ELIS (test code = 8700208557) 14.8 g/dL 13.5-18.0 %O2HB ELIS (test code = 6558016776) 41.0 % 52.0-63.0 L %COHB ELIS (test code = 1731607120) 2.4 % 0.0-1.5 H %METHB ELIS (test code = 0776753667) 0.3 % 0.4-1.5 L VOL%O2 ELIS (test code = 4620193685) 8.5 % 6.0-12.0 NA (test code = 1763859279) 145 mmol/L 135-145 K+ (test code = 6567499749) 3.4 mmol/L 3.5-5.0 L AC CA IONZ (test code = 2200031331) 4.70 mg/dL 4.50-5.30 GLUCOSE (test code = 7480587074) 128 mg/dL 70-110 H LACTIC ACID (test code = 8790860866) 1.60 mmol/L 0.50-2.20 Lab Interpretation (test code = 41903-3) Abnormal [facility] Consult Notes Date/Time Note Provider Source 2024-05-20 09:36:42 Associated Order(s): CONSULT CARDIOLOGY [facility] Cardiology Consult Note Patient: Tahira Hunter Date of : 1955 Primary Care Physician: Aminata Reza CHIEF COMPLAINT: Chief Complaint Patient presents with Shortness of Breath HISTORY OF PRESENT ILLNESS: Tahira Hunter is a 69 year old male presented to the ER for evaluation for NICKERSON NYHA class III/atypical chest pain. History from patient. Pertinent cardiac related history reviewed from chart 05.20.2024 Patient was seen by me in the hospital dated 03/27/2024. During that visit, due to significant breast skin bruising and anemia noted, we recommended to hold off on the Xarelto in the setting of anemia, and patient was discharged from aspirin/Plavix combination with the plans to be seen by EP for further assessment and also discussion regarding the Watchman device. In the interim, patient was supposed to be seen by EP tomorrow. In the interim, patient was readmitted back in the hospital due to worsening shortness of breath along with chest pain. Patient has been having worsening shortness of breath that's been going on for the last 2 to 3 days, more so in the last 24 to 48 hours. Hence, he decided to come to the hospital for further evaluation management. Overnight, patient on BiPAP in the emergency room with which he started feeling better along with IV steroids as respiratory status improved along with IV Lasix for adequate diuresis. NICKERSON which are class 2 to 3 noted, currently off BiPAP, currently on nasal cannula. Reports having chest pain mainly on deep inspiration at random with no specific aggravating or relieving factors. Reports compliance with medication, other than Xarelto that was held due to significant skin bruising. Cardiology consulted due to elevated NT-proBNP. 03/17/2024 Undergo a coronary angiogram. She visited the ER on 01/09/2024 due to worsening shortness of breath and was referred to [facility] for further evaluation. Her discharge summary from 01/14/2024 was reviewed, and she was discharged on aspirin/Plavix/Xarelto to be taken for the next week. She was advised to discontinue aspirin and continue with Plavix and Xarelto. No other major changes were made to her medication regimen. Upon the discharge summary, she was advised to discontinue metoprolol and lisinopril. However, metoprolol was not restarted even in the past. She has been taking lisinopril since her discharge. Her blood pressure has been stable at home. NICKERSON and NYHA class 2 to 3 were noted. No new or worsening symptoms were reported from the cardiac standpoint, and she reports compliance with her medication. She reports excessive skin bruising due to multiple blood thinners, a recent diagnosis of coronary artery disease. She is currently on Plavix 75 mg daily and Xarelto 15 mg daily due to a previous diagnosis of ongoing paroxysmal atrial fibrillation. 10/03/2023 Since the last office visit 07/2023, patient still continues to have shortness of breath NYHA class III-III noted. No significant bilateral leg swelling noted. Completed echocardiogram today. Holter monitor still awaited. Has been compliant with the Lasix. No other new cardiac symptoms noted. 07/29/2023 Since his last office visit dated 09/2022, the patient was initially feeling well. In the last 6 weeks' duration, the patient reports worsening shortness of breath. He also gained around 20 pounds since the last office visit. Reports NICKERSON NYHA class 2 to 3. In the interim, the patient was seen by PCP's office and the dose of Lasix was increased from 20 mg daily to alternating between 20 mg and 40 mg daily with which he has not noticed any significant improvement. No other chest pain noted. He reports feeling fatigued and tired. No chest pain elicited. No PND or orthopnea. No pedal edema. No exertional palpitations or palpitations at rest. No syncopal attacks. 03/03/2021: Patient was admitted through the ER for evaluation of atypical chest pain. Serial troponins were negative. Echo within acceptable limits. Currently here for follow-up. Cardiac risk factors: Age, hypertension, dyslipidemia, ongoing tobacco abuse, PAD PAST MEDICAL HISTORY Past Medical History: Diagnosis Date Cellulitis Chronic ankle pain, bilateral Chronic neck pain COPD (chronic obstructive pulmonary disease) HTN (hypertension) PVD (peripheral vascular disease) s/p left leg stent Past Surgical History: Procedure Laterality Date APPENDECTOMY HB PUMP PAIN SYNCHROMED II 2004 Dr Zhou managing OTHER neck surgery SPINE SURGERY STENT PLACEMENT (SHX) left leg Family History Problem Relation Age of Onset Dementia Mother Dementia Father Coronary Heart Disease Sister Cancer Sister SOCIAL HISTORY Social History Socioeconomic History Marital status: Single Tobacco Use Smoking status: Every Day Current packs/day: 0.50 Average packs/day: 0.5 packs/day for 55.1 years (27.5 ttl pk-yrs) Types: Cigarettes Start date: 1969 Passive exposure: Past Smokeless tobacco: Never Substance and Sexual Activity Alcohol use: Not Currently Drug use: Not Currently Sexual activity: Not Currently Social History Narrative Retired [employer] Lives alone Social Determinants of Health Financial Resource Strain: Low Risk (04/07/2024) Overall Financial Resource Strain (CARDIA) Difficulty of Paying Living Expenses: Not hard at all Food Insecurity: No Food Insecurity (04/07/2024) Hunger Vital Sign Worried About Running Out of Food in the Last Year: Never true Ran Out of Food in the Last Year: Never true Transportation Needs: No Transportation Needs (01/13/2024) PRAPARE - Transportation Lack of Transportation (Medical): No Lack of Transportation (Non-Medical): No Physical Activity: Inactive (04/07/2024) Exercise Vital Sign Days of Exercise per Week: 0 days Minutes of Exercise per Session: 0 min Social Connections: Unknown (04/07/2024) Social Connection and Isolation Panel [NHANES] Frequency of Communication with Friends and Family: Three times a week Marital Status: Never Housing Stability: Low Risk (04/07/2024) Housing Stability Vital Sign Unable to Pay for Housing in the Last Year: No Number of Places Lived in the Last Year: 1 Unstable Housing in the Last Year: No ALLERGIES No Known Allergies MEDICATIONS Current Discharge Medication List STOP taking these medications traMADoL 25 mg tablet Comments: Reason for Stopping: umeclidinium (INCRUSE ELLIPTA) 62.5 mcg/actuation DsDv Comments: Reason for Stopping: ATORVASTATIN 40 mg tablet Comments: Reason for Stopping: metoprolol succinate XL 25 mg 24 hr tablet Comments: Reason for Stopping: XARELTO 20 mg tablet Comments: Reason for Stopping: SERTraline 100 mg tablet Comments: Reason for Stopping: albuterol 90 mcg/actuation inhaler Comments: Reason for Stopping: hydrocortisone 25 mg suppository Comments: Reason for Stopping: mupirocin 2 % ointment Comments: Reason for Stopping: LISINOPRIL 40 mg tablet Comments: Reason for Stopping: clopidogreL 75 mg tablet Comments: Reason for Stopping: traZODone 50 mg tablet Comments: Reason for Stopping: fluticasone furoate-vilanteroL (BREO ELLIPTA) 200-25 mcg/dose DsDv Comments: Reason for Stopping: foLIC acid 1 mg tablet Comments: Reason for Stopping: tamsulosin 0.4 mg 24 hr capsule Comments: Reason for Stopping: Current Facility-Administered Medications: furosemide (LASIX) injection 40 mg, 40 mg, Slow IV Push, Q12H, Bill Davenport MD, 40 mg at 05/20/24 0924 ipratropium-albuteroL (DUONEB) 0.5 mg-3 mg(2.5 mg base)/3 mL nebulizer solution 3 mL, 3 mL, Inhalation, Q4H, Bill Davenport MD methylPREDNISolone sod succ (SOLU-MEDROL (PF)) injection 40 mg, 40 mg, Intravenous, Q12H, Bill Davenport MD [START ON 05/21/2024] metoprolol succinate XL (TOPROL XL) tablet 12.5 mg, 12.5 mg, Oral, DAILY, Bill Davenport MD atorvastatin (LIPITOR) tablet 40 mg, 40 mg, Oral, QHS, Trish Adams MD clopidogreL (PLAVIX) 75 mg tablet 75 mg, 75 mg, Oral, DAILY, Trish Adams MD, 75 mg at 05/20/24 0800 diazePAM (VALIUM) injection 1 mg, 1 mg, Slow IV Push, TIDPRN, Trish Adams MD foLIC acid (FOLATE) tablet 1 mg, 1 mg, Oral, DAILY, Trish Adams MD, 1 mg at 05/20/24 0800 ipratropium-albuteroL (DUONEB) 0.5 mg-3 mg(2.5 mg base)/3 mL nebulizer solution 3 mL, 3 mL, Inhalation, QIDPRN, Trish Adams MD, 3 mL at 05/19/24 2312 lisinopriL (PRINIVIL,ZESTRIL) tablet 40 mg, 40 mg, Oral, BID, Trish Adams MD, 40 mg at 05/20/24 0757 nicotine (NICODERM) 21 mg/24 hr patch 1 Patch, 1 Patch, Topical, Q24H, Trish Adams MD, 1 Patch at 05/19/24 215 rivaroxaban (XARELTO) tablet 20 mg, 20 mg, Oral, DAILY, Trish Adams MD, 20 mg at 05/20/24 0800 SERTraline (ZOLOFT) tablet 100 mg, 100 mg, Oral, BID [id number], Trish Adams MD, 100 mg at 05/20/24 0540 tamsulosin (FLOMAX) capsule 0.4 mg, 0.4 mg, Oral, DAILY, Trish Adams MD, 0.4 mg at 05/20/24 0800 traMADoL (ULTRAM) tablet 50 mg, 50 mg, Oral, Q6HPRN, Trish Adams MD, 50 mg at 05/20/24 0758 traZODone (DESYREL) tablet 50 mg, 50 mg, Oral, QHS, Trish Adams MD, 50 mg at 05/19/24 215 REVIEW OF SYSTEMS: Comprehensive 10-system review was conducted and were negative except for what's noted in the HPI. The following systems were reviewed: Constitutional, cardiovascular, respiratory, gastrointestinal, genitourinary, musculoskeletal, neurologic, psychiatric, endocrinological, and hematological. PHYSICAL EXAMINATION: Vitals: 05/20/24 0700 05/20/24 0755 05/20/24 0800 05/20/24 0900 BP: (!) 158/66 (!) 161/61 (!) 150/78 BP Location: Right arm Patient Position: Supine Pulse: 52 58 56 57 Resp: 20 15 16 Temp: 35.7 ?C (96.2 ?F) TempSrc: Tympanic SpO2: 98% 99% 97% 94% Weight: Height: General: no apparent distress HEENT: normocephalic atraumatic Neck: supple, no lymphadenopathy, no bruits, no JVD Lungs: clear to auscultation bilaterally. No wheezes or rhonchi. No increased work of breathing. Cardio: Regular rate and rhythm, S1&S2 normal, no murmurs, rubs or gallops Abdomen: soft; non-tender; non-distended; normoactive bowel sounds. : not examined Rectal: not examined Extremities: no clubbing, cyanosis, or edema. Skin: no rashes, no visible lesions. Neuro: no gross focal deficits LABS - Reviewed pertinent labs as below: CBC BMP PT/INR WBC (10*3/?L) Date Value 05/20/2024 6.53 NA (mmol/L) Date Value 05/20/2024 138 No results found for: "PT" PLT (10*3/?L) Date Value 05/20/2024 180 K (mmol/L) Date Value 05/20/2024 3.7 INR (no units) Date Value 01/09/2024 1.2 HGB (g/dL) Date Value 05/20/2024 8.4 (L) BUN (mg/dL) Date Value 05/20/2024 11 HCT (%) Date Value 05/20/2024 28.6 (L) CREATININE (mg/dL) Date Value 05/20/2024 0.71 LIPID PROFILE GLUCOSE (mg/dL) Date Value 05/20/2024 131 (H) CHOL (mg/dL) Date Value 01/09/2024 90 (L) TSH LDL CHOL (mg/dL) Date Value 01/09/2024 45 TSH (mIU/L) Date Value 01/09/2024 0.59 CARDIAC ENZYMES HDL (mg/dL) Date Value 01/09/2024 31 (L) CK (U/L) Date Value 03/03/2021 114 TRIG (mg/dL) Date Value 01/09/2024 71 LFTs No results found for: "CKMB" AST(SGOT) (U/L) Date Value 05/20/2024 45 (H) TROPONIN I (ng/mL) Date Value 05/19/2024 0.009 ALTv (U/L) Date Value 05/20/2024 16 No results found for: "BNP" LDL CHOL (mg/dL) Date Value 01/09/2024 45 Recent Labs 05/19/24 1117 TROPNI 0.009 Recent Labs 01/09/24 1517 TRIG 71 LDL CHOL (mg/dL) Date Value 01/09/2024 45 NT-proBNP (pg/mL) Date Value 05/19/2024 4,200 (H) 03/12/2022 558 (H) ASSESSMENT/PLAN Principal Problem: COPD exacerbation Active Problems: PAD (peripheral artery disease) Essential hypertension Atypical chest pain Acute on chronic heart failure with preserved ejection fraction (HFpEF) PAF (paroxysmal atrial fibrillation) Paroxysmal atrial flutter Dyslipidemia Coronary artery disease involving [place] coronary artery of [place] heart with angina pectoris NICKERSON (dyspnea on exertion) Anemia associated with nutritional deficiency Bradycardia Acute respiratory failure Relevant labs reviewed shows hemoglobin noted to be stable at 8.4, platelet count normal at 180, creatinine stable at 0.7, potassium stable at 3.7, elevated NT-proBNP, but stable similar to last month, noted at 4,200, LFTs within acceptable stable limits. Chest X-ray dated 05/19/2024 images reviewed shows emphysematous changes, with mild heart failure pattern. Echocardiogram dated 04/06/2024 images revealed shows preserved systolic function, pseudonormal diastolic dysfunction, RVSP elevated to more than 60. No significant valve abnormalities noted. Acute hypoxic respiratory failure likely in the combination of underlying acute COPD exacerbation/acute and chronic heart failure with preserved ejection fraction. Rx/workup as per primary team. Acute and chronic heart failure with preserved ejection fraction: NICKERSON: NYHA class 3 Multifactorial in setting of underlying hypertension, diastolic dysfunction, HFpEF, COPD, deconditioning, sleep apnea, CAD, anemia Recommended serial trop X 2, BNP levels, followed by echocardiogram 2D to assess EF/volume status and pulmonary pressure. Would recommend starting IV Lasix 40 BID. Home dose of Lasix 80 BID along with KCl 20 mg daily noted. Will back off on lisinopril from 40 BID to 40 daily. Recommended daily weights, recommend to keep potassium more than 4 and magnesium more than 2. Recommended fluid restriction less than 2 L per day. Recommended a daily weights. In the past, due to elevated creatinine will currently hold off on starting spironolactone and Jardiance for now. Will reassess at later date. Previously on Lasix 20 mg/alternating at 40 mg daily. EKG 04/06/2024 strips reviewed sinus rhythm, PACs, narrow QRS complex, nonspecific ST-T changes noted. EKG 04/02/2024 strips reviewed shows sinus bradycardia, narrow QRS complex, nonspecific ST-T changes. EKG strips reviewed dated 01/14/2024 shows a sinus rhythm, narrow QRS complex, nonspecific ST changes noted. Echo dated 04/06/2024 images reviewed with the patient. Shows preserved LV systolic function, pseudonormal diastolic dysfunction. No significant regional wall motion changes noted. No significant valve abnormalities noted. RVSP > 60 mmHg. Echocardiogram dated 01/10/2024 images reviewed shows preserved diastolic function, diastolic dysfunction, elevated filling pressures, RVSP elevated 55-60, no significant valve normalities noted. Echo images 10/03/2023 reviewed shows preserved LV systolic function. Diastolic dysfunction noted. RVSP elevated 50-55. No significant valve normalities noted. EKG dated 10/03/2023 strips reviewed shows sinus bradycardia with PACs, narrow QRS complex, nonspecific ST-T changes noted. EKG 03/12/2022 strips reviewed atrial flutter with variable AV block., Narrow QRS complex nonspecific ST-T changes. EKG dated 03/03/2021 strips reviewed shows sinus bradycardia, nonspecific ST changes. Echo images 10/03/2023 reviewed shows preserved LV systolic function. Diastolic dysfunction noted. RVSP elevated 50-55. No significant valve normalities noted. Echocardiogram dated 12/02/2021 images reviewed shows preserved LV systolic function. Diastolic dysfunction. Normal RV size and function. RVSP mildly elevated 3035. No significant valve abnormalities noted. Mild enlarged ascending aorta 3.1 cm. Echocardiogram dated 03/03/2021 images reviewed showed mild LVH, preserved LV systolic function, RV size and function. No regional motion changes noted. Event monitor 07/26/2021 results reviewed. Strips reviewed. Only 2 days worth of recordings noted. No significant arrhythmias noted on the recordings. NM stress test dated 04/19/2021 images reviewed which shows no reversible ischemia. Normal SPECT EF. Motion artifact noted. The diagnostic accuracy and limitation of stress testing for identification of coronary artery disease were reviewed in detail. Atypical Chest pain by history: Recommended serial troponins x 2. Continue telemetry monitoring EKG 04/06/2024 strips reviewed sinus rhythm, PACs, narrow QRS complex, nonspecific ST-T changes noted. EKG 04/02/2024 strips reviewed shows sinus bradycardia, narrow QRS complex, nonspecific ST-T changes. Echo dated 04/06/2024 images reviewed with the patient. Shows preserved LV systolic function, pseudonormal diastolic dysfunction. No significant regional wall motion changes noted. No significant valve abnormalities noted. RVSP > 60 mmHg. Recent Labs 04/07/24 0411 05/19/24 1117 TROPNI 0.023 0.009 Recent Labs 04/06/24 1748 04/07/24 0411 TROPNI 0.022 0.023 Recent Labs 04/06/24 1122 04/06/24 1748 TROPNI 0.025 0.022 Coronary artery disease status post PCI 01.13.2024 EKG 04/06/2024 strips reviewed sinus rhythm, PACs, narrow QRS complex, nonspecific ST-T changes noted. EKG 04/02/2024 strips reviewed shows sinus bradycardia, narrow QRS complex, nonspecific ST-T changes. Echo dated 04/06/2024 images reviewed with the patient. Shows preserved LV systolic function, pseudonormal diastolic dysfunction. No significant regional wall motion changes noted. No significant valve abnormalities noted. RVSP > 60 mmHg. EKG strips reviewed dated 01/14/2024 shows a sinus rhythm, narrow QRS complex, nonspecific ST changes noted. Echocardiogram dated 01/10/2024 images reviewed shows preserved diastolic function, diastolic dysfunction, elevated filling pressures, RVSP elevated 55-60, no significant valve normalities noted. Coronary angiogram dated 01/13/2024 images reviewed showed presence of proximal LAD, severe disease, significant by IFR, hence underwent PCI. Reviewed the importance of ASA/Plavix to be taken without any interruption for the next 1 year. Recommended to discuss with EP for consideration for watchman device evaluation. Currently, patient is off metoprolol completely due to baseline bradycardia noted. But now able to tolerated Toprol-XL 12.5 daily. Continue with the Lipitor at 80 mg daily without any further changes. NT-proBNP (pg/mL) Date Value 05/19/2024 4,200 (H) 03/12/2022 558 (H) NT-proBNP (pg/mL) Date Value 04/08/2024 4,410 (H) 03/12/2022 558 (H) NT-proBNP (pg/mL) Date Value 04/06/2024 8,530 (H) 03/12/2022 558 (H) Paroxysmal atrial flutter/atrial fibrillation. Noted by EKG dated 03/12/2022. Recommended EP evaluation for consideration for watchman device due to significant skin bruising noted and patient is also interested in coming off the Xarelto completely. Currently off Xarelto 15 mg daily in the setting of anemia. Currently not on metoprolol 50 mg twice daily. Able to tolerated Toprol-XL 12.5 daily Pathophysiology reviewed. EKG 04/06/2024 strips reviewed sinus rhythm, PACs, narrow QRS complex, nonspecific ST-T changes noted. EKG 04/02/2024 strips reviewed shows sinus bradycardia, narrow QRS complex, nonspecific ST-T changes. Echo dated 04/06/2024 images reviewed with the patient. Shows preserved LV systolic function, pseudonormal diastolic dysfunction. No significant regional wall motion changes noted. No significant valve abnormalities noted. RVSP > 60 mmHg. Holter monitor dated 10/18/2023 strips reviewed shows no A-fib noted. Average heart rate 81 bpm noted. Event monitor 07/26/2021 strips reviewed. Strips reviewed. Only 2 days worth of recordings noted. No significant arrhythmias noted on the recordings. EKG strips reviewed dated 01/14/2024 shows a sinus rhythm, narrow QRS complex, nonspecific ST changes noted. EKG dated 10/03/2023 strips reviewed shows sinus bradycardia with PACs, narrow QRS complex, nonspecific ST-T changes noted. EKG 09/26/2022 strips reviewed shows sinus bradycardia, positive AV block, narrow QRS complex, no significant ST-T changes noted. EKG 03/12/2022 strips reviewed atrial flutter with variable AV block., Narrow QRS complex nonspecific ST-T changes. Echocardiogram dated 12/02/2021 images reviewed shows preserved LV systolic function. Diastolic dysfunction. Normal RV size and function. RVSP mildly elevated 3035. No significant valve abnormalities noted. Mild enlarged ascending aorta 3.1 cm. Echocardiogram dated 01/10/2024 images reviewed shows preserved diastolic function, diastolic dysfunction, elevated filling pressures, RVSP elevated 55-60, no significant valve normalities noted. Hypertension. Stable Stable. Continue lisinopril 40 mg daily. Currently off amlodipine 10 mg daily. Currently not on metoprolol 50 mg twice daily. Home BP log recommended. Cross check his BP machine. Appropriate ways to check home BP discussed. Goals BP < 140/90 stressed. Explained if BP > 140/90, adviced to send us the log. Lifestyle modifications stressed. Peripheral artery disease status post intervention. PAD s/p intervention left leg 2017: Follows PCP/[facility] vascular surgery. NESTOR 02/14/2021 reviewed which shows bilateral normal NESTOR. 03/03/2021: Venous reflux shows evidence of bilateral reflux disease. Currently aspirin/Plavix combination. Currently off Xarelto as noted above due to significant skin bruising/anemia. We did low-dose low-dose Xarelto 2.5 mg in the future due to significant PAD. Bradycardia: Stable. No significant AV blocks. Recommend outpatient EP evaluation. Currently will tolerate low-dose Toprol-XL 12.5 daily. EKG 04/06/2024 strips reviewed sinus rhythm, PACs, narrow QRS complex, nonspecific ST-T changes noted. EKG 04/02/2024 strips reviewed shows sinus bradycardia, narrow QRS complex, nonspecific ST-T changes. EKG strips reviewed dated 01/14/2024 shows a sinus rhythm, narrow QRS complex, nonspecific ST changes noted. EKG dated 10/03/2023 strips reviewed shows sinus bradycardia with PACs, narrow QRS complex, nonspecific ST-T changes noted. Monitor dated 10/18/2023 reviewed shows PVCs at 1% burden and PACs at 7%. Average heart rate 81 bpm. No other arrhythmias noted. Event monitor 07/26/2021 strips reviewed. Strips reviewed. Only 2 days worth of recordings noted. No significant arrhythmias noted on the recordings. Holter monitor dated 10/18/2023 strips reviewed shows no A-fib noted. Average heart rate 81 bpm noted. Dyslipidemia: Recommended to keep LDL < 70. Lifestyle modifications stressed. Recommend continuing on Lipitor 80 mg daily. LDL at goal. LDL CHOL (mg/dL) Date Value 01/09/2024 45 Anemia: Recommend to keep hemoglobin more than 8 from the cardiac standpoint. Holding off on Xarelto for now the setting of anemia. Recommended smoking cessation. Rx plan discussed with patient/family members at bedside. Total Visit Time: 60 mins The total Visit time for today's visit with Tahira Hunter encompassed 60 minutes. Time was spent reviewing the chart before, during and after the visit, reviewing laboratory results, taking interval history, performing the documented physical examination, completing and "cleaning up" the electronic medical record as well as addressing any questions and concerns. The time spent for patient care includes: PreCharting (eg, review of tests, notes, etc.), Obtaining and/or reviewing separately obtained history (Care Everywhere or paper records), Counseling and educating the patient/family/caregiver, Ordering medications, tests, or procedures, Ordering referrals and/or communicating with other health palliative care nurse (when not separately reported), Documenting clinical information in the electronic or other health record, and Independently interpreting results (not separately reported) and/or communicating results to the patient/family/caregiver. This report was dictated using Twibingo and is subject to voice recognition errors. Please excuse any unusual inaccuracies. My diagnostic impression and treatment plans were discussed at length with the patient. All side effects as well as drug-drug interactions and risks discussed at length. Ample opportunity was offered and encouraged to ask questions during this visit and patient appreciated the answers given by me and verbzalised statisfcation in the answers given. Thank you for allowing us to participate in the care of Tahira Hunter. If you have any questions or concerns please feel free to call our office at [phone]. I would be happy to be of further assistance for Tahira Hunter wellbeing. Rich Maya MD Industrial Methods Consultant, Division of Cardiology [facility] 2024-04-08 11:17:10 Associated Order(s): CONSULT GROUND CREW SUPERVISOR-ADULT Patient provided with [facility] Resource Sheet. Sam Paulson RN, BSN [facility] ADC Surgical Aide O [phone] [id number] [id number] [id number] [facility] 2024-04-07 12:10:00 Associated Order(s): CONSULT PS PASTORAL CARE Event Lead Printer visited patient per consult. Intervention Lead Printer was a spiritual presence and pest management supervisor. Lead Printer offered active compassionate listening. Lead Printer provided patient with words of support and encouragement. Lead Printer prayed for patient healing and recovery. Outcome/Spiritual Assessment Patient received awake in bed. Patient was in good spirits. Patient sister and her was at bedside. Patient shared about his illness. Patient identifies as Synagogue and welcomed prayer from the Lead Printer. Patient appreciated the Lead Printer visit. Plan Additional Lead Printer support is available upon request. Lead Printer Mary Garay DMin [facility] Care Department [phone] Mary Garay [facility] 2024-04-06 15:51:21 Associated Order(s): CONSULT CARDIOLOGY [facility] Cardiology Consult Note Patient: Tahira Hunter Date of : 1955 Primary Care Physician: Aminata Reza CHIEF COMPLAINT: Chief Complaint Patient presents with Chest Pain HISTORY OF PRESENT ILLNESS: Tahira Hunter is a 68 year old male presented to the ER for evaluation for NICKERSON NYHA class III. History from patient. Pertinent cardiac related history reviewed from chart Since the last office visit on 03/17/2024, patient was in the ER dated 04/02/2024 due to COPD evaluation. Patient presented back again during the ER due to worsening shortness of breath not optimally controlled. NICKERSON NYHA class III noted. Anemia noted. Cardiology consulted due to elevated NT-proBNP. Chest pain history elicited. Currently getting admitted to the hospital. Reports compliance with medication. 03/17/2024 Undergo a coronary angiogram. She visited the ER on 01/09/2024 due to worsening shortness of breath and was referred to [facility] for further evaluation. Her discharge summary from 01/14/2024 was reviewed, and she was discharged on aspirin/Plavix/Xarelto to be taken for the next week. She was advised to discontinue aspirin and continue with Plavix and Xarelto. No other major changes were made to her medication regimen. Upon the discharge summary, she was advised to discontinue metoprolol and lisinopril. However, metoprolol was not restarted even in the past. She has been taking lisinopril since her discharge. Her blood pressure has been stable at home. NICKERSON and NYHA class 2 to 3 were noted. No new or worsening symptoms were reported from the cardiac standpoint, and she reports compliance with her medication. She reports excessive skin bruising due to multiple blood thinners, a recent diagnosis of coronary artery disease. She is currently on Plavix 75 mg daily and Xarelto 15 mg daily due to a previous diagnosis of ongoing paroxysmal atrial fibrillation. 10/03/2023 Since the last office visit 07/2023, patient still continues to have shortness of breath NYHA class III-III noted. No significant bilateral leg swelling noted. Completed echocardiogram today. Holter monitor still awaited. Has been compliant with the Lasix. No other new cardiac symptoms noted. 07/29/2023 Since his last office visit dated 09/2022, the patient was initially feeling well. In the last 6 weeks' duration, the patient reports worsening shortness of breath. He also gained around 20 pounds since the last office visit. Reports NICKERSON NYHA class 2 to 3. In the interim, the patient was seen by PCP's office and the dose of Lasix was increased from 20 mg daily to alternating between 20 mg and 40 mg daily with which he has not noticed any significant improvement. No other chest pain noted. He reports feeling fatigued and tired. No chest pain elicited. No PND or orthopnea. No pedal edema. No exertional palpitations or palpitations at rest. No syncopal attacks. 03/03/2021: Patient was admitted through the ER for evaluation of atypical chest pain. Serial troponins were negative. Echo within acceptable limits. Currently here for follow-up. Cardiac risk factors: Age, hypertension, dyslipidemia, ongoing tobacco abuse, PAD PAST MEDICAL HISTORY Past Medical History: Diagnosis Date Cellulitis Chronic ankle pain, bilateral Chronic neck pain COPD (chronic obstructive pulmonary disease) HTN (hypertension) PVD (peripheral vascular disease) s/p left leg stent Past Surgical History: Procedure Laterality Date APPENDECTOMY HB PUMP PAIN SYNCHROMED II 2004 Dr Zhou managing OTHER neck surgery SPINE SURGERY STENT PLACEMENT (SHX) left leg Family History Problem Relation Age of Onset Dementia Mother Dementia Father Coronary Heart Disease Sister Cancer Sister SOCIAL HISTORY Social History Socioeconomic History Marital status: Single Tobacco Use Smoking status: Every Day Current packs/day: 1.00 Types: Cigarettes Smokeless tobacco: Never Substance and Sexual Activity Alcohol use: Not Currently Drug use: Not Currently Sexual activity: Not Currently Social History Narrative Retired [employer] and [employer] Lives alone Social Determinants of Health Financial Resource Strain: Low Risk (01/13/2024) Overall Financial Resource Strain (CARDIA) Difficulty of Paying Living Expenses: Not hard at all Food Insecurity: No Food Insecurity (01/13/2024) Hunger Vital Sign Worried About Running Out of Food in the Last Year: Never true Ran Out of Food in the Last Year: Never true Transportation Needs: No Transportation Needs (01/13/2024) PRAPARE - Transportation Lack of Transportation (Medical): No Lack of Transportation (Non-Medical): No Physical Activity: Inactive (01/13/2024) Exercise Vital Sign Days of Exercise per Week: 0 days Minutes of Exercise per Session: 0 min Social Connections: Unknown (01/13/2024) Social Connection and Isolation Panel [NHANES] Frequency of Communication with Friends and Family: More than three times a week Marital Status: Housing Stability: Low Risk (01/13/2024) Housing Stability Vital Sign Unable to Pay for Housing in the Last Year: No Number of Places Lived in the Last Year: 1 Unstable Housing in the Last Year: No ALLERGIES No Known Allergies MEDICATIONS Patient's Medications START taking these medications No medications on file CONTINUE taking these medications which have NOT CHANGED ALBUTEROL 2.5 MG /3 ML (0.083 %) NEBULIZER SOLUTION Inhale 3 mL every 4 (four) hours. May also nebulize one extra every 6 hours. ALBUTEROL 90 MCG/ACTUATION INHALER INHALE 2 PUFFS BY MOUTH EVERY FOUR HOURS NEEDED FOR WHEEZING OR SHORTNESS OF BREATH AMLODIPINE 5 MG TABLET Take 1 tablet by mouth in the morning for 90 days. ATORVASTATIN 80 MG TABLET Take 1 tablet by mouth at bedtime for 90 days. CLOPIDOGREL 75 MG TABLET Take 1 tablet by mouth in the morning for 360 days. FLUTICASONE FUROATE-VILANTEROL (BREO ELLIPTA) 200-25 MCG/DOSE DSDV Inhale 1 Puff in the morning. FOLIC ACID 1 MG TABLET TAKE 1 TABLET BY MOUTH EVERY DAY FUROSEMIDE 80 MG TABLET Take 1 tablet by mouth every morning and evening for 90 days. GABAPENTIN 300 MG CAPSULE Take 1 capsule by mouth at bedtime for 90 days. LISINOPRIL 40 MG TABLET TAKE 1 TABLET BY MOUTH 2 (TWO) TIMES DAILY. MUPIROCIN 2 % OINTMENT Apply to area(s) 3 (three) times daily. NYSTATIN 100,000 UNIT/ML SUSPENSION Take 10 mL by mouth 4 (four) times daily. PREDNISONE 20 MG TABLET 1 PO BID x 4 days RIVAROXABAN 15 MG TABLET Take 1 tablet by mouth in the morning. Indications: prevention of thromboembolism in paroxysmal atrial fibrillation SERTRALINE 100 MG TABLET TAKE 1 TABLET BY MOUTH TWICE DAILY SPIRIVA WITH HANDIHALER 18 MCG INHALATION DEVICE INHALE CONTENTS OF 1 CAPSULE VIA HANDIHALER EVERY DAY TAMSULOSIN 0.4 MG 24 HR CAPSULE Take 1 capsule by mouth in the morning. TRAZODONE 50 MG TABLET Take 1 tablet by mouth at bedtime. START taking Modified Medications as Prescribed No medications on file STOP taking these medications No medications on file Current Facility-Administered Medications: acetaminophen (TYLENOL) tablet 650 mg, 650 mg, Oral, Q6HPRN, Annette Diaz DO [START ON 04/07/2024] aspirin chewable tablet 81 mg, 81 mg, Oral, DAILY, Annette Diaz DO enoxaparin (LOVENOX) injection 40 mg, 40 mg, Subcutaneous, DAILY, Annette Diaz DO ipratropium-albuteroL (DUONEB) 0.5 mg-3 mg(2.5 mg base)/3 mL nebulizer solution 3 mL, 3 mL, Inhalation, QID, Chetna Garcia MD, 3 mL at 04/06/24 1134 nicotine (NICODERM) 21 mg/24 hr patch 1 Patch, 1 Patch, Topical, ONCE, Chetna Garcia MD, 1 Patch at 04/06/24 1503 Current Outpatient Medications: albuterol 2.5 mg /3 mL (0.083 %) nebulizer solution, Inhale 3 mL every 4 (four) hours. May also nebulize one extra every 6 hours., Disp: 100 Applicator, Rfl: 0 predniSONE 20 mg tablet, 1 PO BID x 4 days, Disp: 8 tablet, Rfl: 0 ALBUTEROL 90 mcg/actuation inhaler, INHALE 2 PUFFS BY MOUTH EVERY FOUR HOURS NEEDED FOR WHEEZING OR SHORTNESS OF BREATH, Disp: 18 g, Rfl: 0 mupirocin 2 % ointment, Apply to area(s) 3 (three) times daily., Disp: 22 g, Rfl: 0 LISINOPRIL 40 mg tablet, TAKE 1 TABLET BY MOUTH 2 (TWO) TIMES DAILY., Disp: 180 tablet, Rfl: 0 SERTRALINE 100 mg tablet, TAKE 1 TABLET BY MOUTH TWICE DAILY, Disp: 180 tablet, Rfl: 0 amLODIPine 5 mg tablet, Take 1 tablet by mouth in the morning for 90 days., Disp: 30 tablet, Rfl: 2 atorvastatin 80 mg tablet, Take 1 tablet by mouth at bedtime for 90 days., Disp: 30 tablet, Rfl: 2 clopidogreL 75 mg tablet, Take 1 tablet by mouth in the morning for 360 days., Disp: 30 tablet, Rfl: 11 furosemide 80 mg tablet, Take 1 tablet by mouth every morning and evening for 90 days., Disp: 60 tablet, Rfl: 2 gabapentin 300 mg capsule, Take 1 capsule by mouth at bedtime for 90 days., Disp: 30 capsule, Rfl: 2 rivaroxaban 15 mg tablet, Take 1 tablet by mouth in the morning. Indications: prevention of thromboembolism in paroxysmal atrial fibrillation, Disp: 30 tablet, Rfl: 5 traZODone 50 mg tablet, Take 1 tablet by mouth at bedtime., Disp: 90 tablet, Rfl: 1 fluticasone furoate-vilanteroL (BREO ELLIPTA) 200-25 mcg/dose DsDv, Inhale 1 Puff in the morning., Disp: 60 Each, Rfl: 11 foLIC acid 1 mg tablet, TAKE 1 TABLET BY MOUTH EVERY DAY, Disp: 30 tablet, Rfl: 5 SPIRIVA WITH HANDIHALER 18 mcg inhalation device, INHALE CONTENTS OF 1 CAPSULE VIA HANDIHALER EVERY DAY, Disp: 30 capsule, Rfl: 10 tamsulosin 0.4 mg 24 hr capsule, Take 1 capsule by mouth in the morning., Disp: 30 capsule, Rfl: 3 nystatin 100,000 unit/mL suspension, Take 10 mL by mouth 4 (four) times daily., Disp: 240 mL, Rfl: 0 REVIEW OF SYSTEMS: Comprehensive 10-system review was conducted and were negative except for what's noted in the HPI. The following systems were reviewed: Constitutional, cardiovascular, respiratory, gastrointestinal, genitourinary, musculoskeletal, neurologic, psychiatric, endocrinological, and hematological. PHYSICAL EXAMINATION: Vitals: 04/06/24 1145 04/06/24 1300 04/06/24 1400 04/06/24 1500 BP: (!) 167/74 (!) 176/90 (!) 164/66 Pulse: 56 54 52 53 Resp: 14 19 25 19 Temp: SpO2: (!) 89% 96% 98% 100% Weight: Height: General: no apparent distress HEENT: normocephalic atraumatic Neck: supple, no lymphadenopathy, no bruits, no JVD Lungs: clear to auscultation bilaterally. No wheezes or rhonchi. No increased work of breathing. Cardio: Regular rate and rhythm, S1&S2 normal, no murmurs, rubs or gallops Abdomen: soft; non-tender; non-distended; normoactive bowel sounds. : not examined Rectal: not examined Extremities: no clubbing, cyanosis, or edema. Skin: no rashes, no visible lesions. Neuro: no gross focal deficits LABS - Reviewed pertinent labs as below: CBC BMP PT/INR WBC (10*3/?L) Date Value 04/06/2024 9.34 NA (mmol/L) Date Value 04/06/2024 140 No results found for: "PT" PLT (10*3/?L) Date Value 04/06/2024 173 K (mmol/L) Date Value 04/06/2024 3.4 (L) INR (no units) Date Value 01/09/2024 1.2 HGB (g/dL) Date Value 04/06/2024 7.2 (L) BUN (mg/dL) Date Value 04/06/2024 18 HCT (%) Date Value 04/06/2024 24.4 (L) CREATININE (mg/dL) Date Value 04/06/2024 0.90 LIPID PROFILE GLUCOSE (mg/dL) Date Value 04/06/2024 94 CHOL (mg/dL) Date Value 01/09/2024 90 (L) TSH LDL CHOL (mg/dL) Date Value 01/09/2024 45 TSH (mIU/L) Date Value 01/09/2024 0.59 CARDIAC ENZYMES HDL (mg/dL) Date Value 01/09/2024 31 (L) CK (U/L) Date Value 03/03/2021 114 TRIG (mg/dL) Date Value 01/09/2024 71 LFTs No results found for: "CKMB" AST(SGOT) (U/L) Date Value 04/06/2024 22 TROPONIN I (ng/mL) Date Value 04/06/2024 0.025 ALTv (U/L) Date Value 04/06/2024 18 No results found for: "BNP" LDL CHOL (mg/dL) Date Value 01/09/2024 45 Recent Labs 04/06/24 1122 TROPNI 0.025 Recent Labs 01/09/24 1517 TRIG 71 LDL CHOL (mg/dL) Date Value 01/09/2024 45 NT-proBNP (pg/mL) Date Value 04/06/2024 8,530 (H) 03/12/2022 558 (H) ASSESSMENT/PLAN Principal Problem: Atypical chest pain Active Problems: PAD (peripheral artery disease) Essential hypertension Cigarette nicotine dependence, uncomplicated Chronic obstructive pulmonary disease with acute exacerbation Acute on chronic heart failure with preserved ejection fraction (HFpEF) PAF (paroxysmal atrial fibrillation) Paroxysmal atrial flutter Dyslipidemia Coronary artery disease involving [place] coronary artery of [place] heart with angina pectoris NICKERSON (dyspnea on exertion) Anemia associated with nutritional deficiency Bradycardia Assessment & Plan Chest pain by history: Recommend Serial trop X 2, ECG in AM, Echo to assess to EF and wall motion changes. Continue telemetry monitoring EKG 04/02/2024 strips reviewed shows sinus bradycardia, narrow QRS complex, nonspecific ST-T changes. Echo dated 04/06/2024 images reviewed with the patient. Shows preserved LV systolic function, pseudonormal diastolic dysfunction. No significant regional wall motion changes noted. No significant valve abnormalities noted. RVSP > 60 mmHg. Recent Labs 04/06/24 1122 04/06/24 1748 TROPNI 0.025 0.022 Coronary artery disease status post PCI 01.13.2024 EKG 04/02/2024 strips reviewed shows sinus bradycardia, narrow QRS complex, nonspecific ST-T changes. Echo dated 04/06/2024 images reviewed with the patient. Shows preserved LV systolic function, pseudonormal diastolic dysfunction. No significant regional wall motion changes noted. No significant valve abnormalities noted. RVSP > 60 mmHg. EKG strips reviewed dated 01/14/2024 shows a sinus rhythm, narrow QRS complex, nonspecific ST changes noted. Echocardiogram dated 01/10/2024 images reviewed shows preserved diastolic function, diastolic dysfunction, elevated filling pressures, RVSP elevated 55-60, no significant valve normalities noted. Coronary angiogram dated 01/13/2024 images reviewed showed presence of proximal LAD, severe disease, significant by IFR, hence underwent PCI. Reviewed the importance of Plavix to be taken without any interruption for the next 1 year. Recommended to discuss with EP for consideration for watchman device evaluation. Currently, patient is off metoprolol completely due to baseline bradycardia noted. Continue with the Lipitor at 80 mg daily without any further changes. Currently off aspirin due to the combination of Plavix/Xarelto. NICKERSON: NYHA class 3/ Acute on chronic heart failure with preserved LV systolic function, stable. Multifactorial in setting of underlying hypertension, diastolic dysfunction, HFpEF, COPD, deconditioning, sleep apnea, CAD, anemia May consider changing p.o. Lasix to IV Lasix 40 twice daily. Currently at home Lasix 80 mg twice daily. Continue with the lisinopril 40 mg twice daily. Due to elevated creatinine will currently hold off on starting spironolactone and Jardiance for now. Will reassess at later date. Previously on Lasix 20 mg/alternating at 40 mg daily. Recommended a daily weights. Recommended less than 2 L/day. EKG 04/02/2024 strips reviewed shows sinus bradycardia, narrow QRS complex, nonspecific ST-T changes. EKG strips reviewed dated 01/14/2024 shows a sinus rhythm, narrow QRS complex, nonspecific ST changes noted. Echo dated 04/06/2024 images reviewed with the patient. Shows preserved LV systolic function, pseudonormal diastolic dysfunction. No significant regional wall motion changes noted. No significant valve abnormalities noted. RVSP > 60 mmHg. Echocardiogram dated 01/10/2024 images reviewed shows preserved diastolic function, diastolic dysfunction, elevated filling pressures, RVSP elevated 55-60, no significant valve normalities noted. Echo images 10/03/2023 reviewed shows preserved LV systolic function. Diastolic dysfunction noted. RVSP elevated 50-55. No significant valve normalities noted. EKG dated 10/03/2023 strips reviewed shows sinus bradycardia with PACs, narrow QRS complex, nonspecific ST-T changes noted. EKG 03/12/2022 strips reviewed atrial flutter with variable AV block., Narrow QRS complex nonspecific ST-T changes. EKG dated 03/03/2021 strips reviewed shows sinus bradycardia, nonspecific ST changes. Echo images 10/03/2023 reviewed shows preserved LV systolic function. Diastolic dysfunction noted. RVSP elevated 50-55. No significant valve normalities noted. Echocardiogram dated 12/02/2021 images reviewed shows preserved LV systolic function. Diastolic dysfunction. Normal RV size and function. RVSP mildly elevated 3035. No significant valve abnormalities noted. Mild enlarged ascending aorta 3.1 cm. Echocardiogram dated 03/03/2021 images reviewed showed mild LVH, preserved LV systolic function, RV size and function. No regional motion changes noted. Event monitor 07/26/2021 results reviewed. Strips reviewed. Only 2 days worth of recordings noted. No significant arrhythmias noted on the recordings. NM stress test dated 04/19/2021 images reviewed which shows no reversible ischemia. Normal SPECT EF. Motion artifact noted. The diagnostic accuracy and limitation of stress testing for identification of coronary artery disease were reviewed in detail. NT-proBNP (pg/mL) Date Value 04/06/2024 8,530 (H) 03/12/2022 558 (H) Paroxysmal atrial flutter. Noted by EKG dated 03/12/2022. Recommended EP evaluation for consideration for watchman device due to significant skin bruising noted and patient is also interested in coming off the Xarelto completely. Currently on Xarelto 15 mg daily. Currently not on metoprolol 50 mg twice daily. Pathophysiology reviewed. EKG 04/02/2024 strips reviewed shows sinus bradycardia, narrow QRS complex, nonspecific ST-T changes. Echo dated 04/06/2024 images reviewed with the patient. Shows preserved LV systolic function, pseudonormal diastolic dysfunction. No significant regional wall motion changes noted. No significant valve abnormalities noted. RVSP > 60 mmHg. Holter monitor dated 10/18/2023 strips reviewed shows no A-fib noted. Average heart rate 81 bpm noted. Event monitor 07/26/2021 strips reviewed. Strips reviewed. Only 2 days worth of recordings noted. No significant arrhythmias noted on the recordings. EKG strips reviewed dated 01/14/2024 shows a sinus rhythm, narrow QRS complex, nonspecific ST changes noted. EKG dated 10/03/2023 strips reviewed shows sinus bradycardia with PACs, narrow QRS complex, nonspecific ST-T changes noted. EKG 09/26/2022 strips reviewed shows sinus bradycardia, positive AV block, narrow QRS complex, no significant ST-T changes noted. EKG 03/12/2022 strips reviewed atrial flutter with variable AV block., Narrow QRS complex nonspecific ST-T changes. Echocardiogram dated 12/02/2021 images reviewed shows preserved LV systolic function. Diastolic dysfunction. Normal RV size and function. RVSP mildly elevated 3035. No significant valve abnormalities noted. Mild enlarged ascending aorta 3.1 cm. Echocardiogram dated 01/10/2024 images reviewed shows preserved diastolic function, diastolic dysfunction, elevated filling pressures, RVSP elevated 55-60, no significant valve normalities noted. Hypertension. Stable Stable. Continue lisinopril 40 mg daily and amlodipine 5 mg daily. Currently not on metoprolol 50 mg twice daily. Home BP log recommended. Cross check his BP machine. Appropriate ways to check home BP discussed. Goals BP < 140/90 stressed. Explained if BP > 140/90, adviced to send us the log. Lifestyle modifications stressed. Peripheral artery disease status post intervention. Patient is on Plavix and Xarelto. Currently off aspirin. Bradycardia: EKG 04/02/2024 strips reviewed shows sinus bradycardia, narrow QRS complex, nonspecific ST-T changes. EKG strips reviewed dated 01/14/2024 shows a sinus rhythm, narrow QRS complex, nonspecific ST changes noted. EKG dated 10/03/2023 strips reviewed shows sinus bradycardia with PACs, narrow QRS complex, nonspecific ST-T changes noted. Monitor dated 10/18/2023 reviewed shows PVCs at 1% burden and PACs at 7%. Average heart rate 81 bpm. No other arrhythmias noted. Recommended EP evaluation. Currently off metoprolol completely. Event monitor 07/26/2021 strips reviewed. Strips reviewed. Only 2 days worth of recordings noted. No significant arrhythmias noted on the recordings. Holter monitor dated 10/18/2023 strips reviewed shows no A-fib noted. Average heart rate 81 bpm noted. Dyslipidemia: Recommended to keep LDL < 70. Lifestyle modifications stressed. Continue on Lipitor 80 mg daily. LDL CHOL (mg/dL) Date Value 01/09/2024 45 PAD s/p intervention left leg 2017: Follows PCP/[facility] vascular surgery. NESOTR 02/14/2021 reviewed which shows bilateral normal NESTOR. 03/03/2021: Venous reflux shows evidence of bilateral reflux disease. Anemia: Recommend to keep hemoglobin more than 8 from the cardiac standpoint. Will repeat CBC in a.m. tomorrow. If still less than 8, would benefit from blood transfusion. May consider holding off on Xarelto for now the setting of anemia. Recommended smoking cessation. My diagnostic impression and treatment plans were discussed at length with the patient. All side effects as well as drug-drug interactions and risks discussed at length. Ample opportunity was offered and encouraged to ask questions during this visit and patient appreciated the answers given by me and verbzalised statisfcation in the answers given. Total Visit Time: 60 mins The total Visit time for today's visit with Tahira Hunter encompassed 60 minutes. Time was spent reviewing the chart before, during and after the visit, reviewing laboratory results, taking interval history, performing the documented physical examination, completing and "cleaning up" the electronic medical record as well as addressing any questions and concerns. The time spent for patient care includes: PreCharting (eg, review of tests, notes, etc.), Obtaining and/or reviewing separately obtained history (Care Everywhere or paper records), Counseling and educating the patient/family/caregiver, Ordering medications, tests, or procedures, Ordering referrals and/or communicating with other health palliative care nurse (when not separately reported), Documenting clinical information in the electronic or other health record, and Independently interpreting results (not separately reported) and/or communicating results to the patient/family/caregiver. This report was dictated using Twibingo and is subject to voice recognition errors. Please excuse any unusual inaccuracies. Thank you for allowing us to participate in the care of Tahira Hunter. If you have any questions or concerns please feel free to call our office at [phone]. I would be happy to be of further assistance for Tahira Hunter wellbeing. Rich Maya MD [employer] Consultant, Division of Cardiology [facility] - Health 2024-01-14 10:26:00 Associated Order(s): CONSULT ADULT PHYSICAL THERAPY Patient agreeable to working with physical therapy. Patient met up in chair. Recommend nursing staff utilize RW to safely assist patient with mobility out of the bed or chair. PHYSICAL THERAPY EVALUATION Consult received, chart reviewed and evaluation complete this date. Patient is referred to PT for evaluation and treatment. Patient is a 68 year old male who presents to hospital for Respiratory distress [R06.03] Chest pain [R07.9] PMH significant for HFpEF, Paroxysmal Afib, HTN, PAD s/p LLE stent 2016, COPD presented to [facility] with chest pain. S/P LEFT/RIGHT HEART CATH AND CORONARY ANGIOGRAPHY PCI-STENTon 01/13/24. Consult received, chart reviewed and evaluation completed this date 01/14/24 in conjunction with Vibha Hilliard OTR/Poncho for safety given patient's decreased activity tolerance. Billing for PT portion only Discharge Recommendations: Therapy Needs and Potential: Patient would benefit from continued physical therapy services to address: decline in bed mobility decline in transfers decline in gait and/or balance decreased endurance Patient demonstrates good potential to improve and meet therapy goals with further physical therapy services. Patient appears motivated to improve their functional mobility and return to their previous level of function. Patient exhibits limited activity tolerance. Patient will benefit from post acute Physical Therapy services in an In-patient facility but patient refused. Patient wants to have Home health Physical Therapy services instead. Challenges to Home Transition: increased risk of falls decreased caregiver availability Decreased activity tolerance Increased Physical assistance needed with functional mobility Equipment recommendations: Patient has or access to necessary equipment Current Functional Status and/or Treatment: AM-PAC 6 Clicks (Raw Score 0=Dependent, 24=Independent; Low function Raw Score 0= Dependent, 32=Independent): Raw Score - Basic Mobility : 15 T-Scale Score - Basic Mobility : 36.97 Bed Mobility: Deferred due to patient was already up on chair upon arrival and per patient, he does not sleep on the bed at home, he uses his recliner due to orthopnea Transfers: Sit to stand: Minimal Assistance using rolling Walker. Stand to sit: Minimal Assistance using rolling Walker. Static/dynamic standing balance: Fair Verbal cueing provided for correct hand placement and correct use of AD Provided education assistance for proper hand and feet placement, proper trunk, and pelvic movement for safety and stability during sit to stand. Dizziness No Ambulation: Assisted patient with ambulation as follows: 10 feet using rolling Walker. and Minimal Assistance. Patient presenting with Step-to gait pattern. Patient has short step length, decreased feet clearance and wide base of support with 6 LNC Educated patient on proper body mechanics, proper postural alignment to assist in proper breathing techniques, and moderate verbal cues for safety in sequencing and balcance Dizziness No Therapeutic exercise: patient educated in Deep breathing, Energy conservation, Fall prevention, General strengthening, Positioning, Relaxation/breathing techniques, and Safety awareness., instructed patient in the following: heel slides, long arc quads, seated marching, patient/caregiver instructed to perform HEP 1-2 times per day, 10 repetitions., and patient/caregiver verbalizes understanding of instructions. Patient educated on functional mobility and the importance/benefits of active and safe performance to help prevent BLE DVT's, PNA, overall decrease in mobility, strength, and endurance, skin breakdown Weight shifting in sitting position with correct frequency and duration to help prevent any possible skin breakdown. Functional Outcome Measures: (Values within the past 12 hours) Tinetti Gait Score- # / 12 Initiation of gait: No hesitancy Step length: Neither foot passes the other Foot clearance: Neither foot completely clears the floor Step Symmetry: Step lengths not equal Step continuity: Stopping/dis-continuous steps Path: Mild/moderate deviation or uses AD Trunk: Marked sway or uses AD Walking: Heels apart Tinetti Gait Score: 2 Tinetti Gait Score Interpretation: < 7 - Increased risk for falls After session, patient up in chair. Call button provided. Nurse notified. PLAN OF CARE: While in the hospital, PT will follow patient at least 2 times per week,once or twice a day, per patient's tolerance and needs. See below for complete details. Admit Date: 01/09/2024 Hospital Diagnosis:Respiratory distress [R06.03] Chest pain [R07.9] PMH significant for HFpEF, Paroxysmal Afib, HTN, PAD s/p LLE stent 2016, COPD presented to [facility] with chest pain. S/P LEFT/RIGHT HEART CATH AND CORONARY ANGIOGRAPHY PCI-STENTon 01/13/24. PT Diagnosis: Difficulty walking, Malaise/fatigue, Dyspnea, and Abnormality of gait and balance Weight Bearing Precaution: NA General Precautions: PPE used:Gloves, General, Fall,Walsh catheter Bracing/Cast present or required:N/A PMH: Past Medical History: Diagnosis Date Cellulitis Chronic ankle pain, bilateral Chronic neck pain COPD (chronic obstructive pulmonary disease) HTN (hypertension) PVD (peripheral vascular disease) s/p left leg stent PSH: Past Surgical History: Procedure Laterality Date APPENDECTOMY HB PUMP PAIN SYNCHROMED II 2005 Dr Zhou managing OTHER neck surgery SPINE SURGERY STENT PLACEMENT (SHX) left leg Prior Living Situation: lives with their family and in a first floor apartment, DME: Four wheeled walker with seat, Wheel Chair Prior level of Mobility: house hold ambulation, ambulates with four wheeled walker with seat Suspected ischemic or hemorraghic stroke:No Subjective: "I am so exhausted but I would love to go to the bathroom" Patient/Family Goals: To go home Patient/Family verbalizes understanding of condition: No PAIN: denies pain before and after session COMMUNICATION Primary Language: Mauritian Able to Verbalize needs: Yes Vision:good; no issues reported Hearing:good; no issues reported ORIENTATION/COGNITION: Oriented to: person, place, date/time, and situation Awake: Yes Alert: Yes Dizzy: No Follows Commands: Yes 1-Step Yes Multi-Step Yes Inconsistent: No NEUROLOGICAL Light Touch: within functional limits bilateral LE Tone: intact BALANCE: Sitting: Static: Good Dynamic: Good Standing: Static: Fair Dynamic: Poor+ RANGE OF MOTION: within functional limits bilateral LE STRENGTH: 4/5 (Good), bilateral LE ENDURANCE: Poor+, Nasal canula, 6LNC SKIN INTEGRITY: not intact, please see nursing note PROBLEM LIST: Decline in bed mobility, Decline in gait, Decline in transfers, Decreased strength, Decreased endurance, and Decreased balance ASSESSMENT: Patient is a 68 year old male seen secondary to the above listed diagnosis. Patient would benefit from continued PT to address the above listed deficits to maximize independence and safety with functional mobility. Rehabilitation Potential: good Goals: The following goals are to maximize independence and safety with functional mobility to eventually return to prior living situation and prior functional status. Upon discharge, patient and/or family will demonstrate the followin. Rolling: Independent Supine-sit: Independent Sit to supine: Independent 2. Sit to stand: Independent using rolling Walker. Stand to sit: Independent using rolling Walker. 3. Independent with ambulation, Feet: 300 using least assistive device. Treatment Plan: Gait training, Therapeutic exercise, Transfer training, Balance training, Bed mobility training, Equipment needs assessment, Safety education, patient/caregiver education, and Neuromuscular Re-Education PATIENT EDUCATION: Patient provided with preferred teaching of verbal information on role of PT, plan of care, HEP. Shows readiness to learn. Verbal instruction teaching provided. Individual verbalizes understanding of teaching provided. Total Time Tx Codes in Minutes: 23 min Total Treatment Time in Minutes: 30 min Roselyn Reed PT, DPT, CSRS [facility] A physical therapy evaluation of high complexity was completed based on meeting at the criteria below: A history of present problem with at least 3 or more personal factors (includes environmental factors) and/or comorbidities that impact the plan of care An examination of body systems using standardized tests and measures addressing a total of at least 4 or more elements from any of the following: body structures and functions, activity limitations, and/or participation limitations A clinical presentation with unstable and unpredictable characteristics Roselyn Reed PT [facility] 2024-01-14 10:26:00 Associated Order(s): CONSULT ADULT OCCUPATIONAL THERAPY OT GENERAL EVALUATION Consult received via [place], EMR reviewed and evaluation completed 01/14/24. Patient referred to occupational therapy for evaluation and treatment secondary to Chronic obstructive pulmonary disease with acute exacerbation and s/p LEFT/RIGHT HEART CATH AND CORONARY ANGIOGRAPHY, PCI-STENT. Patient agreeable to participate in occupational therapy. Pt seen in conjunction with Lon Reed DPT secondary to limited activity tolerance due to poor endurance. Only billing for OT services. Discharge Recommendations: Therapy Needs and Potential:- Patient would benefit from continued skilled occupational therapy services to address: Decline in basic activities of daily living, Decline in instrumental activities of daily living, Decreased strength, Decreased range of motion, Decreased endurance, and Decreased coordination - Patient demonstrates good potential to improve and meet therapy goals with further skilled occupational therapy services. - Patient appears motivated to improve their B/IADLs and return to their previous level of function. - Patient demonstrates ability to tolerate at least 30-60 minutes of active participation in occupational therapy. - Patient able to follow commands: 1-step Yes, Multi-step Yes, Inconsistencies No Challenges to Home Transition:- Requires physical assistance for BADLS - Requires physical assistance for IADLS - Requires supervision or verbal cues for BADLS - Requires supervision or verbal cues for IADLS - Limited caregiver availability - Increased risk of falls - Environmental barriers -combo tub/shower Equipment Recommendations:None PLAN OF CARE: At least 2x/week Precautions: Weight bearing status: NA General: PPE Utilized: Gloves, Fall, O2 per NC , and catheter Bracing: wrist extension block R UE Current Occupational Performance and/or Treatment: AM-PAC 6 Clicks (Raw Score 0=Dependent, 24=Independent; Low function Raw Score 0= Dependent, 32=Independent): Raw Score - Daily Activity: 18 T-Scale Score - Daily Activity: 38.66 Feeding: Independent Grooming: Supervision, pt washed face while sitting in bedside chair Bathing: NT, educated pt on use of shower chair to prevent falls in the shower. UB Dressing: Minimal Assistance, assist required to manage gown over wrist block on R UE LB Dressing: Maximum Assistance, pt unable to manage socks secondary to wrist block Toilet Transfer: Supervision, pt descended/ascended using grab bar and rolling walker for stability. Pt cued to use stable surface vs rolling walker to stand. Toileting Hygiene: Minimal Assistance, despite wrist block, pt insisted on wiping bottom with physical assist for balance. Pt very modest and not wanting therapist to assist until pt wiped and started bleeding. Pt reports hemorrhoids and pt asked for wipe to be placed in between glutteal fold and placed back in bedside chair. Nursing notified. Walsh in place. Functional Mobility: Defer to PT evaluation. Patient/caregiver educated on: Adaptive equipment , ADL training, Positioning, Role of OT, and Safety awareness Patient left reclining in bedside chair with call fink in reach. Please, see full evaluation below for more detail. OT EVALUATION: 68 year old male Admit date: 01/09/2024 Date of onset: ~5 days prior Admit Diagnosis: Respiratory distress [R06.03] Chest pain [R07.9] OT Diagnosis: Impaired BADL independence, Impaired IADL independence, Weakness, Decreased endurance, and Impaired self-care mobility PMH: Past Medical History: Diagnosis Date Cellulitis Chronic ankle pain, bilateral Chronic neck pain COPD (chronic obstructive pulmonary disease) HTN (hypertension) PVD (peripheral vascular disease) s/p left leg stent PSH: Past Surgical History: Procedure Laterality Date APPENDECTOMY HB PUMP PAIN SYNCHROMED II 2004 Dr Zhou managing OTHER neck surgery SPINE SURGERY STENT PLACEMENT (SHX) left leg PAIN: Pain Location: diffuse/generalized Pain rating before treatment: 4, After treatment: does not rate Pain Management: Decreased movement aides in some pain reduction and Repositioning Provided OCCUPATIONAL ROLES/HOME ENVIRONMENT: Home environment: Lives alone, 18/03 supervision/assistance is not available, and Downstairs apartment. Pt has neighbor that assists as needed. Bathroom access: Yes Bathroom setup: Combo Occupation(s): Retired; loves to work in garden Function prior to admission: Household ambulation, Community ambulation, Provider assistance (MWF, 12 hrs total), and Independent with BADLs Suspected ischemic or hemorraghic stroke patient: No Equipment prior to admission: 4 wheeled walker, Grab bars, Shower chair , Wheelchair PERFORMANCE SKILLS/FACTORS: UE Muscle Tone: bilateral WNL UE ROM: bilateral AROM WFL except R wrist extension blocked UE Strength: L UE 4/5 Hand dominance: right Dexterity/Coordination: bilateral Gross motor skills Intact Endurance - Sitting: Good Standing: Fair+ Sitting Balance - Static: Good Dynamic: Good Standing: Balance - Static Fair+ Dynamic: Fair Dizziness: No Skin Integrity: defer full skin assessment to nursing Sensation: Patient denies numbness and tingling. Oral Motor: WFL and Dentures Communication: Able to verbalize needs Yes Other: N/A Vision: WFL Yes Other: reading glasses Hearing: good; no issues reported COGNITION: Orientation: person, place, date/time, and situation Follows Commands: 1-step Yes Multi-step Yes Inconsistencies No Safety Awareness/Judgment: Fair PROBLEM LIST: Decreased independence with ADL, Decreased functional ROM, Decreased strength/endurance for functional activity, and Impaired safety awareness REHAB POTENTIAL/PROGNOSIS: fair PATIENT/FAMILY GOALS: to go home TREATMENT/INTERVENTION PLAN: Patient/Caregiver Education, Equipment recommendations, Daily living activities, and Therapeutic exercises GOAL(S): By discharge, patient will increase independence in daily living skills as follows: 1 Patient will perform toilet transfer with independence. 2 Patient will perform UB dressing with independence. 3 Patient will perform LB dressing with independence. 4 Patient will complete grooming tasks with independence while standing at the sink. 5 Patient will complete toileting hygiene, including clothing management, with independence. 6 Patient will increase endurance for functional activity as evidenced by ability to sustain 20 minutes of active participation. 7 Patient/caregiver will verbalize/demonstrate understanding/proficiency in the following home programs: Energy conservation, 8 Fall prevention, and 9 General strengthening PATIENT-FAMILY TEACHING Patient provided with preferred teaching of verbal information and demonstration on Adaptive equipment , ADL training, Positioning, Role of OT, and Safety awareness. Shows readiness to learn. Verbal instruction and Demonstration teaching provided. Individual verbalizes understanding of teaching provided. THEE KirkpatrickR, MOT Total Timed Treatment Codes: 8 Min Total Treatment Time: 30 Min Patient Complexity Level Moderate - An occupational therapy evaluation of moderate complexity was completed using the above tests and measures. The following information was obtained: An occupational profile and medical and therapy history, including an expanded review of medical and/or therapy records and additional review of physical, cognitive, or psychosocial history related to current functional performance, Various standardized and non-standardized assessments were used to identify at least 3-5 performance deficits related to physical, cognitive, or psychosocial skills that result in activity limitations and/or participation restrictions, and Clinical decision making of moderate analytic complexity, which includes an analysis of the occupational profile, analysis of data from detailed assessment(s), and consideration of several treatment options. Patient may present with comorbidities that affect occupational performance. Minimal to moderate modification of tasks or assistance (e.g., physical or verbal) with assessment(s) is necessary to enable patient to complete evaluation component. Vicenta Hilliard OT [facility] - [facility] History and Physical Notes Date/Time Note Provider Source 2024-05-19 21:07:24 [facility] Hospitalist Admission H&P Date of Service: 05/19/2024 CHIEF COMPLAINT: Shortness of breath with secondary COPD exacerbation HISTORY OF PRESENT ILLNESS Tahira Hunter is a 69 year old male who presents with shortness of breath. Patient has a history of COPD and he appears to have a acute COPD exacerbation. Patient was started on nebs, steroids, and antibiotics. Patient was placed on BiPAP in the emergency room. Patient does not want any more extensive intervention besides a BiPAP. After IV steroids his respiratory status has improved. Will go ahead and try to wean him off of the BiPAP and onto nasal cannula. Patient will be admitted to the hospital for an acute COPD exacerbation. Patient also has a history of CAD and recently had intracoronary stenting x 3 in [place]. Patient also has dealt with chronic pain issues throughout his life. At this time patient will be admitted to the hospital for inpatient hospitalization.. PAST MEDICAL HISTORY Past Medical History: Diagnosis Date Cellulitis Chronic ankle pain, bilateral Chronic neck pain COPD (chronic obstructive pulmonary disease) HTN (hypertension) PVD (peripheral vascular disease) s/p left leg stent PAST SURGICAL HISTORY Past Surgical History: Procedure Laterality Date APPENDECTOMY HB PUMP PAIN SYNCHROMED II 2004 Dr Zhou managing OTHER neck surgery SPINE SURGERY STENT PLACEMENT (SHX) left leg ALLERGIES No Known Allergies MEDICATIONS Current home medication list reviewed: Current Discharge Medication List STOP taking these medications traMADoL 25 mg tablet Comments: Reason for Stopping: umeclidinium (INCRUSE ELLIPTA) 62.5 mcg/actuation DsDv Comments: Reason for Stopping: ATORVASTATIN 40 mg tablet Comments: Reason for Stopping: metoprolol succinate XL 25 mg 24 hr tablet Comments: Reason for Stopping: XARELTO 20 mg tablet Comments: Reason for Stopping: SERTraline 100 mg tablet Comments: Reason for Stopping: albuterol 90 mcg/actuation inhaler Comments: Reason for Stopping: hydrocortisone 25 mg suppository Comments: Reason for Stopping: mupirocin 2 % ointment Comments: Reason for Stopping: LISINOPRIL 40 mg tablet Comments: Reason for Stopping: clopidogreL 75 mg tablet Comments: Reason for Stopping: traZODone 50 mg tablet Comments: Reason for Stopping: fluticasone furoate-vilanteroL (BREO ELLIPTA) 200-25 mcg/dose DsDv Comments: Reason for Stopping: foLIC acid 1 mg tablet Comments: Reason for Stopping: tamsulosin 0.4 mg 24 hr capsule Comments: Reason for Stopping: FAMILY HISTORY Family History Problem Relation Age of Onset Dementia Mother Dementia Father Coronary Heart Disease Sister Cancer Sister SOCIAL HISTORY Social History Socioeconomic History Marital status: Single Tobacco Use Smoking status: Every Day Current packs/day: 0.50 Average packs/day: 0.5 packs/day for 55.1 years (27.5 ttl pk-yrs) Types: Cigarettes Start date: 1969 Passive exposure: Past Smokeless tobacco: Never Substance and Sexual Activity Alcohol use: Not Currently Drug use: Not Currently Sexual activity: Not Currently Social History Narrative Retired [employer] and [employer] Lives alone Social Determinants of Health Financial Resource Strain: Low Risk (04/07/2024) Overall Financial Resource Strain (CARDIA) Difficulty of Paying Living Expenses: Not hard at all Food Insecurity: No Food Insecurity (04/07/2024) Hunger Vital Sign Worried About Running Out of Food in the Last Year: Never true Ran Out of Food in the Last Year: Never true Transportation Needs: No Transportation Needs (01/13/2024) PRAPARE - Transportation Lack of Transportation (Medical): No Lack of Transportation (Non-Medical): No Physical Activity: Inactive (04/07/2024) Exercise Vital Sign Days of Exercise per Week: 0 days Minutes of Exercise per Session: 0 min Social Connections: Unknown (04/07/2024) Social Connection and Isolation Panel [NHANES] Frequency of Communication with Friends and Family: Three times a week Marital Status: Never Housing Stability: Low Risk (04/07/2024) Housing Stability Vital Sign Unable to Pay for Housing in the Last Year: No Number of Places Lived in the Last Year: 1 Unstable Housing in the Last Year: No REVIEW OF SYSTEMS 10 systems negative except per HPI PHYSICAL EXAMINATION BP (!) 149/73 (BP Location: Right arm) | Pulse 54 | Temp 36.4 ?C (97.5 ?F) (Tympanic) | Resp 15 | Ht 1.778 m (5' 10") | Wt 104.5 kg (230 lb 4.8 oz) | SpO2 94% | BMI 33.04 kg/m? General: No acute distress HEENT: Normal oral mucosa, anicteric sclerae, NCAT Cardiovascular: Irregularly irregular Lungs: Expiratory wheezing Abdomen: Soft, NTND Musculoskeletal: No synovitis, normal muscle mass Genitourinary: Deferred Skin: No rash, no skin lesions Extremities: No clubbing, no cyanosis, bilateral lower extremity edema Neuro: AAOx3, no focal deficits Psych: Normal affect LABS - reviewed pertinent labs as below: CBC BMP PT/INR WBC (10*3/?L) Date Value 05/19/2024 9.15 NA (mmol/L) Date Value 05/19/2024 139 No results found for: "PT" RBC (10*6/?L) Date Value 05/19/2024 3.39 (L) K (mmol/L) Date Value 05/19/2024 3.7 INR (no units) Date Value 01/09/2024 1.2 PLT (10*3/?L) Date Value 05/19/2024 215 CALCIUM (mg/dL) Date Value 05/19/2024 8.5 (L) HGB (g/dL) Date Value 05/19/2024 8.3 (L) CL (mmol/L) Date Value 05/19/2024 107 aPTT HCT (%) Date Value 05/19/2024 29.0 (L) BUN (mg/dL) Date Value 05/19/2024 8 APTT Patient (Seconds) Date Value 01/13/2024 67 (H) CREATININE (mg/dL) Date Value 05/19/2024 0.73 IMAGING - reviewed, pertinent results as below: Hospital Encounter on 05/19/24 XR FINGERS 2 VW RIGHT Narrative EXAM: XR FINGERS 2 VW RIGHT HISTORY: right ring finger contusion; r/o fx Ordering physician: VICTORINO ALONSO COMPARISON: None TECHNIQUE: Frontal and lateral right fourth finger x-rays. FINDINGS: No right fourth finger fracture, dislocation, or radiopaque foreign body is detected. There is no lytic lesion. Soft tissue is grossly intact. Impression No right fourth finger fracture or radiopaque foreign body. RL: 231 End of report. CHEST 1 VW Narrative EXAM: XR CHEST 1 VW, XR CHEST 1 VW COMPARISON: Chest radiograph from 05/19/2024. HISTORY: possible aspiration FINDINGS: Lungs: The lungs are adequately expanded. Underlying severe emphysematous changes . There is increased interstitial prominence bilaterally which is likely due to interstitial thickening. No focal consolidation. Suspected small bilateral pleural effusions. Heart/Mediastinum: The cardiac silhouette appears enlarged accounting for technique and degree of inspiration. Bones and soft tissues: No osseous abnormality is visualized. Cervical fusion hardware is visualized. Impression No radiographic evidence of acute cardiopulmonary process. Interval worsening of emphysematous changes with interval increase in interstitial prominence likely due to interstitial edema. Preliminary Report Dictated by Resident: Natalio Vega I, Domenico Kaur MD., have reviewed this study and agree with the above report. XR CHEST 1 VW Narrative EXAM: XR CHEST 1 VW, XR CHEST 1 VW COMPARISON: Chest radiograph from 05/19/2024. HISTORY: possible aspiration FINDINGS: Lungs: The lungs are adequately expanded. Underlying severe emphysematous changes . There is increased interstitial prominence bilaterally which is likely due to interstitial thickening. No focal consolidation. Suspected small bilateral pleural effusions. Heart/Mediastinum: The cardiac silhouette appears enlarged accounting for technique and degree of inspiration. Bones and soft tissues: No osseous abnormality is visualized. Cervical fusion hardware is visualized. Impression No radiographic evidence of acute cardiopulmonary process. Interval worsening of emphysematous changes with interval increase in interstitial prominence likely due to interstitial edema. Preliminary Report Dictated by Resident: Domenico Busby MD., have reviewed this study and agree with the above report. ASSESSMENT: 1. Acute COPD exacerbation 2. History of coronary artery disease 3. Chronic pain syndrome 4. History of cellulitis of the lower extremities 5. PAD status post stent in the left femoral artery 6. History of hypertension 7. History of atrial fibrillation PLAN: 1. Acute COPD exacerbation; continue with nebs, steroids, and antibiotics. Currently on BiPAP support and will wean off BiPAP onto nasal cannula. Will continue monitoring closely. 2. History of CAD status post stent placement; continue with antiplatelet therapy and statin therapy 3. Chronic pain syndrome; continue with narcotics 4. History of PAD; patient with history of stent placement 5. History of hypertension; continue with antihypertensives 6. History of A-fib; continue with medication for rate control and anticoagulation DVT prophylaxis: enoxaparin Stress ulcer prophylaxis: pantoprazole Code status: DNAR Advanced Care Planning (Z71.89) Above assessment and plan discussed at length with patient, patient expressed full understanding. Questions and concerned addressed. Surrogate decision maker: NO Level of care expected after discharge: HOME Time spent: 3 minutes discussing the advanced care plan Smoking Cessation: (Z71.6) Tobacco user?: NO Patient will require inpatient stay of 2 midnights or more given high risk of morbidity and mortality [place] [employer] was verified during stay Trish Adams MD IM-INTERNAL MEDICINE STAFF [facility] 2024-04-06 20:16:56 [facility] Hospitalist Admission H&P Date of Service: 04/06/2024 CHIEF COMPLAINT: Chest pain rule out acute coronary syndrome HISTORY OF PRESENT ILLNESS Tahira Hunter is a 68 year old male who presents with chest discomfort as well as dyspnea on exertion. Patient with a history of severe COPD emphysema and patient is following up with bread distributor, Dr. Ibarra, and recently started nebulizer treatments. Patient's also had cardiac studies which indicated that patient is moderate risk for significant coronary artery disease and imaging studies indicative of pulmonary hypertension. Patient also with possible cirrhosis of the liver as seen on imaging studies. Patient has been dealing with chronic lymphedema for many years. Patient states he gets really short of breath with the slightest activity. Patient becomes really tachypneic with difficulty breathing. At this time, patient will be admitted to the hospital for what appears to be acute COPD exacerbation at his recent echocardiogram revealed normal ejection fraction. Patient also has pulmonary hypertension and he may need home oxygen. Patient may benefit from PDE inhibitors. Will need to follow-up with pulmonary for further evaluation and treatment recommendation. PAST MEDICAL HISTORY Past Medical History: Diagnosis Date Cellulitis Chronic ankle pain, bilateral Chronic neck pain COPD (chronic obstructive pulmonary disease) HTN (hypertension) PVD (peripheral vascular disease) s/p left leg stent PAST SURGICAL HISTORY Past Surgical History: Procedure Laterality Date APPENDECTOMY HB PUMP PAIN SYNCHROMED II 2004 Dr Zhou managing OTHER neck surgery SPINE SURGERY STENT PLACEMENT (SHX) left leg ALLERGIES No Known Allergies MEDICATIONS Current home medication list reviewed: Current Discharge Medication List STOP taking these medications albuterol 2.5 mg /3 mL (0.083 %) nebulizer solution Comments: Reason for Stopping: predniSONE 20 mg tablet Comments: Reason for Stopping: ALBUTEROL 90 mcg/actuation inhaler Comments: Reason for Stopping: mupirocin 2 % ointment Comments: Reason for Stopping: LISINOPRIL 40 mg tablet Comments: Reason for Stopping: SERTRALINE 100 mg tablet Comments: Reason for Stopping: amLODIPine 5 mg tablet Comments: Reason for Stopping: atorvastatin 80 mg tablet Comments: Reason for Stopping: clopidogreL 75 mg tablet Comments: Reason for Stopping: furosemide 80 mg tablet Comments: Reason for Stopping: gabapentin 300 mg capsule Comments: Reason for Stopping: rivaroxaban 15 mg tablet Comments: Reason for Stopping: traZODone 50 mg tablet Comments: Reason for Stopping: fluticasone furoate-vilanteroL (BREO ELLIPTA) 200-25 mcg/dose DsDv Comments: Reason for Stopping: foLIC acid 1 mg tablet Comments: Reason for Stopping: SPIRIVA WITH HANDIHALER 18 mcg inhalation device Comments: Reason for Stopping: tamsulosin 0.4 mg 24 hr capsule Comments: Reason for Stopping: nystatin 100,000 unit/mL suspension Comments: Reason for Stopping: FAMILY HISTORY Family History Problem Relation Age of Onset Dementia Mother Dementia Father Coronary Heart Disease Sister Cancer Sister SOCIAL HISTORY Social History Socioeconomic History Marital status: Single Tobacco Use Smoking status: Every Day Current packs/day: 1.00 Types: Cigarettes Smokeless tobacco: Never Substance and Sexual Activity Alcohol use: Not Currently Drug use: Not Currently Sexual activity: Not Currently Social History Narrative Retired [employer] Lives alone Social Determinants of Health Financial Resource Strain: Low Risk (01/13/2024) Overall Financial Resource Strain (CARDIA) Difficulty of Paying Living Expenses: Not hard at all Food Insecurity: No Food Insecurity (01/13/2024) Hunger Vital Sign Worried About Running Out of Food in the Last Year: Never true Ran Out of Food in the Last Year: Never true Transportation Needs: No Transportation Needs (01/13/2024) PRAPARE - Transportation Lack of Transportation (Medical): No Lack of Transportation (Non-Medical): No Physical Activity: Inactive (01/13/2024) Exercise Vital Sign Days of Exercise per Week: 0 days Minutes of Exercise per Session: 0 min Social Connections: Unknown (01/13/2024) Social Connection and Isolation Panel [NHANES] Frequency of Communication with Friends and Family: More than three times a week Marital Status: Housing Stability: Low Risk (01/13/2024) Housing Stability Vital Sign Unable to Pay for Housing in the Last Year: No Number of Places Lived in the Last Year: 1 Unstable Housing in the Last Year: No REVIEW OF SYSTEMS 10 systems negative except per HPI PHYSICAL EXAMINATION BP (!) 159/70 | Pulse 60 | Temp 36.2 ?C (97.1 ?F) | Resp 24 | Ht 5' 10" (1.778 m) | Wt 238 lb 12.8 oz (108.3 kg) | SpO2 93% | BMI 34.26 kg/m? General: No acute distress HEENT: Normal oral mucosa, anicteric sclerae, NCAT Cardiovascular: Irregularly irregular rate and rhythm with bradycardia arrhythmia Lungs: Diminished breath sounds Abdomen: Soft, distended Musculoskeletal: No synovitis, normal muscle mass Genitourinary: Deferred Skin: No rash, no skin lesions Extremities: No clubbing, no cyanosis, bilateral lower extremity edema Neuro: AAOx3, no focal deficits Psych: Normal affect LABS - reviewed pertinent labs as below: CBC BMP PT/INR WBC (10*3/?L) Date Value 04/06/2024 9.34 NA (mmol/L) Date Value 04/06/2024 140 No results found for: "PT" RBC (10*6/?L) Date Value 04/06/2024 2.71 (L) K (mmol/L) Date Value 04/06/2024 3.4 (L) INR (no units) Date Value 01/09/2024 1.2 PLT (10*3/?L) Date Value 04/06/2024 173 CALCIUM (mg/dL) Date Value 04/06/2024 8.4 (L) HGB (g/dL) Date Value 04/06/2024 7.2 (L) CL (mmol/L) Date Value 04/06/2024 105 aPTT HCT (%) Date Value 04/06/2024 24.4 (L) BUN (mg/dL) Date Value 04/06/2024 18 APTT Patient (Seconds) Date Value 01/13/2024 67 (H) CREATININE (mg/dL) Date Value 04/06/2024 0.90 IMAGING - reviewed, pertinent results as below: Hospital Encounter on 04/06/24 XR CHEST 2 VW Narrative Study: Two view chest. Ordering Physician: CHETNA GARCIA Date: 04/06/2024 11:15 AM History:chest pain, dyspnea COMPARISON: None. Findings: Frontal and lateral views of the chest demonstrate Cardiomegaly. Chronic appearing interstitial thickening is identified throughout both lungs which is suspected result from chronic interstitial lung disease. No consolidation, pleural effusion or pneumothorax is present. Impression 1. Interstitial thickening throughout both lungs is suspected to result from a chronic interstitial lung disease. Otherwise, no evidence for acute process is identified. 2. Mild cardiomegaly is present. RL: [id number] HS:Y SSMENT: 1. Acute COPD exacerbation; patient with severe emphysema and pulmonary hypertension 2. Dyspnea on exertion 3. Chest pain rule out acute coronary syndrome 4. Liver cirrhosis 5. History of tobacco abuse 6. Lymphedema 7. Atrial fibrillation with normal ventricular response 8. Coronary artery disease with moderate atherosclerotic 9. History of hypertension 10. History of depression 11. Benign prostatic hypertrophy PLAN: 1. Acute COPD exacerbation with severe emphysema and pulmonary hypertension; patient also with dyspnea on exertion. Will also get an echocardiogram. At this time, we will continue with nebs, steroids, and will continue with diuresing. Patient may also benefit from PDE inhibitor. Patient continues to smoke and we have counseled him regarding tobacco cessation. 2. Patient with chest pain rule out acute coronary syndrome in a patient with moderate coronary atherosclerotic disease; continue with antiplatelet therapy and statin therapy along with strict blood pressure control. Continue with monitoring troponins 3. Atrial fibrillation with normal heart rate; continue with anticoagulation at this time. 4. Tobacco abuse; counseled regarding cessation 5. Liver cirrhosis; most likely related to fatty liver disease. Monitor liver function testing 6. Metabolic syndrome; continue with strict blood pressure and blood sugar control and continue with statin therapy 7. BPH; continue with Flomax 8. History of lymphedema; possibly related to chronic venous stasis; monitor volume status 9. GI and DVT prophylaxis DVT prophylaxis: enoxaparin Stress ulcer prophylaxis: pantoprazole Code status: FULL Advanced Care Planning (Z71.89) Above assessment and plan discussed at length with patient, patient expressed full understanding. Questions and concerned addressed. Surrogate decision maker: NO Level of care expected after discharge: HOME Time spent: 3 minutes discussing the advanced care plan Smoking Cessation: (Z71.6) Tobacco user?: YES Patient will require inpatient stay of 2 midnights or more given high risk of morbidity and mortality [place] [employer] was verified during stay Trish Adams MD [facility] hospital 2024-01-10 00:33:57 CCU H&P PCP: Aminata Reza Date of Service: 01/09/2024 CHIEF COMPLAINT: Chest Pain History of Present Illness Tahira Hunter is a 68 year old male with a PMH significant for HFpEF, Paroxysmal Afib, HTN, PAD s/p LLE stent 2017, COPD presented to [facility] with chest pain. Pt initially had SOB for the past week, followed by CP for the past 4-5 days. CP radiated to L arm. Has NICKERSON and orthopnea as well. Pt smoked about 2 packs a day for the past 50 years. In the ED, noted to be afebrile, HR 54, RR 20, BP 127/55 then 169/89 on 5-6 L NC and then BiPAP. Received 2 nitro and 2 baby ASA prior to arrival by EMS to [facility]. Pt was noted to have increased work of breathing and was put on Bipap after O2 sats dropped to 80%. Received lasix 40 mg IV x1, solumedrol and duonebs, and morphine 2 mg. CXR concerning for pulmonary edema vs chronic pulmonary fibrosis with cardiomegaly. Of note pt had NM stress test in 2020 which was negative. Cardiac CTA done on 11/27/23 shows presence of moderate stenosis in proximal to mid LAD disease, ostial D1 and elevated calcium score 533. Recent TTE in Sep 2023 with normal EF, but noted to have RV pressure overload. Labs notable for: Hgb 10.8, K 2.4 NT pro BNP 1,370---> 217 (5 months ago) Troponin negative LA 1.41 ABG: pH 7.42, CO2 39, O2 62 Called and updated sister, Ana María. PAST MEDICAL HISTORY Past Medical History: Diagnosis Date Cellulitis Chronic ankle pain, bilateral Chronic neck pain COPD (chronic obstructive pulmonary disease) HTN (hypertension) PVD (peripheral vascular disease) s/p left leg stent Past Surgical History: Procedure Laterality Date APPENDECTOMY HB PUMP PAIN SYNCHROMED II 2004 Dr Zhou managing OTHER neck surgery SPINE SURGERY STENT PLACEMENT (SHX) left leg Family History Problem Relation Age of Onset Dementia Mother Dementia Father Coronary Heart Disease Sister Cancer Sister ALLERGIES No Known Allergies MEDICATIONS No current facility-administered medications on file prior to encounter. Current Outpatient Medications on File Prior to Encounter Medication Sig Dispense Refill tiotropium 18 mcg inhalation Inhale 1 capsule in the morning. 30 capsule 11 metoprolol succinate XL 25 mg 24 hr tablet Take 1 tablet by mouth in the morning. 30 tablet 2 LEVOCETIRIZINE 5 mg tablet TAKE 1 TABLET BY MOUTH EVERY EVENING. 90 tablet 0 GABAPENTIN 300 mg capsule TAKE 1 CAPSULE BY MOUTH AT BEDTIME. 30 capsule 2 XARELTO 20 mg tablet TAKE 1 TABLET BY MOUTH DAILY 90 tablet 0 aspirin 81 mg chewable tablet Take 1 tablet by mouth in the morning. atorvastatin 80 mg tablet Take 1 tablet by mouth at bedtime. 90 tablet 1 amLODIPine 10 mg tablet Take 1 tablet by mouth in the morning. 90 tablet 1 azithromycin 500 mg tablet Take 1 tablet by mouth in the morning. 3 tablet 0 traZODone 50 mg tablet Take 1 tablet by mouth at bedtime. 90 tablet 1 cephALEXin 500 mg tablet Take 1 tablet by mouth 4 (four) times daily. 40 tablet 0 SERTRALINE 100 mg tablet TAKE 1 TABLET BY MOUTH TWICE DAILY 180 tablet 0 fluticasone furoate-vilanteroL (BREO ELLIPTA) 200-25 mcg/dose DsDv Inhale 1 Puff in the morning. 60 Each 11 foLIC acid 1 mg tablet TAKE 1 TABLET BY MOUTH EVERY DAY 30 tablet 5 VENTOLIN HFA 90 mcg/actuation inhaler INHALE 2 PUFFS BY MOUTH EVERY FOUR HOURS NEEDED FOR WHEEZING OR SHORTNESS OF BREATH 18 g 0 SPIRIVA WITH HANDIHALER 18 mcg inhalation device INHALE CONTENTS OF 1 CAPSULE VIA HANDIHALER EVERY DAY 30 capsule 10 furosemide 20 mg tablet Take 1 tablet by mouth every morning and evening. 180 tablet 3 ERGOCALCIFEROL, VITAMIN D2, 1,250 mcg (50,000 unit) capsule TAKE ONE CAPSULE BY MOUTH EVERY WEEK ON SATURDAY 10 capsule 0 LISINOPRIL 40 mg tablet TAKE 1 TABLET BY MOUTH 2 (TWO) TIMES DAILY. 180 tablet 1 tamsulosin 0.4 mg 24 hr capsule Take 1 capsule by mouth in the morning. 30 capsule 3 nystatin 100,000 unit/mL suspension Take 10 mL by mouth 4 (four) times daily. 240 mL 0 valACYclovir 1 gram tablet Take 1 tablet by mouth in the morning and 1 tablet at noon and 1 tablet in the evening. 30 tablet 0 albuterol 2.5 mg /3 mL (0.083 %) nebulizer solution Inhale 3 mL every 6 (six) hours as needed for Wheezing or Shortness of Breath. 100 Each 11 Nebulizer & Compressor For Neb Juli Use as directed 1 Each 0 SOCIAL HISTORY Social History Socioeconomic History Marital status: Single Tobacco Use Smoking status: Every Day Current packs/day: 1.00 Types: Cigarettes Smokeless tobacco: Never Substance and Sexual Activity Alcohol use: Not Currently Drug use: Not Currently Sexual activity: Not Currently Social History Narrative Retired [employer] Lives alone REVIEW OF SYSTEMS See HPI PHYSICAL EXAMINATION Vitals: 01/09/24 1657 01/09/24 1800 01/09/24 1815 01/09/24 1854 BP: (!) 155/66 (!) 152/101 Pulse: 59 60 66 Resp: Temp: TempSrc: SpO2: 92% 90% (!) 80% 93% Weight: Height: Physical Exam Constitutional: Appearance: He is obese. HENT: Head: Normocephalic and atraumatic. Cardiovascular: Rate and Rhythm: Regular rhythm. Pulses: Normal pulses. Heart sounds: Normal heart sounds. Pulmonary: Comments: Increased work of breathing, mild wheezing Abdominal: General: Bowel sounds are normal. There is distension. Tenderness: There is no abdominal tenderness. Skin: Comments: Chronic skin changes from venous stasis LABS - reviewed pertinent labs as below: See HPI IMAGING - reviewed, pertinent results as below: CXR FINDINGS: Mild to moderate cardiomegaly noted with slightly prominent central pulmonary vasculature. Increased reticular markings are seen in both lungs, some of which could be chronic from pulmonary fibrosis with superimposed minimal acute pulmonary edema. No focal consolidation. No pneumothorax or pleural effusion. Lower cervical spine ACDF surgical changes noted.. CONCLUSIONS: Cardiomegaly with minimal pulmonary edema, superimposed on underlying chronic changes of pulmonary fibrosis/obstructive lung disease. MIBI 04/19/21 Impression: Motion artifacts noted. No reversible perfusion defect. Preserved ejection fraction and normal wall thickening. TTE 10/03/23 Left Ventricle Left ventricle size is normal. Mildly increased wall thickness. Septal flattening in systole consistent with right ventricular pressure overload. . Normal systolic function with a visually estimated EF of 55 - 60%. Diastolic dysfunction. Normal left ventricular filling pressure. Right Ventricle Right ventricle is mildly dilated. Mildly reduced systolic function. Left Atrium Left atrium is mildly dilated. Right Atrium Right atrium size is normal. Mitral Valve Mild mitral annular calcification. Trace transvalvular regurgitation. Tricuspid Valve Tricuspid valve structure is grossly normal. Trace transvalvular regurgitation. Right ventricular systolic pressure is 50-55 mmHg. RA pressure is 0-5 mmHg. Aortic Valve Aortic valve opens well. Mildly calcified cusps. AV mean gradient is 6.6 mmHg. Pulmonic Valve Not well visualized. Trace transvalvular regurgitation. Ascending Aorta Mildly enlarged ascending aorta 3.2cm. Pericardium Trivial pericardial effusion present. Interpretation Summary Left Ventricle: Left ventricle size is normal. Mildly increased wall thickness. Septal flattening in systole consistent with right ventricular pressure overload. . Normal wall motion. Normal systolic function with a visually estimated EF of 55 - 60%. Diastolic dysfunction. Normal left ventricular filling pressure. Tricuspid Valve: Trace transvalvular regurgitation. Right ventricular systolic pressure is 50-55 mmHg. RA pressure is 0-5 mmHg. Left Atrium: Left atrium is mildly dilated. Right Ventricle: Right ventricle is mildly dilated. Mildly reduced systolic function. Aorta: Mildly enlarged ascending aorta 3.2cm. Pericardium: Trivial pericardial effusion present. EKG: ordered CHART REVIEW: pertinent information as below: reviewed ASSESSMENT/PLAN Tahira Hunter is a 68 year old male with PMH as listed above, admitted to the hospital with: Unstable Angina HFpEF, NYHA Class III/C CAD Bradycardia Paroxsymal Afib Pulmonary HTN PAD s/p LLE stent HTN, HLD Pt with worsening SOB and CP in the setting of ischemic disease, HFpEF, and COPD, now requiring Bipap. Cardiac CTA done on 11/27/23 shows presence of moderate stenosis in proximal to mid LAD disease, ostial D1 with elevated calcium score 533. Prior NM stress test negative in 2020. Will initiate diuresis and workup for ischemia with coronary cath. - Admit to CCU - Basic Admit labs - Lasix 40 IV BID - TTE - hep gtt - NPO for possible stress test vs coronary angio - c/w ASA, atorvastatin - Resume lisinopril and amlodipine as needed - Hold home toprol 25 mg and lasix 20 mg BID - Hold xarelto AHRF requring Bipap COPD exacerbation Smoker - Bipap - prednisone - ABG prn - duonebs - smoking cessation Depression BPH - c/w sertraline - c/w flomax Pain ControlledTylenol Prophylaxis: DVT- heparin Stress Ulcer: pantoprazole Code Status: addressed: DNR/DNI Juana Del Rio DO Internal Medicine Remmers Team Associated attestation - Brandon Smith MD - 01/12/2024 3:40 PM CDT I saw and examined the patient on 01/10/24, EMR and chart reviewed. I agree with Dr. Del Rio, the resident's note including findings and plan as written. [facility] - Health Notes Date/Time Note Provider Source 2024-07-17 07:49:15 Images from the original note were not included. Last Refilled: Notes: Name from pharmacy: metoprolol tartrate 50 mg tablet Will file in chart as: METOPROLOL TARTRATE 50 mg tablet The original prescription was discontinued on 07/07/2024 by Lester Maya MD. Renewing this prescription may not be appropriate. Sig: TAKE 1 TABLET BY MOUTH TWICE DAILY Disp: 180 tablet Refills: 1 Start: 07/16/2024 Class: eRX For: Essential hypertension Last ordered: 1 month ago (06/15/2024) by Aminata Reza MD Last refill: 06/15/2024 Rx #: [id number] Cardiovascular: Beta Blockers [id number]/16/2024 03:01 PM Protocol Details Heart rate within normal limits and completed in the last 12 months Valid encounter within last 12 months Recent Visits Date Type Provider Dept 06/29/24 Office Visit Aminata Reza MD [facility] 04/14/24 Office Visit Aminata Reza MD [facility] 03/03/24 Office Visit Aminata Reza MD [facility] 01/27/24 Office Visit Aminata Reza MD [facility] 12/03/23 Office Visit Aminata Reza MD [facility] 11/05/23 Office Visit Aminata Reza MD [facility] 08/13/23 Office Visit Aminata Reza MD [facility] 07/24/23 Office Visit Aminata Reza MD [facility] 05/01/23 Office Visit Monique Rider MD [facility] 03/25/23 Office Visit Aminata Reza MD [facility] Showing recent visits within past 540 days with a meds authorizing provider and meeting all other requirements Future Appointments No visits were found meeting these conditions. Showing future appointments within next 150 days with a meds authorizing provider and meeting all other requirements [facility] Alexa Chauhan RN [facility] 2024-07-15 11:44:46 Orders and Demo , Insurance faxed to [facility] 2024-07-14 16:38:07 OK for hospice care V [facility] 2024-07-14 16:10:53 Tahira Hunter is a 69 year old male and pt is calling asking if Dr. Reza can write orders for Hospice for him. Please advise. [facility] Hospice Service - [facility] Suze Choi [facility] 2024-07-08 16:22:59 Will have him take one a day at bedtime [facility] 2024-07-08 11:10:15 He currently does not take the Flomax that was given to him last year and the script has run out he needs a new script if you want him taking this medication [facility] 2024-07-08 08:48:10 Try taking his tamsulosin bid V [facility] 2024-07-08 08:38:52 Please review and advise. TAD 06/29/24 NOV not scheduled E Foss LVN [facility] 2024-07-08 08:17:30 Boaz beal/ [facility] calling to report the pt's HR is 45 which she said is normal for him. He also complains of having a difficult stream when he urinates. Please Advise. [facility] - [place], [place] - [address] [id number] [address] [facility] 2024-07-02 09:06:[address] Reza 's recommendations [facility] 2024-07-02 07:36:26 Don't take the diazepam at night. Instead take 2 tablets of trazodone to help him sleep V [facility] 2024-07-01 11:48:15 Patient seen on 06/29/2024 and would like to speak about DIAZEPAM, states it is not working. States unable to sleep and becomes more confused at night x 2 months Please advise. Callback: [phone] E Fuchs [facility] 2024-06-29 09:32:36 Please review JUL 06 E Foss DRAWING IN HAND [facility] 2024-06-29 09:10:43 Tahira Hunter is a 69 year old male Ruthie from [facility] is calling to notify Dr. Reza that the patient has experienced a weight gain of 9 lbs from 220 lbs to 229 lbs over the course of six days. She also reports that the patient is experiencing shortness of breath that becomes more evident with exertion. She, with the patient on the line, scheduled an appointment for 3:30 pm on 06/29. [employer]CHNIC[employer] Mat Chen [facility] 2024-06-26 14:41:44 Refill denied: Requested Prescriptions Pending Prescriptions Disp Refills DIAZEPAM 2 mg tablet [Pharmacy Med Name: diazepam 2 mg tablet] 30 tablet 0 Sig: TAKE ONE TABLET BY MOUTH THREE TIMES A DAY NEEDED FOR ANXIETY Last fill date: 06/15/24 Abigail Foss LVN [facility] 2024-06-11 16:28:57 Images from the original note were not included. Notes: Last Refilled: Name from pharmacy: metoprolol tartrate 50 mg tablet Will file in chart as: METOPROLOL TARTRATE 50 mg tablet Sig: TAKE 1 TABLET BY MOUTH TWICE DAILY Disp: 180 tablet Refills: 1 Start: 06/11/2024 Class: eRX Last refill: 03/26/2024 Cardiovascular: Beta Blockers [id number]/11/2024 04:10 PM Protocol Details Heart rate within normal limits and completed in the last 12 months Valid encounter within last 12 months Name from pharmacy: diazepam 2 mg tablet Will file in chart as: DIAZEPAM 2 mg tablet Possible duplicate: Hover to review recent actions on this medication Sig: TAKE ONE TABLET BY MOUTH THREE TIMES A DAY NEEDED FOR ANXIETY Disp: 30 tablet Refills: 0 Start: 06/11/2024 Class: eRX PDMP Needs Review For: Panic attacks Last ordered: 2 weeks ago (05/28/2024) by Aminata Reza MD Last refill: 05/28/2024 Rx #: [id number] Provider Review Required [id number]/11/2024 04:10 PM Protocol Details This refill cannot be delegated Valid encounter within last 12 months To be filled at: [facility] - [place], [place] - [address] Recent Visits Date Type Provider Dept 04/14/24 Office Visit Aminata Reza MD [facility] 03/03/24 Office Visit Aminata Reza MD [facility] 01/27/24 Office Visit Aminata Reza MD [facility] 12/03/23 Office Visit Aminata Reza MD [facility] 11/05/23 Office Visit Aminata Reza MD [facility] 08/13/23 Office Visit Aminata Reza MD [facility] 07/24/23 Office Visit Aminata Reza MD [facility] 05/01/23 Office Visit Monique Rider MD [facility] 03/25/23 Office Visit Aminata Reza MD [facility] 02/05/23 Office Visit Aminata Reza MD [facility] Showing recent visits within past 540 days with a meds authorizing provider and meeting all other requirements Future Appointments No visits were found meeting these conditions. Showing future appointments within next 150 days with a meds authorizing provider and meeting all other requirements [facility] 2024-06-02 10:48:06 Submitted NIV order via [place] with [facility]. Please follow up with them for status updates. [place] Patient [phone] Christel Jones MA [facility] 2024-06-01 10:26:41 Note addended. Thanks. [facility] 2024-05-29 15:59:05 In process of ordering NIV via parachute. [facility] states Trilogy is recalled. They carry Astral 150. Will route to MD to fyi and tho addend the visit notes if chooses to go with Astral Rx. Will resume DME exsisting order and call Kalyani Acevedo at [facility] to walk us with online order. Rep aware. Christel Jones MA [facility] 2024-05-28 16:39:40 Patient notified that RX for diazepam was sent to [facility]. All was verbalized understanding. Abigail Foss DRAWING IN HAND [facility] 2024-05-28 16:26:44 Patient following up on assessment placed earlier today. Is requesting to speak with a nurse regarding this medication and his panic attacks. Please advise. Shon Herrera [facility] 2024-05-28 10:45:16 Please review and advise. TAD 04/14/24 NOV 06/02/24 Abigail Foss DRAWING IN HAND [facility] 2024-05-28 10:39:18 Pt request new rx for Valium. Pt said he has been having panic attacks since he was hospitalized and they gave him Valium 1.5 MG and it helped him. Please Advise. [facility] [address] [id number] [address] [facility] 2024-05-25 14:44:15 Called and advised patient to make appointment , he verbalized understanding [facility] 2024-05-25 12:23:53 TRANSITIONAL CARE MANAGEMENT ASSESSMENT 05/25/2024 Tahira Hunter [id number] Tahira Hunter is a 69 year old /White male was admitted on 05/19/24 to [facility] ICU. He was discharged on 05/22/24 with discharge disposition of HR- Routine Discharge. Admitting Physician: Annette Diaz Discharge Diagnosis: Acute on chronic respiratory failure with hypoxia due to a COPD exacerbation and acute on chronic HFpEF Type II [facility] No linked episodes TCM [id number] outreach documentation: Discharge Assessment Chart Assessed: 05/25/24 TCM Outreach Completed: 05/25/24 Do you have a few minutes to speak with me about how you are doing at home?: Yes Discharge Instructions Do you understand your at-home instructions?: Yes Medications Have you filled your prescriptions and do you have them in your home? : No Medication Interventions?: (per pt, "will get someone to get it for me") Do you know how to take your medications?: Yes Supplies Did you receive applicable home medical supplies/equipment?: N/A Follow Up Appointment Has a follow up appointment been scheduled?: No May I assist with scheduling this appointment?: CM scheduled appointment Are you able to get to your appointment? Who will be taking you?: Yes Home Health Assistance Has the home health nurse contacted you since you've been home?: No [employer]OR Interventions:: (attempted to give pt contact info. per pt, "i can't do that right now. can you call me back tomorrow?"[facility] [address] [address] (P) [phone] (F) [phone]) Survey - Recognition Is there anything you would like to share about your recent hospitalization, or anyone you would like to recognize?: No Do you have any suggestions for improvement?: No Do you have any other questions or concerns at this time?: No Future Appointments: Future Appointments Provider Department Dept Phone 06/02/2024 2:30 PM Aminata Reza MD [facility] [phone] 09/11/2024 9:30 AM Vineet Ibarra DO [facility] [phone] Vince Green RN [facility] 2024-05-25 11:09:19 Please ask patient to make an appointment to discuss. [facility] 2024-05-25 09:00:27 Tahira Hunter is a 69 year old male patient calling to speak with Dr. Reza regarding his ED visit, says he is having anxiety and wants to make sure that his medications are correct. Please call [phone] Dara Tariq [facility] 2024-05-22 17:19:27 Problem: Falls, Risk of Goal: Absence of falls 05/22/20241718 by Nicky Moralez RN Outcome: Adequate for discharge 05/22/2024 171 by Nicky Moralez RN Outcome: Progressing as expected 05/22/2024 1520 by Nicky Moralez RN Outcome: Progressing as expected Problem: Pain Goal: Control of pain at or below patient's documented comfort goal 05/22/2024 171 by Nicky Moralez RN Outcome: Adequate for discharge 05/22/2024 1719 by Nicky Moralez RN Outcome: Progressing as expected 05/22/2024 1520 by Nicky Moralez RN Outcome: Progressing as expected Goal: Reduction in pain sensation 05/22/2024 1719 by Nicky Moralez RN Outcome: Adequate for discharge 05/22/2024 1719 by Nicky Moralez RN Outcome: Progressing as expected 05/22/2024 1520 by Nicky Moralez RN Outcome: Progressing as expected Problem: Venous Thromboembolism, (actual or risk of) Goal: Absence of venous thromboembolism (Risk) 05/22/2024 1719 by Nicky Moralez RN Outcome: Adequate for discharge 05/22/2024 1719 by Nicky Moralez RN Outcome: Progressing as expected 05/22/2024 1520 by Nicky Moralez RN Outcome: Progressing as expected Problem: Discharge Planning Goal: Adequate for discharge 05/22/2024 1719 by Nicky Moralez RN Outcome: Adequate for discharge 05/22/2024 1719 by Nicky Moralez RN Outcome: Progressing as expected 05/22/2024 1520 by Nicky Moralez RN Outcome: Progressing as expected Goal: Effective communication 05/22/2024 1719 by Nicky Moralez RN Outcome: Adequate for discharge 05/22/2024 1719 by Nicky Moralez RN Outcome: Progressing as expected 05/22/2024 1520 by Nicky Moralez RN Outcome: Progressing as expected Problem: Fluid Volume - Imbalanced Goal: Absence of signs and symptoms of imbalanced fluid volume 05/22/2024 1719 by Nicky Moralez RN Outcome: Adequate for discharge 05/22/2024 1719 by Nicky Moralez RN Outcome: Progressing as expected 05/22/2024 1520 by Nicky Moralez RN Outcome: Progressing as expected Problem: Infection, Risk of or Actual Goal: Absence of infection 05/22/2024 1719 by Nicky Moralez RN Outcome: Adequate for discharge 05/22/2024 1719 by Nicky Moralez RN Outcome: Progressing as expected 05/22/2024 1520 by Nicky Moralez RN Outcome: Progressing as expected Problem: Nutrition Deficit Goal: Adequate nutritional intake 05/22/2024 1719 by Nicky Moralez RN Outcome: Adequate for discharge 05/22/2024 1719 by Nicky Moralez RN Outcome: Progressing as expected 05/22/2024 1520 by Nicky Moralez RN Outcome: Progressing as expected Problem: Respiratory Function - Impaired Goal: Able to cough effectively 05/22/2024 1719 by Nicky Moralez RN Outcome: Adequate for discharge 05/22/2024 1719 by Nicky Moralez RN Outcome: Progressing as expected 05/22/2024 1520 by Nicky Moralez RN Outcome: Progressing as expected Goal: Adequate oxygenation 05/22/2024 1719 by Nicky Moralez RN Outcome: Adequate for discharge 05/22/2024 1719 by Nicky Moralez RN Outcome: Progressing as expected 05/22/2024 1520 by Nicky Moralez RN Outcome: Progressing as expected Goal: Adequate work of breathing 05/22/2024 1719 by Nicky Moralez RN Outcome: Adequate for discharge 05/22/2024 1719 by Nicky Moralez RN Outcome: Progressing as expected 05/22/2024 1520 by Nicky Moralez RN Outcome: Progressing as expected Goal: Patent airway 05/22/2024 1719 by Nicky Moralez RN Outcome: Adequate for discharge 05/22/2024 1719 by Nicky Moralez RN Outcome: Progressing as expected 05/22/2024 1520 by Nicky Moralez RN Outcome: Progressing as expected Problem: Skin integrity Impaired (Risk or Actual) Goal: Wound healing 05/22/2024 171 by Nicky Moralez RN Outcome: Adequate for discharge 05/22/2024 1719 by Nicky Moralez RN Outcome: Progressing as expected 05/22/2024 1520 by Nicky Moralez RN Outcome: Progressing as expected Goal: Prevention of new skin breakdown 05/22/2024 1719 by Nicky Moralez RN Outcome: Adequate for discharge 05/22/2024 1719 by Nicky Moralez RN Outcome: Progressing as expected 05/22/2024 1520 by Nicky Moralez RN Outcome: Progressing as expected Problem: Tissue Perfusion - Altered, Risk of Goal: Hemodynamically stable 05/22/2024 1719 by Nicky Moralez RN Outcome: Adequate for discharge 05/22/2024 1719 by Nicky Moralez RN Outcome: Progressing as expected 05/22/2024 1520 by Nicky Moralez RN Outcome: Progressing as expected Nicky Moralez RN [facility] 2024-05-22 15:20:44 Problem: Falls, Risk of Goal: Absence of falls Outcome: Progressing as expected Problem: Pain Goal: Control of pain at or below patient's documented comfort goal Outcome: Progressing as expected Goal: Reduction in pain sensation Outcome: Progressing as expected Problem: Venous Thromboembolism, (actual or risk of) Goal: Absence of venous thromboembolism (Risk) Outcome: Progressing as expected Problem: Discharge Planning Goal: Adequate for discharge Outcome: Progressing as expected Goal: Effective communication Outcome: Progressing as expected Problem: Fluid Volume - Imbalanced Goal: Absence of signs and symptoms of imbalanced fluid volume Outcome: Progressing as expected Problem: Infection, Risk of or Actual Goal: Absence of infection Outcome: Progressing as expected Problem: Nutrition Deficit Goal: Adequate nutritional intake Outcome: Progressing as expected Problem: Respiratory Function - Impaired Goal: Able to cough effectively Outcome: Progressing as expected Goal: Adequate oxygenation Outcome: Progressing as expected Goal: Adequate work of breathing Outcome: Progressing as expected Goal: Patent airway Outcome: Progressing as expected Problem: Skin integrity Impaired (Risk or Actual) Goal: Wound healing Outcome: Progressing as expected Goal: Prevention of new skin breakdown Outcome: Progressing as expected Problem: Tissue Perfusion - Altered, Risk of Goal: Hemodynamically stable Outcome: Progressing as expected [facility] 2024-05-21 21:13:43 Problem: Falls, Risk of Goal: Absence of falls Outcome: Progressing as expected Problem: Pain Goal: Control of pain at or below patient's documented comfort goal Outcome: Progressing as expected Goal: Reduction in pain sensation Outcome: Progressing as expected Problem: Venous Thromboembolism, (actual or risk of) Goal: Absence of venous thromboembolism (Risk) Outcome: Progressing as expected Problem: Discharge Planning Goal: Adequate for discharge Outcome: Progressing as expected Goal: Effective communication Outcome: Progressing as expected Problem: Fluid Volume - Imbalanced Goal: Absence of signs and symptoms of imbalanced fluid volume Outcome: Progressing as expected Problem: Infection, Risk of or Actual Goal: Absence of infection Outcome: Progressing as expected Problem: Nutrition Deficit Goal: Adequate nutritional intake Outcome: Progressing as expected Problem: Respiratory Function - Impaired Goal: Able to cough effectively Outcome: Progressing as expected Goal: Adequate oxygenation Outcome: Progressing as expected Goal: Adequate work of breathing Outcome: Progressing as expected Goal: Patent airway Outcome: Progressing as expected Problem: Skin integrity Impaired (Risk or Actual) Goal: Wound healing Outcome: Progressing as expected Goal: Prevention of new skin breakdown Outcome: Progressing as expected Problem: Tissue Perfusion - Altered, Risk of Goal: Hemodynamically stable Outcome: Progressing as expected Marilee Ortega RN [facility] 2024-05-21 08:08:40 Problem: Falls, Risk of Goal: Absence of falls Outcome: Progressing as expected Problem: Pain Goal: Control of pain at or below patient's documented comfort goal Outcome: Progressing as expected Goal: Reduction in pain sensation Outcome: Progressing as expected Problem: Respiratory Function - Impaired Goal: Able to cough effectively Outcome: Progressing as expected Goal: Adequate oxygenation Outcome: Progressing as expected Goal: Adequate work of breathing Outcome: Progressing as expected Cary Cramer RN [facility] 2024-05-21 03:50:43 05/21/24 0333 Respiratory Other Respiratory other approx 0315 pt was being changed by RN and stated SOB, bipap placed by RN and checked by RT. Pt tolerating bipap on previous settings Remy Enamorado RT [facility] 2024-05-20 23:56:56 Problem: Falls, Risk of Goal: Absence of falls Outcome: Progressing as expected Problem: Pain Goal: Control of pain at or below patient's documented comfort goal Outcome: Progressing as expected Goal: Reduction in pain sensation Outcome: Progressing as expected Problem: Venous Thromboembolism, (actual or risk of) Goal: Absence of venous thromboembolism (Risk) Outcome: Progressing as expected Problem: Discharge Planning Goal: Adequate for discharge Outcome: Progressing as expected Goal: Effective communication Outcome: Progressing as expected Problem: Fluid Volume - Imbalanced Goal: Absence of signs and symptoms of imbalanced fluid volume Outcome: Progressing as expected Problem: Infection, Risk of or Actual Goal: Absence of infection Outcome: Progressing as expected Problem: Nutrition Deficit Goal: Adequate nutritional intake Outcome: Progressing as expected Problem: Respiratory Function - Impaired Goal: Able to cough effectively Outcome: Progressing as expected Goal: Adequate oxygenation Outcome: Progressing as expected Goal: Adequate work of breathing Outcome: Progressing as expected Goal: Patent airway Outcome: Progressing as expected Problem: Skin integrity Impaired (Risk or Actual) Goal: Wound healing Outcome: Progressing as expected Goal: Prevention of new skin breakdown Outcome: Progressing as expected Problem: Tissue Perfusion - Altered, Risk of Goal: Hemodynamically stable Outcome: Progressing as expected [facility] 2024-05-20 19:48:36 05/20/241944 Respiratory Assessment Assessment type Pre-tx Respiratory symptoms See respiratory assessment Procedure Small volume nebulizer Vitals Pulse 68 Resp 20 SpO2 93 % Oxygen mode (O2 device) Nasal cannula Oxygen flow (L/min) 6 L/min Airway Adjunct Type of airway N/A Respiratory Pattern Regular;Equal chest expansion Respiratory effort Unlabored Cyanosis Not present Breath Sounds R Upper Diminished R Middle Diminished R Lower Diminished L Upper Diminished L Lower Diminished Airway Sounds None Respiratory Other Respiratory other pt is requesting not to wear bipap at this time- pt educated and encouraged by RT and pt would like to "play it by ear" Non-Invasive Positive Pressure Ventilation Vent type V60 Vent mode Standby [facility] 2024-05-20 17:43:19 Patient seen in the hospital today 05/20/2024 [facility] 2024-05-20 12:34:43 Images from the original note were not included. [facility] Clinical Pharmacist Consult Consulting Service: Pharmacy Medication Reconciliation Patient: Tahira Hunter ([id number]) is a 69 year old male currently admitted for COPD exacerbation. Admit Date/Time: 05/19/2024 11:01 AM Discharge Date: No discharge date for patient encounter. Allergies/ADRs: Allergies as of 05/19/2024 (No Known Allergies) The table below represents a medication reconciliation report. Inpatient orders have not been modified. Please review the inpatient orders based on the recommendations to make any necessary changes. 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 Add if needed Therapy optimized ATORVASTATIN 40 mg tablet TAKE 1 TABLET BY MOUTH AT BEDTIME. Continue Therapy optimized clopidogreL 75 mg tablet Take 1 tablet by mouth in the morning for 360 days. Continue Therapy optimized fluticasone furoate-vilanteroL (BREO ELLIPTA) 200-25 mcg/dose DsDv Inhale 1 Puff in the morning. Continue to hold Non-formulary foLIC acid 1 mg tablet TAKE 1 TABLET BY MOUTH EVERY DAY Continue Therapy optimized hydrocortisone 25 mg suppository Insert 1 Suppository into rectum once daily as needed for Rectal itching/pain for up to 30 doses. Continue Therapy optimized LISINOPRIL 40 mg tablet TAKE 1 TABLET BY MOUTH 2 (TWO) TIMES DAILY. Continue Therapy optimized metoprolol succinate XL 25 mg 24 hr tablet Take 0.5 tablets by mouth in the morning and 0.5 tablets in the evening. Continue Therapy optimized SERTraline 100 mg tablet Take 1 tablet by mouth in the morning and 1 tablet in the evening. Continue Therapy optimized tamsulosin 0.4 mg 24 hr capsule Take 1 capsule by mouth in the morning. Continue Therapy optimized traMADoL 25 mg tablet Take 1 tablet by mouth in the morning and 1 tablet at noon and 1 tablet in the evening. Continue Therapy optimized traZODone 50 mg tablet Take 1 tablet by mouth at bedtime. Modify Therapy optimized Pt requesting to increase dose - recommend to increase to 75 mg or 100 mg QHS umeclidinium (INCRUSE ELLIPTA) 62.5 mcg/actuation DsDv Inhale 1 Puff in the morning. Continue to hold Non-formulary XARELTO 20 mg tablet TAKE 1 TABLET BY MOUTH DAILY Continue to hold On hold (specify duration/reason) - On hold from previous admission due to anemia Last reviewed on 05/20/2024 12:29 PM by Lisa Aguilar [facility] Outpatient Pharmacy Contact Information: [facility] [place] [address] [address] [facility] [address] [facility] [address] Is the patient interested in [id number]? No, patient is not interested. Contact vegetable trimmer services? No vegetable trimmer needed. Lisa Aguilar RPH 12:34 PM, 05/20/2024 [facility] Department of Pharmacy - [facility] Phone: ADC: [phone] [facility] Lisa [facility] 2024-05-20 08:38:51 Problem: Falls, Risk of Goal: Absence of falls Outcome: Progressing as expected Problem: Pain Goal: Control of pain at or below patient's documented comfort goal Outcome: Progressing as expected Goal: Reduction in pain sensation Outcome: Progressing as expected Problem: Nutrition Deficit Goal: Adequate nutritional intake Outcome: Progressing as expected [facility] 2024-05-19 22:31:01 Problem: Falls, Risk of Goal: Absence of falls Outcome: Progressing as expected Problem: Pain Goal: Control of pain at or below patient's documented comfort goal Outcome: Progressing as expected Goal: Reduction in pain sensation Outcome: Progressing as expected Problem: Venous Thromboembolism, (actual or risk of) Goal: Absence of venous thromboembolism (Risk) Outcome: Progressing as expected Problem: Discharge Planning Goal: Adequate for discharge Outcome: Progressing as expected Goal: Effective communication Outcome: Progressing as expected Problem: Fluid Volume - Imbalanced Goal: Absence of signs and symptoms of imbalanced fluid volume Outcome: Progressing as expected Problem: Infection, Risk of or Actual Goal: Absence of infection Outcome: Progressing as expected Problem: Nutrition Deficit Goal: Adequate nutritional intake Outcome: Progressing as expected Problem: Respiratory Function - Impaired Goal: Able to cough effectively Outcome: Progressing as expected Goal: Adequate oxygenation Outcome: Progressing as expected Goal: Adequate work of breathing Outcome: Progressing as expected Goal: Patent airway Outcome: Progressing as expected Problem: Skin integrity Impaired (Risk or Actual) Goal: Wound healing Outcome: Progressing as expected Goal: Prevention of new skin breakdown Outcome: Progressing as expected Problem: Tissue Perfusion - Altered, Risk of Goal: Hemodynamically stable Outcome: Progressing as expected [facility] 2024-05-19 15:18:50 Pt will remained on BiPap. T Leonid Hardy RN [facility] 2024-05-19 15:11:15 Provider and RT at bedside to do BiPap weaning trial. [facility] 2024-05-19 15:00:52 Patient sister Ana María updated at this time on patient's condition. Madelin Bates RN [facility] 2024-05-19 14:38:43 Pt states "I feel it coming on again." Pt coached with his breathing. Pt states hx of anxiety and is requesting valium 10 mg. Pt states he used to take it in the past. Provider notified. T [facility] 2024-05-19 14:09:23 Pt received from room 7 and settled in room 9. Preparations to intubate patient per provider. Pt was on BiPap. Pt alert and oriented with trouble breathing. Provider coaching patient's breathing. Pt placed on electronic device monitor in room 9. PT's breathing improved with coaching and pt will remain on BiPap per provider. Lung are decreased with expiratory wheezing noted bilaterally. RT given in-line neb. Report then received from previous RN and care assumed. [facility] 2024-05-19 14:03:08 Patient report given to ROBERT Jaquez [facility] 2024-05-19 13:53:00 Patient moved to TR 9, on BiPap [facility] 2024-05-19 13:45:00 Patient in respiratory distress, provider at bedside. Patient states he has anxiety. Patient not wanting to keep neb mask or non-rebreather on [facility] 2024-05-19 13:36:13 Pt requested to sit back but became more short of breath. Respirations increased to ~40's. Pt was sat back up, urged to concentrate on deep breathing and verbal reassurance given. He appears anxious. Primary RN about to administer mag. REDD in room. T [facility] 2024-05-19 11:03:23 Patient arrived by [facility] for SOB. EMS states patient has COPD but has been feeling SOB since Saturday and worse today. EMS gave 2.5mg of albuterol, 0.5mg Atrovent and 125mg Solumedrol, was 60% RA on arrival and came 90's% on 8L with neb treatment. BGL 136. Patient states he is normally on 5-6L at home. T [facility] 2024-05-19 11:00:00 Associated Order(s): Critical Care [facility] Emergency Department Note Patient Name: Tahira Hunter Date of : 1955 69 year old male Treatment [facility] Primary Care Physician: Aminata Reza Patient Escorted by: Self [9] Mode of Arrival: EMS - [facility] ([facility] [43] EMS Treatment Prior to ED Arrival: SUPERVISOR VENDOR QUALITY treatment: Other (comment) SUPERVISOR VENDOR QUALITY treatment comments: see triage note Travel and Exposure Screening: Symptoms Does patient have any of these symptoms?: (not recorded) Exposure Screening Has patient had contact with someone with a communicable disease in the last month?: (not recorded) Diseases exposed to:: (not recorded) Is Patient ?: (not recorded) Exposure Date: (not recorded) Chief Complaint: Chief Complaint Patient presents with Shortness of Breath History of Present Illness: Very pleasant gentleman presents for 5d of SOB acutely worsening overnight and found 60's pulse ox by EMS, up to 90's after neb and NRB. History provided by: Patient and EMS personnel Past Medical History/Immunizations: Past Medical History: Diagnosis Date Cellulitis Chronic ankle pain, bilateral Chronic neck pain COPD (chronic obstructive pulmonary disease) HTN (hypertension) PVD (peripheral vascular disease) s/p left leg stent Tetanus received in last 5 years: Unknown Childhood immunizations: Up-to-date Allergies: No Known Allergies Past Social History: Tobacco Use Every Day; 1 pack/day; Types: Cigarettes Smokeless Tobacco: Never used smokeless tobacco. Alcohol Use Not Currently. Drug Use Not Currently. Sexual Activity Not currently sexually active. Past Surgical History: Past Surgical History: Procedure Laterality Date APPENDECTOMY HB PUMP PAIN SYNCHROMED II 2004 Dr Zhou managing OTHER neck surgery SPINE SURGERY STENT PLACEMENT (SHX) left leg Review of Systems: Review of Systems Constitutional: Negative for activity change, appetite change, chills, diaphoresis and fatigue. HENT: Negative for congestion, ear discharge, ear pain, facial swelling, mouth sores, sore throat, trouble swallowing and voice change. Eyes: Negative for photophobia, discharge, redness, itching and visual disturbance. Respiratory: Positive for cough and shortness of breath. Negative for apnea, choking, chest tightness, wheezing and stridor. Breasts: Negative for discharge and mass. Cardiovascular: Negative for chest pain, palpitations and leg swelling. Gastrointestinal: Negative for abdominal distention, constipation, diarrhea, nausea and vomiting. Genitourinary: Negative for bladder incontinence, dysuria, frequency, hematuria, flank pain and difficulty urinating. Musculoskeletal: Negative for arthralgias, back pain, gait problem, joint swelling, myalgias, neck pain and neck stiffness. Skin: Negative for color change, pallor, rash and wound. Neurological: Negative for dizziness, syncope, facial asymmetry, speech difficulty, weakness, light-headedness, numbness and headaches. Psychiatric/Behavioral: Negative for agitation, behavioral problems, confusion and self-injury. Hematological: Negative for adenopathy, cold intolerance and heat intolerance. Does not bruise/bleed easily. Endocrine: Negative for cold intolerance, heat intolerance, polydipsia and polyphagia. Physical Exam: ED Triage Vitals [05/19/24 1108] Weight 105.7 kg (233 lb) Actual or estimated Estimated by patient/family report Height 1.778 m (5' 10") BP (!) 144/61 Pulse 59 Resp 22 Temp 37 ?C (98.6 ?F) Temp source Oral SpO2 94 % Measured on On oxygen Physical Exam Constitutional: General: He is not in acute distress. Appearance: He is well-developed. He is not ill-appearing, toxic-appearing or diaphoretic. HENT: Head: Normocephalic and atraumatic. Right Ear: External ear normal. Left Ear: External ear normal. Mouth/Throat: Pharynx: No oropharyngeal exudate. Eyes: General: No scleral icterus. Right eye: No discharge. Left eye: No discharge. Neck: Thyroid: No thyromegaly. Trachea: No tracheal deviation. Cardiovascular: Rate and Rhythm: Normal rate and regular rhythm. Heart sounds: Normal heart sounds. Pulmonary: Effort: No respiratory distress. Breath sounds: Normal breath sounds. No stridor. No wheezing. Comments: Increased WOB Abdominal: General: There is no distension. Palpations: Abdomen is soft. Tenderness: There is no abdominal tenderness. Musculoskeletal: General: No tenderness or deformity. Normal range of motion. Cervical back: Normal range of motion and neck supple. Lymphadenopathy: Cervical: No cervical adenopathy. Skin: General: Skin is warm and dry. Coloration: Skin is not pale. Findings: No erythema or rash. Neurological: General: No focal deficit present. Mental Status: He is alert and oriented to person, place, and time. Cranial Nerves: No cranial nerve deficit. Sensory: No sensory deficit. Motor: No abnormal muscle tone. Coordination: Coordination normal. Psychiatric: Behavior: Behavior normal. Thought Content: Thought content normal. Judgment: Judgment normal. Radiology: XR FINGERS 2 VW RIGHT Final Result EXAM: XR FINGERS 2 VW RIGHT HISTORY: right ring finger contusion; r/o fx Ordering physician: VICTORINO ALONSO COMPARISON: None TECHNIQUE: Frontal and lateral right fourth finger x-rays. FINDINGS: No right fourth finger fracture, dislocation, or radiopaque foreign body is detected. There is no lytic lesion. Soft tissue is grossly intact. IMPRESSION No right fourth finger fracture or radiopaque foreign body. RL: 231 End of report. CHEST 1 VW Final Result EXAM: XR CHEST 1 VW, XR CHEST 1 VW COMPARISON: Chest radiograph from 05/19/2024. HISTORY: possible aspiration FINDINGS: Lungs: The lungs are adequately expanded. Underlying severe emphysematous changes . There is increased interstitial prominence bilaterally which is likely due to interstitial thickening. No focal consolidation. Suspected small bilateral pleural effusions. Heart/Mediastinum: The cardiac silhouette appears enlarged accounting for technique and degree of inspiration. Bones and soft tissues: No osseous abnormality is visualized. Cervical fusion hardware is visualized. IMPRESSION No radiographic evidence of acute cardiopulmonary process. Interval worsening of emphysematous changes with interval increase in interstitial prominence likely due to interstitial edema. Preliminary Report Dictated by Resident: Domenico Busby MD., have reviewed this study and agree with the above report. XR CHEST 1 VW Final Result EXAM: XR CHEST 1 VW, XR CHEST 1 VW COMPARISON: Chest radiograph from 05/19/2024. HISTORY: possible aspiration FINDINGS: Lungs: The lungs are adequately expanded. Underlying severe emphysematous changes . There is increased interstitial prominence bilaterally which is likely due to interstitial thickening. No focal consolidation. Suspected small bilateral pleural effusions. Heart/Mediastinum: The cardiac silhouette appears enlarged accounting for technique and degree of inspiration. Bones and soft tissues: No osseous abnormality is visualized. Cervical fusion hardware is visualized. IMPRESSION No radiographic evidence of acute cardiopulmonary process. Interval worsening of emphysematous changes with interval increase in interstitial prominence likely due to interstitial edema. Preliminary Report Dictated by Resident: Domenico Busby MD., have reviewed this study and agree with the above report. Lab Results: Lab Results CBC WITH DIFF - Abnormal Result Value Ref Range WBC 9.15 4.20 - 10.70 10*3/?L RBC 3.39 (*) 4.26 - 5.52 10*6/?L HGB 8.3 (*) 12.2 - 16.4 g/dL HCT 29.0 (*) 38.4 - 49.3 % MCV 85.5 81.7 - 95.6 fL MCH 24.5 (*) 26.1 - 32.7 pg MCHC 28.6 (*) 31.2 - 35.0 g/dL RDW-SD 52.1 (*) 38.5 - 51.6 fL RDW-CV 17.0 (*) 12.1 - 15.4 % PLT 215 150 - 328 10*3/?L MPV 11.3 9.8 - 13.0 fL NRBC/100 WBC 0.0 0.0 - 10.0 /100 WBCs NRBC x10 3 <0.01 10*3/?L GRAN MAT (NEUT) % 73.8 % IMM GRAN % 0.40 % LYMPH % 14.9 % MONO % 10.5 % EOS % 0.0 % BASO % 0.4 % GRAN MAT x10 3 (ANC) 6.75 1.99 - 6.95 10*3/uL IMM GRAN x10 3 0.04 0.00 - 0.06 10*3/uL LYMPH x10 3 1.36 1.09 - 3.23 10*3/uL MONO x10 3 0.96 0.36 - 1.02 10*3/uL EOS x10 3 <0.03 (*) 0.06 - 0.53 10*3/uL BASO x10 3 0.04 0.01 - 0.09 10*3/uL COMP. METABOLIC PANEL (37806) - Abnormal NA 139 135 - 145 mmol/L K 3.7 3.5 - 5.0 mmol/L CL 107 98 - 108 mmol/L CO2 TOTAL 28 23 - 31 mmol/L AGAP 4 2 - 16 BUN 8 7 - 23 mg/dL GLUCOSE 113 (*) 70 - 110 mg/dL CREATININE 0.73 0.60 - 1.25 mg/dL TOTAL BILI 0.9 0.1 - 1.1 mg/dL CALCIUM 8.5 (*) 8.6 - 10.6 mg/dL T PROTEIN 6.8 6.3 - 8.2 g/dL ALBUMIN 3.5 3.5 - 5.0 g/dL ALK PHOS 77 34 - 122 U/L ALTv 14 5 - 50 U/L AST(SGOT) 19 13 - 40 U/L eGFR 98.5 mL/min/1.73m2 N-TERMINAL PRO-BNP - Abnormal NT-proBNP 4,200 (*) <=125 pg/mL TROPONIN I - Normal TROPONIN I 0.009 <=0.034 ng/mL MAGNESIUM - Normal MAGNESIUM 1.7 1.7 - 2.4 mg/dL INFLUENZA A/B RSV COVID NAAT - Normal Influenza A NAAT Negative Negative Influenza B NAAT Negative Negative RSV by PCR Negative Negative SARS-CoV-2 NAAT Negative Negative EKG: If EKG completed, see Procedure Note. Orders and Treatments: Orders Placed This Encounter Procedures Critical Care XR CHEST 1 VW XR CHEST 1 VW XR FINGERS 2 VW RIGHT Cbc with Diff Comp. Metabolic Panel (11859) Troponin I N-Terminal Pro-Bnp Magnesium Influenza A B RSV COVID NAAT Lab Only COVID Interpretation BI-PAP Orders Placed This Encounter Medications azithromycin (ZITHROMAX) tablet 500 mg DISCONTD: magnesium sulfate 500 mg/mL (50 %) injection 16.24 mEq magnesium sulfate in water 2 gram/50 mL (4 %) infusion 2 g DISCONTD: ipratropium (ATROVENT) 0.02 % nebulizer solution 0.5 mg ipratropium-albuteroL (DUONEB) 0.5 mg-3 mg(2.5 mg base)/3 mL nebulizer solution 3 mL DISCONTD: diazePAM (VALIUM) injection 2 mg diazePAM (VALIUM) injection 1 mg ipratropium-albuteroL (DUONEB) 0.5 mg-3 mg(2.5 mg base)/3 mL nebulizer solution 3 mL First Provider Eval: ED Events Date/Time Event User Comments 05/19/24 110 Medical Screening Begins VICTORINO ALONSO MD -- 05/19/24 110 First Provider Evaluation VICTORINO ALONSO MD -- AdmissionCare Guideline: Chronic Obstructive Pulmonary Disease (COPD) - INPT, Inpatient Based on the indications selected for the patient, the bed status of Inpatient was determined to be MET The following indications were selected as present at the time of evaluation of the patient: - Clinical Indications for Admission to Inpatient Care - Admission is indicated for 1 or more of the following: - Severe hypoxemia (PaO2 less than 55 mm Hg (7.3 kPa) despite inspired oxygen (FiO2) greater than 40%) AdmissionCare documentation entered by: Victorino Alonso [facility] [place], 28th edition, Copyright ? 2023 [facility] ABT Molecular Imaging [facility] All Rights Reserved. [id number]:03-05:00 ED COURSE Diagnosis/Impression as of 05/19/24 1544 COPD exacerbation Procedures: Critical Care Performed by: Victorino Alonso MD Authorized by: Victorino Alonso MD Critical care provider statement: Critical care time (minutes): 30 (30) Critical care start time: 05/19/2024 2:30 PM Critical care end time: 05/19/2024 3:00 PM Critical care time was exclusive of: Separately billable procedures and treating other patients Critical care was necessary to treat or prevent imminent or life-threatening deterioration of the following conditions: Respiratory failure Critical care was time spent personally by me on the following activities: Development of treatment plan with patient or surrogate, discussions with primary provider, evaluation of patient's response to treatment, examination of patient, ordering and performing treatments and interventions, ordering and review of radiographic studies, pulse oximetry and re-evaluation of patient's condition I assumed direction of critical care for this patient from another provider in my specialty: no Care discussed with: admitting provider Comments: PT acute decompensation requiring critical attention, real-time nebs and bodily support, rescue BiPap pending intubation; monitored and repeat evaluation; attempted removal w/ rapid and precipitous drop in Pulse Ox w/ symptoms of cough and chest pain dropping to 76% on 6L NC; replacement of BiPap w/ resolution of symptoms. MDM: Medical Decision Making DDx incl COPD exac, COVID, flu, PNA, PTX, CHF, anemia, RAFAL, et al Amount and/or Complexity of Data Reviewed Labs: ordered. Radiology: ordered. Discussion of management or test interpretation with external provider(s): D/w Hospitalist for admission v transfer Risk Prescription drug management. Parenteral controlled substances. Flowsheet Documentation: Disposition/Condition: ED Disposition None Discharge Medications: Patient's Medications START taking these medications No medications on file CONTINUE taking these medications which have NOT CHANGED ALBUTEROL 90 MCG/ACTUATION INHALER Inhale 2 Puffs every 4 (four) hours as needed for Wheezing or Shortness of Breath. ATORVASTATIN 40 MG TABLET TAKE 1 TABLET BY MOUTH AT BEDTIME. CLOPIDOGREL 75 MG TABLET Take 1 tablet by mouth in the morning for 360 days. FLUTICASONE FUROATE-VILANTEROL (BREO ELLIPTA) 200-25 MCG/DOSE DSDV Inhale 1 Puff in the morning. FOLIC ACID 1 MG TABLET TAKE 1 TABLET BY MOUTH EVERY DAY HYDROCORTISONE 25 MG SUPPOSITORY Insert 1 Suppository into rectum once daily as needed for Rectal itching/pain for up to 30 doses. LISINOPRIL 40 MG TABLET TAKE 1 TABLET BY MOUTH 2 (TWO) TIMES DAILY. METOPROLOL SUCCINATE XL 25 MG 24 HR TABLET Take 0.5 tablets by mouth in the morning and 0.5 tablets in the evening. MUPIROCIN 2 % OINTMENT Apply to area(s) 3 (three) times daily. SERTRALINE 100 MG TABLET Take 1 tablet by mouth in the morning and 1 tablet in the evening. TAMSULOSIN 0.4 MG 24 HR CAPSULE Take 1 capsule by mouth in the morning. TRAZODONE 50 MG TABLET Take 1 tablet by mouth at bedtime. UMECLIDINIUM (INCRUSE ELLIPTA) 62.5 MCG/ACTUATION DSDV Inhale 1 Puff in the morning. XARELTO 20 MG TABLET TAKE 1 TABLET BY MOUTH DAILY START taking Modified Medications as Prescribed No medications on file STOP taking these medications No medications on file Follow-up: Electronically signed by: Victorino Alonso MD 05/19/24 1544 T [facility] STAFF [facility] 2024-05-19 11:00:00 AdmissionCare Guideline: Chronic Obstructive Pulmonary Disease (COPD) - INPT, Inpatient Based on the indications selected for the patient, the bed status of Inpatient was determined to be MET The following indications were selected as present at the time of evaluation of the patient: - Clinical Indications for Admission to Inpatient Care - Admission is indicated for 1 or more of the following: - Severe hypoxemia (PaO2 less than 55 mm Hg (7.3 kPa) despite inspired oxygen (FiO2) greater than 40%) AdmissionCare documentation entered by: Victorion Alonso [facility], 28th edition, Copyright ? 2023 [facility] ABT Molecular Imaging [facility] All Rights Reserved. [id number]:03-05:00 T [facility] 2024-05-19 09:19:57 Patient called this morning wishing to notify clinical staff that he is heading to the ER. T Autumn Weldon [facility] 2024-05-18 11:50:33 Addended by: VINEET IBARRA DO on: 05/18/2024 11:50 AM Modules accepted: Orders T [facility] 2024-05-18 10:58:07 Addended by: HIEN BARRAZA RN on: 05/18/2024 10:58 AM Modules accepted: Orders Hien Barraza RN [facility] 2024-05-18 10:56:57 PA for Spiriva was denied. Will route to Dr. Ibarra for directions for Incruse. [facility] 2024-05-18 10:53:[address] Maya and discussed patient's symptoms. Per Dr. Maya, medical management of his CAD and evaluation of watchman are necessary. Patient has been booked for this to see both Dr. Maya to follow up on his ongoing symptoms (chest discomfort and dyspnea on exertion) and Dr. Westbrook to discuss watchman. Patient is agreeable and understands that if his symptoms were to progress to call 911. Hien Barraza RN [facility] 2024-05-18 09:28:50 Spoke with patient who reports chest discomfort and dyspnea with exertion that has been ongoing for several months. He states the chest pain comes and goes. Rates it at 4-5/10 when it occurs. Usually onset is with activity and subsides with rest. States it is left sided. Usually in the left shoulder area above the heart. He states he has told Dr. Maya about this and would like to have it checked out. He confirmed he has been taking aspirin/Plavix. He states that he is currently using 5-6 L, which is his baseline. The shortness of breath is brought on by activity, even minimal actviity. Currently he is talking in complete sentences over the phone and does not sound to be in distress. He is ok at rest. He was seen by pulmonary last week to follow up on COPD, he was sent a prescription for Spiriva but has not been able to pick this up. Patient currently describes his situations as stable. Discussed ER precautions and patient understands to call 911 for shortness of breath that does not subside with rest or chest pain. T [facility] 2024-05-18 09:17:07 Attempted to contact patient. [facility] for patient to return call to [phone]. Will try back later. T [facility] 2024-05-18 08:56:19 Patient states he is having a very hard time breathing and in a lot of pain after his procedure in [place] in January. Please advise. Autumn Weldon [facility] 2024-05-15 10:37:38 If spiriva is denied would use Incruse. Thanks. T [facility] 2024-05-14 13:38:54 PA request received for patient's Spiriva. PA submitted on [employer] Hien Barraza RN [facility] 2024-05-13 10:41:00 Regarding: Trouble breathing-Speak with nurse ----- Message from Martina Roman sent at 05/13/2024 10:37 AM CDT ----- Hard time breathing 2 days now. Pt has COPD, said he will go to ER if it is still bad tomorrow. Would like to speak with a nurse. Candice Deluna RN [facility] 2024-05-13 10:41:00 Nurse Note: pt states he is going to ER due to difficulty breathing and not feeling well. Encounter closed. [facility] Canidce Deluna RN [facility] 2024-04-30 16:42:[address] Maya regarding Metoprolol Succinate Order for Metoprolol Succinate 12.5mg BID Tereza Ramirez MA [facility] 2024-04-29 16:11:22 Refill not appropriate, antibiotic only intended for 7 day supply. Was prescribed during inpatient admission. Hien Barraza RN [facility] 2024-04-29 15:54:51 Don't think I have to do anything -FAMILY MEDICINE STAFF [facility] 2024-04-29 15:46:58 ok [facility] 2024-04-29 15:41:[address] Maya regarding Metoprolol Succinate Order for Metoprolol Succinate 12.5mg BID Eliz Herzog RN [facility] 2024-04-29 15:36:52 Tahira Hunter is a 69 year old male Gabi the pt's nurse reported the pt heart rate is 48 BPM but pt is asymptomatic. BP reading was 148/60. Devonte Pollock [facility] 2024-04-16 15:27:41 Pt has been scheduled tomorrow. Thank you. Roxanna Song [facility] 2024-04-16 11:36:04 We can possibly move him to tomorrow OR first week of April [facility] 2024-04-14 16:23:28 See other telephone encounter Hien Barraza RN [facility] 2024-04-14 16:17:35 Spoke with patient. He was notified that he will need a 6mwt prior to ordering more oxygen. He verbalized understanding. Was ok with the plan to have done in the clinic on 05/12/24. Was offered to see if the test could be scheduled sooner at the clinic but the patient prefers to have done in the clinic. Patient ended call abruptly stating that he was having a panic attack. He states this is a new problem for him recently. Patient was urged to call back if he needs any further assistance. Hien Barraza RN [facility] 2024-04-14 10:17:33 Lvm for pt to call back to discuss scheduling a 6 minute walk test. This is required prior to increase in oxygen so that insurance will cover. Urged pt for call back so we can help him with what he needs as soon as possible. Elsy Gillette RN [facility] 2024-04-14 08:57:42 Attempted to contact patient with Dr. Ibarra's recommendations. LVM for patient to return call to [phone]. Hien Barraza RN [facility] 2024-04-14 08:56:36 Tahira Hunter is a 68 year old male Pt calling to request a order to increase his oxygen to 6. [facility] states they need a new script. Pt also requesting to speak to he states for the first time in his life he has been having panic attacks. Last night he had one that lasted from 1-5am pt states it was horrible. Please advisee. Please send oxygen increase order to [facility] Address: [address] [place] [id number] Mike Goldberg [facility] 2024-04-13 11:42:51 Lvm to notify pt that a 6 minute walk test would be required to increased oxygen delivery. This can be done at his next visit or scheduled at the hospital with pulmonary. Elsy Gillette RN [facility] 2024-04-13 08:43:38 PT is scheduled for 04/14 at 10:30am Laverne Herman [facility] 2024-04-13 08:36:36 We need outpatient documentation he needs more than 5 liters and then we can order a special concentrator. Can we confirm with patient if he can do a six minute walk test. Thanks. [facility] 2024-04-13 07:18:36 Please assist with scheduling a sooner appointment if available. Thank you. Abigail Foss LVN [facility] 2024-04-11 20:19:25 ----- Message from Marcel Sosa sent at 04/10/2024 9:47 AM CDT ----- Regarding: RE: Follow up appt Pt stated that he would call me back to schedule f/u appts. ----- Message ----- From: Lester Maya MD Sent: 04/09/2024 9:40 PM CDT To: [facility] Subject: Follow up appt Please make follow up with EP ( Dr Grady) and me on PM slots on the same day in 1-2 weeks. He missed 04.09.2024 appt with EP since he was in the hospital. [facility] 2024-04-10 16:48:06 Called to check on pt due to his request for increased oxygen. Pt states he is doing ok on 5 lpm but is more restful on 6-8 lpm like when he was in the hospital. Recommended that if pt felt that he was not breathing easy that he could go to the er for further assistance. Pt states he is not going to er and is fine. Will forward request to Dr. Ibarra. [facility] 2024-04-10 16:44:02 Left message for patient regarding a termination letter and disregarding - Not sure what was sent or why I'll follow up and call patient back on Saturday Lis Foley [facility] 2024-04-10 15:57:53 Tahira Hunter is a 68 year old male is calling to get a sooner available appt for post hosp Arabella Rapp [facility] 2024-04-10 15:34:09 Tahira Hunter is a 68 year old male Pt is calling stating that on his current oxygen tank machine it goes up to 5 and he's asking if he can get a prescription for it to go higher than 5. Please advise. Georgia Bean [facility] 2024-04-10 13:33:46 Lula, can you further assist this pt with the termination letter please? Thank you. Marcel Sosa [facility] 2024-04-10 10:28:04 TRANSITIONAL CARE MANAGEMENT ASSESSMENT 04/10/2024 Tahira Hunter [id number] Tahira Hunter is a 68 year old /White male was admitted on 04/06/24 to [facility]. He was discharged on 04/09/24 with discharge disposition of HR- Routine Discharge. Admitting Physician: Trish Adams Discharge Diagnosis: Chest pain, shortness of breath, NICKERSON Acute on chronic COPD exacerbation Chronic respiratory failure Chest pain No linked episodes TCM [id number] outreach documentation: Discharge Assessment Chart Assessed: 04/10/24 Future Appointments: Future Appointments Provider Department Dept Phone 04/22/2024 1:30 PM Genia Shaw MD [facility]monary & Sleep Medicine, [facility] [phone] 05/12/2024 4:30 PM Vineet Ibarra DO [facility], [facility] [phone] 06/17/2024 3:00 PM Lester Maya MD [facility] Cardiology, [facility] [phone] Transition CM attempted to contact patient x2. CM left a discreet voicemail explaining purpose of call and call back information. Shakira Vega RN [facility] 2024-04-10 09:09:22 CM LVM to return call. Will attempt again at a later time. [facility] 2024-04-09 14:57:32 Problem: Discharge Planning Goal: Adequate for discharge 04/09/20241456 by Judy Flores RN Outcome: Resolved 04/09/20241456 by Judy Flores RN Outcome: Adequate for discharge Goal: Effective communication 04/09/20241456 by Judy Flores RN Outcome: Resolved 04/09/20241456 by Judy Flores RN Outcome: Adequate for discharge Problem: Pain Goal: Control of pain at or below patient's documented comfort goal 04/09/2024 145 by Judy Flores RN Outcome: Resolved 04/09/2024 145 by Judy Flores RN Outcome: Adequate for discharge Goal: Reduction in pain sensation 04/09/2024 145 by Judy Flores RN Outcome: Resolved 04/09/2024 145 by Judy Flores RN Outcome: Adequate for discharge Problem: Falls, Risk of Goal: Absence of falls 04/09/20241456 by Judy Flores, RN Outcome: Resolved 04/09/20241456 by Judy Flores RN Outcome: Adequate for discharge Problem: Respiratory Function - Impaired Goal: Able to cough effectively 04/09/20241456 by Judy Flores RN Outcome: Resolved 04/09/2024 145 by Judy Flores RN Outcome: Adequate for discharge Goal: Adequate oxygenation 04/09/2024 145 by Judy Flores RN Outcome: Resolved 04/09/2024 145 by Judy Flores RN Outcome: Adequate for discharge Goal: Adequate work of breathing 04/09/2024 145 by Judy Flores RN Outcome: Resolved 04/09/2024 145 by Judy Flores RN Outcome: Adequate for discharge Goal: Patent airway 04/09/2024 145 by Judy Flores RN Outcome: Resolved 04/09/2024 145 by Judy Flores RN Outcome: Adequate for discharge Judy Flores RN [facility] 2024-04-09 10:27:40 Tahira Hunter is a 68 year old male Pt calling he states he received a letter to be terminated due to lack of attending appts. Pt asking how can this be prevented he has been in and out of the hops. And each time he's in the hosp goes to see him. Please advise. Mike Goldberg [facility] 2024-04-09 07:06:17 Problem: Discharge Planning Goal: Adequate for discharge Outcome: Progressing as expected Goal: Effective communication Outcome: Progressing as expected Problem: Pain Goal: Control of pain at or below patient's documented comfort goal Outcome: Progressing as expected Goal: Reduction in pain sensation Outcome: Progressing as expected Problem: Falls, Risk of Goal: Absence of falls Outcome: Progressing as expected Problem: Respiratory Function - Impaired Goal: Able to cough effectively Outcome: Progressing as expected Goal: Adequate oxygenation Outcome: Progressing as expected Goal: Adequate work of breathing Outcome: Progressing as expected Goal: Patent airway Outcome: Progressing as expected Ilana Burrows RN [facility] 2024-04-08 17:08:18 Problem: Discharge Planning Goal: Adequate for discharge Outcome: Progressing as expected Goal: Effective communication Outcome: Progressing as expected Problem: Pain Goal: Control of pain at or below patient's documented comfort goal Outcome: Progressing as expected Goal: Reduction in pain sensation Outcome: Progressing as expected Problem: Falls, Risk of Goal: Absence of falls Outcome: Progressing as expected Татьяна Arechiga RN [facility] 2024-04-07 20:45:24 Problem: Discharge Planning Goal: Adequate for discharge Outcome: Progressing as expected Goal: Effective communication Outcome: Progressing as expected Problem: Pain Goal: Control of pain at or below patient's documented comfort goal Outcome: Progressing as expected Goal: Reduction in pain sensation Outcome: Progressing as expected Problem: Falls, Risk of Goal: Absence of falls Outcome: Progressing as expected Patsy Archuleta RN [facility] 2024-04-07 05:26:06 [place] screming from the patient room ,noticed the patient sitting at the edge of the bed and kneeling forward on distress ,looking pale and could not catch the breath,spo3 78% with O24L NC. 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 Inj. Salmeterol 80 mg and lasix 80 mg given , breathing treatment given . Patient SpO2 brass pickler to 94%. Plan to transfer to IMU. Daphney Strange RN [facility] 2024-04-07 00:27:00 Problem: Discharge Planning Goal: Adequate for discharge Outcome: Progressing as expected Goal: Effective communication Outcome: Progressing as expected Problem: Pain Goal: Control of pain at or below patient's documented comfort goal Outcome: Progressing as expected Goal: Reduction in pain sensation Outcome: Progressing as expected Problem: Falls, Risk of Goal: Absence of falls Outcome: Progressing as expected Ginette Horvath RN [facility] 2024-04-06 19:55:36 Progressing as expected Roselyn Cunningham RN [facility] 2024-04-06 17:18:22 Patient admitted to [facility] med surg, for diagnosis of chest pain, lower GI bleeding, coronary artery disease, symptomatic anemia, acute CHF, and tobacco abuse. Patient agrees to admission, discussed plan of care with patient and family. Patient is awake, A&Ox4, RR even and unlabored on 6L NC. Color appropriate for race. PIV intact x1. No adverse reaction to medications administered while in ED. Belongings with patient to unit. Danuta Dozier RN [facility] 2024-04-06 17:02:53 Nurse Report Report given to Roseanna. Chief complaint, assessment findings, infusion verify and orders reviewed. Danuta Dozier RN [facility] 2024-04-06 15:00:00 Dietary bringing tray at this time. Marlin Nuñez RN [facility] 2024-04-06 11:19:27 Provider at bedside. [facility] 2024-04-06 11:10:00 Report from Duncan JONES. [facility] 2024-04-06 11:10:00 Nurse Report Report given to ROBERT Isaac and ROBERT Tipton. Chief complaint, assessment findings, and orders reviewed. Yamile Song RN Yamile Snog RN [facility] 2024-04-06 10:15:57 Patient reports chest pain left sided that started last night that feels "like its numb, like its gone to sleep." Had stents put in in [place] about a month ago. Patient also has COPD and is on 6 L/min NC at all times but felt more short of breath last night with chest pain. EMS gave 324 ASA and one nitro with relief. Nabor Akhtar RN [facility] 2024-04-06 10:11:00 Associated Order(s): EKG-12 Lead ROUTINE ONCE Pre-Procedure Diagnose(s): Chest pain, unspecified type Post-Procedure Diagnose(s): Chest pain, unspecified type [facility] Emergency Department Note Patient Name: Tahira Hunter Date of : 1955 68 year old male Treatment Room: TX7/TX7 Primary Care Physician: Aminata Reza Patient Escorted by: Self [9] Mode of Arrival: EMS - [facility] [43] EMS Treatment Prior to ED Arrival: SUPERVISOR VENDOR QUALITY treatment: Aspirin;monitor car operator;Saline lock;NTG Travel and Exposure Screening: Symptoms Does patient have any of these symptoms?: (not recorded) Exposure Screening Has patient had contact with someone with a communicable disease in the last month?: (not recorded) Diseases exposed to:: (not recorded) Is Patient ?: (not recorded) Exposure Date: (not recorded) Chief Complaint: Chief Complaint Patient presents with Chest Pain History of Present Illness: Onset overnight with chest pain, "pressure", left anterior chest wall, persistent with wax/wane intensity, no definitive aggravating factors. Improved with nitroglycerin, aspirin by EMS. (+) dyspnea over baseline. No respiratory distress. (+) wheezing. (+) productive cough. Episodic blood streaks. No nausea, vomiting. Soft stools. No abdominal pain. No new pedal edema. Baseline home oxygen 5L by nasal cannula. Has increased to 6L. Notes easy bruising since December 2023 hospitalization and start of plavix with xarelto. No gum bleeding. Wounds bleed easily. Recurrent bright red blood in stools. Recent encounters: 1. 04/02/24. [facility] ED. COPD exacerbation. Rx prednisone, albuterol MDI 2. 01/09/24 to 01/14/24. [facility] tranfer to [facility]. Chest pain. Left heart cath with PCI to LAD. COPD History provided by: Patient and relative (sister, brother in law) Past Medical History/Immunizations: Past Medical History: Diagnosis Date Cellulitis Chronic ankle pain, bilateral Chronic neck pain COPD (chronic obstructive pulmonary disease) HTN (hypertension) PVD (peripheral vascular disease) s/p left leg stent Tetanus received in last 5 years: Unknown Allergies: No Known Allergies Past Social History: Tobacco Use Every Day; 1 pack/day; Types: Cigarettes Smokeless Tobacco: Never used smokeless tobacco. Alcohol Use Not Currently. Drug Use Not Currently. Sexual Activity Not currently sexually active. Past Surgical History: Past Surgical History: Procedure Laterality Date APPENDECTOMY HB PUMP PAIN SYNCHROMED II 2004 Dr Zhou managing OTHER neck surgery SPINE SURGERY STENT PLACEMENT (SHX) left leg Review of Systems: Review of Systems Constitutional: Negative. HENT: Negative. Eyes: Negative. Respiratory: Positive for cough, shortness of breath and wheezing. Cardiovascular: Positive for chest pain. Gastrointestinal: Negative. Genitourinary: Negative. Musculoskeletal: Negative. Skin: Negative. Neurological: Negative. Psychiatric/Behavioral: Negative. Physical Exam: ED Triage Vitals Weight 04/06/24 1017 112 kg (247 lb) Actual or estimated -- Height 04/06/24 1017 1.778 m (5' 10") BP 04/06/24 1017 (!) 160/65 Pulse 04/06/24 1017 63 Resp 04/06/24 1017 20 Temp 04/06/24 1019 37 ?C (98.6 ?F) Temp src -- SpO2 04/06/24 1017 91 % Measured on 04/06/24 1017 On oxygen Physical Exam Vitals and nursing note reviewed. Constitutional: General: He is not in acute distress. Appearance: Normal appearance. He is not ill-appearing, toxic-appearing or diaphoretic. HENT: Head: Normocephalic and atraumatic. Right Ear: External ear normal. Left Ear: External ear normal. Nose: Nose normal. Mouth/Throat: Mouth: Mucous membranes are moist. Eyes: Extraocular Movements: Extraocular movements intact. Conjunctiva/sclera: Conjunctivae normal. Cardiovascular: Rate and Rhythm: Normal rate and regular rhythm. Pulmonary: Effort: Pulmonary effort is normal. No respiratory distress. Breath sounds: Wheezing (mild bilateral expiratory) present. No rhonchi or rales. Comments: No accessory muscle use; phonation is clear Chest: Chest wall: No tenderness. Abdominal: General: There is no distension. Palpations: Abdomen is soft. Tenderness: There is no abdominal tenderness. Musculoskeletal: General: Normal range of motion. Cervical back: Normal range of motion. Right lower leg: No edema. Left lower leg: No edema. Skin: General: Skin is warm and dry. Findings: Bruising (scattered bruising) present. Comments: Distal bilateral lower extremity chronic venous stasis type skin findings Neurological: General: No focal deficit present. Mental Status: He is alert. Psychiatric: Mood and Affect: Mood normal. Behavior: Behavior normal. Thought Content: Thought content normal. Judgment: Judgment normal. Radiology: XR CHEST 2 VW Final Result Study: Two view chest. Ordering Physician: CHETNA GARCIA Date: 04/06/2024 11:15 AM History:chest pain, dyspnea COMPARISON: None. Findings: Frontal and lateral views of the chest demonstrate Cardiomegaly. Chronic appearing interstitial thickening is identified throughout both lungs which is suspected result from chronic interstitial lung disease. No consolidation, pleural effusion or pneumothorax is present. IMPRESSION 1. Interstitial thickening throughout both lungs is suspected to result from a chronic interstitial lung disease. Otherwise, no evidence for acute process is identified. 2. Mild cardiomegaly is present. RL: [id number] HS:Y Lab Results: Lab Results CBC WITH DIFF - Abnormal Result Value Ref Range WBC 9.34 4.20 - 10.70 10*3/?L RBC 2.71 (*) 4.26 - 5.52 10*6/?L HGB 7.2 (*) 12.2 - 16.4 g/dL HCT 24.4 (*) 38.4 - 49.3 % MCV 90.0 81.7 - 95.6 fL MCH 26.6 26.1 - 32.7 pg MCHC 29.5 (*) 31.2 - 35.0 g/dL RDW-SD 50.4 38.5 - 51.6 fL RDW-CV 15.4 12.1 - 15.4 % PLT 173 150 - 328 10*3/?L MPV 11.1 9.8 - 13.0 fL NRBC/100 WBC 0.0 0.0 - 10.0 /100 WBCs NRBC x10 3 <0.01 10*3/?L GRAN MAT (NEUT) % 69.3 % IMM GRAN % 0.60 % LYMPH % 20.0 % MONO % 10.0 % EOS % 0.0 % BASO % 0.1 % GRAN MAT x10 3 (ANC) 6.47 1.99 - 6.95 10*3/uL IMM GRAN x10 3 0.06 0.00 - 0.06 10*3/uL LYMPH x10 3 1.87 1.09 - 3.23 10*3/uL MONO x10 3 0.93 0.36 - 1.02 10*3/uL EOS x10 3 <0.03 (*) 0.06 - 0.53 10*3/uL BASO x10 3 <0.03 0.01 - 0.09 10*3/uL COMP. METABOLIC PANEL (51760) - Abnormal NA 140 135 - 145 mmol/L K 3.4 (*) 3.5 - 5.0 mmol/L CL 105 98 - 108 mmol/L CO2 TOTAL 27 23 - 31 mmol/L AGAP 8 2 - 16 BUN 18 7 - 23 mg/dL GLUCOSE 94 70 - 110 mg/dL CREATININE 0.90 0.60 - 1.25 mg/dL TOTAL BILI 1.0 0.1 - 1.1 mg/dL CALCIUM 8.4 (*) 8.6 - 10.6 mg/dL T PROTEIN 7.3 6.3 - 8.2 g/dL ALBUMIN 3.6 3.5 - 5.0 g/dL ALK PHOS 85 34 - 122 U/L ALTv 18 5 - 50 U/L AST(SGOT) 22 13 - 40 U/L eGFR 93.0 mL/min/1.73m2 N-TERMINAL PRO-BNP - Abnormal NT-proBNP 8,530 (*) <=125 pg/mL LIPASE - Normal LIPASE 30 0 - 220 U/L TROPONIN I - Normal TROPONIN I 0.025 <=0.034 ng/mL TYPE AND SCREEN EKG: If EKG completed, see Procedure Note. Orders and Treatments: Orders Placed This Encounter Procedures XR CHEST 2 VW CBC WITH DIFF COMP. METABOLIC PANEL (96959) LIPASE TROPONIN I N-TERMINAL PRO-BNP Type and Screen - ONCE STAT Orders Placed This Encounter Medications ipratropium-albuteroL (DUONEB) 0.5 mg-3 mg(2.5 mg base)/3 mL nebulizer solution 3 mL methylPREDNISolone sod succ (SOLU-MEDROL (PF)) injection 40 mg traMADoL (ULTRAM) tablet 50 mg furosemide (LASIX) injection 40 mg First Provider Eval: ED Events Date/Time Event User Comments 04/06/24 1048 Medical Screening Begins CHETNA GARCIA MD -- 04/06/24 1048 First Provider Evaluation CHETNA GARCIA MD -- AdmissionCare Guideline: Chest Pain - OBS, Observation Based on the indications selected for the patient, the bed status of Observation was determined to be MET The following indications were selected as present at the time of evaluation of the patient: - Observation Care Admission Criteria - Observation care is indicated for 1 or more of the following: - Patient classified as intermediate risk or high risk for acute coronary syndrome (eg, via use of a clinical decision tool or risk calculator (eg, HEART score greater than 3)) AdmissionCare documentation entered by: Chetna Garcia [facility] [employer], 28 edition, Copyright ? 2023 [facility] [employer] [facility] All Rights Reserved. [id number]:00 ED COURSE Diagnosis/Impression as of 04/06/24 1443 Chest pain, unspecified type Lower GI bleeding Coronary artery disease of [place] artery of [place] heart with stable angina pectoris Symptomatic anemia Acute on chronic congestive heart failure, unspecified heart failure type Tobacco abuse Procedures: EKG-12 Lead ROUTINE ONCE Date/Time: 04/06/2024 2:08 PM Performed by: Chetna Garcia MD Authorized by: Chetna Garcia MD ECG interpreted by ED Physician in the absence of a dog handler or trainer: yes Previous ECG: Previous ECG: Compared to current Comparison ECG info: Compared to EKG of 04/02/2024 no significant changes Interpretation: Interpretation: non-specific Rate: ECG rate: 64 ECG rate assessment: normal Rhythm: Rhythm: sinus rhythm Ectopy: Ectopy: none QRS: QRS axis: 67. ST segments: ST segments: Non-specific T waves: T waves: non-specific Comments: Qtc 453 MDM: Medical Decision Making Primary impression: chest pain Secondary impression: CHF exacerbation, symptomatic anemia, lower gastrointestinal bleeding, on plavix, on xarelto, coronary artery disease, Differential Diagnoses, coronary artery disease, including but not limited to: electrolyte / glucose abnl, anemia, RAFAL, arrhythmia, acute coronary event, chf Problems Addressed: Acute on chronic congestive heart failure, unspecified heart failure type: acute illness or injury Chest pain, unspecified type: acute illness or injury Coronary artery disease of [place] artery of [place] heart with stable angina pectoris: chronic illness or injury Lower GI bleeding: acute illness or injury Symptomatic anemia: acute illness or injury Amount and/or Complexity of Data Reviewed Independent Historian: Details: self Labs: ordered. Decision-making details documented in ED Course. Radiology: ordered. Decision-making details documented in ED Course. Discussion of management or test interpretation with external provider(s): 1. Case discussed with Dr Diaz, Hospitalist Medicine, including presentation, exam, findings, plan. Will evaluate and continue care in Hospital Risk OTC drugs. Prescription drug management. Decision regarding hospitalization. Risk Details: Findings and plan discussed with patient. Hgb has drifted downward. He reports easy bruising, difficulty to stop wounds, recurrent bright red blood with stool since starting plavix and xarelto. He is hemodynamically stable. Suspect slow blood loss over past couple of months. BNP elevated above baseline. Trop, EKG unremarkable. Will benefit from further evaluation in the hospital today. Meets AdmissionCare criteria. He requests nicotine patch. Flowsheet Documentation: Scoring Tools: No data recorded HEART Score: 5 Disposition/Condition: ED Disposition None Discharge Medications: Patient's Medications START taking these medications No medications on file CONTINUE taking these medications which have NOT CHANGED ALBUTEROL 2.5 MG /3 ML (0.083 %) NEBULIZER SOLUTION Inhale 3 mL every 4 (four) hours. May also nebulize one extra every 6 hours. ALBUTEROL 90 MCG/ACTUATION INHALER INHALE 2 PUFFS BY MOUTH EVERY FOUR HOURS NEEDED FOR WHEEZING OR SHORTNESS OF BREATH AMLODIPINE 5 MG TABLET Take 1 tablet by mouth in the morning for 90 days. ATORVASTATIN 80 MG TABLET Take 1 tablet by mouth at bedtime for 90 days. CLOPIDOGREL 75 MG TABLET Take 1 tablet by mouth in the morning for 360 days. FLUTICASONE FUROATE-VILANTEROL (BREO ELLIPTA) 200-25 MCG/DOSE DSDV Inhale 1 Puff in the morning. FOLIC ACID 1 MG TABLET TAKE 1 TABLET BY MOUTH EVERY DAY FUROSEMIDE 80 MG TABLET Take 1 tablet by mouth every morning and evening for 90 days. GABAPENTIN 300 MG CAPSULE Take 1 capsule by mouth at bedtime for 90 days. LISINOPRIL 40 MG TABLET TAKE 1 TABLET BY MOUTH 2 (TWO) TIMES DAILY. MUPIROCIN 2 % OINTMENT Apply to area(s) 3 (three) times daily. NYSTATIN 100,000 UNIT/ML SUSPENSION Take 10 mL by mouth 4 (four) times daily. PREDNISONE 20 MG TABLET 1 PO BID x 4 days RIVAROXABAN 15 MG TABLET Take 1 tablet by mouth in the morning. Indications: prevention of thromboembolism in paroxysmal atrial fibrillation SERTRALINE 100 MG TABLET TAKE 1 TABLET BY MOUTH TWICE DAILY SPIRIVA WITH HANDIHALER 18 MCG INHALATION DEVICE INHALE CONTENTS OF 1 CAPSULE VIA HANDIHALER EVERY DAY TAMSULOSIN 0.4 MG 24 HR CAPSULE Take 1 capsule by mouth in the morning. TRAZODONE 50 MG TABLET Take 1 tablet by mouth at bedtime. START taking Modified Medications as Prescribed No medications on file STOP taking these medications No medications on file Follow-up: N/a Electronically signed by: Chetna Garcia MD 04/06/24 1439 Chetna Garcia MD 04/06/24 1444 [facility] hospital 2024-04-06 10:11:00 AdmissionCare Guideline: Chest Pain - OBS, Observation Based on the indications selected for the patient, the bed status of Observation was determined to be MET The following indications were selected as present at the time of evaluation of the patient: - Observation Care Admission Criteria - Observation care is indicated for 1 or more of the following: - Patient classified as intermediate risk or high risk for acute coronary syndrome (eg, via use of a clinical decision tool or risk calculator (eg, HEART score greater than 3)) AdmissionCare documentation entered by: Chetna Garcia [facility], 28th edition, Copyright ? 2023 [facility] All Rights Reserved. [id number]:00 [facility] 2024-04-02 16:36:08 Summary: Discharge Images from the original note were not included. Pt given printed and verbal discharge instructions regarding COPD, encouraged hydration, Prescriptions provided albuterol 2.5 mg /3 mL (0.083 %) nebulizer solution predniSONE 20 mg tablet Discussed ibuprofen and to take with food to avoid GI distress. Pt verbalized understanding of instructions, pt awake alert oriented, resp reg unlabored, skin w/d, color appropriate for race, moves all ext well,pt encouraged to follow up with pcp Advised to seek medical attention for new/prolonged/worsening of symptoms, Symptoms No adverse reaction to meds given in ER noted upon discharge PIV d'cd, dressing to site, catheter in tact. Awake, alert oriented, resp reg unlabored, skin w/d, pt leaving in a wheelchair with oxygen and oxygen in the ride in no apparent distress, Cary Ricks RN [facility] 2024-04-02 14:18:04 Patient informed urine was needed a tropin will be drawn and then he may be discharged [facility] 2024-04-02 11:15:00 Summary: xray Xray done at the bedside [facility] 2024-04-02 11:06:33 Patient reports chest pain and shortness of breath since Saturday. He has to sleep in a recliner and increased his oxygen from 5lmp to 6LPM. Matti Arechiga RN [facility] 2024-04-02 10:35:30 Tahira Hunter is a 68 year old male Gabi w/ [facility] is calling in to report Pt was sent to ER by ambulance for chest pains. [phone] Rut Grant [facility] 2024-04-02 09:06:03 Spoke with patient notified of Dr. Maya's recommendations. He is expecting his home health nurse to arrive at any moment then will call an ambulance to take him to the ER. Hien Barraza RN [facility] 2024-04-02 08:55:37 He has COPD and CAD. Recommend to come to ER. May need to be admitted depending upon the findings IM-CARDIOVASCULAR DISEASE STAFF [facility] 2024-04-02 08:35:31 Assessment call from Mr Hunter stating that since he had PCI with 3 stents 2 months ago he has had SOB. Recently he has been having tightness to left shoulder area when having SOB. Worsening when going outside, so he does not go outside any more. States that he is utilizing his O2 continuously at this time. His DME is refilling his O2 today. He was instructed to continue to monitor his tightness/SOB and go to ER if he develops worsening of symptoms palpitations, dizziness, lightheadedness, presyncope or syncope or his heart rate goes up again. Verbalized understanding Route to Dr Maya for advice Access center note Dr Maya 68 male [id number] states he is having SOB, "not going outside and just going through oxygen tanks", states his chest was hurting last night on left shoulder at 1 AM. Eliz Herzog RN [facility] 2024-04-02 08:32:31 Tahira Hunter is a 68 year old male calling and states he is having SOB, "not going outside and just going through oxygen tanks", states his chest was hurting last night on left shoulder at 1 AM. [phone] (home) Warm transferred to clinic nurse. Paula Zhou [facility] 2024-03-11 10:39:55 Attempted to Contact patient to offer a sooner appointment. I left a voicemail. Татьяна Paulson [facility] 2024-03-10 11:30:21 Tahira Hunter is a 68 year old male Pt missed an appt with on 03/09/24 and has been r/s for 04/02/24. Pt is asking if there is an overbook available to come before March. Please advise. Georgia Bean [facility] 2024-03-05 15:20:33 Gabi is the [facility] nurse calling to inform the clinic that he fell yesterday and has skin tears on his left arm. Pt was seen yesterday at the [facility] ER. Gabi's PH# [phone] Hedy Cordero [facility] 2024-03-04 20:53:17 Pt given printed and verbal discharge instructions regarding skin tear, encouraged hydration. 1 Prescription sent to pharmacy. Pt verbalized understanding of instructions, pt awake alert oriented, resp reg unlabored, skin w/d, color appropriate for race, moves all ext well,pt encouraged to follow up with pcp. Advised to seek medical attention for new/prolonged/worsening of symptoms, Symptoms improved. No adverse reaction to meds given in ER noted upon discharge. Awake, alert oriented, resp reg unlabored, skin w/d, pt leaving via stretcher by [facility], in no apparent distress. [facility] 2024-03-04 20:18:16 Spoke to Chief Olsen who advised to call LT- Called Lt ESTEVAN Valdes ETA 15 min for discharge to [facility] via ambulance. Leslye Gutierrez PCT [facility] 2024-03-04 17:06:06 Pt fell 2 days ago, skin tear, pt reports on blood thinner. Also no oxygen in the home pt uses 6l per ems pt sat 80% upon arrival Myrna Gonzalez RN [facility] 2024-02-14 08:56:59 Images from the original note were not included. Requested Renewals Name from pharmacy: LISINOPRIL 40 MG TABLET Will file in chart as: LISINOPRIL 40 mg tablet Sig: TAKE 1 TABLET BY MOUTH 2 (TWO) TIMES DAILY. Disp: 180 tablet Refills: 0 Start: 02/14/2024 Class: eRX Non-formulary To pharmacy: * * N O T I C E * * Last quantity doesn't match original quantity Last refill: 01/10/2024 Cardiovascular: JESUS ALBERTO Inhibitors Gjpepe6502/14/2024 08:54 AM Protocol Details Valid encounter within last 12 months K in normal range and within 360 days Cr in normal range and within 360 days To be filled at: [facility], [place] - [address] [facility] not on active medication list. Recent Visits Date Type Provider Dept 01/27/24 Office Visit Aminata Reza MD [facility] 12/03/23 Office Visit Aminata Reza MD [facility] 11/05/23 Office Visit Aminata Reza MD [facility] 08/13/23 Office Visit Aminata Reza MD [facility] 07/24/23 Office Visit Aminata Reza MD [facility] 05/01/23 Office Visit Monique Rider MD [facility] 03/25/23 Office Visit Aminata Reza MD [facility] 02/05/23 Office Visit Aminata Reza MD [facility] 12/13/22 Office Visit Walter Pedroza MD [facility] 09/12/22 Office Visit Lennie Reyes, PIG CASTER [facility] Showing recent visits within past 540 days with a meds authorizing provider and meeting all other requirements Future Appointments Date Type Provider Dept 05/05/24 Appointment Aminata Reza MD [facility] Showing future appointments within next 150 days with a meds authorizing provider and meeting all other requirements Felecia Patel LVN [facility] [employer] 2024-02-13 08:09:21 Attempted to reach patient no answer I left V/M to start back on the Plavix [facility] 2024-02-13 07:59:06 Called and left patient detailed voicemail to contact the clinic to get scheduled for Ep at [facility] [phone] Edel Killian [facility] 2024-02-13 07:50:20 He should continue to take the Clopidogrel (Plavix) V T [facility] 2024-02-11 16:19:[address] Maya in clinic who advised that patient may hold Xarelto for about 1 week. Would recommend to restart Saturday. Patient must stay on Plavix for the next 1 year. Referral for watchman procedure if patient would like. Discussed the above with patient. States he did already stop Xarelto the past few days due to issues with bleeding. He continues to take the clopidogrel. The bleeding issues have improved. He will hold Xarelto for another 2 days and restart Saturday morning (1 week off). Patient would like to see EP to discuss watchman procedure.. He verbalized understanding that he will need to continue Plavix for the next year without any interruption. Hien Barraza RN [facility] 2024-02-11 15:40:13 He cut his leg 2 weeks ago on garden hose and he noticed today it was weeping in that area where the cut is he is wondering what he should do about that Also he stopped taking his plavix after he noticed bruising because on the bottle it said contact your doctor if this happens. He did cut his self shaving and bleed for a very long time He is asking does it need to be on plavix T [facility] 2024-02-11 15:13:49 Copied from [facility] #[id number]. Topic: Clinical - Missed Call from Provider >Feb 11, 2024 3:12 PM Patient Lead Cargoman wrote: Patient is returning a call he missed from the clinic in regards to the patient not taking the Clopidogrel Francis Blankenship [facility] 2024-02-11 08:56:19 Tahira Hunter is a 68 year old male Patients home health nurse called stating the patient decided to stop taking the Clopidogrel and had a shaving incident Saturday where he bled for a while, but is still taking the blood thinners. Please contact [phone] (home) Luther Macario [facility] 2024-02-07 09:41:34 Tahira Hunter is a 68 year old male Pt is calling back asking if he should stop taking clopidogreL 75 mg tablet due to bruising and bleeding. He said he it has been going on for a couple of days. Please advise. Georgia Bean [facility] 2024-02-06 10:27:22 Copied from [facility] #[id number]. Topic: Customer Service - Missed Call from Provider >> Feb 06, 2024 10:27 AM Patient Lead Cargoman wrote: Tahira Hunter is a 68 year old male Pt was calling nurse back Please advise Allison Patton [facility] 2024-02-06 10:05:52 Spoke with patient, states that he was shaving this morning and got a little darrion. It bled for two hours but now has stopped. He is concerned it is because of the new medication he is taking that was prescribed during admission. He states he was told to notify his doctor of any bleeding.. Per hospital records it looks like, "-Pt will be on aspirin, plavix, and xarelto for 1 week, and then on plavix and xarelto onwards" Call was ended abruptly because patient was receiving another call and advised he would call back. Spoke with patient again. He just wanted to notify clinic that he has been bruising and bleeding easily. Verified that he has been taking clopidogrel and Xarelto. Not on aspirin. He did not take the clopidogrel this morning. Routing to notify Dr. Maya. T [facility] 2024-02-06 10:00:41 Tahira Hunter is a 68 year old male calling and states he has a little darrion/cut and it has been bleeding for 2 hours. Concerned about rx clopidogreL 75 mg tablet (PLAVIX) [phone] (home) Warm transferred to clinic nurse Paula Zhou [facility] 2024-01-23 15:04:24 Returned call to patient no answer I left a V/M advising patient to bring his medications with him to appointment and if he still needs to speak with me to call me back [facility] 2024-01-23 14:34:06 Copied from [facility] #[id number]. Topic: Clinical - Medical Advice >> January 23, 2024 2:32 PM Patient Lead Cargoman wrote: Tahira Hunter is a 68 year old male that is returning the clinic's call about his medication. The pt states that he needs to see Dr. Reza to go through his meds because he might be taking too many of some and not enough of others. Pt is scheduled for 01/27/24, but he is trying to get in sooner. Please advise. Cecily Johnson [facility] 2024-01-20 10:20:37 Attempted to contact patient , no answer I did leave a V/M for patient asking him to return call if he is still needing help with his medications [facility] 2024-01-17 10:23:44 Attempted to contact patient. No answer. Left message to call back. Felecia Patel LVN 01/17/2024 10:23 AM' Felecia Patel DRAWING IN HAND [facility] 2024-01-17 09:32:59 Copied from [facility] #[id number]. Topic: Clinical - Medical Advice >> January 17, 2024 9:29 AM Patient Lead Cargoman wrote: Tahira Hunter is a 68 year old male. Is calling to speak with someone in the clinic. Pt states he was in the hospital all week and was given some medication and took double of one yesterday. Pt states he was "very out of it" pt states he now has 15 prescriptions and some of them are doubled and the pt is really needing to speak with someone. Loreta Osullivan 01/17/24 9:32 AM Loreta Osullivan [facility] 2024-01-15 11:11:32 CM reviewed notes in patient chart, and found a note stating [facility] HH nurse had called PCP office. CM called [facility] and spoke with Oralia. She confirmed pt is on service, and requested HH orders, H&P, and discharge summary. Documentation faxed to [facility] [phone] . CM called pt to update, and reached voicemail. CM left a message. Derek Khan RN [facility] 2024-01-15 10:31:29 TRANSITIONAL CARE MANAGEMENT ASSESSMENT 01/15/2024 Tahira Hunter [id number] Tahira Hunter is a 68 year old /White male was admitted on 01/09/[address] He was discharged on 01/14/24 with discharge disposition of HR- Routine Discharge. Admitting Physician: Brandon Smith Discharge Diagnosis: FINAL DIAGNOSIS: CAD s/p PCI of LAD Acute on Chronic COPD exacerbation (home O2 5L) Acute on Chronic HFpEF NYHA Class IIIC Linked Episodes Type: Episode: Status: Noted: Resolved: Last update: Updated by: TRANSITION OF CARE TCM Active 01/14/2024 01/15/2024 10:01 AM Derek Khan RN Comments: TCM [id number] outreach documentation: Discharge Assessment Chart Assessed: 01/15/24 TCM Outreach Completed: 01/15/24 Do you have a few minutes to speak with me about how you are doing at home?: Yes (Pt states he is doing pretty good, just tired. States his home care provider is there at time of call.) Discharge Instructions Do you understand your at-home instructions?: Yes (No questions at this time.) Medications Have you filled your prescriptions and do you have them in your home? : See comments (Pt states a few prescriptions are still in process.) Do you know how to take your medications?: Yes (No questions at this time.) Supplies Did you receive applicable home medical supplies/equipment?: N/A Follow Up Appointment Has a follow up appointment been scheduled?: No May I assist with scheduling this appointment?: CM scheduled appointment Do you have any questions about your follow up appointments?: No Are you able to get to your appointment? Who will be taking you?: Yes (Pt states friends provide transportation.) Home Health Assistance Has the home health nurse contacted you since you've been home?: No BRIDGE TOLL COLLECTOR Interventions:: Contacted HH agency (Called IP and spoke with Ila. States no record of pt on service. Called pt; states BRIDGE TOLL COLLECTOR is [facility]. CM called [facility]. They do not have pt on service. Called pt again to get BRIDGE TOLL COLLECTOR phone number from his provider. She provided phone number of [phone]. CM called, and this is [facility]. They are a provider service, not [facility]/PT. Called pt again. He states he has a folder from the [facility], and he will call CM back with the phone number.) Survey - Recognition Is there anything you would like to share about your recent hospitalization, or anyone you would like to recognize?: No Do you have any suggestions for improvement?: No Do you have any other questions or concerns at this time?: Yes (Pt asked about assistance with utilities and Meals on Wheels. CM provided information from [employer]. Future Appointments: Future Appointments Provider Department Dept Phone 01/27/2024 2:30 PM Aminata Reza MD [facility] [phone] 02/05/2024 10:15 AM Aminata Reza MD [facility] [phone] 02/13/2024 10:00 AM Vineet Ibarra DO [facility] Medicine[phone] 03/09/2024 9:00 AM Lester Maya MD [facility] [place] [phone] 04/13/2024 8:00 PM 1, [facility], [place] [phone] [facility] 2024-01-14 18:01:04 Problem: Respiratory Function - Impaired Goal: Adequate oxygenation 01/14/2024 1800 by Gideon Hernandes, ROBERT Outcome: Resolved 01/14/2024 1053 by Gideon Hernandes, RN Outcome: Progressing as expected Goal: Adequate work of breathing 01/14/2024 1800 by Gideon Hernandes, RN Outcome: Resolved 01/14/2024 1053 by Gideon Hernandes RN Outcome: Progressing as expected Goal: Patent airway 01/14/2024 1800 by Gideon Hernandes RN Outcome: Resolved 01/14/2024 1053 by Gideon Hernandes RN Outcome: Progressing as expected Problem: Discharge Planning Goal: Adequate for discharge 01/14/2024 1800 by Gideon Hernandes, RN Outcome: Resolved 01/14/2024 1053 by iGdeon Hernandes RN Outcome: Progressing as expected Goal: Effective communication 01/14/2024 1800 by Gideon Hernandes RN Outcome: Resolved 01/14/2024 1053 by Gideon Hernandes RN Outcome: Progressing as expected Problem: Mobility - Impaired Goal: Able to achieve maximum mobility level 01/14/2024 1800 by Gideon Hernandes RN Outcome: Resolved 01/14/2024 1053 by Gideon Hernandes RN Outcome: Progressing as expected Problem: Pain Goal: Control of pain at or below patient's documented comfort goal 01/14/2024 1800 by Gideon Hernandes, RN Outcome: Resolved 01/14/2024 1053 by Gideon Hernandes RN Outcome: Progressing as expected Goal: Reduction in pain sensation 01/14/2024 1800 by Gideon Hernandes, RN Outcome: Resolved 01/14/2024 1053 by Gideon Hernandes RN Outcome: Progressing as expected Problem: Procedure Routine Goal: Absence of post-procedure complications 01/14/2024 1800 by Gideon Hernandes, RN Outcome: Resolved 01/14/2024 1053 by Gideon Hernandes RN Outcome: Progressing as expected Goal: Knowledge of procedure 01/14/2024 1800 by Gideon Hernandes RN Outcome: Resolved 01/14/2024 1053 by Gideon Hernandes RN Outcome: Progressing as expected Gideon Hernandes RN [facility] 2024-01-14 10:53:32 Problem: Respiratory Function - Impaired Goal: Adequate oxygenation Outcome: Progressing as expected Goal: Adequate work of breathing Outcome: Progressing as expected Goal: Patent airway Outcome: Progressing as expected Problem: Discharge Planning Goal: Adequate for discharge Outcome: Progressing as expected Goal: Effective communication Outcome: Progressing as expected Problem: Mobility - Impaired Goal: Able to achieve maximum mobility level Outcome: Progressing as expected Problem: Pain Goal: Control of pain at or below patient's documented comfort goal Outcome: Progressing as expected Goal: Reduction in pain sensation Outcome: Progressing as expected Problem: Procedure Routine Goal: Absence of post-procedure complications Outcome: Progressing as expected Goal: Knowledge of procedure Outcome: Progressing as expected T [facility] 2024-01-14 00:14:21 Problem: Respiratory Function - Impaired Goal: Adequate oxygenation Outcome: Progressing as expected Goal: Adequate work of breathing Outcome: Progressing as expected Goal: Patent airway Outcome: Progressing as expected Problem: Discharge Planning Goal: Adequate for discharge Outcome: Progressing as expected Goal: Effective communication Outcome: Progressing as expected Problem: Mobility - Impaired Goal: Able to achieve maximum mobility level Outcome: Progressing as expected Problem: Pain Goal: Control of pain at or below patient's documented comfort goal Outcome: Progressing as expected Goal: Reduction in pain sensation Outcome: Progressing as expected Problem: Procedure Routine Goal: Absence of post-procedure complications Outcome: Progressing as expected Goal: Knowledge of procedure Outcome: Progressing as expected T Chayo Bryant RN [facility] 2024-01-13 15:54:56 Attending: Fellow:/Moe Anaesthesia;topicalLidocine and IV Versed and Fentanyl Access:RIJV/Right radial artery Findings: RA: 5mm Hg RV:52/3mm Hg PA:47/19 mean 29 mm Hg PCAP:14 mm Hg RASAO2:81 PASAO2:81 CO: 6.7 (T) 10 (F) CI: 2.9(T) 4 (F) [id number] TPG LM;Patent LAD;Proximal excentric 50 to 60% stenosis LCX:Dominant diffuse disease no obstructive dsiease RCA;Non dominant and patent LVEDP; 10 mm Hg PCI of LAD Anticoagulation:Heparin ACT:309 Guide:6F EBU3.0 Wires:[employer] Balloons:predilation Stents:Synergy ELEAZAR 4x24 Post stent dilation:NC 4.6mm @16 skyler OCT/IVUS:Good expansion, no edge dissection TIMI3 Flow 0% residual stenosis Sheath removed and TR band applied IJ Sheath secured for manual compression later No complications observed Impression Mild to moderate PAH Moderate Proximal LAD disease Normal Filling pressures Significant LAD disease by IFR Successful PCI of proximal LAD with ELEAZAR Plans Observation in telemetry ASA 81 mg Po daily for life Plavix 75 mg po pindwn63 months Findings and plans discussed with the pt and family NA Andrés Garsia MD, FACC real estate professor warehouse team leader IM-INTERVENTIONAL CARDIOLOGY STAFF [facility] 2024-01-13 09:13:04 Problem: Respiratory Function - Impaired Goal: Adequate oxygenation Outcome: Progressing as expected Goal: Adequate work of breathing Outcome: Progressing as expected Goal: Patent airway Outcome: Progressing as expected Problem: Discharge Planning Goal: Adequate for discharge Outcome: Progressing as expected Goal: Effective communication Outcome: Progressing as expected Problem: Mobility - Impaired Goal: Able to achieve maximum mobility level Outcome: Progressing as expected Problem: Pain Goal: Control of pain at or below patient's documented comfort goal Outcome: Progressing as expected Goal: Reduction in pain sensation Outcome: Progressing as expected Problem: Procedure Routine Goal: Absence of post-procedure complications Outcome: Progressing as expected Goal: Knowledge of procedure Outcome: Progressing as expected Humberto Ellison RN [facility] 2024-01-13 01:14:59 Problem: Respiratory Function - Impaired Goal: Adequate oxygenation Outcome: Progressing as expected Goal: Adequate work of breathing Outcome: Progressing as expected Goal: Patent airway Outcome: Progressing as expected Problem: Discharge Planning Goal: Adequate for discharge Outcome: Progressing as expected Goal: Effective communication Outcome: Progressing as expected Problem: Mobility - Impaired Goal: Able to achieve maximum mobility level Outcome: Progressing as expected Problem: Pain Goal: Control of pain at or below patient's documented comfort goal Outcome: Progressing as expected Goal: Reduction in pain sensation Outcome: Progressing as expected Problem: Procedure Routine Goal: Absence of post-procedure complications Outcome: Progressing as expected Goal: Knowledge of procedure Outcome: Progressing as expected Jen Cesar RN [facility] 2024-01-12 09:10:44 Problem: Respiratory Function - Impaired Goal: Adequate oxygenation Outcome: Progressing as expected Goal: Adequate work of breathing Outcome: Progressing as expected Goal: Patent airway Outcome: Progressing as expected Problem: Discharge Planning Goal: Adequate for discharge Outcome: Progressing as expected Goal: Effective communication Outcome: Progressing as expected Problem: Mobility - Impaired Goal: Able to achieve maximum mobility level Outcome: Progressing as expected Problem: Pain Goal: Control of pain at or below patient's documented comfort goal Outcome: Progressing as expected Goal: Reduction in pain sensation Outcome: Progressing as expected Problem: Procedure Routine Goal: Absence of post-procedure complications Outcome: Progressing as expected Goal: Knowledge of procedure Outcome: Progressing as expected [facility] 2024-01-09 22:09:35 Patient transferred to [facility] for diagnosis of Respiratory Distress, COPD Exacerbation Patient agrees to transfer/admit plan and verbalized understanding of plan of care, family aware of plan Patient awake alert, oriented, resp reg unlabored, skin w/d PIV patent, no s/s infiltration noted, No adverse reaction to medications given while in ED. Report given to [facility] EMS personnel ANAT Rudolph Mullins RN [facility] 2024-01-09 20:03:54 Pt TWIN upgraded to level 1 d/t bipap application Sary Huff RN [facility] 2024-01-09 19:28:00 Pt unhooked himself to go to bathroom to have a BM. Pt ambulated with standby assist with moderate-severe work of breathing. Pt provided with portable O2 with NC 6L/min. Pt ambulated back to bed and placed on BiPAP by RT. Current O2 96% on BiPAP. [facility] 2024-01-09 18:42:05 Patient oxygen dropped to 78 %. MD and PA in room. Placing patient on Bipap. ANAT Matti Arechiga RN [facility] 2024-01-09 18:15:00 Patients oxygen saturation down to 80%, patient repositioned, sitting up on side of bed. Lon BERGMAN notified and at bedside. Ismael Santamaria RN [facility] 2024-01-09 14:51:51 Pt to ER CO intermittent CP and SOB for 1 week, todays episode starting at 0200. Pt also reports increasing confusion and low O2 sats the past week. 5L O2 at home with very long tubing. Placed on 6L NC by EMS, O2 saturation 91%-94%. Pt smokes 5-10 cigarettes a day. Hx of heart blockages, in process of getting "open heart surgery" with Dr. Maya. 1 nitro and 2 aspirin given en route, 2 aspirin taken prior to EMS arrival (total 342mg.) No relief after nitro. 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 He reports chest pain initially presented as intermittent exertional pain in the sternum. He reports aggravation of pain since 2AM last night after waking up and exerting himself to clean a spill. He now reports pressure like left chest pain that radiates to left axilla and left arm. He also reports exertional SOB and uses 5L oxygen daily. Pain is relieved with rest and temporary increase in nasal oxygen level. He reports left arm weakness that is unchanged from baseline since a neck injury from a previous accident. He was seen by his dog handler or trainer (Dr. Maya) on Saturday and discussed pursuing cardiac cath for further eval. He had an appointment with his bread distributor (Dr. Ibarra) for SOB today. After his appointment with Dr. Ibarra, he called Dr. Maya's office to inquire about his chest pain and was instructed to report to the ED. He was placed on 6L NC by EMS with O2 sat 91-94%. 1 nitro and 2 aspirin was given en route and 2 aspirin were taken prior to EMS arrival (total 342mg). No relief after nitro. Patient smokes 5-10 cigarettes a day. History provided by: Patient drafting detailer used: No Past Medical History/Immunizations: Past Medical History: Diagnosis Date Cellulitis Chronic ankle pain, bilateral Chronic neck pain COPD (chronic obstructive pulmonary disease) HTN (hypertension) PVD (peripheral vascular disease) s/p left leg stent Tetanus received in last 5 years: Unknown Allergies: No Known Allergies Past Social History: Tobacco Use Every Day; 1 pack/day; Types: Cigarettes Smokeless Tobacco: Never used smokeless tobacco. Alcohol Use Not Currently. Drug Use Not Currently. Sexual Activity Not currently sexually active. Past Surgical History: Past Surgical History: Procedure Laterality Date APPENDECTOMY HB PUMP PAIN SYNCHROMED II 2004 Dr Zhou managing OTHER neck surgery SPINE SURGERY STENT PLACEMENT (SHX) left leg Review of Systems: Review of Systems Constitutional: Positive for fatigue. Negative for fever. Respiratory: Positive for cough, chest tightness and shortness of breath. Cardiovascular: Positive for chest pain. Musculoskeletal: Negative for neck pain and neck stiffness. Neurological: Positive for weakness (chronic left arm, unchanged). Physical Exam: ED Triage Vitals [01/09/24 1459] Weight 113.4 kg (250 lb) Actual or estimated Estimated by patient/family report Height 1.778 m (5' 10") BP (!) 142/72 Pulse 57 Resp 15 Temp 36.2 ?C (97.1 ?F) Temp source Oral SpO2 91 % Measured on Room air Physical Exam Constitutional: Appearance: Normal appearance. HENT: Head: Normocephalic and atraumatic. Cardiovascular: Rate and Rhythm: Normal rate and regular rhythm. Pulses: Normal pulses. Heart sounds: Normal heart sounds. Pulmonary: Effort: Respiratory distress present. Breath sounds: Wheezing present. Comments: Speaking in full sentences with labored breathing. Chest: Chest wall: No tenderness. Musculoskeletal: General: No swelling, tenderness, deformity or signs of injury. Cervical back: Normal range of motion and neck supple. Comments: Limited ROM in left shoulder flexion, unchanged from baseline Skin: General: Skin is warm. Neurological: Mental Status: He is alert and oriented to person, place, and time. Sensory: No sensory deficit. Motor: Weakness (mild weakness in left tissue rewinder strength compared to right) present. Coordination: Coordination normal. Radiology: XR CHEST 1 VW Final Result HISTORY: Chest pain. SOB. TECHNIQUE: Portable AP view of the chest is obtained. Comparison made with 09/26/2022 study. FINDINGS: Mild to moderate cardiomegaly noted with slightly prominent central pulmonary vasculature. Increased reticular markings are seen in both lungs, some of which could be chronic from pulmonary fibrosis with superimposed minimal acute pulmonary edema. No focal consolidation. No pneumothorax or pleural effusion. Lower cervical spine ACDF surgical changes noted.. CONCLUSIONS: Cardiomegaly with minimal pulmonary edema, superimposed on underlying chronic changes of pulmonary fibrosis/obstructive lung disease. Lab Results: Lab Results N-TERMINAL PRO-BNP - Abnormal Result Value Ref Range NT-proBNP 1,370 (*) <=125 pg/mL CBC WITH DIFF - Abnormal WBC 8.91 4.20 - 10.70 10*3/?L RBC 3.59 (*) 4.26 - 5.52 10*6/?L HGB 10.8 (*) 12.2 - 16.4 g/dL HCT 33.3 (*) 38.4 - 49.3 % MCV 92.8 81.7 - 95.6 fL MCH 30.1 26.1 - 32.7 pg MCHC 32.4 31.2 - 35.0 g/dL RDW-SD 49.0 38.5 - 51.6 fL RDW-CV 14.4 12.1 - 15.4 % PLT 129 (*) 150 - 328 10*3/?L MPV 11.3 9.8 - 13.0 fL IPF % 4.7 1.2 - 10.7 % NRBC/100 WBC 0.0 0.0 - 10.0 /100 WBCs NRBC x10 3 <0.01 10*3/?L GRAN MAT (NEUT) % 74.5 % IMM GRAN % 0.30 % LYMPH % 16.4 % MONO % 8.2 % EOS % 0.3 % BASO % 0.3 % GRAN MAT x10 3 (ANC) 6.63 1.99 - 6.95 10*3/uL IMM GRAN x10 3 0.03 0.00 - 0.06 10*3/uL LYMPH x10 3 1.46 1.09 - 3.23 10*3/uL MONO x10 3 0.73 0.36 - 1.02 10*3/uL EOS x10 3 0.03 (*) 0.06 - 0.53 10*3/uL BASO x10 3 0.03 0.01 - 0.09 10*3/uL COMP. METABOLIC PANEL (55110) - Abnormal NA 138 135 - 145 mmol/L K 3.4 (*) 3.5 - 5.0 mmol/L CL 104 98 - 108 mmol/L CO2 TOTAL 28 23 - 31 mmol/L AGAP 6 2 - 16 BUN 12 7 - 23 mg/dL GLUCOSE 142 (*) 70 - 110 mg/dL CREATININE 0.85 0.60 - 1.25 mg/dL TOTAL BILI 0.7 0.1 - 1.1 mg/dL CALCIUM 8.5 (*) 8.6 - 10.6 mg/dL T PROTEIN 6.9 6.3 - 8.2 g/dL ALBUMIN 3.7 3.5 - 5.0 g/dL ALK PHOS 81 34 - 122 U/L ALTv 20 5 - 50 U/L AST(SGOT) 25 13 - 40 U/L eGFR 94.6 mL/min/1.73m2 AC ABG + LACTIC ACID - Abnormal PH 7.42 7.35 - 7.45 PCO2 39 35 - 45 mmHg PO2 62 (*) 80 - 100 mmHg HCO3 25 22 - 26 mEq/L BE 0.1 -3.0 - 3.0 mEq/L LACTIC ACID 1.41 0.50 - 2.20 mmol/L MAGNESIUM - Normal MAGNESIUM 2.0 1.7 - 2.4 mg/dL TROPONIN I - Normal TROPONIN I 0.006 <=0.034 ng/mL URINALYSIS EKG: If EKG completed, see Procedure Note. Orders and Treatments: Orders Placed This Encounter Procedures XR CHEST 1 VW N-Terminal Pro-Bnp Cbc with Diff Comp. Metabolic Panel (76856) Magnesium Troponin I Urinalysis AC ABG + Lactic Acid Orders Placed This Encounter Medications ipratropium-albuteroL (DUONEB) 0.5 mg-3 mg(2.5 mg base)/3 mL nebulizer solution 3 mL methylprednisolone sod succ (SOLU-MEDROL) injection 125 mg ipratropium-albuteroL (DUONEB) 0.5 mg-3 mg(2.5 mg base)/3 mL nebulizer solution 3 mL furosemide (LASIX) injection 40 mg morpHINE (2 mg/mL) injection 2 mg ondansetron (ZOFRAN (PF)) injection 4 mg First Provider Eval: ED Events Date/Time Event User Comments 01/09/241454 Medical Screening Begins KEREN BHANDARI -- 01/09/241454 First Provider Evaluation KEREN BHANDARI -- ED COURSE Diagnosis/Impression as of 01/09/241946 Chest pain, unspecified type Respiratory distress Chronic obstructive pulmonary disease with acute exacerbation Procedures: EKG-12 Lead ROUTINE ONCE Date/Time: 01/09/2024 2:55 PM Performed by: Nancy Cronin PAC Authorized by: Nancy Cronin PAC ECG interpreted by ED Physician in the absence of a dog handler or trainer: yes Previous ECG: Previous ECG: Compared to current Interpretation: Interpretation: abnormal Rate: ECG rate assessment: bradycardic Rhythm: Rhythm: sinus rhythm Ectopy: Ectopy: PAC QRS: QRS axis: Normal QRS intervals: Normal QRS conduction: normal ST segments: ST segments: Normal T waves: T waves: normal MDM: Medical Decision Making 68yM presents to ER with chest pain that has been increasing over the last [address] cardiac scan shows moderate coronary disease. He has extensive COPD on 5 L home oxygen, pulmonary hypertension, paroxysmal A-fib on Xarelto. Recent cardiology consult on chart with upcoming plans for possible left heart cath for further evaluation of coronary disease. Patient was seen by bread distributor in clinic today and sent to ER for further evaluation of chest pain and cardiac component of symptoms. EKG sinus bradycardia 55 with no ischemia. Troponin normal. Patient discussed with Dr. Lu, cardiology [place] who recommends transfer to [place] for heart cath. Patient discussed with Dr. Abdullahi, cardiology [place] and accepted in transfer. Patient on 6 L O2 per nasal cannula. Labored breathing and O2 sat dropped into upper 80s frequently with conversation. O2 sat with temp drop to 80% while on hi-flow Abg with 61% O2, CO2 39, pH 7.4, pt continues to have intermittent drop of O2 sat and placed on bi-pap Pt discussed with DR Ya, CCU and accepted for transfer to [place]. Pt also evaluated by Dr Gardner, ED attending. Problems Addressed: Chest pain, unspecified type: acute illness or injury Respiratory distress: acute illness or injury Amount and/or Complexity of Data Reviewed External Data Reviewed: labs, radiology, ECG and notes. Labs: ordered. Decision-making details documented in ED Course. Radiology: ordered. ECG/medicine tests: ordered. Decision-making details documented in ED Course. Discussion of management or test interpretation with external provider(s): History, exam, labs, imaging, and treatment of Patient discussed with Dr. Lu, cardiology [place] who recommends transfer to [place] for heart cath. -discussed with Dr. Abdullahi, cardiology [place] and accepted in transfer. - discussed with DR Ya, CCU and accepted for transfer to [place]. Risk Prescription drug management. Parenteral controlled substances. Flowsheet Documentation: Scoring Tools: No data recorded Disposition/Condition: ED Disposition ED Disposition Admit - ICU Condition -- Comment -- Electronically signed by: Nancy Cronin PAC 01/09/241946 Associated attestation - Neil Gardner MD - 01/12/2024 6:56 PM CDT On the date of service, I reviewed the patient s history, exam findings, diagnostic and any interventions or procedures in detail of the assigned advance practice provider and was available for consultation. Neil Gardner Jr., MD Clinical Industrial Methods Consultant [facility] Emergency Department [facility] 2024-01-09 11:39:45 Patient reported during visit with Dr. Ibarra in clinic that he has been having intermittent chest discomfort that is getting worse and asked to speak with nurse. Patient was seen by Dr. Maya on 01/06/24 and per patient was recommended to have a coronary angiogram. Orders have not been placed. He states the chest pain onset is with exertion, left sided, radiates towards his left shoulder and down his left arm. The pain subsides with rest. In the past the pain would only lasts seconds and now seems to be lasting longer. After discussion with patient, I recommended to take patient to ER for further evaluation of worsening chest pain. However, patient declines any further work up. He wishes to go home. Per Dr. Ibarra ok to go home. Patient strongly advised that if he develops chest pain, he needs to call 911. Hien Barraza RN [facility] 2023-12-30 14:56:53 Tahira Hunter is a 68 year old male Gabi with [employer] is calling stating pt had a fall yesterday in flower bed. No major injuries, only bruising on both arms. Please advise and call pt Yeimy Bauer [facility] 2023-12-26 11:45:42 Called patient to discuss, he has been having increasing nasal congestion, cough, as well as brown sputum which is normally white or clear in color. Will treat patient for COPD exacerbation with antibiotics and steroids. Patient instructed to see further management as needed if symptoms worsen. In addition if symptoms do not improve he may need to be evaluated for possible worsening of his heart issues. [facility] 2023-12-24 15:57:33 Images from the original note were not included. Assessment call []Lucas for details Copied from [facility] #[id number]. Topic: Clinical - Medical Advice >> Dec 24, 2023 3:43 PM Patient Lead [employer] wrote: Tahira Hunter is a 68 year old male Pt is calling and stating he's having SOB more than normal and not feeling well at all and thinks it could be heart related. Pt stated that he's already on oxygen Spoke with Mr Hunter regarding his SOB. Stated that last week he was feeling poorly due to the weather but felt a little better over the week end. Today he is really SOB, He is on his O2, No coughing, his sinuses are swollen but nothing too bad. He has been using his Albuterol nebulizer treatments q 4 hr and rescue inhaler as needed. He is concerned that he went through a tank of 02 today, he is not hyperventilating. Will call his DME to see if the tank is leaking. Stated that he wanted someone to know, but does not need to go to the ER at this time. ER precautions reviewed and agrees to go if continued or worsening symptoms Routed to Dr Ibarra and Maya for advice Eliz Herzog RN [facility] 2023-12-24 15:44:52 Copied from [facility] #[id number]. Topic: Clinical - Medical Advice >> Dec 24, 2023 3:43 PM Patient Lead Cargoman wrote: Tahira Hunter is a 68 year old male Pt is calling and stating he's having SOB more than normal and not feeling well at all and thinks it could be heart related. Pt stated that he's already on oxygen Please advise Tara Otoole [facility] 2023-12-20 14:06:25 Last Refilled: GABAPENTIN 300 mg capsule 30 capsule 3 08/13/2023 -- No Sig: TAKE 1 CAPSULE BY MOUTH AT BEDTIME. Sent to pharmacy as: gabapentin 300 mg capsule (NEURONTIN) Class: eRX Route: Oral Order: [id number] Date/Time Signed: 08/13/2023 10:44 E-Prescribing Status: Receipt confirmed by pharmacy (08/13/2023 10:50 AM LIQUIFIED NATURAL GAS TECHNICIAN) XARELTO 20 mg [id number]/18/2023--NoSig: TAKE 1 TABLET BY MOUTH DAILYSent to pharmacy as: Xarelto 20 mg tablet (rivaroxaban)Class: eRXNotes to Pharmacy: * * N O T I C E * * Last quantity doesn't match original quantityOrder: [id number]/Time Signed: 09/18/2023 16:53E-Prescribing Status: Receipt confirmed by pharmacy (09/18/2023 4:56 PM LIQUIFIED NATURAL GAS TECHNICIAN) Recent Visits Date Type Provider Dept 12/03/23 Office Visit Aminata Reza MD [facility] 11/05/23 Office Visit Aminata Reza MD [facility] 08/13/23 Office Visit Aminata Reza MD [facility] 07/24/23 Office Visit Aminata Reza MD [facility] 05/01/23 Office Visit Monique Rider MD [facility] 03/25/23 Office Visit Aminata Reza MD [facility] 02/05/23 Office Visit Aminata Reza MD [facility] 12/13/22 Office Visit Walter Pedroza MD [facility] 09/12/22 Office Visit Lennie Reyes FNP [facility] 08/30/22 Office Visit Aminata Reza MD [facility] Showing recent visits within past 540 days with a meds authorizing provider and meeting all other requirements Future Appointments Date Type Provider Dept 02/05/24 Appointment Aminata Reza MD [facility] Showing future appointments within next 150 days with a meds authorizing provider and meeting all other requirements Alberta Mullins [facility] 2023-12-12 10:10:01 Images from the original note were not included. Patient notified of results. He verbalized understanding of results/recommendations via teach back. No further questions or concerns at this time. He is scheduled for follow up on 01/06/24 Lester Maya MD P Cardiology Nurse Calcium score noted to be at 533 elevated. Cardiac CTA shows presence of moderate stenosis in proximal to mid LAD disease, ostial D1. Recommend follow-up as planned to discuss regarding stress test versus coronary angiogram evaluation for further assessment of underlying obstructive coronary disease. Recommended aspirin 81 daily. Recommend increasing Lipitor from 40 mg to 80 mg daily. Continue with current dose of metoprolol without any further. LDL CHOL (mg/dL) Date Value 07/24/2023 75 [facility] 2023-12-10 11:02:56 Images from the original note were not included. Attempted to contact patient with results/recommendations. LVM for patient to return call to [phone]. Lester Maya MD P Cardiology Nurse Calcium score noted to be at 533 elevated. Cardiac CTA shows presence of moderate stenosis in proximal to mid LAD disease, ostial D1. Recommend follow-up as planned to discuss regarding stress test versus coronary angiogram evaluation for further assessment of underlying obstructive coronary disease. Recommended aspirin 81 daily. Recommend increasing Lipitor from 40 mg to 80 mg daily. Continue with current dose of metoprolol without any further. LDL CHOL (mg/dL) Date Value 07/24/2023 75 T [facility] 2023-12-09 15:46:30 Images from the original note were not included. left to call back for below results. Please update MAR when patient returns call. Lester Maya MD P Cardiology Nurse Calcium score noted to be at 533 elevated. Cardiac CTA shows presence of moderate stenosis in proximal to mid LAD disease, ostial D1. Recommend follow-up as planned to discuss regarding stress test versus coronary angiogram evaluation for further assessment of underlying obstructive coronary disease. Recommended aspirin 81 daily. Recommend increasing Lipitor from 40 mg to 80 mg daily. Continue with current dose of metoprolol without any further. LDL CHOL (mg/dL) Date Value 07/24/2023 75 T [facility] 2023-12-02 10:07:06 Copied from [facility] #[id number]. Topic: Clinical - Medical Advice >> Dec 02, 2023 10:03 AM Patient Lead Cargoman wrote: Tahira Hunter is a 68 year old male. Maria Dolores with [facility] is to report that during taking patient's vitals patient's pulse is 46, blood pressure 176/79, and is complaining that he is coughing up brown mucus, feeling shortness of breath more then usual. Maria Dolores stated that patient is on 5 liters of oxygen and O2 saturation is at 97 . Patient requested appt patient is scheduled for 12/03/23 at 3:30pm T Chiqui Blair [facility] 2023-11-29 09:56:57 Images from the original note were not included. Patient notified of results. He verbalized understanding of results/recommendations via teach back. No further questions or concerns at this time. Vineet Ibarra DO P Pulmonary Nurse Please let patient know I reviewed the CT scan. Overall CT scan is stable compared to about 4 months ago. Overall this is good news. Would recommend repeat CT scan in 6 to 12 months. Hien Barraza RN [facility] 2023-11-27 10:00:00 Summary: Nursing Documentation for Cardiac Coronary CTA Nursing Documentation for Cardiac Coronary CTA Patient Tahira Hunter is here on 11/27/[address] Diagnosis is chest pain. Patient states no caffeine in 24 hours, no use of Cialis, Viagra, Stendra, or Levitra within 24 hours. Initial VS taken at 1006 B/P 136/76, HR 51, Respirations 20 , Sats 99. A 20 gauge IV was placed in right A/C. At 1014, patient was taken to CT and placed on monitoring manager showing cardiac rhythm A fib. At 1039, B/P is 140/72, and Nitroglycerin 0.8 mg SL was given. After CT, patient was monitored, and at discharge VS were: Time 1059 B/P 138/67, HR 52, Resp 24 Sats 99. IV was D/C'd and a clean, dry, dressing was placed. Pt denies dizziness, chest pain, or shortness of breath and was discharged in stable condition. [facility] 2023-11-11 16:32:13 Images from the original note were not included. Spoke with patient. Below results given. Agreeable to proceed with EP appt. PSS to book now. Lester Maya MD P Cardiology Nurse; P Adc Pob Cardiology Pss Holter monitor shows PACs burden 1%. Recommended EP evaluation due to history of A-fib/flutter noted [facility] 2023-11-06 16:45:17 Called and informed HH Nurse ok to change parameters [facility] 2023-11-06 16:34:45 Yes. [facility] 2023-11-06 16:12:20 Copied from [facility] #[id number]. Topic: Clinical - Medical Advice >> Nov 06, 2023 4:11 PM Patient Lead Cargoman wrote: Kizzy with [facility] is calling in to notify office that the patient's weight is outside established parameters today's weight 252.8lbs 235-245 are current parameters, nurse wants to know if parameters can be adjusted to 248-258 please advise [phone] Meaghan Copeland [facility] 2023-10-28 15:20:52 LVM to notify patient of changes from Advair discus to Breo Ellipta and to call back with any questions. [facility] Hien Barraza RN [facility] 2023-10-25 13:08:16 Please let patient know that I changed it to Breo. [facility] 2023-10-25 11:41:31 Not a preferred medications. Temporary Rx given to patient. Routed to MD for chart review. Alternatives: Advair HFA Bruno Hernandezta Dulera [facility] 2023-10-22 13:41:29 Spoke with [facility] and clarified Medication dosage per provider. She voiced understanding. IFIED NATURAL GAS TECHNICIAN Alexa Chauhan RN [facility] 2023-10-22 12:56:49 Copied from [facility] #[id number]. Topic: Clinical - Order >> Oct 22, 2023 12:53 PM [facility] view Team wrote: Tahira Hunter is a 68 male and Nadia with [facility] is calling for medication clarification. Nadia is calling to state she needs more clarification on a verbal order she received for lasik 40 mg. Please advise ph: [phone] [facility] Suze Choi [facility] 2023-10-22 11:53:10 Called [facility] @ [phone] relayed message to Nurse about the change in Lasix [facility] 2023-10-22 11:46:38 Attempted to reach patient , no answer left detailed mesage Sent to pharmacy lasix 40 mg take 1 BID for 5 days [facility] 2023-10-22 10:05:51 Nurse from [facility] called to report patient weight is at 253.2 and taking furosemide 20mg 2x a day [facility] 2023-10-22 10:05:21 Attempted to reach patient ,no answer I left V/M to return call [facility] 2023-10-21 11:45:50 Increase lasix to 40 mg bid for 5 days and monitor weight daily V [facility] 2023-10-21 09:22:13 Nurse from [facility] called to report patient weight is at 253.2 and taking furosemide 20mg 2x a day [facility] Kaya Michael [facility] 2023-10-18 15:30:00 48 hour holter (SEER 1000, #2) applied to patient, tolerated well. Wear, care, diary entry and monitor return teaching given, understanding verbalized. Monitor to be returned on Saturday 930-10am , return letter acknowledged and signed. In wheelchair/oxygen. Has to find ride to bring monitor. In senior community living apts. [facility] 2023-10-07 16:27:54 Images from the original note were not included. Dr. Cabrera went over results with patient during office visit Lester Maya MD P Cardiology Nurse Echocardiogram shows preserved LV systolic function. However the PA pressures are elevated in the setting of following COPD. No significant valve normalities noted. Plan to proceed with cardiac CTA as discussed today [facility] Pauline Montgomery MA [facility] 2023-10-04 16:49:41 Images from the original note were not included. Dr. Maya discussed results with patient in office visit Lester Maya MD P Cardiology Nurse Echocardiogram shows preserved LV systolic function. However the PA pressures are elevated in the setting of following COPD. No significant valve normalities noted. Plan to proceed with cardiac CTA as discussed today IFIED NATURAL GAS TECHNICIAN Pauline Montgomery MA [facility] 2023-10-03 09:00:00 Echocardiogram shows preserved LV systolic function. However the PA pressures are elevated in the setting of following COPD. No significant valve normalities noted. Plan to proceed with cardiac CTA as discussed today [facility] IM-CARDIOVASCULAR DISEASE STAFF [facility] 2023-09-19 12:19:12 Called patient and verified name and .I have informed him to call his primary care provider and they will assist with this E Thomas RN [facility] 2023-09-19 11:27:51 We can try but he'll probably have better success getting it approved coming from his PCP office. [facility] 2023-09-13 08:35:13 Images from the original note were not included. Called patient for results patient verbalized understanding patient was asking how he could get an electric wheelchair would like to be able to go outside on a pretty day will route this call to Dr. Ibarra to see if he is able to help with this request. Vineet Ibarra DO P Pulmonary Nurse Please let patient know I reviewed the CT scan results and there are several new lung nodules noted. I would recommend a repeat CT scan in three months (will place order) to ensure either resolution or stability. We can discuss further in clinic. Thanks. IFIED NATURAL GAS TECHNICIAN Pauline Montgomery MA [facility] 2023-09-04 10:09:20 Returned call to Gabi with no answer left a V/M advising to have patient make appointment [facility] 2023-09-03 16:15:45 Please ask patient to make an appointment to discuss. [facility] 2023-09-03 09:40:35 Tahira Hunter is a 68 year old male [facility] was calling to notify that patient had a 3 pound weight gain. 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 [facility] Khushboo Huizar [facility] 2023-08-16 14:56:13 Patient contacted to offer him a sooner appointment as we have had cancellations today. Patient verbalizes he is not feeling well and would like to be contacted on 08/21/23 to reschedule his appointment. IFIED NATURAL GAS TECHNICIAN Cinthya Cowan RN [facility] 2023-05-13 15:47:45 Formatting of this n ote might be different from the original. Spoke with Mr Hunter regarding dyspnea, dizziness, confusion, left sided Chest discomfort and arm numbness Strongly encouraged ER visit for medical care/testing Verbalized understanding Eliz Herzog RN [facility] 2023-05-13 14:37:35 Formatting of this n ote might be different from the original. Received a message from [facility]: "Maya patient 68 yr M dizziness, confusion, emotional, left sided chest discomfort, left arm numbness x 5 days Patient is needing to speak with a nurse for recommendations Patient disconnected the call Encounter placed" Attempted to return call to patient. He did not answer. LVM advising patient to return call to clinic. Will try back later. Hien Barraza RN [facility] 2023-05-13 14:36:32 Formatting of this n ote might be different from the original. Tahira Hunter is a 68 year old male dizziness, confusion, emotional, left sided chest discomfort, left arm numbness x 5 days Patient is needing to speak with a nurse for recommendations Safia Jasso [facility] 2023-05-01 15:00:00 Formatting of this n ote is different from the original. Images from the original note were not included. Venipuncture collection performed by clean technique on the left anticubitus. Total of 1 attempts were made. Slight pressure and a bandage/dressing were applied to the site(s). The patient experienced no complications. The following specimens were processed according to instructions and sent to [facility] laboratories per lab order on 05/01/2023 : LT BLUE SST 1 RED LAV 1 PPT DK GREEN (LiHep) DK GREEN (SodH) NATHAN DK BLUE (K2) DK BLUE (S) ACD Blood Culture NIPT/NTD Patient unable to void. Sent home with a urine collection cup Labs only from Monique Rider MD [facility] 2023-04-19 15:19:42 Formatting of this n ote might be different from the original. CARD DECORATOR evaluation approved and ready for provider signature in suture sign. Please review and sign if appropriate. Amaris Pimentel RN [facility] 2023-04-18 14:50:08 Formatting of this n ote is different from the original. Recent Visits Date Type Provider Dept 03/25/23 Office Visit Aminata Reza MD [facility] 02/05/23 Office Visit Aminata Reza MD [facility] 12/13/22 Office Visit Walter Pedroza MD [facility] 09/12/22 Office Visit Lennie Reyes FNP [facility] 08/30/22 Office Visit Aminata Reza MD [facility] 08/09/22 Office Visit Aminata Reza MD [facility] 08/01/22 Office Visit Aminata Reza MD [facility] 05/14/22 Office Visit Aminata Reza MD [facility] 03/07/22 Office Visit Aminata Reza MD [facility] 01/31/22 Office Visit Aminata Reza MD [facility] Showing recent visits within past 540 days with a meds authorizing provider and meeting all other requirements Future Appointments No visits were found meeting these conditions. Showing future appointments within next 150 days with a meds authorizing provider and meeting all other requirements Last refill was ACETAZOLAMIDE 250 mg tablet 30 tablet 0 03/22/2023 No Sig: TAKE 1 TABLET BY MOUTH EVERY DAY [facility] 2023-04-15 16:33:41 Formatting of this n ote might be different from the original. Marisol calling from [facility] to see if can write him something for his senior apartment. 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 He also isn't able to bend low enough to clean the base boards.And this causing pt stress. Can we please write a letter clearing Pt from these duties Arabella Rapp [facility] 2023-04-15 13:51:40 Formatting of this n ote might be different from the original. Received [facility] detailed report and placed in providers box. Morelia Dow [facility] 2023-04-08 13:28:14 Formatting of this n ote might be different from the original. ROBERT Comer called to inform clinic that they are re-certifying pt for home health. Call back with any questions or concerns: [phone] Kim Raines [facility]
[2024-10-15] MEDS ORDERED: LIDOCAINE 1% 20 ML MDV ONE (11:59)
[2024-10-15] MEDS ORDERED: HYDROCODONE/APAP 5/325 MG TAB ONE (11:59)
--- NOTE | 2024-10-15 12:37 | ER ---
Nurse's Notes [facility] Name: Samuel Hunter Age: 69 yrs Sex: Male : 1955 Arrival Date: 10/15/2024 Time: 11:30 Bed 19 Private MD: Diagnosis: Laceration to the right third and fourth toes Presentation: 10/15 11:30 Chief complaint: EMS states: TRIP AND FALL IN BATHROOM HURT RIGHT TOES WITH SMALL db LACERATION. BANDAGED BY [facility]. PT IS ON HOSPICE CARE FOR COPD. RECEIVED MORPHINE AT 1030. ON HOME O2 1030. Coronavirus screen: Client denies travel out of the [place] in the last 14 days. At this time, the client does not indicate any symptoms associated with coronavirus-19. Ebola Screen: Patient negative for fever greater than or equal to 101.5 degrees Fahrenheit, and additional compatible Ebola Virus Disease symptoms Patient denies exposure to infectious person. Patient denies travel to an Ebola-affected area in the 21 days before illness onset. No symptoms or risks identified at this time. Initial Sepsis Screen: Does the patient meet any 2 criteria? No. Patient's initial sepsis screen is negative. Does the patient have a suspected source of infection? No. Patient's initial sepsis screen is negative. Risk Assessment: Do you want to hurt yourself or someone else? Patient reports no desire to harm self or others. Onset of symptoms was October 15, 2024. 11:30 Method Of Arrival: EMS: [facility] db 11:30 Acuity: TWIN 3 db Triage Assessment: 11:30 General: Appears in no apparent distress. comfortable, Behavior is calm, cooperative. db Pain: Complains of pain in right foot. Neuro: Level of Consciousness is awake, alert, obeys commands, Oriented to person, place, time, situation. Respiratory: Airway is patent Respiratory effort is even, unlabored, Respiratory pattern is regular, symmetrical. Derm: Wound noted right foot. Historical: - Allergies: 11:30 sertraline HCl; db 11:30 Zyrtec; db - PMHx: 11:30 Cellulitis; COPD; Gout; insomnia; Hypertension; neuropathy; db - Immunization history:: Adult Immunizations unknown. - Infectious Disease History:: Denies. - Social history:: Smoking status: . - Family history:: not pertinent. Screenin:25 [facility] ED Fall Risk Assessment (Adult) History of falling in the last 3 months, kc6 including since admission Yes- single mechanical fall (1 pt) Confusion or Disorientation Yes (5 pts) Intoxicated or Sedated No (0 pts) Impaired Gait Yes (1 pt) Mobility Assist Device Used Yes (1 pt) Altered Elimination No (0 pt) Score/Fall Risk Level 3 or more points = High Risk Oriented to surroundings, Maintained a safe environment, Educated pt \T\ family on fall prevention, incl call for assistance when getting out of bed. Abuse screen: Denies threats or abuse. Denies injuries from another. Nutritional screening: No deficits noted. Tuberculosis screening: No symptoms or risk factors identified. Assessment: 12:23 General: Appears in no apparent distress. comfortable, well groomed, well developed, kc6 Behavior is calm, cooperative, appropriate for age. Pain: Complains of pain in right foot. Neuro: Level of Consciousness is awake, alert, obeys commands, confused, Oriented to person, place, situation, Appropriate for age. Cardiovascular: Capillary refill < 3 seconds. Respiratory: Airway is patent Trachea midline Respiratory effort is even, unlabored, Respiratory pattern is regular, symmetrical. GI: No signs and/or symptoms were reported involving the gastrointestinal system. : No signs and/or symptoms were reported regarding the genitourinary system. EENT: No signs and/or symptoms were reported regarding the EENT system. Derm: Skin is healthy with good turgor, Skin is dry, Skin is pink, warm \T\ dry. Skin temperature is warm. Musculoskeletal: No signs and/or symptoms reported regarding the musculoskeletal system. Circulation, motion, and sensation intact. Range of motion: intact in all extremities. Injury Description: Laceration sustained to right second toe and right third toe is jagged, 0.5 to 2.5 cm long, bleeding moderately, was sustained 1-2 hours ago. a small amount of bleeding noted at this time. 13:23 Reassessment: Patient appears in no apparent distress at this time. No changes from kc6 previously documented assessment. Patient and/or family updated on plan of care and expected duration. Pain level reassessed. 14:18 Reassessment: Patient appears in no apparent distress at this time. No changes from kc6 previously documented assessment. Patient and/or family updated on plan of care and expected duration. Pain level reassessed. Vital Signs: 11:30 BP 146 / 62; Pulse 54; Resp 18; Temp 98; Pulse Ox 96% on 5 lpm NC; Weight 93.89 kg (M); db Height 5 ft. 11 in. ; 11:30 BP 146 / 62 LA Supine (auto/reg); Pulse 54 LA; Resp 16 S; Pulse Ox 97% on 5 lpm NC; td1 FiO2 100 %; 14:18 BP 137 / 60; Pulse 60; Resp 15 S; Pulse Ox 100% on 5 lpm NC; kc6 11:30 Body Mass Index 28.87 (93.89 kg, 180.34 cm) db ED Course: 11:30 Arm band placed on Patient placed in an exam room. db 11:36 Patient arrived in ED. ll1 11:39 Shon Brambila MD is Attending Physician. rt 11:41 Lila Chavez, ROBERT is Primary Nurse. db 11:44 Triage completed. db 12:25 Patient has correct armband on for positive identification. Bed in low position. Call kc6 light in reach. Side rails up X2. Pulse ox on. NIBP on. Door closed. Noise minimized. Lights dimmed. Warm blanket given. Pillow given. Verbal reassurance given. 12:25 Assist provider with laceration repair on right third toe and right second toe that was kc6 between 2.6 to 7.5 cm using sutures. Set up tray. Performed by Shon Brambila MD Dressed with 4X4s, Patient tolerated well. 14:19 Patient did not have IV access during this emergency room visit. kc6 Administered Medications: 12:04 Drug: HYDROcodone-acetaminophen PO 5 mg-325 mg 1 tabs PO once Route: PO; kc6 12:52 Follow up: Response: No adverse reaction; Pain is decreased; RASS: Drowsy (-1) kc6 12:23 Drug: Lidocaine Infiltration (1 %) 20 ml 20 ml Infiltration once; to bedside Volume: 20 kc6 ml; Route: Infiltration; 12:52 Follow up: Response: No adverse reaction; Pain is decreased kc6 Medication: 14:19 VIS not applicable for this client. kc6 Outcome: 12:37 Discharge ordered by MD. rt 14:18 Discharged to skilled nursing. kc6 14:18 Condition: good 14:18 Discharge instructions given to patient, skilled nursing, Instructed on discharge instructions, follow up and referral plans. Demonstrated understanding of instructions, follow-up care, 14:19 Patient left the ED. kc6 Signatures: Guillermina Sarah RN RN ll1 Chiqui Parks RN RN kc6 Lila Chavez, RN RN db Shon Brambila MD MD rt Napoleon Mireles td1
--- NOTE | 2024-10-15 12:37 | EDPHYS ---
Physician Documentation [facility] Name: Samuel Hunter Age: 69 yrs Sex: Male : 1955 Arrival Date: 10/15/2024 Time: 11:30 Bed 19 Private MD: ED Physician Shon Brambila HPI: 10/15 12:44 This 69 yrs old Male presents to ER via EMS with complaints of Foot Injury, Fall Injury.rt 12:44 Patient presents to the ED with a laceration to the third and fourth toes of the right rt foot from a mechanical fall that occurred just prior to arrival. Denies other injury, other acute complaints, symptoms are mild in severity, no other aggravating or alleviating factors.. Historical: - Allergies: 11:30 sertraline HCl; db 11:30 Zyrtec; db - PMHx: 11:30 Cellulitis; COPD; Gout; insomnia; Hypertension; neuropathy; db - Immunization history:: Adult Immunizations unknown. - Infectious Disease History:: Denies. - Social history:: Smoking status: . - Family history:: not pertinent. ROS: 12:44 Constitutional: Negative for fever, chills, and weight loss, Cardiovascular: Negative rt for chest pain, palpitations, and edema, Respiratory: Negative for shortness of breath, cough, wheezing, and pleuritic chest pain, Abdomen/GI: Negative for abdominal pain, nausea, vomiting, diarrhea, and constipation, 12:44 MS/extremity: Positive for laceration, Negative for deformity, Exam: 12:44 Constitutional: This is a well developed, well nourished patient who is awake, alert, rt and in no acute distress. Head/Face: Normocephalic, atraumatic. Chest/axilla: Normal chest wall appearance and motion. Nontender with no deformity. No lesions are appreciated. Cardiovascular: Regular rate and rhythm with a normal S1 and S2. No gallops, murmurs, or rubs. Normal PMI, no JVD. No pulse deficits. Respiratory: Lungs have equal breath sounds bilaterally, clear to auscultation and percussion. No rales, rhonchi or wheezes noted. No increased work of breathing, no retractions or nasal flaring. Abdomen/GI: Soft, non-tender, with normal bowel sounds. No distension or tympany. No guarding or rebound. No evidence of tenderness throughout. 12:44 Musculoskeletal/extremity: There are lacerations to the plantar surface of the right third and fourth toes, one of them is about 1 cm, one of them is about 2 cm, mild bleeding.. Vital Signs: 11:30 BP 146 / 62; Pulse 54; Resp 18; Temp 98; Pulse Ox 96% on 5 lpm NC; Weight 93.89 kg (M); db Height 5 ft. 11 in. ; 11:30 BP 146 / 62 LA Supine (auto/reg); Pulse 54 LA; Resp 16 S; Pulse Ox 97% on 5 lpm NC; td1 FiO2 100 %; 14:18 BP 137 / 60; Pulse 60; Resp 15 S; Pulse Ox 100% on 5 lpm NC; kc6 11:30 Body Mass Index 28.87 (93.89 kg, 180.34 cm) db Laceration: 12:53 Wound Repair of 1cm ( 0.4in ) subcutaneous laceration to right third toe. Linear rt shaped.. Distal neuro/vascular/tendon intact. Anesthesia: Local anesthetic administered with 1 mls of 1% lidocaine. Wound prep: Copious irrigation. Skin closed with 3 4-0 chromic gut using simple sutures and sterile technique. Dressed with 4x4's. Patient tolerated well. 12:53 Wound Repair of 2cm ( 0.8in ) subcutaneous laceration to plantar aspect of right fourth rt toe. Linear shaped.. Distal neuro/vascular/tendon intact. Anesthesia: Local anesthetic administered with 1 mls of 1% lidocaine. Wound prep: Copious irrigation. Skin closed with 4 4-0 chromic gut using simple sutures and sterile technique. Dressed with 4x4's. Patient tolerated well. MDM: 11:49 Medical Screening Exam initiated rt 12:53 Differential diagnosis: laceration. Data reviewed: vital signs, nurses notes. rt Independent interpretation of the following test(s) in the Emergency Department X-Ray: My interpretation is Low suspicion for fracture, x-ray not indicated . Care significantly affected by the following chronic conditions: Chronic Obstructive Pulmonary Disease. Counseling: I had a detailed discussion with the patient and/or guardian regarding the historical points, exam findings, and any diagnostic results supporting the discharge/admit diagnosis, the need for outpatient follow up. 13:39 Response to treatment: the patient's symptoms have markedly improved after treatment. rt Administered Medications: 12:04 Drug: HYDROcodone-acetaminophen PO 5 mg-325 mg 1 tabs PO once Route: PO; kc6 12:52 Follow up: Response: No adverse reaction; Pain is decreased; RASS: Drowsy (-1) kc6 12:23 Drug: Lidocaine Infiltration (1 %) 20 ml 20 ml Infiltration once; to bedside Volume: 20 kc6 ml; Route: Infiltration; 12:52 Follow up: Response: No adverse reaction; Pain is decreased kc6 Disposition Summary: 10/15/24 12:37 Discharge Ordered Notes: Location: Home rt Problem: new rt Symptoms: have improved rt Condition: Stable rt Diagnosis - Laceration to the right third and fourth toes rt Followup: rt - With: Private Physician - When: 5 - 6 days - Reason: Discharge Instructions: - Discharge Summary Sheet rt - Laceration Care, Adult rt Forms: - Medication Reconciliation Form rt - Antibiotic Education rt - Prescription Opioid Use rt - Patient Portal Instructions rt - Leadership Thank You Letter rt - SBAR form bc6 Signatures: Chiqui Parks RN RN kc6 Lila Chavez RN RN db Shon Brambila MD MD rt
[2024-10-16 15:10] VITALS: TEMP 98
[2024-10-16 15:11] VITALS: BP 137/60; O2SAT 100
== END 2024-10-15 14:19 | disposition home or self-care (01) ==
LOC: ER 11:30
DX: S91.114A Laceration without foreign body of right lesser toe(s) without damage to nail, initial encounter (principal); W18.30XA Fall on same level, unspecified, initial encounter
CPT/HCPCS: 12042 ×2; 99284; J2003; 12001